=== PATIENT | male | born 1950 | race Caucasian/White ===

== ENCOUNTER 2017-04-22 02:48 | Emergency (ER) | payer OTHER ==
[~2017-04-22] VITALS: Ht 182.9 cm; Wt 61.3 kg
[~2017-04-22 02:48] MED LIST: FLUT0.0529 NAE; FLV1 JT; LOPELIQ6 JT; NUTRLIQ61 JT; [UNRECOGNIZED DRUG - CODE] JT
[2017-04-22 02:49] VITALS: TEMP 36.5; Ht 182.9 cm; Wt 61.3 kg
--- NOTE | 2017-04-22 03:14 | EMERGENCY ROOM VISIT NOTE ---
History Report prepared by Ella: Binh Gaona Under the Supervision of: Dr. Erica Armijo D.O. First contact with patient: 02:57 Chief Complaint: BACK PAIN Stated Complaint: SEVERE BACK PAIN History of Present Illness The patient is a 67 year old male who presents to the Emergency Room with complaints of severe lower back pain that the patient has been experiencing intermittently for the past couple of weeks. The patient states that his pain is across his entire lower back and radiates up into his rib cage. He rates this pain as a 10/10 in severity. The pain is worsened by deep inhalation, and he did feel short of breath. He notes that he did attempt to lift an air conditioner a couple of weeks ago and thought he might have hurt his back. The patient also has a history of kidney stones and notes that this pain does feel similar to what he has experienced in the past. He denies any nausea at this time. Source of History: patient Onset: a couple of weeks ago Symptom Intensity: 10/10 Timing: intermittent Modifying Factors (Worsening): other (Deep inhalation) Associated Symptoms: + SOB Note: Rib pain Review of Systems See HPI for pertinent positives & negatives. A total of 10 systems reviewed and were otherwise negative. Past Medical & Surgical Medical Problems: (1) Gall stones (2) Hiatal hernia repair (3) Jejunostomy tube present (4) Kidney stones (5) Low hemoglobin (6) Spit fistula in place Surgical Problems: (1) History of splenectomy Family History Cancer Gallbladder disease Lung cancer MOTHER ME (myocardial infarction) FATHER Social History Smoking Status: Never Smoker Alcohol Use: none Drug Use: none Marital Status: Housing Status: lives with family Occupation Status: disabled Current/Historical Medications Scheduled Enteral Nutrition Formula (Peptamen 1.5), 6 CAN JT UD Folic Acid (Folic Acid), 2 TABS JT BID Sodium Citrate & Citric Acid (Cytra-2), 30 ML JT QAM Scheduled PRN Fluticasone Propionate (Nasal) (Flonase), 1-2 SPRAYS JOSE L DAILY PRN for Nasal Congestion Loperamide Hcl (Imodium A-D), 20 ML JT DAILY PRN for PRN Oxycodone/Acetaminophen 5MG/325MG (Percocet 5MG/325MG), 1-2 TABLETS PO Q6 PRN for Pain Allergies Coded Allergies: Moxifloxacin (Verified Allergy, Unknown, Pt said he could barely walk, ) Simvastatin (Verified Allergy, Unknown, " my legs cramp up", 09/21/16) Sulfamethoxazole (Verified Allergy, Unknown, SEVERE DIARRHEA, 09/21/16) Physical Exam Vital Signs Date Time Temp Pulse Resp B/P (MAP) Pulse Ox O2 Delivery O2 Flow Rate FiO2 04/22/17 04:48 57 16 130/74 97 Room Air 04/22/17 03:27 56 04/22/17 02:49 36.5 67 18 125/79 96 Room Air Physical Exam HEENT: Head - normocephalic and atraumatic Pupils are equal, round, and reactive to light. Extraocular eye muscles are intact, and sclera are anicteric. Nose - moist nasal mucosa without discharge. Mouth - moist buccal mucosa. Oropharynx is nonerythematous and there is no tonsillar exudate or edema noted. Neck: Supple; no JVD, nuchal rigidity, cervical lymphadenopathy, or auscultated bruits. Heart: Regular rate and rhythm. There is a normal S1 and S2 with no murmurs, clicks, or gallops appreciated. Lungs: Clear to auscultation bilaterally with no wheezes, rales, or rhonchi. Abdomen: Soft, completely nontender, nondistended, with good bowel sounds. There are no palpable pulsatile masses or hepatosplenomegaly. There is no guarding, rigidity, or rebound noted. Back: There are no skin lesions noted. No reproducible pain over the midline or lumbar spine. There is no flank pain to palpation. Extremities: No evidence of cyanosis, clubbing, or edema. There are easily palpable peripheral pulses. Skin: warm and dry with good turgor and no rashes. Medical Decision & Procedures ER Provider Diagnostic Interpretation: Radiology results as stated below per my review: CHEST X-RAY: No pulmonary infiltrates, no pneumothorax. When compared to January 2015 no change. Laboratory Results 04/22/17 03:20 04/22/17 03:20 Test 04/22/17 03:20 04/22/17 04:20 Red Blood Count 3.16 M/uL (4.7-6.1) Mean Corpuscular Volume 98.7 fL (80-100) Mean Corpuscular Hemoglobin 32.3 pg (25-34) Mean Corpuscular Hemoglobin Concent 32.7 g/dl (32-36) RDW Standard Deviation 43.1 fL (36.4-46.3) RDW Coefficient of Variation 11.9 % (11.5-14.5) Mean Platelet Volume 9.8 fL (7.4-10.4) D-Dimer 310 ug/L FEU (0-500) Anion Gap 8.0 mmol/L (3-11) Est Creatinine Clear Calc Drug Dose 39.9 ml/min Estimated GFR () 51.6 Estimated GFR (Non- 44.5 BUN/Creatinine Ratio 51.3 (10-20) Calcium Level 9.0 mg/dl (8.5-10.1) Total Bilirubin 0.3 mg/dl (0.2-1) Direct Bilirubin < 0.1 mg/dl (0-0.2) Aspartate Amino Transf (AST/SGOT) 25 U/L (15-37) Alanine Aminotransferase (ALT/SGPT) 33 U/L (12-78) Alkaline Phosphatase 275 U/L (45-117) Troponin I < 0.015 ng/ml (0-0.045) Total Protein 7.2 gm/dl (6.4-8.2) Albumin 3.4 gm/dl (3.4-5.0) Lipase 159 U/L (73-393) Urine Color YELLOW Urine Appearance CLEAR (CLEAR) Urine pH 5.0 (4.5-7.5) Urine Specific [place] 1.019 (1.000-1.030) Urine Protein 3+ (NEG) Urine Glucose (UA) NEG (NEG) Urine Ketones NEG (NEG) Urine Occult Blood NEG (NEG) Urine Nitrite NEG (NEG) Urine Bilirubin NEG (NEG) Urine Urobilinogen NEG (NEG) Urine Leukocyte Esterase TRACE (NEG) Urine WBC (Auto) 1-5 /hpf (0-5) Urine RBC (Auto) 0-4 /hpf (0-4) Urine Hyaline Casts (Auto) 1-5 /lpf (0-5) Urine Epithelial Cells (Auto) 5-10 /lpf (0-5) Urine Bacteria (Auto) NEG (NEG) Laboratory results per my review. Medications Administered Medications (Trade) Dose Ordered Sig/Maame Route Start Time Stop Time Status Last Admin Dose Admin Hydromorphone HCl (Dilaudid Inj) 1 mg NOW STAT IV 04/22/17 03:21 04/22/17 03:22 DC 04/22/17 03:33 1 MG Ketorolac Tromethamine (Toradol Inj) 30 mg NOW STAT IV 04/22/17 03:21 04/22/17 03:22 DC 04/22/17 03:33 30 MG Procedure Medications Ordered: Toradol and Dilaudid ECG Indication: SOB/dyspnea Rate (beats per minute): 54 Rhythm: sinus bradycardia Findings: no acute ischemic change, no ectopy Comparison ECG Date: 08/02/16 Change: no significant change ED Course 0303: Past medical records reviewed. The patient was evaluated in room A2. A complete history and physical exam was performed. A twelve-lead EKG was obtained as described above. An IV lock was initiated and labs were drawn as above. 0321: Ordered Toradol 30 mg IV, Dilaudid 1 mg IV. A chest x-ray was obtained with no obvious pneumothorax. 0431: I checked on the patient at this time. He is much more comfortable after receiving pain medication. His vital signs remain stable. 0444: Upon reevaluation, the patient was feeling much improved. I discussed findings and results with him. He verbalized agreement of the treatment plan. The patient was discharged home. Medical Decision The patient is a 67 year old male who presents to the Emergency Department for lower back pain that radiates up through his lateral rib cage. The patient has increased pain with deep breathing. Differential Diagnosis incudes; Pneumonia, kidney stone, costochondritis, mid back pain, pulmonary embolism, cardiac ischemia. Laboratory Results were reviewed and show: no Leukocytes, he is anemic with a hemoglobin of 10.2 which is baseline for him, BUN of 82, Creatinine of 1.6, glucose of 112, LFT and lipase are normal, D-dimer is normal at 310. Urinalysis revealed trace leukocyte esterase, no blood. Blood Pressure Screening: Patient was found to have a slightly elevated blood pressure due to circumstances. I do not believe that the patient requires hypertension monitoring. I attest that I have personally reviewed the patient's current medication list. The patient's pain is diffuse. He describes similar pain when he had a kidney stone in the past. There is no blood noted in the patient's urine therefore I do not suspect a kidney stone. The patient's pain could not be reproduced on physical exam. He does describe the pain as radiating from his low back up through his rib cage bilaterally. There is no evidence of pneumothorax or PE. [place] Drug Monitoring Program Search Results: patient reviewed within database Drug Monitoring Findings: No patient data found. Impression Primary Impression: Radiating back pain Scribe Attestation The scribe's documentation has been prepared under my direction and personally reviewed by me in its entirety. I confirm that the note above accurately reflects all work, treatment, procedures, and medical decision making performed by me. Departure Information Dispostion Home / Self-Care Prescriptions Oxycodone/Acetaminophen 5MG/325MG (PERCOCET 5MG/325MG) Tab 1-2 TABLETS PO Q6 Y for Pain, #20 TAB Prov: Erica Armijo D.O. 04/22/17 Referrals Freddie Zuleta M.D. (PCP) Forms HOME CARE DOCUMENTATION FORM, IMPORTANT VISIT INFORMATION Patient Instructions My [facility] Additional Instructions Rest No heavy lifting Percocet - 1-2 tabs every 6 hours for pain Follow up with PCP if pain persists Return to the ER if symptoms worsen
[2017-04-22] MEDS ORDERED: HYDROmorphone INJ 1 MG/ML SYR IV STA (03:21)
[2017-04-22] MEDS ORDERED: KETOROLAC TROMETHAMINE 30 MG/ML VIAL IV STA (03:21)
[2017-04-22 03:36] LABS: HEMATOCRIT 31.2 % (42-52); MEAN CELL VOLUME 98.7 fL (80-100); MEAN CORPUSCULAR HEMOGLOBIN 32.3 pg (25-34); MEAN CORPUSCULAR HGB CONC 32.7 g/dl (32-36); MEAN PLATELET VOLUME 9.8 fL (7.4-10.4); PLATELET COUNT 410 K/uL (130-400); RED BLOOD COUNT 3.16 M/uL (4.7-6.1); WHITE BLOOD COUNT 9.18 K/uL (4.8-10.8)
[2017-04-22 03:55] LABS: ALT/SGPT 33 U/L (12-78); AST/SGOT 25 U/L (15-37); BLOOD UREA NITROGEN 82 mg/dl (7-18); BUN/CREATININE RATIO 51.3 (10-20); CARBON DIOXIDE 28 mmol/L (21-32); CHLORIDE 99 mmol/L (98-107); GLUCOSE 112 mg/dl (70-99); POTASSIUM 3.9 mmol/L (3.5-5.1); SODIUM 135 mmol/L (136-145)
[2017-04-22 04:00] LABS: ALKALINE PHOSPHATASE 275 U/L (45-117)
[2017-04-22 04:35] LABS: URINE APPEARANCE CLEAR (CLEAR); URINE BILIRUBIN NEG (NEG); URINE COLOR YELLOW; URINE NITRITE NEG (NEG); URINE SPECIFIC GRAVITY 1.019 (1.000-1.030); UROBILINOGEN NEG (NEG)
[2017-04-22 04:38] LABS: MANUAL MICROSCOPIC REQUIRED? NO; REVIEW REQ? NO
[2017-04-22 04:48] VITALS: BP 130/74; PULSE 57; O2SAT 97
[2017-04-22] MEDS ORDERED: OXYC-57 PO (04:52)
--- NOTE | 2017-04-22 06:57 | DIAGNOSTIC IMAGING REPORT ---
CHEST 2 VIEWS ROUTINE CLINICAL HISTORY: Bilateral rib cage pain. Shortness of breath. COMPARISON STUDY: Chest radiograph January 07, 2015. FINDINGS: There is no pneumothorax or pleural effusion. Mild left lower lung opacity suggest atelectasis. There is no evidence of pulmonary edema. There are median sternotomy wires and mediastinal surgical clips. There are abdominal clips and coils. There is a possible minimally displaced fracture of a left lateral rib, possibly the fifth rib. A small metallic density projects over the right lower chest. This is unchanged. IMPRESSION: 1. No pneumothorax. 2. Possible acute minimally displaced fracture of a left lateral rib, possibly the fifth rib. Electronically signed by: Cheng Sykes M.D. 04/22/2017 6:55 AM Dictated Date/Time: 04/22/2017 6:51 AM
[2017-07-24] MEDS ORDERED: CALC0.2510 PO (12:03)
[2017-07-24] MEDS ORDERED: VITAMIN B IM (12:03)
[2017-07-24] MEDS ORDERED: ONDA4TAB46 PO (12:03)
== END 2017-04-22 04:58 | disposition home or self-care (01) ==
LOC: C.EDB 02:49 → C.EDA 04:58
DX: M54.5 Low back pain (principal); Z87.442 Personal history of urinary calculi; Z90.81 Acquired absence of spleen; Z80.9 Family history of malignant neoplasm, unspecified; Z82.49 Family history of ischemic heart disease and other diseases of the circulatory system; Z80.1 Family history of malignant neoplasm of trachea, bronchus and lung; Z79.899 Other long term (current) drug therapy

== ENCOUNTER → 2017-04-24 | Outpatient (CLI) | payer OTHER ==
[~2017-04-24] MED LIST changes: +CALC0.2510 PO; +ONDA4TAB46 PO; +OXYC-57 PO; +VITAMIN B IM
== END | disposition home or self-care (01) ==
LOC: C.LABMFLN 15:06
PROVIDERS: ATTEND Family Medicine
DX: E55.9 Vitamin D deficiency, unspecified (principal)

== ENCOUNTER → 2017-05-15 | Outpatient (CLI) | payer OTHER ==
[2017-05-18 08:11] LABS: ALBUMIN % 67.47 %; ALPHA-2-GLOBULIN % 5.93 %; BETA GLOBULIN % 10.37 %; CREATININE UR 37 MG/DL (20-370); GAMMA GLOBULIN % 10.84 %
[2017-05-18 19:54] LABS: ALBUMIN 3.7 G/DL (3.8-4.8); GAMMA GLOBULIN 0.9 G/DL (0.8-1.7); TOTAL PROTEIN 6.8 G/DL (6.2-8.3)
== END | disposition home or self-care (01) ==
LOC: C.LABMFLN 11:33
PROVIDERS: ATTEND Family Medicine
DX: M81.0 Age-related osteoporosis without current pathological fracture (principal)

== ENCOUNTER → 2017-05-18 | Outpatient (CLI) | payer OTHER | END | disposition home or self-care (01) | LOC: C.LABMFLN 11:19 | PROVIDERS: ATTEND Family Medicine | DX: M81.0 Age-related osteoporosis without current pathological fracture (principal) ==

== ENCOUNTER 2017-10-16 20:07 | Inpatient (IN) | payer OTHER ==
[~2017-10-16] VITALS: Ht 182.9 cm; Wt 59.0 kg
[~2017-10-16 20:07] MED LIST changes: -OXYC-57 PO
[2017-10-16] MEDS ORDERED: SODIUM CHLORIDE 0.9% 1000ML 1,000 ML IV STA ×2 (20:25→20:37)
[2017-10-16] MEDS ORDERED: SODIUM CHLORIDE 0.9% 500ML 500 ML IV STA (20:37)
[2017-10-16] MEDS ORDERED: ONDANSETRON INJ 2 MG/ML 2 ML VIAL IV STA (20:37)
[2017-10-16 20:59] LABS: BASO % 0.1 %; BASO ABS # 0.01 K/uL (0-0.2); COMPLETE YES; EOS % 0.6 %; HEMATOCRIT 37.1 % (42-52); IG% 0.2 %; LYMPH ABS # 1.19 K/uL (1.2-3.4); MEAN CELL VOLUME 94.2 fL (80-100); MEAN CORPUSCULAR HEMOGLOBIN 33.8 pg (25-34); MEAN CORPUSCULAR HGB CONC 35.8 g/dl (32-36); MEAN PLATELET VOLUME 11.2 fL (7.4-10.4); MONO % 8.4 %; NEUT % 78.7 %; PLATELET COUNT 326 K/uL (130-400); RED BLOOD COUNT 3.94 M/uL (4.7-6.1); WHITE BLOOD COUNT 9.91 K/uL (4.8-10.8)
--- NOTE | 2017-10-16 21:09 | DIAGNOSTIC IMAGING REPORT ---
CHEST ONE VIEW PORTABLE CLINICAL HISTORY: 67 years-old Male presenting with wheezes, prior gastrectomy, fistula MARY chest.. TECHNIQUE: Portable upright AP view of the chest was obtained. COMPARISON: 04/22/2017. FINDINGS: Median sternotomy wires and mediastinal surgical clips unchanged. Atherosclerosis of aortic arch. Chronic silhouette top normal in size. Blunting of the left costophrenic angle with likely left pleural fluid increased from prior. Left basilar opacity. Right lung and pleural space clear. Osseous structures normal. Endovascular coils noted in the upper abdomen. IMPRESSION: 1. Blunting of the left hemidiaphragm could relate to left pleural effusion and basilar atelectasis, postsurgical change, or consolidation. No other focal infiltrate. Electronically signed by: Jah Wilde M.D. 10/16/2017 9:08 PM Dictated Date/Time: 10/16/2017 9:06 PM
[2017-10-16 21:19] LABS: MANUAL MICROSCOPIC REQUIRED? NO; REVIEW REQ? NO; URINE APPEARANCE CLEAR (CLEAR); URINE BILIRUBIN NEG (NEG); URINE COLOR YELLOW; URINE NITRITE NEG (NEG); URINE SPECIFIC GRAVITY 1.013 (1.000-1.030); UROBILINOGEN NEG (NEG); ZZUR CULT IF INDIC CLEAN CATCH NO
--- NOTE | 2017-10-16 21:30 | DIAGNOSTIC IMAGING REPORT ---
ABD/PELVIS NO IV OR ORAL CONT CLINICAL HISTORY: 67 years-old Male presenting with nausea, h/o of gastrectomy. TECHNIQUE: Multidetector CT of the abdomen and pelvis was performed without the use of intravenous contrast. IV contrast: None. A dose lowering technique was used consistent with the principles of ALARA (as low as reasonably achievable). COMPARISON: 09/24/15. CT DOSE (mGy.cm): The estimated cumulative dose is 277.50 mGy.cm. FINDINGS: Tool Trouble Shooter topogram: Pigtail drain projects over the left midabdomen. Endovascular coils noted in the abdomen. Lung bases: Minimal dependent bandlike opacities, reticulation and punctate calcification, possible scarring and/or chronic aspiration. Obstruction of several subsegmental airways of fluid with debris or mucus. Aortic valve calcification. Normal heart size. No pericardial or pleural effusion. Liver: Normal morphology. Normal density. Endovascular coils noted within the inferior right hepatic lobe indicating prior intervention. Biliary: Suggestion of mild diffuse intrahepatic biliary ductal dilatation. Gallbladder contains gallstones. Pancreas: Moderate parenchymal atrophy. Spleen: Surgically absent. Adrenal glands: Normal noncontrast appearance. Kidneys and ureters: Normal noncontrast appearance. No nephrolithiasis. No hydronephrosis. Normal ureters. Bladder: Mild diffuse circumferential bladder wall thickening. Pelvic organs: Prostate enlargement likely secondary to benign prostatic hyperplasia. Bowel: Diverticulosis of the sigmoid colon. The appendix is normal. No bowel obstruction. Postsurgical changes of gastrectomy. A jejunostomy tube is in place in the left abdomen. Additionally, there are 2 widely patent small bowel anastomosis in the left mid abdomen. Peritoneal cavity: No free fluid or intraperitoneal gas. Lymph nodes: Prominent aortocaval lymph node measures 7 mm in the short axis (series 3 image 135). No pathologically enlarged lymph nodes by CT size criteria. Vasculature: Atherosclerosis of the normal caliber abdominal aorta. Abdominal wall: Postsurgical changes of the midline ventral abdominal wall. Musculoskeletal: Evidence of age indeterminate fractures of several anterolateral right ribs. IMPRESSION: 1. Postsurgical changes of gastrectomy with two grossly patent small bowel anastomoses in the left midabdomen. Jejunostomy tube in place. No bowel obstruction or complication is evident allowing for noncontrast technique. 2. Findings suggest chronic bladder outlet obstruction secondary to prostatic megaly. Electronically signed by: Jah Wilde M.D. 10/16/2017 9:28 PM Dictated Date/Time: 10/16/2017 9:19 PM
[2017-10-16 21:41] LABS: ALKALINE PHOSPHATASE 356 U/L (45-117); ALT/SGPT 165 U/L (12-78); AST/SGOT 118 U/L (15-37); BLOOD UREA NITROGEN 124 mg/dl (7-18); BUN/CREATININE RATIO 48.4 (10-20); CALCIUM 8.2 mg/dl (8.5-10.1); CARBON DIOXIDE 40 mmol/L (21-32); CHLORIDE 68 mmol/L (98-107); CREATININE 2.57 mg/dl (0.60-1.40); GLUCOSE 133 mg/dl (70-99); POTASSIUM 2.8 mmol/L (3.5-5.1); SODIUM 118 mmol/L (136-145)
[2017-10-16] MEDS ORDERED: POTASSIUM CHLORIDE 10 MEQ / 100ML WTR IV STA (21:52)
[2017-10-16] MEDS ORDERED: FOLI1TAB8 PO (22:31)
[2017-10-16] MEDS ORDERED: LOPELIQ6 PO (22:31)
[2017-10-16] MEDS ORDERED: CYTRA 2 (22:31)
[2017-10-16] MEDS ORDERED: CALC1CAP36 PO (22:31)
[2017-10-16] MEDS ORDERED: [UNRECOGNIZED DRUG - CODE] JT (22:31)
[2017-10-16] MEDS ORDERED: NUTR-673 PO (22:31)
[2017-10-16] MEDS ORDERED: FLUT0.15 NAE (22:31)
[2017-10-16] MEDS ORDERED: ONDA4TAB10 SL (22:31)
[2017-10-16] MEDS ORDERED: CYNI1000 IM (22:31)
[2017-10-16] MEDS ORDERED: [UNRECOGNIZED DRUG - CODE] IV (22:31)
[2017-10-17] VITALS (8 sets, daily range): BP systolic 103–127; BP diastolic 68–77; PULSE 62–73; TEMP 36.5–37; O2SAT 95–98; Ht 182.9 cm; Wt 59.0 kg
[2017-10-17] MEDS ORDERED: MAGNESIUM HYDROXIDE SUSP 30 ML UDC PO PRN (00:15)
[2017-10-17] MEDS ORDERED: LOPERAMIDE LIQUID 1MG/7.5ML 120ML BTL PO PRN (00:15)
[2017-10-17] MEDS ORDERED: POLYETHYLENE (MIRALAX) 17 GM PACK PO PRN (00:15)
[2017-10-17] MEDS ORDERED: ALUMINUM/MAGNESIUM/SIMETH (MAALOX MAX) 30 ML UDC PO PRN (00:15)
[2017-10-17] MEDS ORDERED: ONDANSETRON INJ 2 MG/ML 2 ML VIAL IV PRN (00:15)
[2017-10-17] MEDS ORDERED: COPPER IV SCH (00:15)
[2017-10-17] MEDS ORDERED: ZINC IV SCH (00:15)
[2017-10-17] MEDS ORDERED: FLUTICASONE PROPIONATE NA SPR 16 GM BTL NAE PRN (00:15)
[2017-10-17] MEDS ORDERED: MANGANESE IV SCH (00:15)
[2017-10-17] MEDS ORDERED: [UNRECOGNIZED DRUG - OTHER] IV SCH (00:15)
[2017-10-17] MEDS ORDERED: SELENIUM IV SCH (00:15)
[2017-10-17] MEDS ORDERED: POTASSIUM CHLORIDE 20 MEQ TABCR PO STA (00:32)
[2017-10-17] MEDS ORDERED: SODIUM CHLORIDE 0.9% IRRIG 1,000 ML PLCT IR SCH (01:00)
--- NOTE | 2017-10-17 01:45 | EMERGENCY ROOM VISIT NOTE ---
History Report prepared by Ella: Aisha Yanez Under the Supervision of: Dr. Madi Servin M.D. First contact with patient: 20:18 Chief Complaint: ABDOMINAL PAIN Stated Complaint: WEAKNESS, NAUSEA History of Present Illness The patient is a 67 year old male who presents to the Emergency Room with complaints of worsening abdominal pain starting five days ago. He states that it became worse today. He states that the pain is a burning sensation. The patient reports that he feels fatigued. He states that he went to the bathroom and felt his strength leave him. He reports that he felt like he was going to pass out, but was too weak to even call for help from his . The patient currently rates his pain as a 5/10 in severity. The patient complains of drainage from near his tube, urinary frequency, wheezing, diarrhea, and nausea. He states that the drainage is not from the tube and is not normal, but has been present since the tube was replaced. He states that today was the first time that he defecated in four days and that the urinary frequency has been normal since his surgery mess up. The patient states that he had gone into [place] for a repair of a hiatal hernia that left him without his stomach and no one knows how or why. He reports that he spent 6 months in ICU and had to relearn to walk again. He reports that in the past when he was weak he was anemic and required blood transfusions. The patient states that he intakes nothing by mouth, but notes that he takes 300 ml of water every 3 hours through his tube. Pt denies LOC, headache, fevers, chills, diaphoresis, visual changes, neck pain , chest pain, breathing difficulties, vomiting, back pain, melena, hematochezia , numbness, lymphadenopathy, rash, or other complaints. Source of History: patient Onset: five days ago Position: abdomen Symptom Intensity: 5/10 Quality: burning Timing: worsening Associated Symptoms: + nausea, + diarrhea, + urinary symptoms Note: The patient complains of drainage near his tube and wheezing. Review of Systems See HPI for pertinent positives and negatives. A total of ten systems were reviewed and were otherwise negative. Past Medical & Surgical Medical Problems: (1) HAYLEY (acute kidney injury) (2) Gall stones (3) Hiatal hernia repair (4) Hyponatremia (5) Jejunostomy tube present (6) Kidney stones (7) Low hemoglobin (8) Spit fistula in place Surgical Problems: (1) History of splenectomy Family History Cancer Gallbladder disease Lung cancer MOTHER [place] (myocardial infarction) FATHER Social History Smoking Status: Never Smoker Alcohol Use: none Drug Use: none Marital Status: Housing Status: lives with family Occupation Status: disabled Current/Historical Medications Scheduled Calcitriol (Calcitriol), 0.25 MCG PO BID Cyanocobalamin (Cyanocobalamin), 1 DOSE IM MONTHLY Distilled Water (Distilled Water), 300 ML JT Q3HRS Enteral Nutrition Formula (Jevity 1.5 Bart), 1 CAN PO UD Folic Acid (Folvite), 1 MG PO AMPM Trace Minerals (Iv-Jv-Fc-Se-Zn (Multitrace-5 Concentrate), 1 UNIT IV 3XWK [Cytra 2 ], 15 ML QAM Scheduled PRN Fluticasone Propionate (Nasal) (Flonase Allergy Relief), 1-2 SPRAYS JOSE L DAILY PRN for ALLERGIES Loperamide Hcl (Imodium A-D), 20 ML PO Q6 PRN for Diarrhea Ondasetron Odt (Zofran Odt), 4 MG SL TID PRN for Nausea Allergies Coded Allergies: Moxifloxacin (Verified Allergy, Unknown, Pt said he could barely walk, ) Simvastatin (Verified Allergy, Unknown, " my legs cramp up", 10/16/17) Sulfamethoxazole (Verified Allergy, Unknown, SEVERE DIARRHEA, 10/16/17) Oxycodone (Verified Adverse Reaction, Unknown, NAUSEA, 10/16/17) Tramadol (Verified Adverse Reaction, Unknown, NAUSEA, 10/16/17) Physical Exam Vital Signs Date Time Temp Pulse Resp B/P (MAP) Pulse Ox O2 Delivery O2 Flow Rate FiO2 10/17/17 01:15 75 18 109/68 98 10/17/17 00:26 69 18 112/70 97 Room Air 10/17/17 00:11 87 10/16/17 22:31 85 18 126/75 98 Room Air 10/16/17 20:37 73 10/16/17 20:11 36.5 85 18 118/80 94 Room Air Physical Exam GENERAL: Awake, alert, frail-appearing, in no distress HENT: Normocephalic, atraumatic. Oropharynx unremarkable. EYES: Normal conjunctiva. Sclera non-icteric. NECK: Supple. No nuchal rigidity. FROM. No JVD. RESPIRATORY: Clear to auscultation. CARDIAC: Regular rate, normal rhythm. Extremities warm and well perfused. Pulses equal. ABDOMEN: Soft, non-distended. No tenderness to palpation. No rebound or guarding. No masses. J tube in LUQ. RECTAL: Deferred. MUSCULOSKELETAL: Chest examination reveals no tenderness. Fistula in left upper chest. The back is symmetrical on inspection without obvious abnormality. There is no CVA tenderness to palpation. No joint edema. LOWER EXTREMITIES: Calves are equal size bilaterally and non-tender. No edema. No discoloration. NEURO: Normal sensorium. No sensory or motor deficits noted. SKIN: No rash or jaundice noted. Medical Decision & Procedures ER Provider Diagnostic Interpretation: Radiology results as stated below per my review and radiologist interpretation: CHEST ONE VIEW PORTABLE CLINICAL HISTORY: 67 years-old Male presenting with wheezes, prior gastrectomy, fistula MARY chest.. TECHNIQUE: Portable upright AP view of the chest was obtained. COMPARISON: 04/22/2017. FINDINGS: Median sternotomy wires and mediastinal surgical clips unchanged. Atherosclerosis of aortic arch. Chronic silhouette top normal in size. Blunting of the left costophrenic angle with likely left pleural fluid increased from prior. Left basilar opacity. Right lung and pleural space clear. Osseous structures normal. Endovascular coils noted in the upper abdomen. IMPRESSION: 1. Blunting of the left hemidiaphragm could relate to left pleural effusion and basilar atelectasis, postsurgical change, or consolidation. No other focal infiltrate. Electronically signed by: Jah Wilde M.D. 10/16/2017 9:08 PM Dictated Date/Time: 10/16/2017 9:06 PM ABD/PELVIS NO IV OR ORAL CONT CLINICAL HISTORY: 67 years-old Male presenting with nausea, h/o of gastrectomy. TECHNIQUE: Multidetector CT of the abdomen and pelvis was performed without the use of intravenous contrast. IV contrast: None. A dose lowering technique was used consistent with the principles of ALARA (as low as reasonably achievable). COMPARISON: 09/24/15. CT DOSE (mGy.cm): The estimated cumulative dose is 277.50 mGy.cm. FINDINGS: Chief Business Development Officer topogram: Pigtail drain projects over the left midabdomen. Endovascular coils noted in the abdomen. Lung bases: Minimal dependent bandlike opacities, reticulation and punctate calcification, possible scarring and/or chronic aspiration. Obstruction of several subsegmental airways of fluid with debris or mucus. Aortic valve calcification. Normal heart size. No pericardial or pleural effusion. Liver: Normal morphology. Normal density. Endovascular coils noted within the inferior right hepatic lobe indicating prior intervention. Biliary: Suggestion of mild diffuse intrahepatic biliary ductal dilatation. Gallbladder contains gallstones. Pancreas: Moderate parenchymal atrophy. Spleen: Surgically absent. Adrenal glands: Normal noncontrast appearance. Kidneys and ureters: Normal noncontrast appearance. No nephrolithiasis. No hydronephrosis. Normal ureters. Bladder: Mild diffuse circumferential bladder wall thickening. Pelvic organs: Prostate enlargement likely secondary to benign prostatic hyperplasia. Bowel: Diverticulosis of the sigmoid colon. The appendix is normal. No bowel obstruction. Postsurgical changes of gastrectomy. A jejunostomy tube is in place in the left abdomen. Additionally, there are 2 widely patent small bowel anastomosis in the left mid abdomen. Peritoneal cavity: No free fluid or intraperitoneal gas. Lymph nodes: Prominent aortocaval lymph node measures 7 mm in the short axis (series 3 image 135). No pathologically enlarged lymph nodes by CT size criteria. Vasculature: Atherosclerosis of the normal caliber abdominal aorta. Abdominal wall: Postsurgical changes of the midline ventral abdominal wall. Musculoskeletal: Evidence of age indeterminate fractures of several anterolateral right ribs. IMPRESSION: 1. Postsurgical changes of gastrectomy with two grossly patent small bowel anastomoses in the left midabdomen. Jejunostomy tube in place. No bowel obstruction or complication is evident allowing for noncontrast technique. 2. Findings suggest chronic bladder outlet obstruction secondary to prostatic megaly. Electronically signed by: Jah Wilde M.D. 10/16/2017 9:28 PM Dictated Date/Time: 10/16/2017 9:19 PM Laboratory Results 10/16/17 20:47 Red Blood Count 3.94, Mean Corpuscular Volume 94.2, Mean Corpuscular Hemoglobin 33.8, Mean Corpuscular Hemoglobin Concent 35.8, Mean Platelet Volume 11.2, Neutrophils (%) (Auto) 78.7, Lymphocytes (%) (Auto) 12.0, Monocytes (%) (Auto) 8.4, Eosinophils (%) (Auto) 0.6, Basophils (%) (Auto) 0.1, Neutrophils # (Auto) 7.80, Lymphocytes # (Auto) 1.19, Monocytes # (Auto) 0.83, Eosinophils # (Auto) 0.06, Basophils # (Auto) 0.01 10/16/17 20:47 Test 10/16/17 20:47 10/16/17 21:04 White Blood Count 9.91 K/uL (4.8-10.8) Red Blood Count 3.94 M/uL (4.7-6.1) Hemoglobin 13.3 g/dL (14.0-18.0) Hematocrit 37.1 % (42-52) Mean Corpuscular Volume 94.2 fL (80-100) Mean Corpuscular Hemoglobin 33.8 pg (25-34) Mean Corpuscular Hemoglobin Concent 35.8 g/dl (32-36) Platelet Count 326 K/uL (130-400) Mean Platelet Volume 11.2 fL (7.4-10.4) Neutrophils (%) (Auto) 78.7 % Lymphocytes (%) (Auto) 12.0 % Monocytes (%) (Auto) 8.4 % Eosinophils (%) (Auto) 0.6 % Basophils (%) (Auto) 0.1 % Neutrophils # (Auto) 7.80 K/uL (1.4-6.5) Lymphocytes # (Auto) 1.19 K/uL (1.2-3.4) Monocytes # (Auto) 0.83 K/uL (0.11-0.59) Eosinophils # (Auto) 0.06 K/uL (0-0.5) Basophils # (Auto) 0.01 K/uL (0-0.2) RDW Standard Deviation 39.7 fL (36.4-46.3) RDW Coefficient of Variation 11.6 % (11.5-14.5) Immature Granulocyte % (Auto) 0.2 % Immature Granulocyte # (Auto) 0.02 K/uL (0.00-0.02) Anion Gap 10.0 mmol/L (3-11) Est Creatinine Clear Calc Drug Dose 19.9 ml/min Estimated GFR () 29.1 Estimated GFR (Non- 25.1 BUN/Creatinine Ratio 48.4 (10-20) Osmolality 298 mOsm/kg (280-300) Calcium Level 8.2 mg/dl (8.5-10.1) Total Bilirubin 0.5 mg/dl (0.2-1) Direct Bilirubin 0.2 mg/dl (0-0.2) Aspartate Amino Transf (AST/SGOT) 118 U/L (15-37) Alanine Aminotransferase (ALT/SGPT) 165 U/L (12-78) Alkaline Phosphatase 356 U/L (45-117) Troponin I < 0.015 ng/ml (0-0.045) Total Protein 8.4 gm/dl (6.4-8.2) Albumin 3.7 gm/dl (3.4-5.0) Lipase 327 U/L (73-393) Urine Color YELLOW Urine Appearance CLEAR (CLEAR) Urine pH 7.0 (4.5-7.5) Urine Specific [place] 1.013 (1.000-1.030) Urine Protein 3+ (NEG) Urine Glucose (UA) NEG (NEG) Urine Ketones NEG (NEG) Urine Occult Blood NEG (NEG) Urine Nitrite NEG (NEG) Urine Bilirubin NEG (NEG) Urine Urobilinogen NEG (NEG) Urine Leukocyte Esterase NEG (NEG) Urine WBC (Auto) 1-5 /hpf (0-5) Urine RBC (Auto) 0-4 /hpf (0-4) Urine Hyaline Casts (Auto) 0 /lpf (0-5) Urine Epithelial Cells (Auto) 5-10 /lpf (0-5) Urine Bacteria (Auto) NEG (NEG) Laboratory results reviewed by me Medications Administered Medications (Trade) Dose Ordered Sig/Maame Route Start Time Stop Time Status Last Admin Dose Admin Sodium Chloride 1,000 ml @ 125 mls/hr Q8H STAT IV 10/16/17 20:25 10/17/17 04:24 10/16/17 20:56 125 MLS/HR Ondansetron HCl (Zofran Inj) 4 mg NOW STAT IV 10/16/17 20:37 10/16/17 20:39 DC 10/16/17 20:51 4 MG Sodium Chloride 500 ml @ 999 mls/hr Q31M STAT IV 10/16/17 20:37 10/16/17 21:07 DC 10/16/17 20:53 999 MLS/HR Potassium Chloride (Kcl 10 Meq / Wtr) 10 meq NOW STAT IV 10/16/17 21:52 10/16/17 21:54 DC 10/16/17 22:31 10 MEQ ECG Indication: weakness Rate (beats per minute): 80 Rhythm: sinus rhythm Findings: PAC, no acute ischemic change, other (nonspecific IVCV delay) ED Course 2024: Ordered NSS 1000 ml @ 125 ml/hr IV. 2035: The patient was evaluated in room B5. A complete history and physical exam was performed. 2036: Ordered NSS 500 ml @ 999 mls/hr IV, Zofran Inj 4 mg IV. 2147: I reevaluated the patient and updated him on his test results. 2151: Ordered Potassium Chloride 10 meq IV. 2209: Discussed the patient's case with Dr. Dennis. The patient will be evaluated for further treatment and disposition. Medical Decision Prior records/ancillary studies reviewed and summarized above. Nursing notes reviewed and agree them. Additional history obtained from his . The patient's history was concerning for weakness. Differential diagnosis: Etiologies such as metabolic, infection, hypo/hyperglycemia, electrolyte abnormalities, cardiac sources, intracerebral event, toxicologic, neurologic, intra-abdominal sources, as well as others were entertained. Physical examination: As above. ER treatment provided: IV Lock IV NSS IV Zofran IV potassium On reassessment the patient felt better. Diagnostics interpretation by me: ECG: No acute ischemia. The labs revealed an unremarkable CBC. Chemistry panel revealed significant hyponatremia and hypokalemia. Patient had acute kidney injury as well. Imaging studies: CT scan and CXR as above. The patient has significant left alone abnormalities and will need to be admitted. Consultation: A consultation was placed with the hospitalist. The case was discussed and diagnostics were reviewed. The patient was evaluated in the ER for further treatment. Medication Reconcilliation Current Medication List: was personally reviewed by me Blood Pressure Screening Patient's blood pressure: Normal blood pressure Will be further monitored by hospitalist. Consults Time Called: 2204 Consulting Physician: Dr. Dennis- Hospitalist Returned Call: 2209 Discussed the patient's case with Dr. Dennis. The patient will be evaluated for further treatment and disposition. Impression Primary Impression: Hyponatremia Additional Impressions: Hypokalemia Acute kidney injury Elevated LFTs Scribe Attestation The scribe's documentation has been prepared under my direction and personally reviewed by me in its entirety. I confirm that the note above accurately reflects all work, treatment, procedures, and medical decision making performed by me. Departure Information Dispostion Being Evaluated By Hospitalist Referrals No Doctor, Assigned (PCP) Patient Instructions My [facility] Problem Qualifiers
[2017-10-17] MEDS ORDERED: SODIUM CHLORIDE 0.9% 1000ML 1,000 ML IV SCH (03:30)
[2017-10-17 04:24] LABS: BUN/CREATININE RATIO 43.5 (10-20); CALCIUM 8.1 mg/dl (8.5-10.1); CREATININE 2.52 mg/dl (0.60-1.40); POTASSIUM 2.4 mmol/L (3.5-5.1)
--- NOTE | 2017-10-17 04:26 | History and Physical ---
History & Physical Date & Time of Service: Oct 17, 2017 at 04:10 Chief Complaint: Hayley, Hyponatremia Primary Care Physician: Freddie Zuleta M.D. History of Present Illness Source: patient, hospital records This is a 67 y/o M who presents with diarrhea and weakness x 5 days. He reports having taken Azithromycin early last week. The diarrhea started a few days later. He does not report a foul odor and has about 5 episodes a day. Currently he feels extremely fatigued and almost felt like passing out. He also complains of some abdominal pain. Pain is currently 6/10. He also reports increased drainage near his J tube. He reportedly underwent a hiatal hernia repair a few years ago that was complicated and he ended up losing his stomach. He currently has a J tube and a spit fistula. He takes in 300 ml every 3 hours through the tube He also take Jevity 6.5 times a day. His is in the room and reports that he has not been confused or disoriented. Past Medical/Surgical History Medical Problems: (1) Gall stones Status: Chronic (2) Hiatal hernia repair Status: Resolved (3) Jejunostomy tube present Status: Chronic (4) Kidney stones Status: Chronic (5) Spit fistula in place Status: Chronic Surgical Problems: (1) History of splenectomy Status: Resolved Family History Cancer Gallbladder disease Lung cancer MOTHER [place] (myocardial infarction) FATHER Social History Smoking Status: Never Smoker Smokeless Tobacco Use: No Alcohol Use: none Drug Use: none Marital Status: Housing status: lives with family Occupational Status: disabled Immunizations History of Influenza Vaccine: Yes History of Tetanus Vaccine?: Yes History of Pneumococcal: Yes History of Hepatitis B Vaccine: No Multi-Drug Resistant Organisms History of MDRO: No Allergies Coded Allergies: Moxifloxacin (Verified Allergy, Unknown, Pt said he could barely walk, ) Simvastatin (Verified Allergy, Unknown, " my legs cramp up", 10/16/17) Sulfamethoxazole (Verified Allergy, Unknown, SEVERE DIARRHEA, 10/16/17) Oxycodone (Verified Adverse Reaction, Unknown, NAUSEA, 10/16/17) Tramadol (Verified Adverse Reaction, Unknown, NAUSEA, 10/16/17) Home Medications Scheduled Calcitriol (Calcitriol), 0.25 MCG PO BID Cyanocobalamin (Cyanocobalamin), 1 DOSE IM MONTHLY Distilled Water (Distilled Water), 300 ML JT Q3HRS Enteral Nutrition Formula (Jevity 1.5 Bart), 1 CAN PO UD Folic Acid (Folvite), 1 MG PO AMPM Trace Minerals (Fl-Mc-Jc-Se-Zn (Multitrace-5 Concentrate), 1 UNIT IV 3XWK [Cytra 2 ], 15 ML QAM Scheduled PRN Fluticasone Propionate (Nasal) (Flonase Allergy Relief), 1-2 SPRAYS JOSE L DAILY PRN for ALLERGIES Loperamide Hcl (Imodium A-D), 20 ML PO Q6 PRN for Diarrhea Ondasetron Odt (Zofran Odt), 4 MG SL TID PRN for Nausea Review of Systems Constitutional: No fever, No chills Eyes: No worsening of vision Respiratory: No cough, No sputum, No wheezing, No shortness of breath, No dyspnea on exertion, No dyspnea at rest Cardiovascular: No chest pain Abdomen: + pain, + nausea, + diarrhea Genitourinary - Male: No hematuria, No dysuria, No urinary frequency Physical Exam Vital Signs Date Time Temp Pulse Resp B/P (MAP) Pulse Ox O2 Delivery O2 Flow Rate FiO2 10/17/17 03:22 36.8 73 18 127/71 (89) 96 Room Air 10/17/17 02:50 36.5 18 109/68 97 Room Air 10/17/17 01:15 75 18 109/68 98 10/17/17 00:26 69 18 112/70 97 Room Air 10/17/17 00:11 87 10/16/17 22:31 85 18 126/75 98 Room Air 10/16/17 20:37 73 10/16/17 20:11 36.5 85 18 118/80 94 Room Air General Appearance: no apparent distress Eyes: PERRL, EOMI Neck: supple, thyroid normal, no JVD Respiratory/Chest: lungs clear, normal breath sounds, no respiratory distress, no accessory muscle use Cardiovascular: regular rate, rhythm, no edema, + pertinent finding (spit fistula left upper chest) Abdomen/GI: normal bowel sounds, non tender, soft, + pertinent finding (J tube in place, yellowish drainage noted around dressing) Extremities/Musculoskelatal: normal inspection, no pedal edema Neurologic/Psych: no motor/sensory deficits, alert, oriented x 3 Diagnostics Laboratory Results Results Past 24 Hours Test 10/16/17 20:47 10/16/17 21:04 10/17/17 02:53 10/17/17 03:51 Range/Units White Blood Count 9.91 4.8-10.8 K/uL Red Blood Count 3.94 4.7-6.1 M/uL Hemoglobin 13.3 14.0-18.0 g/dL Hematocrit 37.1 42-52 % Mean Corpuscular Volume 94.2 80-100 fL Mean Corpuscular Hemoglobin 33.8 25-34 pg Mean Corpuscular Hemoglobin Concent 35.8 32-36 g/dl Platelet Count 326 130-400 K/uL Mean Platelet Volume 11.2 7.4-10.4 fL Neutrophils (%) (Auto) 78.7 % Lymphocytes (%) (Auto) 12.0 % Monocytes (%) (Auto) 8.4 % Eosinophils (%) (Auto) 0.6 % Basophils (%) (Auto) 0.1 % Neutrophils # (Auto) 7.80 1.4-6.5 K/uL Lymphocytes # (Auto) 1.19 1.2-3.4 K/uL Monocytes # (Auto) 0.83 0.11-0.59 K/uL Eosinophils # (Auto) 0.06 0-0.5 K/uL Basophils # (Auto) 0.01 0-0.2 K/uL RDW Standard Deviation 39.7 36.4-46.3 fL RDW Coefficient of Variation 11.6 11.5-14.5 % Immature Granulocyte % (Auto) 0.2 % Immature Granulocyte # (Auto) 0.02 0.00-0.02 K/uL Sodium Level 118 136-145 mmol/L Potassium Level 2.8 3.5-5.1 mmol/L Chloride Level 68 98-107 mmol/L Carbon Dioxide Level 40 21-32 mmol/L Anion Gap 10.0 3-11 mmol/L Blood Urea Nitrogen 124 7-18 mg/dl Creatinine 2.57 0.60-1.40 mg/dl Est Creatinine Clear Calc Drug Dose 19.9 ml/min Estimated GFR () 29.1 Estimated GFR (Non- 25.1 BUN/Creatinine Ratio 48.4 10-20 Random Glucose 133 70-99 mg/dl Osmolality 298 280-300 mOsm/kg Calcium Level 8.2 8.5-10.1 mg/dl Total Bilirubin 0.5 0.2-1 mg/dl Direct Bilirubin 0.2 0-0.2 mg/dl Aspartate Amino Transf (AST/SGOT) 118 15-37 U/L Alanine Aminotransferase (ALT/SGPT) 165 12-78 U/L Alkaline Phosphatase 356 45-117 U/L Troponin I < 0.015 0-0.045 ng/ml Total Protein 8.4 6.4-8.2 gm/dl Albumin 3.7 3.4-5.0 gm/dl Lipase 327 73-393 U/L Urine Color YELLOW Urine Appearance CLEAR CLEAR Urine pH 7.0 4.5-7.5 Urine Specific [place] 1.013 1.000-1.030 Urine Protein 3+ NEG Urine Glucose (UA) NEG NEG Urine Ketones NEG NEG Urine Occult Blood NEG NEG Urine Nitrite NEG NEG Urine Bilirubin NEG NEG Urine Urobilinogen NEG NEG Urine Leukocyte Esterase NEG NEG Urine WBC (Auto) 1-5 0-5 /hpf Urine RBC (Auto) 0-4 0-4 /hpf Urine Hyaline Casts (Auto) 0 0-5 /lpf Urine Epithelial Cells (Auto) 5-10 0-5 /lpf Urine Bacteria (Auto) NEG NEG Bedside Glucose 114 70-99 mg/dl Impression Assessment and Plan This is a 67 y/o M who presents with Weakness, diarrhea x 1 week Hyponatremia Mild symptoms Likely 2/2 to water intake 300 ml every 3 hrs Check serum osm/urine osm NSS Trend BMP q4h Hypokalemia PO Potassium Limit IV K due to renal function HAYLEY on CKD IVFs Enteral nutrition Jevity Reduce water intake to 150 ml q 3 hr Attending addendum: I have physically seen this patient, have supervised the medical residents activities, and agree with the H&P unless as otherwise noted. Assessment and Plan: Hyponatremia/hypokalemia/HAYLEY on CKD-- Check serum osmolality and urine osmolality Place on normal saline IV fluids Oral potassium supplementation reduce his 300 ML to 150 ML's every 3 hours water flush through jejunostomy tube. BMP and magnesium levels at 4 intervals until stabilized Continue Jevity and usual supplements Diarrhea-- check stool for C. difficile Treat with vancomycin liquid if positive Level of Care Telemetry Advanced Directives Existing Advance Directive: No Existing Living Will: Yes Existing Power of Spin Table Operator: No VTE Prophylaxis VTE Risk Assessment Done? Y/N: Yes Risk Level: Moderate Given or contraindicated: SCD's Social Service Consult None Apply
[2017-10-17] MEDS: POTASSIUM CHLR 10 MEQ / WTR 10 MEQ in PREMIXED WATER 100 ML IV SCH ×2 (04:37→06:03)
[2017-10-17] MEDS ORDERED: POTASSIUM CHLORIDE 20 MEQ/15 ML UDC JT ONE (05:34)
[2017-10-17] MEDS: TUBE FEEDING WATER FLUSH JT SCH ×4 (06:03→17:00)
[2017-10-17 07:03] LABS: PROTHROMBIN TIME (PATIENT) 10.5 SECONDS (9.0-12.0)
[2017-10-17 07:25] LABS: CREATININE 2.47 mg/dl (0.60-1.40)
[2017-10-17 07:26] LABS: BUN/CREATININE RATIO 44.4 (10-20); POTASSIUM 3.4 mmol/L (3.5-5.1)
[2017-10-17] MEDS ORDERED: SODIUM CHLORIDE IV SCH (08:00)
[2017-10-17] MEDS ORDERED: TRACE ELEMENTS IV SCH (08:00)
[2017-10-17] MEDS: POTASSIUM CHLORIDE 20 MEQ/15 ML UDC JT SCH ×2 (08:37→13:13)
[2017-10-17] MEDS: CALCITRIOL 0.25 MCG CAP PO SCH ×2 (08:39→20:28)
[2017-10-17] MEDS: HEPARIN SOD 5000 UNIT/0.5 ML CARP SQ SCH ×2 (09:00→20:28)
[2017-10-17] MEDS ORDERED: ALBUT/IPRATROP 3MG/0.5MG NEB 3 ML VIAL INH PRN (10:30)
--- NOTE | 2017-10-17 10:39 | Progress Note ---
Progress Note Date of Service Oct 17, 2017. (Francisca Walker ., JAZZ) Progress Note Patient admitted after midnight. Seen and examined by me this morning. The patient reports feeling much better this morning compared to admission. His weakness and fatigue is much improved. He is no longer actively having diarrhea. He had nausea last but this has since resolved after receiving medication. He also states that he had some tingling in his finger tips last night but this is now resolved. He denies any abdominal pian but does note some "gas" discomfort. The patient denies fevers, chills, sweats, chest pain, palpitations, claudication, cough, wheezing, shortness of breath, nausea, vomiting, abdominal pain, dysuria, hematuria, urinary retention, paralysis, weakness, numbness and tingling. Physical exam pertinent for some mild wheezing in lower lung alfaro. Pt has J tube with spit fistula in left chest. Pt has been draining light yellow fluid from around J tube site. Unclear if tube feeds vs infectious. Physical exam otherwise unremarkable. A/P: Hyponatremia, weakness, fatigue--improving -Serum osm WNL, urine osm 297 -NSS at 100 cc/hr -Trend PRP q4h -Sodium improved to 123 from 118 on admission Hypokalemia--improving -Potassium improved to 3.4 from 2.8 -KCl 40 mEq JT QID -Check magnesium Acute renal failure on CKD stage III--stable -Baseline creatinine around 1.6 -Creatinine 2.47, down slightly from 2.57 on admission -Continue IVF as above Diarrhea--stable. Pt appears to have fully evacuated bowels prior to arrival and has not had much tube feeds, no BMs now -C. diff pending. Recently on azithromycin for sinusitis -Stool culture ordered S/p J tube and spit fistula -Tube feeds, nutrition consulted (Francisca Walker ., KELLYC) MINISTERIO Physician Supervision Note: I interviewed and examined the patient. Discussed with Francisca Walker PAC and agree with findings and plan as documented in the note. Any exceptions or clarifications are listed here: None This patient feels somewhat better after having his electrolytes repleted. He does suffer from having a gastrectomy, spit fistula, J-tube for feeding. He developed diarrhea after taking azithromycin he presented with hyponatremia hypokalemia. He's been treated for chronic low copper levels by Dr. Valdez His vital signs are stable he's having no continual diarrhea is tolerating his J -tube feedings as they were resumed today. His free water flushes are reduced due to his hyponatremia Physical exam shows abdomen with normal active bowel sounds soft minorly uncomfortable which she says is normal for him Hyponatremia hypokalemia after a diarrheal illness. We'll continue to replete fluid restrict signs of infectious diarrhea at this present time Documented By: Ulices Goldstein (Ulices Goldstein M.D.)
[2017-10-17 11:22] LABS: BUN/CREATININE RATIO 42.5 (10-20); CALCIUM 8.1 mg/dl (8.5-10.1); CREATININE 2.52 mg/dl (0.60-1.40); POTASSIUM 3.7 mmol/L (3.5-5.1)
[2017-10-17] MEDS ORDERED: FIBERSOURCE HN 1000ML BAG JT SCH ×2 (15:00)
[2017-10-17] MEDS: POTASSIUM CHLORIDE INJ 40 MEQ in SODIUM CHLORIDE 0.9% 1000ML 1,000 ML IV SCH (15:28)
[2017-10-17] MEDS ORDERED: NURSING VERBAL MED ORDER ONE (16:45)
[2017-10-17] MEDS: FIBERSOURCE HN 1000ML BAG JT SCH ×2 (16:46)
[2017-10-17 16:48] LABS: BUN/CREATININE RATIO 40.9 (10-20); CALCIUM 8.2 mg/dl (8.5-10.1); CREATININE 2.55 mg/dl (0.60-1.40)
[2017-10-18] MEDS: TUBE FEEDING WATER FLUSH JT SCH ×5 (01:40→23:44)
[2017-10-18] MEDS: POTASSIUM CHLORIDE INJ 40 MEQ in SODIUM CHLORIDE 0.9% 1000ML 1,000 ML IV SCH (02:01)
[2017-10-18 03:47] VITALS: BP 144/82; PULSE 61; TEMP 36.5; O2SAT 95
[2017-10-18 05:59] LABS: HEMATOCRIT 31.2 % (42-52); MEAN CELL VOLUME 97.2 fL (80-100); MEAN CORPUSCULAR HEMOGLOBIN 33.6 pg (25-34); MEAN CORPUSCULAR HGB CONC 34.6 g/dl (32-36); PLATELET COUNT 282 K/uL (130-400); RED BLOOD COUNT 3.21 M/uL (4.7-6.1); WHITE BLOOD COUNT 8.49 K/uL (4.8-10.8)
[2017-10-18] MEDS ORDERED: FIBERSOURCE~STOP ORDER ONE (06:00)
[2017-10-18 08:25] VITALS: BP 113/64; PULSE 72; TEMP 36.8; O2SAT 97
[2017-10-18] MEDS: CALCITRIOL 0.25 MCG CAP PO SCH ×2 (08:43→20:53)
[2017-10-18] MEDS: HEPARIN SOD 5000 UNIT/0.5 ML CARP SQ SCH ×2 (08:43→20:53)
--- NOTE | 2017-10-18 09:13 | NEPHROLOGY CONSULTATION ---
DATE OF CONSULTATION: 10/18/2017 ATTENDING OF RECORD: Dr. Goldstein. REASON FOR CONSULTATION: HAYLEY and hyponatremia. HISTORY OF PRESENT ILLNESS: This is a 67-year-old male who follows with my partner, Dr. Kaveh Estrada in [place], who has a history of esophageal hernia surgery with complications, developed an esophageal leak and had a prolonged ICU stay, developed acute kidney injury that requiring dialysis and needed dialysis from September of 2011 to March of 2012, eventually recovered enough to be taken off dialysis. In May when Dr. Estrada was evaluating him, he was suffering from chronic diarrhea and he was still taking it in a total of close to 4 liters in a day of free water and making about 2 liters of clear urine a day. He did require Procrit in the past; however, once his copper levels were repleted, no longer needed it. The patient's sodium levels in May of 2016 were 131 with a creatinine of 1.3. In 04/22/2017, creatinine 1.6. In 05/29/2017, creatinine 1.8. In July 19, creatinine 1.9 and now presents at 2.5 range. Sodium levels normally in the low 130s. He came in with a sodium level of 118 and it has improved to 125 yesterday afternoon. Abdominal pelvis CT was done. The kidneys and ureters showed no hydronephrosis, normal ureters, and normal noncontrast appearance. The patient presented with severe generalized weakness. He has some significant diarrhea and came in with renal failure with hyponatremia where the creatinine baseline appears to be 1.6-1.9 and worsened to 2.5. REVIEW OF SYSTEMS: No fevers or chills. No headaches. No nausea or vomiting. No more diarrhea, which has improved. No chest pain or shortness of breath. No itching. No dysuria or hematuria. All other review of systems otherwise negative. CURRENT MEDICATIONS: Tube feedings with sterile water q. 8 hours, normal saline with 40 of K at 100 mL an hour, heparin 5000 units subQ q. 12 hours, calcitriol 0.25 mcg p.o. b.i.d., and Fibersource 1000 mL through the J tube. PAST MEDICAL HISTORY/PAST SURGICAL HISTORY: Esophageal hernia repair with complications with a leak, requiring a J tube and an esophageal drain. He does have CKD, stage III/IV with a creatinine that has been trending up and is now up to 1.9 at baseline and presented with 2.5 on this admission. History of gallstones, splenectomy, dialysis catheter placement, And history of HAYLEY requiring dialysis in 2012 and eventual repair. FAMILY HISTORY: Significant for lung cancer and heart disease. SOCIAL HISTORY: No smoking, no alcohol, and no drugs. He is and lives with family. PHYSICAL EXAMINATION: VITAL SIGNS: Temperature 36.5, pulse 61, respiratory rate 18, blood pressure 144/82, and satting 95% on room air. GENERAL: Awake, alert, and oriented x3. EYES: No scleral icterus. ENT: Moist mucous membranes. NECK: Supple. PULMONARY: Clear to auscultation. CARDIAC: Regular rate and rhythm. ABDOMEN: Positive J tube. Positive esophageal drain. EXTREMITIES: No clubbing, cyanosis or edema. NEUROLOGICALLY: Nonfocal. DERMATOLOGIC: No rash or ulcers noted. IMPRESSION AND PLAN: 1. Hyponatremia. Sodium level was 118 on the at 08:00 p.m. On the at 04:00 p.m., improved to 125. Currently on IV fluids. Recheck the BMP this morning to see what the sodium level is. Tentatively, hold the IV fluids until we reassess the sodium levels. He appears to have hyponatremia from volume depletion in the setting of diarrhea and generalized weakness. Diarrhea has improved and weakness has also improved as well. The patient is overall feeling much better. 2. Acute kidney injury on chronic kidney disease stage III/IV. He did require dialysis in 2012, but eventually recovered. He has been followed closely by my partner Dr. Estrada. Creatinines were in the 1.3-1.5 range and appear to be slowly trending now up to the 1.9 range as an outpatient and he presents at 2.[address] scan that does not reveal any obstruction. He appears to have acute kidney injury on chronic kidney disease, stage III/IV. GFR is not a true GFR and kidney function is actually much worse given the decreased muscle mass and decreased weight in this patient. For now, I feel patient with an acute tubular necrosis. He was on IV fluids, but wants to try to avoid overcorrection and so, tentatively hold the IV fluids as we await this morning's labs. I feel hopefully creatinine will eventually improve, down to the 1.9 range. It may take several months to improve. I would recommend followup with my partner, Dr. Estrada in [place] as an outpatient. If sodium level correction is satisfactory, we will continue the IV fluids to try to help improve renal recovery. I would like to see a downward trend of his creatinine with the patient feeling much better before tentatively sending home. I appreciate the consultation. BIANKA
[2017-10-18 09:22] LABS: CALCIUM 8.2 mg/dl (8.5-10.1); CREATININE 2.36 mg/dl (0.60-1.40); URIC ACID 7.1 mg/dl (2.6-7.2)
--- NOTE | 2017-10-18 10:24 | Hospitalist Progress Note ---
Hospitalist Progress Note Date of Service Oct 18, 2017. (Francisca Walker ., KELLYC) Subjective Pt evaluation today including: conversation w/ patient, physical exam, chart review, lab review, review of inpatient medication list Pain: None PO Intake: Tolerating J tube feeds Voiding: no voiding problems Patient reports feeling well. He does feel some irritation around his J tube site but otherwise denies any complaints. His tube feeds were resumed yesterday , which he is tolerating well. He has not had a bowel movement since the when he had severe diarrhea. The patient denies fevers, chills, sweats, chest pain, palpitations, claudication, cough, wheezing, shortness of breath, nausea, vomiting, abdominal pain, dysuria, hematuria, urinary retention, paralysis, weakness, numbness and tingling. Additional Comments: See HPI for pertinent positives and negatives. All other systems reviewed and negative. (Francisca Walker ., PA-C) Objective Vital Signs Date Time Temp Pulse Resp B/P (MAP) Pulse Ox O2 Delivery O2 Flow Rate FiO2 10/18/17 08:25 36.8 72 18 113/64 (80) 97 10/18/17 04:00 Room Air 10/18/17 03:47 36.5 61 18 144/82 (102) 95 Room Air 10/18/17 00:00 Room Air 10/17/17 23:44 36.6 62 18 121/76 (91) 98 Room Air 10/17/17 20:35 36.7 63 19 122/76 (91) 95 Room Air 10/17/17 20:00 Room Air 10/17/17 16:33 36.5 63 18 122/76 (91) 96 Room Air 10/17/17 16:00 Room Air 10/17/17 12:09 36.6 65 18 103/77 (86) 96 10/17/17 12:00 Room Air (Francisca Walker ., MINISTERIO-C) Physical Exam Notes: General appearance: +Thin. Well-developed, well-nourished, no apparent distress Head: Normocephalic, atraumatic Eyes: Normal inspection, PERRL, EOMI ENT: Normal ENT inspection, hearing grossly normal, pharynx normal Neck: Supple, no JVD, trachea midline Respiratory/Chest: +Spit fistula left chest. Lungs clear to auscultation, normal breath sounds, no respiratory distress Cardiovascular: Regular rate & rhythm, no gallop, no murmur Abdomen/GI: +J tube LUQ with surrounding erythema and some yellow drainage. Pt states drainage has been ongoing for a while. Normal bowel sounds, non- tender, soft Extremities/Musculoskeletal: Normal inspection, no calf tenderness, no pedal edema Neurological/Psych: Alert, normal mood/affect, oriented x 3 Skin: Normal color, warm/dry, no rash (Francisca Walker ., JAZZ) Assessment and Plan 67 y/o male with a history of anemia secondary to copper deficiency, asthma, BPH , CKD stage III, and gastrectomy s/p J tube and spit fistula who presents with diarrhea, generalized weakness, and fatigue. Hyponatremia, weakness, fatigue--improving -Admit to telemetry. No acute events overnight. Pt in sinus bradycardia/sinus rhythm with HR in 50s-60s -Serum osm WNL, urine osm 297 -IVF on hold per nephro recs -Urine random sodium pending -Sodium improved to 130 on 10/18 Hypokalemia--resolved -Potassium improved to 4.0 on 10/18 -Magnesium 3.0 Acute renal failure on CKD stage III--improving -Baseline creatinine around 1.6 -Creatinine 2.36 on 10/18 -Nephrology consulted due to ARF and hyponatremia, appreciate recs: Hold IVF for now pending morning labs. Acute renal failure like secondary to ATN and will slowly improve. Would like to see downward trend prior to discharge. Diarrhea--resolved, none since 10/15 -C. diff pending. Recently on azithromycin for sinusitis -Stool culture pending Anemia secondary to copper deficiency--stable -Pt follows with Dr. Valdez -Hgb stable at 10.8 on 10/18 Gastrectomy s/p J tube and spit fistula, underweight -Tube feeds, nutrition consulted -Free water flushes decreased DVT prophylaxis -Heparin 5000 units SC q12h Code Status -Level I, FULL RESUSCITATION STATUS (Francisca Walker ., KELLYC) MINISTERIO Physician Supervision Note: I interviewed and examined the patient. Discussed with Francisca Walker PAC and agree with findings and plan as documented in the note. Any exceptions or clarifications are listed here: None This patient continues to feel improved. He does suffer from having a gastrectomy, spit fistula, J-tube for feeding. some j tube site irritation. He' s been treated for chronic low copper levels by Dr. Valdez His vital signs are stable he's had no recurrent diarrhea is tolerating his J- tube feedings His free water flushes are reduced due to his hyponatremia and nephrology agrees Physical exam shows abdomen with normal active bowel sounds soft, j tube site is reddened Hyponatremia hypokalemia after a diarrheal illness, continue to replete fluid/ restrict free water. Documented By: Ulices Goldstein (Ulices Goldstein M.D.)
[2017-10-18 12:26] VITALS: BP 131/71; PULSE 56; TEMP 36.8; O2SAT 96
--- NOTE | 2017-10-18 12:44 | Clinical Documentation Query ---
CLINICAL DOCUMENTATION QUERY Ms. NAYLOR, In your clinical opinion is this patient being managed for: ( x ) Underweight ( ) Not Agree ( ) Other explanation of clinical findings (Please Explain) ( ) Unable to determine (Please Define) ( ) Need to Discuss The medical record reflects the following clinical findings, treatment, and risk factors. Clinical Indicators: Pt is described as thin Treatment: J tube with tube feedings, nutrition consult Risk Factors: gastrectomy Please clarify and document your clinical opinion in the progress notes and discharge summary. Terms such as "probable", "suspected", "likely", "questionable", "possible", or "still to be ruled out" are acceptable. IF IN AGREEMENT, YOU MUST DOCUMENT ABOVE DIAGNOSTIC STATEMENT IN DAILY PROGRESS NOTES AND DISCHARGE SUMMARY. This document is not part of the patient's record. Thank You, Jennifer Torres RN [phone]
[2017-10-18 15:14] VITALS: BP 122/72; PULSE 72; TEMP 36.4; O2SAT 94
[2017-10-18] MEDS ORDERED: NURSING VERBAL MED ORDER ONE (16:00)
[2017-10-18 19:36] VITALS: BP 132/80; PULSE 57; TEMP 36.7; O2SAT 97
[2017-10-18] MEDS: FIBERSOURCE HN 1000ML BAG JT SCH ×2 (21:18)
[2017-10-19 00:12] VITALS: BP 100/48; PULSE 62; TEMP 37.1; O2SAT 99
[2017-10-19] MEDS: TUBE FEEDING WATER FLUSH JT SCH ×4 (01:13→09:37)
[2017-10-19 04:34] VITALS: BP 116/72; PULSE 63; TEMP 36.5; O2SAT 97
[2017-10-19 05:51] LABS: MEAN CELL VOLUME 97.5 fL (80-100); MEAN CORPUSCULAR HEMOGLOBIN 33.3 pg (25-34); MEAN CORPUSCULAR HGB CONC 34.2 g/dl (32-36); MEAN PLATELET VOLUME 11.3 fL (7.4-10.4); PLATELET COUNT 272 K/uL (130-400); RED BLOOD COUNT 3.18 M/uL (4.7-6.1); WHITE BLOOD COUNT 8.22 K/uL (4.8-10.8)
[2017-10-19 06:21] LABS: BUN/CREATININE RATIO 39.6 (10-20); CALCIUM 8.3 mg/dl (8.5-10.1); CREATININE 2.33 mg/dl (0.60-1.40); POTASSIUM 3.7 mmol/L (3.5-5.1)
[2017-10-19] MEDS ORDERED: SODIUM CHLORIDE 0.9% 1000ML 1,000 ML IV SCH (06:30)
--- NOTE | 2017-10-19 06:35 | Nephrology Progress Note ---
Nephrology Progress Note Date of Service: Oct 19, 2017. Subjective 67 yo male with hyponatremia and hypokalemia from diarrhea and volume depletion with underlying deneen with volume depletion significant enough to cause atn. pt clinically much improved. creatinine trending down. sodium levels have normalized. Objective Date Time Temp Pulse Resp B/P (MAP) Pulse Ox O2 Delivery O2 Flow Rate FiO2 10/19/17 04:34 36.5 63 19 116/72 (87) 97 Room Air 10/19/17 03:45 Room Air 10/19/17 00:12 37.1 62 19 100/48 (65) 99 Room Air 10/19/17 00:00 Room Air 10/18/17 20:50 Room Air 10/18/17 19:36 36.7 57 16 132/80 (97) 97 Room Air 10/18/17 16:00 Room Air 10/18/17 15:14 36.4 72 16 122/72 (89) 94 Room Air 10/18/17 12:26 36.8 56 18 131/71 (91) 96 10/18/17 12:00 Room Air 10/18/17 08:25 36.8 72 18 113/64 (80) 97 10/18/17 08:00 Room Air Physical Exam: General-aaox3 Eyes-no scleral icterus ENT-mmm Neck-supple Lungs-cta Heart-rrr Abdomen-+j tube, +esophageal drain bag Extremities-no c/c/e Neuro-nonfocal Current Inpatient Medications Medications (Trade) Dose Ordered Sig/Maame Route Start Time Stop Time Status Last Admin Dose Admin Heparin Sodium (Porcine) (Heparin Sq 5000 Unit/0.5ml) 5,000 unit Q12 SQ 10/17/17 09:00 11/16/17 08:59 Al Hydrox/Mg Hydrox/Simethicone (Maalox Max Susp) 15 ml Q4H PRN PO 10/17/17 00:15 11/16/17 00:14 Magnesium Hydroxide (Milk Of Magnesia Susp) 30 ml Q12H PRN PO 10/17/17 00:15 11/16/17 00:14 Ondansetron HCl (Zofran Inj) 4 mg Q6H PRN IV 10/17/17 00:15 11/16/17 00:14 Polyethylene (Miralax Powder Packet) 17 gm DAILY PRN PO 10/17/17 00:15 11/16/17 00:14 Calcitriol (Rocaltrol Cap) 0.25 mcg BID PO 10/17/17 09:00 11/16/17 08:59 10/18/17 20:53 0.25 MCG Fluticasone Propionate (Flonase Nasal Moran) 1 sprays DAILY PRN JOSE L 10/17/17 00:15 11/16/17 00:14 Loperamide HCl (Imodium A-D Liquid) 2 mg Q6 PRN PO 10/17/17 00:15 11/16/17 00:14 Miscellaneous Information (Order Awaiting Action) 1 ea QS N/A 10/17/17 08:00 11/16/17 07:59 10/17/17 23:45 1 EA Potassium Chloride (Betty Ciel Elix) 40 meq QID JT 10/17/17 09:00 11/16/17 08:59 Future Hold 10/17/17 13:13 40 MEQ Albuterol/ Ipratropium (Duoneb) 3 ml QIDR PRN INH 10/17/17 10:30 11/16/17 10:29 Enteral Nutritional Formula (Fibersource Hn) 1,000 ml UD JT 10/17/17 13:15 11/16/17 13:14 10/18/17 21:18 1,000 ML Sterile Water (Tube Feeding Water Flush) 1 ea Q3H JT 10/18/17 16:00 11/17/17 15:59 10/19/17 04:18 1 EA Last 24 Hours Test 10/18/17 08:32 10/18/17 09:40 10/19/17 05:07 Sodium Level 130 mmol/L 134 mmol/L Potassium Level 4.0 mmol/L 3.7 mmol/L Chloride Level 94 mmol/L 94 mmol/L Carbon Dioxide Level 29 mmol/L 32 mmol/L Anion Gap 8.0 mmol/L 7.0 mmol/L Blood Urea Nitrogen 95 mg/dl 92 mg/dl Creatinine 2.36 mg/dl 2.33 mg/dl Est Creatinine Clear Calc Drug Dose 25.6 ml/min 26.4 ml/min Estimated GFR () 32.3 32.8 Estimated GFR (Non- 27.8 28.3 BUN/Creatinine Ratio 40.0 39.6 Random Glucose 100 mg/dl 103 mg/dl Uric Acid 7.1 mg/dl Calcium Level 8.2 mg/dl 8.3 mg/dl Urine Random Sodium 55 mEq/L White Blood Count 8.22 K/uL Red Blood Count 3.18 M/uL Hemoglobin 10.6 g/dL Hematocrit 31.0 % Mean Corpuscular Volume 97.5 fL Mean Corpuscular Hemoglobin 33.3 pg Mean Corpuscular Hemoglobin Concent 34.2 g/dl RDW Standard Deviation 42.6 fL RDW Coefficient of Variation 12.0 % Platelet Count 272 K/uL Mean Platelet Volume 11.3 fL Assessment & Plan ige-zki-vpjhysll-volume depletion signficant enough to cause atn, creatinine slowly improving. to restart normal saline. was trying to prevent overcorrection of the hyponatremia so fluids were on hold yesterday. ok to go back to previous free water flushes since sodium levels have normalized. was initially reduced with the hyponatremia. hyponatremia-corrected appropriately over past 48 hours. ok to restart normal free water flushes and restarting normal saline to aid in renal recovery. since eating and drinking well-ok from renal perspective to go home today. recheck bmp again on monday.
[2017-10-19 07:28] VITALS: BP 105/65; PULSE 57; TEMP 36.4; O2SAT 96
--- NOTE | 2017-10-19 07:42 | Discharge Instructions ---
Discharge Instructions Date of Service Oct 19, 2017. Admission Reason for Admission: Mike, Hyponatremia Discharge Discharge Diagnosis / Problem: hypokalemia, hyponatremia, diarrhea Discharge Goals Goal(s): Therapeutic intervention Activity Recommendations Activity Limitations: as noted below Lifting Limitations: gradually increase as tolerated . Current Hospital Diet Patient's current hospital diet: Discharge Diet Recommended Diet: N/A (continue your tube feeding and flushes) Pending Studies Studies pending at discharge: no Medical Emergencies . Who to Call and When: Medical Emergencies: If at any time you feel your situation is an emergency, please call 911 immediately. . Non-Emergent Contact Non-Emergency issues call your: Primary Care Provider Call Non-Emergent contact if: temperature is above 101, your pain is unusual for you . . "Provider Documentation" section prepared by Ulices Goldstein. . VTE Core Measure Inpt VTE Proph given/why not?: SCD's
[2017-10-19] MEDS: HEPARIN SOD 5000 UNIT/0.5 ML CARP SQ SCH (09:00)
[2017-10-19] MEDS: CALCITRIOL 0.25 MCG CAP PO SCH (09:36)
[2017-10-19 10:57] VITALS: BP 105/65; PULSE 57; TEMP 36.4; O2SAT 96
--- NOTE | 2017-10-19 17:31 | Discharge Summary ---
Discharge Summary Date of Service Oct 19, 2017. Discharge Summary Admission Date: Oct 17, 2017 at 00:29 Discharge Date: Oct 19, 2017 Discharge Disposition: Home Principal Diagnosis: hyponatremia, hypokalemia, diarrhea, dependent on tube feeds Immunizations: Have You Had Influenza Vaccine: Yes History of Tetanus Vaccine?: Yes History of Pneumococcal: Yes History of Hepatitis B Vaccine: No Medication Reconciliation Continued Medications: Calcitriol (Calcitriol) 0.25 Mcg Cap 0.25 MCG PO BID Cyanocobalamin (Cyanocobalamin) 1,000 Mcg/Ml Inj 1 DOSE IM MONTHLY Distilled Water (Distilled Water) 1 Liq Liq 300 ML JT Q3HRS ADD 1 TBSP REAL LEMON TO WATER Enteral Nutrition Formula (Jevity 1.5 Bart) 1 Can Liqd 1 CAN PO UD 6 1/2 - 237 ML CARTONS @ 100 ML FOR 15 HOURS Fluticasone Propionate (Nasal) (Flonase Allergy Relief) 50 Mcg/Act Spr 1-2 SPRAYS JOSE L DAILY PRN for ALLERGIES Folic Acid (Folvite) 1 Mg Tab 1 MG PO AMPM, TAB Loperamide Hcl (Imodium A-D) 1 Mg/7.5 Ml Liq 20 ML PO Q6 PRN for Diarrhea Ondasetron Odt (Zofran Odt) 4 Mg Tab 4 MG SL TID PRN for Nausea, #6 TAB [Cytra 2 ] () 15 ML QAM CYTRA-2 ORAL SOLUTION (CLEAR LIQUID) 15 ML DILUTED WITH WATER, IN THE AM. Discontinued Medications: Trace Minerals (Tx-Rb-Lc-Se-Zn (Multitrace-5 Concentrate) 1 Inj Inj 1 UNIT IV [id number] Discharge Exam Review of Systems: Constitutional: No fever, No chills Respiratory: No cough, No sputum, No wheezing Integumentary: + problem reported (some j tube site irritation) Physical Exam: General Appearance: no apparent distress, + thin Respiratory/Chest: chest non-tender, lungs clear, normal breath sounds Cardiovascular: regular rate, rhythm, no murmur Abdomen / GI: non tender, soft Hospital Course 67 y/o male with a history of anemia secondary to copper deficiency, asthma, BPH , CKD stage III, and gastrectomy s/p J tube and spit fistula who presents with diarrhea, generalized weakness, and fatigue found to be profoundly hypokalemic and hyponatremic. Hyponatremia, weakness, fatigue-resolved Hypokalemia--resolved -Magnesium 3.0 Acute renal failure on CKD stage III--improving, Dr Coello feels safe to return to home on typical fluid flushes Dr Coello feels Acute renal failure like secondary to ATN and will slowly improve. Diarrhea--resolved, none since 10/15 Anemia secondary to copper deficiency--stable -Pt follows with Dr. Valdez will have follow up early in October Gastrectomy s/p J tube and spit fistula, underweight -Tube feeds, -Free water flushes will continue as at home Code Status -Level I, FULL RESUSCITATION STATUS Total Time Spent: Greater than 30 minutes This includes examination of the patient, discharge planning, medication reconciliation, and communication with other providers. Discharge Instructions Please refer to the electronic Patient Visit Report (Discharge Instructions) for additional information. Additional Copies To Toma Coello I., DO
== END 2017-10-19 11:47 | disposition home or self-care (01) | DRG 683 ==
LOC: C.EDB 20:08 → C.2E 10-17 00:29 → EDBEDREQ 10-17 00:34 → ENRESERV 10-17 00:46
PROVIDERS: ADMIT Hospitalist; ATTEND Internal Medicine
DX: N17.0 Acute kidney failure with tubular necrosis (principal); E87.1 Hypo-osmolality and hyponatremia; Z68.1 Body mass index [BMI] 19.9 or less, adult; E87.6 Hypokalemia; R19.7 Diarrhea, unspecified; Z93.1 Gastrostomy status; Z90.81 Acquired absence of spleen; Z82.49 Family history of ischemic heart disease and other diseases of the circulatory system; Z80.1 Family history of malignant neoplasm of trachea, bronchus and lung

== ENCOUNTER 2017-11-03 12:06 | Inpatient (IN) | payer OTHER ==
[~2017-11-03] VITALS: Ht 182.9 cm; Wt 59.2 kg
[~2017-11-03 12:06] MED LIST changes: -CALC0.2510 PO; +CALC1CAP36 JT; +CYNI1000 IM; +CYTRA 2; -FLUT0.0529 NAE; +FLUT0.15 NAE; -FLV1 JT; +FOLI1TAB8 JT; +NUTR-673 PO; -NUTRLIQ61 JT; +ONDA4TAB10 SL; -ONDA4TAB46 PO; -VITAMIN B IM; +[UNRECOGNIZED DRUG - CODE] JT; -[UNRECOGNIZED DRUG - CODE] JT
[2017-11-03] MEDS ORDERED: SODIUM CHLORIDE 0.9% 1000ML 1,000 ML IV STA (12:25)
[2017-11-03] MEDS ORDERED: ONDANSETRON INJ 2 MG/ML 2 ML VIAL IV STA (12:25)
--- NOTE | 2017-11-03 12:39 | EMERGENCY ROOM VISIT NOTE ---
History Report prepared by Ella: Fely Rooney Under the Supervision of: Dr. Devon Chaudhary D.O. First contact with patient: 12:21 Chief Complaint: ABNORMAL LABS Stated Complaint: KIDNEYS WORSE, LIVER FUNCTION OUT OF WHACK History of Present Illness The patient is a 67 year old male who presents to the Emergency Room with complaints of resolved abnormal lab test results today. The patient states that he had labs performed yesterday, that showed kidney and liver malfunction. He notes his PCP suggested he come to the Emergency Department for further evaluation. The patient states he has a J tube in place. He notes he has been nauseous, but is unable to vomit due to the lack on stomach. The patient denies any trouble breathing, swelling of the legs, taking new medications, or alcohol/ tobacco use. Source of History: patient Onset: today Position: other (global) Timing: resolved Associated Symptoms: + nausea Review of Systems See HPI for pertinent positives & negatives. A total of 10 systems reviewed and were otherwise negative. Past Medical & Surgical Medical Problems: (1) Acute renal failure (2) HAYLEY (acute kidney injury) (3) Gall stones (4) Hiatal hernia repair (5) Hyponatremia (6) Jejunostomy tube present (7) Kidney stones (8) Low hemoglobin (9) Spit fistula in place Surgical Problems: (1) History of splenectomy Family History Cancer Gallbladder disease Lung cancer MOTHER [place] (myocardial infarction) FATHER Social History Smoking Status: Never Smoker Alcohol Use: none Drug Use: none Marital Status: Housing Status: lives with family Occupation Status: disabled Current/Historical Medications Scheduled Calcitriol (Calcitriol), 0.25 MCG JT BID Cyanocobalamin (Cyanocobalamin), 1 DOSE IM MONTHLY Distilled Water (Distilled Water), 300 ML JT Q3HRS Folic Acid (Folvite), 1 MG JT AMPM Nutritional Supplements (Twocal Hn 2.0), 6 CAN JT DAILY Trace Elements (Multitrace-5 Concent... [phone] Mcg/ml), 1 ML IV Q3MO [Cytra 2 ], 15 ML QAM Scheduled PRN Fluticasone Propionate (Nasal) (Flonase Allergy Relief), 1-2 SPRAYS JOSE L DAILY PRN for ALLERGIES Loperamide Hcl (Imodium A-D), 20 ML JT Q6 PRN for Diarrhea Ondasetron Odt (Zofran Odt), 4 MG SL TID PRN for Nausea Allergies Coded Allergies: Moxifloxacin (Verified Allergy, Unknown, Pt said he could barely walk, 10/09) Simvastatin (Verified Allergy, Unknown, " my legs cramp up", 11/03/17) Sulfamethoxazole (Verified Allergy, Unknown, SEVERE DIARRHEA, 11/03/17) Oxycodone (Verified Adverse Reaction, Unknown, NAUSEA, 11/03/17) Tramadol (Verified Adverse Reaction, Unknown, NAUSEA, 11/03/17) Physical Exam Vital Signs Date Time Temp Pulse Resp B/P (MAP) Pulse Ox O2 Delivery O2 Flow Rate FiO2 11/03/17 14:17 68 15 124/80 98 Room Air 11/03/17 13:00 69 11/03/17 12:19 36.7 88 20 122/80 95 Room Air Physical Exam GENERAL: Patient is awake, alert, somewhat frail appearing, but appears comfortable. Patient is resting comfortably and showing no signs of anxiety EYES: The conjunctivae are clear. The pupils are round and reactive. EARS, NOSE, MOUTH AND THROAT: The nose is without any evidence of any deformity. Mucous membranes are moist tongue is midline NECK: The neck is nontender and supple. RESPIRATORY: Normal respiratory effort is noted there is no evidence of wheezing rhonchi or rales CARDIOVASCULAR: Regular rate and rhythm noted there no murmurs rubs or gallops normal S1 normal S2 GASTROINTESTINAL: The abdomen is soft. Bowel sounds are present in all quadrants. Abdomen is nontender MUSCULOSKELETAL/EXTREMITIES: There is no evidence of gross deformity full range of motion is noted in the hips and shoulders SKIN: There is no obvious evidence of any rash. There are no petechiae, pallor or cyanosis noted. NEUROLOGIC: Patient is awake alert and oriented x3 strength is symmetric patellar reflexes are 2+ bilaterally Medical Decision & Procedures ER Provider Diagnostic Interpretation: Radiology results as stated below per my review and radiologist interpretation: SINGLE VIEW CHEST CLINICAL HISTORY: Generalized abdominal pain. FINDINGS: An AP, portable, upright chest radiograph is compared to study dated 10/16/2017 and correlated with chest CT dated 12/29/2013. The examination is degraded by portable technique and patient rotation. The patient is status post midline sternotomy. The heart is normal in size and there is atherosclerotic calcification of the thoracic aorta. Chronic interstitial thickening is similar to previous. Blunting of the left posterior sulcus is unchanged from prior studies and likely represent pleural thickening. No airspace consolidation or large pleural effusion is identified. No pneumothorax is seen. The skeletal structures are osteopenic. The bony thorax is grossly intact. Coils project over the right upper quadrant. IMPRESSION: No acute cardiopulmonary abnormality. Electronically signed by: Ronak Chilel M.D. 11/03/2017 12:58 PM Dictated Date/Time: 11/03/2017 12:56 PM Laboratory Results Test 11/03/17 12:40 11/03/17 14:20 Immature Granulocyte % (Auto) 0.2 % White Blood Count 12.25 K/uL (4.8-10.8) Red Blood Count 3.47 M/uL (4.7-6.1) Hemoglobin 11.9 g/dL (14.0-18.0) Hematocrit 33.6 % (42-52) Mean Corpuscular Volume 96.8 fL (80-100) Mean Corpuscular Hemoglobin 34.3 pg (25-34) Mean Corpuscular Hemoglobin Concent 35.4 g/dl (32-36) Platelet Count 313 K/uL (130-400) Mean Platelet Volume 11.5 fL (7.4-10.4) Neutrophils (%) (Auto) 89.5 % Lymphocytes (%) (Auto) 4.2 % Monocytes (%) (Auto) 4.4 % Eosinophils (%) (Auto) 1.5 % Basophils (%) (Auto) 0.2 % Neutrophils # (Auto) 10.97 K/uL (1.4-6.5) Lymphocytes # (Auto) 0.52 K/uL (1.2-3.4) Monocytes # (Auto) 0.54 K/uL (0.11-0.59) Eosinophils # (Auto) 0.18 K/uL (0-0.5) Basophils # (Auto) 0.02 K/uL (0-0.2) Immature Granulocyte # (Auto) 0.02 K/uL (0.00-0.02) Nucleated RBC Absolute Count (auto) 0.02 K/uL (0-0) Nucleated Red Blood Cells % 0.1 % Prothrombin Time 9.6 SECONDS (9.0-12.0) Prothromb Time International Ratio 0.9 (0.9-1.1) Activated Partial Thromboplast Time 26.5 SECONDS (21.0-31.0) Partial Thromboplastin Ratio 1.0 Osmolality 300 mOsm/kg (280-300) Phosphorus Level 3.5 mg/dl (2.5-4.9) Total Bilirubin 0.5 mg/dl (0.2-1) Direct Bilirubin 0.2 mg/dl (0-0.2) Aspartate Amino Transf (AST/SGOT) 78 U/L (15-37) Alanine Aminotransferase (ALT/SGPT) 105 U/L (12-78) Alkaline Phosphatase 434 U/L (45-117) Troponin I < 0.015 ng/ml (0-0.045) Total Protein 8.1 gm/dl (6.4-8.2) Albumin 3.6 gm/dl (3.4-5.0) Lipase 305 U/L (73-393) Urine Color YELLOW Urine Appearance CLEAR (CLEAR) Urine pH 8.0 (4.5-7.5) Urine Specific [place] 1.011 (1.000-1.030) Urine Protein 1+ (NEG) Urine Glucose (UA) NEG (NEG) Urine Ketones NEG (NEG) Urine Occult Blood NEG (NEG) Urine Nitrite NEG (NEG) Urine Bilirubin NEG (NEG) Urine Urobilinogen NEG (NEG) Urine Leukocyte Esterase NEG (NEG) Urine WBC (Auto) 1-5 /hpf (0-5) Urine RBC (Auto) 0-4 /hpf (0-4) Urine Hyaline Casts (Auto) 0 /lpf (0-5) Urine Epithelial Cells (Auto) 0-5 /lpf (0-5) Urine Bacteria (Auto) NEG (NEG) Urine Osmolality 305 mOms/kg (500-800) Urine Random Sodium 47 mEq/L Laboratory results per my review. Medications Administered Medications (Trade) Dose Ordered Sig/Maame Route Start Time Stop Time Status Last Admin Dose Admin Sodium Chloride 1,000 ml @ 999 mls/hr Q1H1M STAT IV 11/03/17 12:25 11/03/17 13:25 DC 11/03/17 12:51 999 MLS/HR Ondansetron HCl (Zofran Inj) 4 mg NOW STAT IV 11/03/17 12:25 11/03/17 12:27 DC 11/03/17 12:51 4 MG Potassium Chloride 10 meq/ Prmx 100 ml @ 100 mls/hr 1337 IV 11/03/17 13:37 11/03/17 14:36 DC 11/03/17 14:17 100 MLS/HR ECG Indication: other (abormal lab results) Rate (beats per minute): 70 Rhythm: normal sinus Findings: no ectopy Change: no significant change (10/17/17) ED Course 1222: The patient was evaluated in room B5. A complete history and physical examination were performed. 1225: Ordered Zofran Inj 4mh and Sodium Chloride 1000mls @ 999 mls/hr IV. 1310: I spoke with Dr. Voss, who informed me the patient was dizzy and lightheaded prior to arrival. 1337: Ordered Potassium Chloride 10 meq IV. 1402: I discussed the patient's case with Francisca Walker PA-C. The patient will be evaluated for further management. Medical Decision Prior records/ancillary studies reviewed and summarized above. Nursing notes reviewed. The patient's history was concerning for generalized weakness. Differential diagnosis: Etiologies such as metabolic, infection, hypo/hyperglycemia, electrolyte abnormalities, cardiac sources, intracerebral event, toxicologic, neurologic, as well as others were entertained. The patient is a 67-year-old male who was sent to the emergency Department due to abnormal labs. The patient was treated with IV fluids. I discussed his case with his primary drugless doctor as well as the on-call [facility] hospitalist group. The patient was reevaluated multiple times. Medication Reconcilliation Current Medication List: was personally reviewed by me Consults Time Called: 1401 Consulting Physician: Francisca Walker PA-C Returned Call: 1401 I discussed the patient's case with Francisca Walker PA-C. The patient will be evaluated for further management. Additional Consults: Time Called: 1310 Consulted Physician: Dr. Voss Returned Call: 1310 Additional Comments: I spoke with Dr. Voss, who informed me the patient was dizzy and lightheaded prior to arrival. Impression Primary Impression: Hyponatremia Additional Impressions: Hypokalemia HAYLEY (acute kidney injury) Scribe Attestation The scribe's documentation has been prepared under my direction and personally reviewed by me in its entirety. I confirm that the note above accurately reflects all work, treatment, procedures, and medical decision making performed by me. Departure Information Dispostion Being Evaluated By Hospitalist Referrals Freddie Zuleta M.D. (PCP) Forms HOME CARE DOCUMENTATION FORM, IMPORTANT VISIT INFORMATION, WORK / SCHOOL INSTRUCTIONS Patient Instructions My [facility] Health Problem Qualifiers
[2017-11-03] MEDS ORDERED: [UNRECOGNIZED DRUG - CODE] IV ×2 (12:56)
[2017-11-03] MEDS ORDERED: [UNRECOGNIZED DRUG - CODE] JT ×2 (12:59)
--- NOTE | 2017-11-03 13:00 | DIAGNOSTIC IMAGING REPORT ---
SINGLE VIEW CHEST CLINICAL HISTORY: Generalized abdominal pain. FINDINGS: An AP, portable, upright chest radiograph is compared to study dated 10/16/2017 and correlated with chest CT dated 12/29/2013. The examination is degraded by portable technique and patient rotation. The patient is status post midline sternotomy. The heart is normal in size and there is atherosclerotic calcification of the thoracic aorta. Chronic interstitial thickening is similar to previous. Blunting of the left posterior sulcus is unchanged from prior studies and likely represent pleural thickening. No airspace consolidation or large pleural effusion is identified. No pneumothorax is seen. The skeletal structures are osteopenic. The bony thorax is grossly intact. Coils project over the right upper quadrant. IMPRESSION: No acute cardiopulmonary abnormality. Electronically signed by: Ronak Chilel M.D. 11/03/2017 12:58 PM Dictated Date/Time: 11/03/2017 12:56 PM
[2017-11-03 13:03] LABS: BASO % 0.2 %; BASO ABS # 0.02 K/uL (0-0.2); EOS % 1.5 %; EOS ABS # 0.18 K/uL (0-0.5); HEMATOCRIT 33.6 % (42-52); HEMOGLOBIN 11.9 g/dL (14.0-18.0); IG# 0.02 K/uL (0.00-0.02); LYMPH % 4.2 %; LYMPH ABS # 0.52 K/uL (1.2-3.4); MEAN CELL VOLUME 96.8 fL (80-100); MEAN CORPUSCULAR HEMOGLOBIN 34.3 pg (25-34); MEAN CORPUSCULAR HGB CONC 35.4 g/dl (32-36); MEAN PLATELET VOLUME 11.5 fL (7.4-10.4); MONO % 4.4 %; MONO ABS # 0.54 K/uL (0.11-0.59); NEUT % 89.5 %; NEUT ABS # 10.97 K/uL (1.4-6.5); NUCLEATED RED BLOOD CELL ABS 0.02 K/uL (0-0); PLATELET COUNT 313 K/uL (130-400); RED CELL DISTRIBUTION WIDTH CV 12.4 % (11.5-14.5); RED CELL DISTRIBUTION WIDTH SD 43.8 fL (36.4-46.3); WHITE BLOOD COUNT 12.25 K/uL (4.8-10.8)
[2017-11-03 13:11] LABS: INR 0.9 (0.9-1.1); PTT PATIENT 26.5 SECONDS (21.0-31.0)
[2017-11-03 13:23] LABS: ALBUMIN 3.6 gm/dl (3.4-5.0); ALT/SGPT 105 U/L (12-78); AST/SGOT 78 U/L (15-37); BLOOD UREA NITROGEN 109 mg/dl (7-18); CALCIUM 8.7 mg/dl (8.5-10.1); CARBON DIOXIDE 39 mmol/L (21-32); GLUCOSE 119 mg/dl (70-99); LIPASE 305 U/L (73-393); POTASSIUM 2.9 mmol/L (3.5-5.1); SODIUM 122 mmol/L (136-145)
[2017-11-03 13:26] LABS: ALKALINE PHOSPHATASE 434 U/L (45-117); PHOSPHORUS 3.5 mg/dl (2.5-4.9); TOTAL PROTEIN 8.1 gm/dl (6.4-8.2)
[2017-11-03] MEDS ORDERED: POTASSIUM CHLORIDE 10 MEQ / 100ML WTR IV STA (13:37)
[2017-11-03] MEDS ORDERED: POTASSIUM CHLR 10MEQ / WTR IV SCH (13:37)
[2017-11-03] MEDS ORDERED: FLUTICASONE PROPIONATE NA SPR 16 GM BTL NAE PRN (15:00)
--- NOTE | 2017-11-03 15:04 | History and Physical ---
History & Physical Date & Time of Service: Nov 03, 2017 at 14:42 Chief Complaint: Kidneys Worse, Liver Function Out Of Whack Primary Care Physician: Freddie Zuleta M.D. 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 The patient had recently been discharged from [facility] 2 weeks ago after being treated for hyponatremia, hypokalemia, acute renal failure, and weakness. Today he presents with the same. He states that following discharge, he was feeling well for about one week. Last week, the patient began to feel generally weak and fatigued again. His outpatient labs showed worsening renal function and electrolyte abnormalities, so he was sent to the ED. The patient states he feels similar to when he came in last time. He does note some intermittent nausea, particularly at night after dinner. He is not able to vomit. He notes that his tube feeds were just changed yesterday, and that today he had some diarrhea, which he was told was to be expected. The patient also complains of a cough that is sometimes productive and is resolving as he recently had a URI. The patient denies fevers, chills, sweats, chest pain, palpitations, claudication, wheezing, shortness of breath, vomiting, abdominal pain, dysuria, hematuria, urinary retention, paralysis, focal motor weakness, numbness and tingling. Past Medical/Surgical History Medical Problems: (1) Gall stones Status: Chronic (2) Hiatal hernia repair Status: Resolved (3) Jejunostomy tube present Status: Chronic (4) Kidney stones Status: Chronic (5) Spit fistula in place Status: Chronic Anemia secondary to copper deficiency Asthma BPH CKD stage III Surgical Problems: (1) History of splenectomy Status: Resolved Family History Cancer (lung) Gallbladder disease Lung cancer MOTHER [place] (myocardial infarction) FATHER Stroke Social History Smoking Status: Never Smoker Smokeless Tobacco Use: No Alcohol Use: none Drug Use: none Marital Status: Housing status: lives with significant other Occupational Status: retired Immunizations History of Influenza Vaccine: Yes History of Tetanus Vaccine?: Yes History of Pneumococcal: Yes History of Hepatitis B Vaccine: No Multi-Drug Resistant Organisms History of MDRO: No Allergies Coded Allergies: Moxifloxacin (Verified Allergy, Unknown, Pt said he could barely walk, 10/09) Simvastatin (Verified Allergy, Unknown, " my legs cramp up", 11/03/17) Sulfamethoxazole (Verified Allergy, Unknown, SEVERE DIARRHEA, 11/03/17) Oxycodone (Verified Adverse Reaction, Unknown, NAUSEA, 11/03/17) Tramadol (Verified Adverse Reaction, Unknown, NAUSEA, 11/03/17) Home Medications Scheduled Calcitriol (Calcitriol), 0.25 MCG JT BID Cyanocobalamin (Cyanocobalamin), 1 DOSE IM MONTHLY Distilled Water (Distilled Water), 300 ML JT Q3HRS Folic Acid (Folvite), 1 MG JT AMPM Nutritional Supplements (Twocal Hn 2.0), 6 CAN JT DAILY Trace Elements (Multitrace-5 Concent... [phone] Mcg/ml), 1 ML IV Q3MO [Cytra 2 ], 15 ML QAM Scheduled PRN Fluticasone Propionate (Nasal) (Flonase Allergy Relief), 1-2 SPRAYS JOSE L DAILY PRN for ALLERGIES Loperamide Hcl (Imodium A-D), 20 ML JT Q6 PRN for Diarrhea Ondasetron Odt (Zofran Odt), 4 MG SL TID PRN for Nausea Review of Systems Constitutional: +Generalized weakness, fatigue. No fever, No chills, No sweats Eyes: No worsening of vision, No eye pain, No diplopia ENT: No hearing loss, No nasal symptoms, No trouble swallowing Respiratory: +Cough, resolving. No wheezing, No shortness of breath Cardiovascular: No chest pain, No claudication, No palpitations Abdomen: +Intermittent nausea. No pain, No vomiting Musculoskeletal: No joint pain, No muscle pain, No swelling Genitourinary - Male: No dysuria, No urinary retention, No hematuria Neurologic: No paralysis, No weakness, No numbness/tingling Integumentary: No rash, No itch, No color change Physical Exam Vital Signs Date Time Temp Pulse Resp B/P (MAP) Pulse Ox O2 Delivery O2 Flow Rate FiO2 11/03/17 14:17 68 15 124/80 98 Room Air 11/03/17 13:00 69 11/03/17 12:19 36.7 88 20 122/80 95 Room Air General appearance: +Thin. Well-developed, no apparent distress Head: Normocephalic, atraumatic Eyes: Normal inspection, PERRL, EOMI ENT: Normal ENT inspection, hearing grossly normal, pharynx normal Neck: Supple, no JVD, trachea midline Respiratory/Chest: +Spit fistula left chest. Lungs clear to auscultation, normal breath sounds, no respiratory distress Cardiovascular: Regular rate & rhythm, no gallop, no murmur Abdomen/GI: +J tube LUQ w/surrounding erythema (ongoing per pt). Normal bowel sounds, non-tender, soft Extremities/Musculoskeletal: Normal inspection, no calf tenderness, no pedal edema Neurological/Psych: Alert, normal mood/affect, oriented x 3 Skin: Normal color, warm/dry, no rash Diagnostics Laboratory Results Results Past 24 Hours Test 11/03/17 12:40 11/03/17 14:20 Range/Units White Blood Count 12.25 4.8-10.8 K/uL Red Blood Count 3.47 4.7-6.1 M/uL Hemoglobin 11.9 14.0-18.0 g/dL Hematocrit 33.6 42-52 % Mean Corpuscular Volume 96.8 80-100 fL Mean Corpuscular Hemoglobin 34.3 25-34 pg Mean Corpuscular Hemoglobin Concent 35.4 32-36 g/dl Platelet Count 313 130-400 K/uL Mean Platelet Volume 11.5 7.4-10.4 fL Neutrophils (%) (Auto) 89.5 % Lymphocytes (%) (Auto) 4.2 % Monocytes (%) (Auto) 4.4 % Eosinophils (%) (Auto) 1.5 % Basophils (%) (Auto) 0.2 % Neutrophils # (Auto) 10.97 1.4-6.5 K/uL Lymphocytes # (Auto) 0.52 1.2-3.4 K/uL Monocytes # (Auto) 0.54 0.11-0.59 K/uL Eosinophils # (Auto) 0.18 0-0.5 K/uL Basophils # (Auto) 0.02 0-0.2 K/uL RDW Standard Deviation 43.8 36.4-46.3 fL RDW Coefficient of Variation 12.4 11.5-14.5 % Immature Granulocyte % (Auto) 0.2 % Immature Granulocyte # (Auto) 0.02 0.00-0.02 K/uL Nucleated RBC Absolute Count (auto) 0.02 0-0 K/uL Nucleated Red Blood Cells % 0.1 % Prothrombin Time 9.6 9.0-12.0 SECONDS Prothromb Time International Ratio 0.9 0.9-1.1 Activated Partial Thromboplast Time 26.5 21.0-31.0 SECONDS Partial Thromboplastin Ratio 1.0 Sodium Level 122 136-145 mmol/L Potassium Level 2.9 3.5-5.1 mmol/L Chloride Level 77 98-107 mmol/L Carbon Dioxide Level 39 21-32 mmol/L Anion Gap 6.0 3-11 mmol/L Blood Urea Nitrogen 109 7-18 mg/dl Creatinine 2.70 0.60-1.40 mg/dl Est Creatinine Clear Calc Drug Dose 22.8 ml/min Estimated GFR () 27.4 Estimated GFR (Non- 23.7 BUN/Creatinine Ratio 40.4 10-20 Random Glucose 119 70-99 mg/dl Calcium Level 8.7 8.5-10.1 mg/dl Phosphorus Level 3.5 2.5-4.9 mg/dl Magnesium Level 3.3 1.8-2.4 mg/dl Total Bilirubin 0.5 0.2-1 mg/dl Direct Bilirubin 0.2 0-0.2 mg/dl Aspartate Amino Transf (AST/SGOT) 78 15-37 U/L Alanine Aminotransferase (ALT/SGPT) 105 12-78 U/L Alkaline Phosphatase 434 45-117 U/L Troponin I < 0.015 0-0.045 ng/ml Total Protein 8.1 6.4-8.2 gm/dl Albumin 3.6 3.4-5.0 gm/dl Lipase 305 73-393 U/L Diagnostic Radiology Reviewed the following studies and agree with interpretation as follows: SINGLE VIEW CHEST CLINICAL HISTORY: Generalized abdominal pain. FINDINGS: An AP, portable, upright chest radiograph is compared to study dated 10/16/2017 and correlated with chest CT dated 12/29/2013. The examination is degraded by portable technique and patient rotation. The patient is status post midline sternotomy. The heart is normal in size and there is atherosclerotic calcification of the thoracic aorta. Chronic interstitial thickening is similar to previous. Blunting of the left posterior sulcus is unchanged from prior studies and likely represent pleural thickening. No airspace consolidation or large pleural effusion is identified. No pneumothorax is seen. The skeletal structures are osteopenic. The bony thorax is grossly intact. Coils project over the right upper quadrant. IMPRESSION: No acute cardiopulmonary abnormality. 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 Pt arrived afebrile, VSS. CXR no acute disease. EKG no ischemic changes. WBC 12.25. Hgb stable. Sodium 122, potassium 2.9. Creatinine 2.70, further elevated than last recent admission. Troponin negative. Hyponatremia, weakness, fatigue--presented with similar sx and lyte abnormalities 2 weeks ago -Admit to telemetry -Check serum and urine osmolality, urine random sodium -Received 1L NSS bolus in ED -NSS + 40 KCl at 100 cc/hr for now, avoid correcting too fast -Recheck PRP at 1900 Hypokalemia -Magnesium 3.3 -Received KCl 10 mEq IV in ED -IVF as above w/K+ -KCl 10 mEq IV q1h x 4 doses -Recheck at 1900 Acute renal failure on CKD stage III--pt had originally presented with ARF in early September, diagnosed with ATN and was improving on discharge 2 weeks ago. Now with creatinine even worse than previous admission -Baseline creatinine around 1.6-1.9 -Creatinine 2.70 on admission -IVF as above -Consult nephrology, appreciate recs. Dr. Mode hernandez, recommends hydration Anemia secondary to copper deficiency--stable -Pt follows with Dr. Valdez, receives IV copper infusions -Hgb stable at 11.9 on admission H/o asthma, allergies -Flonase prn Gastrectomy s/p J tube and spit fistula, underweight, severe protein calorie malnutrition -Tube feeds, nutrition consulted -Pt's tube feeds just changed from Jevity 1.5 to TwoCal (6 cans over 16 hours at night) as the pt had been losing weight and new formula is calorie and protein dense -Pt flushes tube w/300 cc water q3h DVT prophylaxis -Heparin 5000 units SC q12h -Tyrone treviño and SCDs Code Status -Level I, FULL RESUSCITATION STATUS Level of Care Telemetry Resuscitation Status FULL RESUSCITATION VTE Prophylaxis VTE Risk Assessment Done? Y/N: Yes Risk Level: Moderate Given or contraindicated: Unfractionated heparin SQ, T.E.D. Stockings, SCD's Reviewed: Pt Seen/Exam by Me History Pt states he feels "wiped out" and has been having diarrhea since the change in his TF. No other sx. His TF formula was changed on Monday and he was advised that he might have diarrhea with this. No SOB or chest pain. Tolerating the TF otherwise. Agree with HPI/ROS as noted by PA. General Appearance: no apparent distress, thin Eye Exam: bilateral eye normal inspection, bilateral eye EOMI Respiratory: normal breath sounds, no respiratory distress Cardiovascular: normal peripheral pulses, regular rate, rhythm Gastrointestinal: non tender, soft Extremities: non-tender, no pedal edema Neurologic/Psychiatric: alert, normal mood/affect, oriented x 3 Skin Characteristics: normal color, warm/dry Assessment/Plan Agree with plan as outlined above Pt with hypoNa, hypoK, diarrhea Recent d/c for same Discussed with nutrition and it is felt that TF may have been advanced too quickly, will make formal recs HAYLEY in the setting of dehydration, IVF ED spoke with renal who feels IVF will be appropriate
[2017-11-03 17:13] VITALS: BP 138/81; PULSE 64; TEMP 36.9; O2SAT 98
[2017-11-03 17:21] VITALS: BMI 17.6
[2017-11-03] MEDS: POTASSIUM CHLR 10 MEQ / WTR 10 MEQ in PREMIXED WATER 100 ML IV SCH ×3 (18:19→22:28)
[2017-11-03] MEDS: POTASSIUM CHLORIDE INJ 40 MEQ in SODIUM CHLORIDE 0.9% 1000ML 1,000 ML IV SCH (18:19)
[2017-11-03 19:34] VITALS: BP 138/81; PULSE 64; TEMP 36.9; O2SAT 93; Ht 182.9 cm; Wt 59.2 kg
[2017-11-03 19:44] VITALS: BP 139/88; PULSE 76; TEMP 36.8; O2SAT 93
[2017-11-03 20:00] VITALS: O2SAT 93
[2017-11-03] MEDS ORDERED: FIBERSOURCE HN 1000ML BAG JT PRN (20:00)
[2017-11-03 20:29] LABS: CALCIUM 8.6 mg/dl (8.5-10.1); CREATININE 2.49 mg/dl (0.60-1.40)
[2017-11-03] MEDS: HEPARIN SOD 5000 UNIT/0.5 ML CARP SQ SCH ×2 (21:00→21:44)
[2017-11-03] MEDS: CALCITRIOL 0.25 MCG CAP JT SCH (21:38)
[2017-11-04] VITALS (7 sets, daily range): BP systolic 106–143; BP diastolic 66–86; PULSE 59–76; TEMP 36.5–36.8; O2SAT 94–99
[2017-11-04] MEDS: POTASSIUM CHLR 10 MEQ / WTR 10 MEQ in PREMIXED WATER 100 ML IV SCH (00:13)
[2017-11-04] MEDS ORDERED: COUGH DROP (SUGAR FREE) LOZ 24 LOZ/1 BOX ONE (03:28)
[2017-11-04] MEDS: POTASSIUM CHLORIDE INJ 40 MEQ in SODIUM CHLORIDE 0.9% 1000ML 1,000 ML IV SCH ×3 (04:53→23:39)
[2017-11-04] MEDS: HEPARIN SOD 5000 UNIT/0.5 ML CARP SQ SCH ×2 (08:41→21:32)
[2017-11-04] MEDS: CALCITRIOL 0.25 MCG CAP JT SCH ×2 (08:42→21:33)
[2017-11-04 09:16] LABS: HEMATOCRIT 32.4 % (42-52); HEMOGLOBIN 10.9 g/dL (14.0-18.0); MEAN CELL VOLUME 98.2 fL (80-100); MEAN CORPUSCULAR HGB CONC 33.6 g/dl (32-36); MEAN PLATELET VOLUME 11.2 fL (7.4-10.4); PLATELET COUNT 315 K/uL (130-400); RED CELL DISTRIBUTION WIDTH CV 12.6 % (11.5-14.5); RED CELL DISTRIBUTION WIDTH SD 45.2 fL (36.4-46.3); WHITE BLOOD COUNT 9.89 K/uL (4.8-10.8)
[2017-11-04 09:49] LABS: CALCIUM 8.7 mg/dl (8.5-10.1); CREATININE 2.53 mg/dl (0.60-1.40); POTASSIUM 3.8 mmol/L (3.5-5.1)
--- NOTE | 2017-11-04 10:06 | NEPHROLOGY CONSULTATION ---
DATE OF CONSULTATION: 11/04/2017 ATTENDING OF RECORD: Victor Hugo Ibarra DO REASON FOR CONSULTATION: HAYLEY. HISTORY OF PRESENT ILLNESS: This is a 67-year-old male who was recently in the hospital from 10/17/2017 to 10/19/2017 with HAYLEY and hyponatremia. The patient follows with my partner Dr. Kaveh Estrada in [place], has a history of esophageal hernia surgery with complications, developed an esophageal leak and had a prolonged ICU stay. Developed HAYLEY that required dialysis and need of dialysis from September 2011 to March of 2012 and eventually recovered. The patient suffers from chronic diarrhea. The patient also had anemia of renal failure; however, was attributed to low copper levels and once copper levels were repleted, hemoglobin levels did improve. The patient during last admission had hyponatremia with sodium level of 118 as well as HAYLEY on CKD stage IV. Creatinine in the past was in the 1.3-1.5 range and then trended up to 1.9 range and then presented during last admission at 2.5, which was likely having a much worse GFR since patient has low muscle mass. His creatinine went from 2.57 down to 2.33 on October 19. The patient presents again with a creatinine now of 2.7 up from 2.33 and now has improved to 2.49. The patient was having symptoms from uremia/volume depletion and developed again a hyponatremia with a sodium level down to 122 and potassium level of 2.9 with IV fluids last night has gone up to 127 with potassium level of 3 and creatinine improving to 2.49 symptomatically starting to improve. This morning labs are still pending. Currently on normal saline with 40 of potassium at 100 mL an hour and continue on tube feeds and holding free water boluses. REVIEW OF SYSTEMS: No fevers or chills. No blurry vision. No dysphagia. No headaches. No chest pain or shortness of breath. Positive fatigue with generalized weakness. Positive diarrhea. 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 FAMILY HISTORY: Lung cancer. SOCIAL HISTORY: No smoking, no alcohol, no drugs. CURRENT MEDICATIONS: Heparin 5,000 units subQ q. 12, calcitriol 0.5 mcg b.i.d., folic acid 1 mg b.i.d., normal saline with 40 of K at 100 mL an hour, Flonase. PHYSICAL EXAMINATION: VITAL SIGNS: Temperature 36.5, pulse 64, respiratory rate 18, blood pressure 112/70, satting 97% on room air. GENERAL: Awake, alert, oriented x3. EYES: No scleral icterus. HEENT: Mucous membranes are dry. NECK: Supple. PULMONARY: Clear to auscultation. CARDIAC: Regular rate and rhythm. ABDOMEN: Positive J tube with an esophageal drain in place. EXTREMITIES: No clubbing, cyanosis or edema. NEUROLOGICALLY: Nonfocal. DERMATOLOGIC: No rash or ulcers noted. LABORATORY DATA: Pending for this morning with a white count 9, H&H 10.9 and 32.4, platelet count 315. INR is 0.9. ASSESSMENT AND PLAN: Hyponatremia in the setting of volume depletion and improving nicely with IV fluids, would continue aggressive fluid resuscitation. I agree with continuing to hold the free water boluses for now. Sodium levels should continue to improve with the iv fluids. HAYLEY-The patient overall feels better with more volume on, would like to continue to aggressively hydrate during this admission with hopes that the creatinine eventually improves back down to 1.9 range to give him more of a cushion when he goes home. Patient with acute kidney injury with unclear baseline, it appears creatinine has been progressively worsening over the past year and hopefully creatinine eventually improves back down to 1.9, but has been persistently in the mid 2s for the past month. May be at new baseline. Appreciate consultation. BIANKA
--- NOTE | 2017-11-04 17:25 | Progress Note ---
Subjective Date of Service: Nov 04, 2017. Subjective Pt evaluation today including: conversation w/ patient, physical exam, chart review, lab review, conversation w/ agricultural consultant, review of inpatient medication list feeling better now but worried about what might happen as he was getting dehydrated quickly at home - notes that actually he'd been doing well for about 5yrs on peptamen 1.5 - had been put on that at [facility] - notes it was arrived at during a very prolonged hospital stay when they tried numbers of differrent formulas before finally arriving at that. notes that he did have trouble with other issues during that time and was in and out of the hospital mostly with anemia type issues and finally was found to be copper deficient ci replacing made a signifiacnt improvement. however he does not recall having these kinds of episodes until recently. was hospitalized for similar in late september - thinks antibiotic threw off intestines and that led to a diarrhea / dehdyration admission. now notes that he's been working with medical nutrition - and tube feeds beign changed - goal to build him up more. notes that on old regimen he never lost weight but also never gained weight. was initially put on a formula with fiber to slow GI throughput and hopefully absorb more - but that this didn' t work as the fiber created severe constipation. later changed to a different formula and ntoes that he thinks that's been part of why he has diarrhea high throughput now. unclear if that change was to the formula he's currently rx'd ( 2cal) or if there was something else and the 2cal was just started. also notes he's leaking tube feeds around his ostomy. would like to follow up with [facility] about this Problem List Medical Problems: (1) Acute kidney injury Status: Acute (2) Elevated LFTs Status: Acute (3) Hypokalemia Status: Acute (4) Hyponatremia Status: Acute (5) Leukopenia Status: Acute (6) Radiating back pain Status: Acute (7) Symptomatic anemia Status: Acute (8) Weakness Status: Acute Review of Systems all other ROS otherwise negative except for as above Objective Vital Signs Date Time Temp Pulse Resp B/P (MAP) Pulse Ox O2 Delivery O2 Flow Rate FiO2 11/04/17 16:00 Room Air 11/04/17 15:14 36.5 76 20 122/74 (90) 99 Room Air 11/04/17 12:00 Room Air 11/04/17 11:32 36.7 75 18 143/86 (105) 94 Room Air 11/04/17 08:00 Room Air 11/04/17 07:51 36.5 64 18 112/70 (84) 97 Room Air 11/04/17 05:41 36.6 66 16 106/66 (79) 94 11/04/17 00:37 36.7 61 20 122/73 (89) 95 Room Air 11/03/17 20:00 93 Room Air 11/03/17 19:44 36.8 76 20 139/88 (105) 93 Room Air 11/03/17 19:34 36.9 64 18 138/81 93 Room Air Physical Exam General Appearance: no apparent distress, + thin Eyes: EOMI ENT: hearing grossly normal Neck: trachea midline Respiratory/Chest: no respiratory distress, no accessory muscle use Extremities: normal range of motion Neurologic/Psychiatric: acting manager II-XII nml as tested, alert, normal mood/affect Skin: normal color, warm/dry Laboratory Results Last 24 Hours Test 11/03/17 19:28 11/04/17 08:56 Sodium Level 127 mmol/L 132 mmol/L Potassium Level 3.0 mmol/L 3.8 mmol/L Chloride Level 83 mmol/L 92 mmol/L Carbon Dioxide Level 36 mmol/L 32 mmol/L Anion Gap 8.0 mmol/L 8.0 mmol/L Blood Urea Nitrogen 103 mg/dl 100 mg/dl Creatinine 2.49 mg/dl 2.53 mg/dl Est Creatinine Clear Calc Drug Dose 24.7 ml/min 23.8 ml/min Estimated GFR () 30.2 29.7 Estimated GFR (Non- 26.1 25.6 BUN/Creatinine Ratio 41.4 39.5 Random Glucose 84 mg/dl 98 mg/dl Calcium Level 8.6 mg/dl 8.7 mg/dl White Blood Count 9.89 K/uL Red Blood Count 3.30 M/uL Hemoglobin 10.9 g/dL Hematocrit 32.4 % Mean Corpuscular Volume 98.2 fL Mean Corpuscular Hemoglobin 33.0 pg Mean Corpuscular Hemoglobin Concent 33.6 g/dl RDW Standard Deviation 45.2 fL RDW Coefficient of Variation 12.6 % Platelet Count 315 K/uL Mean Platelet Volume 11.2 fL Magnesium Level 3.0 mg/dl Assessment and Plan Hyponatremia, weakness, fatigue--presented with similar sx and lyte abnormalities 2 weeks ago -appearing to be due to GI losses - both from faster throughput and malabsorption -malabsorption appearing to be chronic likely related to post op intestinal anatomy, acute high throughput recently on abx (add probiotic, consider adding a bifidobacteria probiotic as outpt) but also possibly due to changes in tube feed formulas. certainly the changes logically make a lot of sense but he's wondering if that might be part of why he's been running into more problems recently - which given that he apparently at least held stability for years on the peptamin makes sense. for now change back to peptamin, would consider then adding additional nutrition as supplements "on top of the base" of the peptamin -continue IVF, continue to follow, does appear improving Hypokalemia -due to GI losses -replete and follow - improved Acute renal failure on CKD stage III--pt had originally presented with ARF in early September, diagnosed with ATN and was improving on discharge 2 weeks ago. Now with creatinine even worse than previous admission -Baseline creatinine around 1.6-1.9 -agree w Dr Coello - ongoing IVF and hopefully improvement in creatinine back to baseline range Anemia secondary to copper deficiency--stable -Pt follows with Dr. Valdez, receives IV copper infusions -Hgb stable at 11.9 on admission H/o asthma, allergies -Flonase prn Gastrectomy s/p J tube and spit fistula, underweight, severe protein calorie malnutrition -Tube feeds changed as above, nutrition consulted -Pt flushes tube w/300 cc water q3h which - especially with fast throughput and GI losses - is probably a contributor to his hyponatremia - as a different variant on a polydipsia type of problem. may need to teach him to flush at times with a pedialyte type of solution if he habitually continues to flush wiht such large volumes over 24hrs -osteoporosis risk - check vitamin D, likely needs additional D. does not appear to have immune compromise from malnutrition at this point DVT prophylaxis -Heparin 5000 units SC q12h -Tyrone Klein Code Status -Level I, FULL RESUSCITATION STATUS stable for med surg
[2017-11-04] MEDS: PEPTAMEN 1.5 CAL 1000ML BAG PO PRN (18:14)
[2017-11-05 06:57] VITALS: BP 112/65; PULSE 62; TEMP 36.4; O2SAT 97
[2017-11-05] MEDS: HEPARIN SOD 5000 UNIT/0.5 ML CARP SQ SCH ×2 (08:02→19:33)
[2017-11-05] MEDS: LACTOBACILLUS ACIDOPHILUS (FLORANEX) TAB PEG SCH ×3 (08:03→15:29)
[2017-11-05] MEDS: CALCITRIOL 0.25 MCG CAP JT SCH ×2 (08:03→19:32)
[2017-11-05 08:50] LABS: HEMATOCRIT 35.7 % (42-52); HEMOGLOBIN 11.9 g/dL (14.0-18.0); MEAN CELL VOLUME 100.3 fL (80-100); MEAN CORPUSCULAR HEMOGLOBIN 33.4 pg (25-34); MEAN CORPUSCULAR HGB CONC 33.3 g/dl (32-36); MEAN PLATELET VOLUME 11.3 fL (7.4-10.4); PLATELET COUNT 338 K/uL (130-400); RED CELL DISTRIBUTION WIDTH CV 12.7 % (11.5-14.5); RED CELL DISTRIBUTION WIDTH SD 46.2 fL (36.4-46.3); WHITE BLOOD COUNT 7.62 K/uL (4.8-10.8)
[2017-11-05 09:35] LABS: CALCIUM 8.8 mg/dl (8.5-10.1); CREATININE 2.32 mg/dl (0.60-1.40); POTASSIUM 4.4 mmol/L (3.5-5.1)
[2017-11-05] MEDS: POTASSIUM CHLORIDE INJ 40 MEQ in SODIUM CHLORIDE 0.9% 1000ML 1,000 ML IV SCH ×2 (10:26→20:58)
[2017-11-05 14:49] VITALS: BP 119/72; PULSE 62; TEMP 36.5; O2SAT 99
[2017-11-05] MEDS ORDERED: PEPTAMEN 1.5 CAL 1000ML BAG JT SCH (15:30)
[2017-11-05] MEDS: PEPTAMEN 1.5 CAL 1000ML BAG PO PRN (15:41)
[2017-11-05] MEDS ORDERED: ERGOCALCIFEROL 50,000 INTER.UNIT CAP PO SCH (18:00)
--- NOTE | 2017-11-05 18:44 | Progress Note ---
Subjective Date of Service: Nov 05, 2017. Subjective Pt evaluation today including: conversation w/ patient, physical exam, chart review, lab review generally feeling better -- on prior tube feeds now, nearly to goal, tolerating well no diarrhea, actually feeling a little bit constipated. does endorse plan of sticking with the tube feeds that he had for years without trouble, except also notes he paid $900 for his formula he has at home and obviously would like to be able to not waste it. discussed that he can certainly try it again once home, but if troubles then terminal press operator plan w peptamen makes sense no other new complaints Problem List Medical Problems: (1) Acute kidney injury Status: Acute (2) Elevated LFTs Status: Acute (3) Hypokalemia Status: Acute (4) Hyponatremia Status: Acute (5) Leukopenia Status: Acute (6) Radiating back pain Status: Acute (7) Symptomatic anemia Status: Acute (8) Weakness Status: Acute Review of Systems all other ROS otherwise negative except for as above Objective Vital Signs Date Time Temp Pulse Resp B/P (MAP) Pulse Ox O2 Delivery O2 Flow Rate FiO2 11/05/17 16:00 Room Air 11/05/17 14:49 36.5 62 18 119/72 (88) 99 Room Air 11/05/17 08:00 Room Air 11/05/17 06:57 36.4 62 18 112/65 (81) 97 Room Air 11/05/17 00:00 Room Air 11/04/17 23:36 36.6 59 18 130/79 (96) 96 Room Air 11/04/17 21:42 36.8 75 131/79 (96) 98 Room Air 11/04/17 20:00 Room Air Physical Exam General Appearance: no apparent distress, + thin Eyes: EOMI ENT: hearing grossly normal Neck: trachea midline Respiratory/Chest: no respiratory distress, no accessory muscle use Abdomen: non tender (no guarding / rebound/rigidity), soft Extremities: normal range of motion Neurologic/Psychiatric: concrete rubber II-XII nml as tested, alert, normal mood/affect Laboratory Results Last 24 Hours Test 11/05/17 08:39 White Blood Count 7.62 K/uL Red Blood Count 3.56 M/uL Hemoglobin 11.9 g/dL Hematocrit 35.7 % Mean Corpuscular Volume 100.3 fL Mean Corpuscular Hemoglobin 33.4 pg Mean Corpuscular Hemoglobin Concent 33.3 g/dl RDW Standard Deviation 46.2 fL RDW Coefficient of Variation 12.7 % Platelet Count 338 K/uL Mean Platelet Volume 11.3 fL Sodium Level 138 mmol/L Potassium Level 4.4 mmol/L Chloride Level 103 mmol/L Carbon Dioxide Level 29 mmol/L Anion Gap 6.0 mmol/L Blood Urea Nitrogen 86 mg/dl Creatinine 2.32 mg/dl Est Creatinine Clear Calc Drug Dose 25.9 ml/min Estimated GFR () 32.9 Estimated GFR (Non- 28.4 BUN/Creatinine Ratio 37.2 Random Glucose 138 mg/dl Calcium Level 8.8 mg/dl Magnesium Level 3.1 mg/dl 25-Hydroxy Vitamin D Total 8.7 ng/ml Assessment and Plan Hyponatremia, weakness, fatigue--presented with similar sx and lyte abnormalities 2 weeks ago -appearing to be due to GI losses - both from faster throughput and malabsorption -malabsorption appearing to be chronic likely related to post op intestinal anatomy, acute high throughput recently on abx (add probiotic, consider adding a bifidobacteria probiotic as outpt) but also possibly due to changes in tube feed formulas. certainly the changes logically make a lot of sense but he's wondering if that might be part of why he's been running into more problems recently - which given that he apparently at least held stability for years on the peptamin makes sense. for now have changed back to peptamin, and titrating to a goal of 75/hr for 18hrs a day, would consider then adding additional nutrition as supplements "on top of the base" of the peptamin -complicating factor is, of course, his desire to not waste the feeds he has at home - would anticipate correcting current situation, then having him have close f/u both by clinical and lab after discharge to try to catch deterioration faster should it start to occur -continue IVF, continue to follow, does appear improving Hypokalemia -due to GI losses, ?dilution effect from fairly large volume water flushes -replete and follow - improved Acute renal failure on CKD stage III--pt had originally presented with ARF in early September, diagnosed with ATN and was improving on discharge 2 weeks ago. Now with creatinine even worse than previous admission -Baseline creatinine around 1.6-1.9 -agree w Dr Oncu - ongoing IVF and hopefully improvement in creatinine back to baseline range - showing day to day improvement Anemia secondary to copper deficiency--stable -Pt follows with Dr. Valdez, receives IV copper infusions -Hgb stable at 11.9 on admission, continue to follow periodically vitamin D deficiency -continue calcitriol, but add drisdol and D3 to replace more aggressively H/o asthma, allergies -Flonase prn, no current sx Gastrectomy s/p J tube and spit fistula, underweight, severe protein calorie malnutrition -Tube feeds changed as above, nutrition consulted -Pt flushes tube w/300 cc water q3h which - especially with fast throughput and GI losses - is probably a contributor to his hyponatremia - as a different variant on a polydipsia type of problem. may need to teach him to flush at times with a pedialyte type of solution if he habitually continues to flush wiht such large volumes over 24hrs -osteoporosis risk - replace D more aggressively, follow up 3 months. does not appear to have immune compromise from malnutrition at this point DVT prophylaxis -Heparin 5000 units SC q12h -Tyrone treviño and Bridgette Code Status -Level I, FULL RESUSCITATION STATUS stable on med surg
[2017-11-05 23:45] VITALS: BP 144/73; PULSE 75; TEMP 36.6; O2SAT 100
[2017-11-06 05:19] LABS: HEMATOCRIT 31.7 % (42-52); HEMOGLOBIN 10.5 g/dL (14.0-18.0); MEAN CELL VOLUME 101.9 fL (80-100); MEAN CORPUSCULAR HEMOGLOBIN 33.8 pg (25-34); MEAN CORPUSCULAR HGB CONC 33.1 g/dl (32-36); MEAN PLATELET VOLUME 11.2 fL (7.4-10.4); PLATELET COUNT 309 K/uL (130-400); RED CELL DISTRIBUTION WIDTH CV 13.3 % (11.5-14.5); RED CELL DISTRIBUTION WIDTH SD 49.3 fL (36.4-46.3); WHITE BLOOD COUNT 9.86 K/uL (4.8-10.8)
[2017-11-06 05:57] LABS: CALCIUM 8.6 mg/dl (8.5-10.1); CREATININE 2.2 mg/dl (0.60-1.40); POTASSIUM 5.1 mmol/L (3.5-5.1)
[2017-11-06] MEDS: POTASSIUM CHLORIDE INJ 40 MEQ in SODIUM CHLORIDE 0.9% 1000ML 1,000 ML IV SCH (06:06)
[2017-11-06 07:28] VITALS: BP 132/74; PULSE 64; TEMP 36.4; O2SAT 97
--- NOTE | 2017-11-06 07:29 | Nephrology Progress Note ---
Nephrology Progress Note Date of Service: Nov 06, 2017. Subjective 67 yo male seen for follow up of hyponatremia and deneen on ckd. pt doing well. did develop wheezing this morning, pt attributes it to his hx of asthma Objective Date Time Temp Pulse Resp B/P (MAP) Pulse Ox O2 Delivery O2 Flow Rate FiO2 11/05/17 23:45 36.6 75 18 144/73 (96) 100 Room Air 11/05/17 23:45 100 Room Air 11/05/17 16:00 Room Air 11/05/17 14:49 36.5 62 18 119/72 (88) 99 Room Air 11/05/17 08:00 Room Air Physical Exam: General-aaox3 Eyes-no scleral icterus ENT-mmm Neck-supple Lungs-+wheezing right side Heart-rrr Abdomen-+j tube, esophageal drain Extremities-no c/c/e Neuro-nonfocal Current Inpatient Medications Medications (Trade) Dose Ordered Sig/Maame Route Start Time Stop Time Status Last Admin Dose Admin Heparin Sodium (Porcine) (Heparin Sq 5000 Unit/0.5ml) 5,000 unit Q12 SQ 11/03/17 21:00 12/03/17 20:59 Potassium Chloride 40 meq/ Sodium Chloride 1,020 ml @ 100 mls/hr [id number] IV 11/03/17 17:30 12/03/17 17:29 11/06/17 06:06 100 MLS/HR Calcitriol (Rocaltrol Cap) 0.25 mcg BID JT 11/03/17 21:00 12/03/17 20:59 11/05/17 19:32 0.25 MCG Fluticasone Propionate (Flonase Nasal [place]) 1 sprays DAILY PRN JOSE L 11/03/17 15:00 12/03/17 14:59 Folic Acid (Folvite Tab) 1 mg BID PEG 11/03/17 21:00 12/03/17 20:59 11/05/17 19:31 1 MG Lactobacillus Acidophilus (Floranex Tab) 4 tab TIDM PEG 11/05/17 08:00 12/05/17 07:59 11/05/17 15:29 4 TAB Enteral Nutritional Formula (Peptamen 1.5) 1,000 ml UD JT 11/05/17 15:30 12/05/17 15:29 11/06/17 05:26 1,000 ML Ergocalciferol (Vitamin D Cap) 50,000 interunit Thomas PO 11/05/17 18:00 12/05/17 17:59 11/05/17 19:31 50,000 INTERUNIT Cholecalciferol (Vitamin D Tab) 2,000 inter.unit QAM PEG 11/06/17 08:00 12/06/17 07:59 Last 24 Hours Test 11/05/17 08:39 11/06/17 05:03 White Blood Count 7.62 K/uL 9.86 K/uL Red Blood Count 3.56 M/uL 3.11 M/uL Hemoglobin 11.9 g/dL 10.5 g/dL Hematocrit 35.7 % 31.7 % Mean Corpuscular Volume 100.3 fL 101.9 fL Mean Corpuscular Hemoglobin 33.4 pg 33.8 pg Mean Corpuscular Hemoglobin Concent 33.3 g/dl 33.1 g/dl RDW Standard Deviation 46.2 fL 49.3 fL RDW Coefficient of Variation 12.7 % 13.3 % Platelet Count 338 K/uL 309 K/uL Mean Platelet Volume 11.3 fL 11.2 fL Sodium Level 138 mmol/L 144 mmol/L Potassium Level 4.4 mmol/L 5.1 mmol/L Chloride Level 103 mmol/L 112 mmol/L Carbon Dioxide Level 29 mmol/L 28 mmol/L Anion Gap 6.0 mmol/L 4.0 mmol/L Blood Urea Nitrogen 86 mg/dl 76 mg/dl Creatinine 2.32 mg/dl 2.20 mg/dl Est Creatinine Clear Calc Drug Dose 25.9 ml/min 27.3 ml/min Estimated GFR () 32.9 35.1 Estimated GFR (Non- 28.4 30.3 BUN/Creatinine Ratio 37.2 34.4 Random Glucose 138 mg/dl 120 mg/dl Calcium Level 8.8 mg/dl 8.6 mg/dl Magnesium Level 3.1 mg/dl 2.8 mg/dl 25-Hydroxy Vitamin D Total 8.7 ng/ml C-Reactive Protein 1.83 mg/dl Prealbumin 27.4 mg/dl Assessment & Plan deneen on ckd-creatinine slowly improved from 2.7 to 2.2 and bun from 109 to 76. tolerating fluid well although now with wheezing. concern for volume overload but oxygenating well and no edema. to check chest xray and give nebs. consider stopping fluids if signs of overload. hyperkalemia-potassium in the fluids. to switch to normal saline and remove the potassium from the fluids. hyponatremia-sodium levels have improved nicely on the normal saline. pt feels good otherwise and has a furnace barbara coming to his house tomorrow. inquiring politely if he could go home today if medically good. ok from renal perspective to go home today. recommend rechecking bmp in a week.
[2017-11-06] MEDS ORDERED: ALBUTEROL 0.5% NEB SOLN 2.5 MG/0.5 ML VIAL INH ONE (07:30)
[2017-11-06] MEDS ORDERED: SODIUM CHLORIDE 0.9% 1000ML 1,000 ML IV SCH (07:30)
[2017-11-06] MEDS ORDERED: IPRATROPIUM BROMIDE NEB SOLN 0.02% 2.5 ML VIAL INH ONE (07:30)
[2017-11-06] MEDS ORDERED: CHOLECALCIFEROL 1000 INTER.UNIT TAB PEG SCH (08:00)
[2017-11-06] MEDS: CALCITRIOL 0.25 MCG CAP JT SCH (08:01)
[2017-11-06] MEDS: LACTOBACILLUS ACIDOPHILUS (FLORANEX) TAB PEG SCH ×2 (08:01→12:19)
[2017-11-06] MEDS: HEPARIN SOD 5000 UNIT/0.5 ML CARP SQ SCH (08:03)
--- NOTE | 2017-11-06 08:17 | DIAGNOSTIC IMAGING REPORT ---
CHEST ONE VIEW PORTABLE HISTORY: 67 years-old Male wheezing acute wheezing COMPARISON: Chest radiograph 11/03/2017 TECHNIQUE: Portable AP view of the chest FINDINGS: Cardiomediastinal and hilar silhouettes are within normal limits. Prior median sternotomy. Surgical clips project over the left mediastinum. No pneumothorax. There is chronic interstitial coarsening redemonstrated suggesting areas of scarring. Blunting of the left costophrenic angle is also unchanged suggesting area of scarring/atelectasis. Bones of the chest appear grossly intact. IMPRESSION: No acute process. The above report was generated using voice recognition software. It may contain grammatical, syntax or spelling errors. Electronically signed by: Bo Thornton M.D. 11/06/2017 8:15 AM Dictated Date/Time: 11/06/2017 8:13 AM
[2017-11-06 08:30] VITALS: O2SAT 100
[2017-11-06 11:27] VITALS: PULSE 64; O2SAT 97
[2017-11-06] MEDS ORDERED: ERGO500011 PO (12:13)
[2017-11-06] MEDS ORDERED: NUTR-1305 JT (12:13)
[2017-11-06] MEDS ORDERED: [UNRECOGNIZED DRUG - CODE] JT ×3 (12:13→12:49)
[2017-11-06] MEDS ORDERED: VTMD1000 PEG ×2 (12:13)
[2017-11-06] MEDS ORDERED: VNTHFA/IN INH ×2 (12:13)
[2017-11-06] MEDS ORDERED: LCTX PEG ×2 (12:13)
[2017-11-06] MEDS ORDERED: ERGO500011 PEG ×2 (12:15)
--- NOTE | 2017-11-06 12:27 | Discharge Instructions ---
Discharge Instructions Date of Service Nov 06, 2017. Admission Reason for Admission: Acute Renal Failure, Hyponatremia Discharge Discharge Diagnosis / Problem: Acute Renal Failure, Hyponatremia Discharge Goals Goal(s): Improve disease control Activity Recommendations Activity Limitations: resume your previous activity . Instructions / Follow-Up Instructions / Follow-Up I have reduced your free water flushes from 300 ml/ 3 hours to 200 ml/3 hours. If you feel you need more flushes or fluids, you may want to try Pedialyte or some low sugar fluids with electrolytes. It's possible that your free water flushes were contributing to the low sodium You have a new prescription for an albuterol inhaler which you can use as needed every four hours for your cough/wheezing Please have your blood work drawn in the next day or two, the results will go to your primary and nephrology providers. Please touch base with Dr. Medina's office to discuss how to optimally use up your two kinds of feeds at home. Current Hospital Diet Patient's current hospital diet: Discharge Diet Recommended Diet: N/A Pending Studies Studies pending at discharge: no Medical Emergencies . Who to Call and When: Medical Emergencies: If at any time you feel your situation is an emergency, please call 911 immediately. . Non-Emergent Contact Non-Emergency issues call your: Primary Care Provider Call Non-Emergent contact if: you have any medication questions . . "Provider Documentation" section prepared by Nati Diaz. . VTE Core Measure Inpt VTE Proph given/why not?: Unfractionated heparin EVI, T.EFlorencio Cedeno, SCD 's
[2017-11-06 13:10] VITALS: BP 132/74; PULSE 64; TEMP 36.4; O2SAT 97
--- NOTE | 2017-11-06 17:24 | Discharge Summary ---
Discharge Summary Date of Service Nov 06, 2017. 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 Prior median sternotomy. Surgical clips project over the left mediastinum. No pneumothorax. There is chronic interstitial coarsening redemonstrated suggesting areas of scarring. Blunting of the left costophrenic angle is also unchanged suggesting area of scarring/atelectasis. Bones of the chest appear grossly intact. IMPRESSION: No acute process. SINGLE VIEW CHEST CLINICAL HISTORY: Generalized abdominal pain. FINDINGS: An AP, portable, upright chest radiograph is compared to study dated 10/16/2017 and correlated with chest CT dated 12/29/2013. The examination is degraded by portable technique and patient rotation. The patient is status post midline sternotomy. The heart is normal in size and there is atherosclerotic calcification of the thoracic aorta. Chronic interstitial thickening is similar to previous. Blunting of the left posterior sulcus is unchanged from prior studies and likely represent pleural thickening. No airspace consolidation or large pleural effusion is identified. No pneumothorax is seen. The skeletal structures are osteopenic. The bony thorax is grossly intact. Coils project over the right upper quadrant. IMPRESSION: No acute cardiopulmonary abnormality. Consultations: Dr. Coello from nephrology Medication Reconciliation New Medications: Albuterol Hfa (Ventolin Hfa) 200 Puffs/84827 Mcg Aers 2 PUFFS INH Q4H for 30 Days, #1 INHALER Cholecalciferol (Vitamin D3) 1,000 Inter.unit Tab 2000 INTER.UNIT PEG QAM for 30 Days, #30 TAB Ergocalciferol (Vitamin D 95284 Unit) 50,000 Unit Cap 84839 INTERUNIT PEG Thomas for 30 Days, #4 CAP Lactobacillus Acidophilus (Floranex) 1 Tab Tab 4 TAB PEG TIDM for 30 Days, #30 TAB Changed Medications: Distilled Water (Distilled Water) 1 Liq Liq 200 ML JT Q3HRS for 30 Days, #30 DOSE (Changed from: 150 ML) ADD 1 TBSP REAL LEMON TO WATER Continued Medications: Calcitriol (Calcitriol) 0.25 Mcg Cap 0.25 MCG JT BID Cyanocobalamin (Cyanocobalamin) 1,000 Mcg/Ml Inj 1 DOSE IM MONTHLY Fluticasone Propionate (Nasal) (Flonase Allergy Relief) 50 Mcg/Act Spr 1-2 SPRAYS JOSE L DAILY PRN for ALLERGIES Folic Acid (Folvite) 1 Mg Tab 1 MG JT AMPM, TAB Loperamide Hcl (Imodium A-D) 1 Mg/7.5 Ml Liq 20 ML JT Q6 PRN for Diarrhea Nutritional Supplements (Twocal Hn 2.0) 1 Liq Liq 6 CAN JT DAILY Ondasetron Odt (Zofran Odt) 4 Mg Tab 4 MG SL TID PRN for Nausea, #6 TAB Trace Elements (Multitrace-5 Concent... [id number] Mcg/ml) 10 Ml Inj 1 ML IV Q3MO [Cytra 2 ] () 15 ML QAM CYTRA-2 ORAL SOLUTION (CLEAR LIQUID) 15 ML DILUTED WITH WATER, IN THE AM. Discharge Exam ROS Constitutional: no chills, aches, sweats or fever Respiratory: no sob,cough, sputum, or wheezing Cardiac: no chest pain, palpitations, edema, orthopnea or lightheadedness GI: no abdominal pain, nausea, vomiting, diarrhea or constipation : no dysuria or hesitancy Extremities: no joint pain or weakness Skin: no rash All other systems reviewed and negative General: no distress Eyes: normal inspection, PERLL Respiratory: chest non tender, clear to auscultation, normal breath sounds, no respiratory distress, no accessory muscle use Cardiac: regular rate and rhythm, no rub or gallop, no murmur, no edema, no jvd GI/: active bowel sounds, no abd pain or tenderness, soft, non distended Extremities: normal range of motion, normal strength, non tender Neuro/Psych: alert and oriented x 3, normal mood and affect Skin: normal color, dry Hospital Course This is a 67 y/o male with a history of anemia secondary to copper deficiency, asthma, BPH, CKD stage III, and gastrectomy s/p J tube and spit fistula who presented to the ED on 11/03 with generalized weakness, fatigue, and abnormal labs. The patient had recently been discharged from [facility] 2 weeks ago after being treated for hyponatremia, hypokalemia, acute renal failure, and weakness. He presented with the same for this admission. He was experiencing weakness and fatigue and his outpatient labs showed worsening renal function and electrolyte abnormalities, so he was sent to the ED. He noted that his tube feeds were just changed the day before admission. Hyponatremia, weakness, fatigue--presented with similar sx and lyte abnormalities 2 weeks ago -appearing to be due to GI losses - both from faster throughput and malabsorption -malabsorption appearing to be chronic likely related to post op intestinal anatomy, acute high throughput recently on abx (add probiotic, consider adding a bifidobacteria probiotic as outpt) but also possibly due to changes in tube feed formulas, however he had only been on these feeds for a day before presenting to ED. He is concerned about changing from this new formula for outpatient feeds as they cost him $900 and would like to go every other day rotating between the old and new feeds. Discussed that this was reasonable but he should call Dr. Medina who prescribed the feeds to get her recommendations. - received IVF which appeared to help correct his hyponatremia/dehydration Hypokalemia -due to GI losses, ?dilution effect from fairly large volume water flushes -repleted and resolved - K 5.1 on discharge however patient had been receiving K in fluids so discharged without potassium supplement, anticipate that the K level will come back down - repeat prp tomorrow or Monday outpatient Acute renal failure on CKD stage III--pt had originally presented with ARF in early September, diagnosed with ATN and was improving on discharge 2 weeks ago. 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 Valdez, receives IV copper infusions -Hgb stable at 11.9 on admission, continue to follow periodically vitamin D deficiency -continue calcitriol, but add ergocalciferol and cholecalciferol for more aggressive replacement H/o asthma, allergies -Flonase prn, no current sx Gastrectomy s/p J tube and spit fistula, underweight, severe protein calorie malnutrition -Tube feeds peptamen while inpatient but changed as above -Pt flushes tube w/300 cc water q3h which - especially with fast throughput and GI losses - is probably a contributor to his hyponatremia - as a different variant on a polydipsia type of problem. Reduced flushes to 200 ml q3h and suggested pedialyte if he requires increased flushes -osteoporosis risk - replace D more aggressively, follow up 3 months. does not appear to have immune compromise from malnutrition at this point Total Time Spent: Greater than 30 minutes This includes examination of the patient, discharge planning, medication reconciliation, and communication with other providers. Discharge Instructions Please refer to the electronic Patient Visit Report (Discharge Instructions) for additional information. Follow-Up Dr. Freddie Zuleta on Monday, November 08, 2017 at 8:[address]am. Dr. Estrada's office will contact him with a follow up appointment. PRP tomorrow or Monday with results to Dr. Zuleta and nephrology Additional Copies To Kaveh Estrada M.D.; Freddie Zuleta M.D.; Essence Medina M.D.
== END 2017-11-06 14:15 | disposition home or self-care (01) | DRG 640 ==
LOC: C.EDB 14:25 → C.MED 14:41 → ENRESERV 15:48 → C.4E 11-05 09:17
PROVIDERS: ADMIT Family Medicine; ATTEND Hospitalist
DX: E87.1 Hypo-osmolality and hyponatremia (principal); N17.0 Acute kidney failure with tubular necrosis; E43 Unspecified severe protein-calorie malnutrition; Z68.1 Body mass index [BMI] 19.9 or less, adult; E87.6 Hypokalemia; E86.0 Dehydration; R19.7 Diarrhea, unspecified; R11.0 Nausea; R53.1 Weakness; R53.83 Other fatigue; N18.3 Chronic kidney disease, stage 3 (moderate); E55.9 Vitamin D deficiency, unspecified; D53.8 Other specified nutritional anemias; J45.909 Unspecified asthma, uncomplicated; N40.0 Benign prostatic hyperplasia without lower urinary tract symptoms; Z93.4 Other artificial openings of gastrointestinal tract status; Z90.81 Acquired absence of spleen; Z79.899 Other long term (current) drug therapy

== ENCOUNTER → 2017-11-08 | Outpatient (CLI) | payer OTHER ==
[~2017-11-08] MED LIST changes: +ERGO500011 PEG; +ERGO500011 PO; +LCTX PEG; +NUTR-1305 JT; +VNTHFA/IN INH; +VTMD1000 PEG; +[UNRECOGNIZED DRUG - CODE] IV; +[UNRECOGNIZED DRUG - CODE] JT
[2017-11-08 13:08] LABS: ALBUMIN 3.6 gm/dl (3.4-5.0); ALKALINE PHOSPHATASE 432 U/L (45-117); ALT/SGPT 73 U/L (12-78); AST/SGOT 57 U/L (15-37); BLOOD UREA NITROGEN 82 mg/dl (7-18); CALCIUM 8.8 mg/dl (8.5-10.1); CARBON DIOXIDE 27 mmol/L (21-32); CREATININE 2.52 mg/dl (0.60-1.40); GLUCOSE 103 mg/dl (70-99); POTASSIUM 4.9 mmol/L (3.5-5.1); SODIUM 136 mmol/L (136-145); TOTAL PROTEIN 8.2 gm/dl (6.4-8.2)
== END | disposition home or self-care (01) ==
LOC: C.LABMFLN 08:59
PROVIDERS: ATTEND Internal Medicine Rheumatology
DX: N18.3 Chronic kidney disease, stage 3 (moderate) (principal)

== ENCOUNTER → 2017-11-22 | Outpatient (CLI) | payer OTHER ==
[~2017-11-22] MED LIST changes: -ERGO500011 PO; -NUTR-1305 JT; -NUTR-673 PO
[2017-11-22 13:31] LABS: ALBUMIN 3.5 gm/dl (3.4-5.0); ALT/SGPT 82 U/L (12-78); AST/SGOT 71 U/L (15-37); BLOOD UREA NITROGEN 105 mg/dl (7-18); CALCIUM 8.4 mg/dl (8.5-10.1); CARBON DIOXIDE 30 mmol/L (21-32); CREATININE 2.52 mg/dl (0.60-1.40); GLUCOSE 107 mg/dl (70-99); POTASSIUM 3.5 mmol/L (3.5-5.1); SODIUM 131 mmol/L (136-145)
[2017-11-22 13:33] LABS: ALKALINE PHOSPHATASE 369 U/L (45-117); TOTAL PROTEIN 7.8 gm/dl (6.4-8.2)
== END | disposition home or self-care (01) ==
LOC: C.LABMFLN 10:41
PROVIDERS: ATTEND Family Medicine
DX: N18.3 Chronic kidney disease, stage 3 (moderate) (principal)

== ENCOUNTER 2017-12-18 09:14 | Inpatient (IN) | payer OTHER ==
[~2017-12-18] VITALS: Ht 182.9 cm; Wt 59.0 kg
[~2017-12-18 09:14] MED LIST changes: -VNTHFA/IN INH
[2017-12-18] MEDS ORDERED: ALBUT/IPRATROP 3MG/0.5MG NEB 3 ML VIAL INH STA (09:37)
[2017-12-18] MEDS ORDERED: SODIUM CHLORIDE 0.9% 1000ML 1,000 ML IV STA (09:37)
[2017-12-18] MEDS ORDERED: ONDANSETRON INJ 2 MG/ML 2 ML VIAL IV STA (09:37)
[2017-12-18 09:59] LABS: BASO % 0.1 %; BASO ABS # 0.02 K/uL (0-0.2); EOS % 1.6 %; EOS ABS # 0.21 K/uL (0-0.5); HEMATOCRIT 31.4 % (42-52); HEMOGLOBIN 11.8 g/dL (14.0-18.0); IG# 0.03 K/uL (0.00-0.02); LYMPH ABS # 1.47 K/uL (1.2-3.4); MEAN CELL VOLUME 92.9 fL (80-100); MEAN CORPUSCULAR HEMOGLOBIN 34.9 pg (25-34); MEAN CORPUSCULAR HGB CONC 37.6 g/dl (32-36); MEAN PLATELET VOLUME 11.2 fL (7.4-10.4); MONO % 6.1 %; MONO ABS # 0.82 K/uL (0.11-0.59); NEUT ABS # 10.83 K/uL (1.4-6.5); PLATELET COUNT 323 K/uL (130-400); RED CELL DISTRIBUTION WIDTH CV 12.8 % (11.5-14.5); RED CELL DISTRIBUTION WIDTH SD 43.6 fL (36.4-46.3); WHITE BLOOD COUNT 13.38 K/uL (4.8-10.8)
[2017-12-18 10:21] LABS: ALT/SGPT 71 U/L (12-78); BLOOD UREA NITROGEN 134 mg/dl (7-18); CALCIUM 7.7 mg/dl (8.5-10.1); CARBON DIOXIDE 27 mmol/L (21-32); CREATININE 2.69 mg/dl (0.60-1.40); GLUCOSE 116 mg/dl (70-99); POTASSIUM 2.5 mmol/L (3.5-5.1); SODIUM 120 mmol/L (136-145)
[2017-12-18] MEDS ORDERED: POTASSIUM CHLORIDE 10 MEQ / 100ML WTR IV STA ×2 (10:21→12:00)
--- NOTE | 2017-12-18 10:24 | DIAGNOSTIC IMAGING REPORT ---
CHEST ONE VIEW PORTABLE CLINICAL HISTORY: Weakness. Altered mental status. COMPARISON STUDY: Chest radiograph November 06, 2017. FINDINGS: Blunting of the left costophrenic angle is chronic. There is no evidence for pulmonary edema. No consolidation to suggest pneumonia. A small metallic density projecting over the right lower lobe is unchanged. There are median sternotomy wires. There are mediastinal surgical clips. IMPRESSION: No acute cardiopulmonary findings. No change in appearance of the chest. Electronically signed by: Cheng Sykes M.D. 12/18/2017 10:23 AM Dictated Date/Time: 12/18/2017 10:21 AM
[2017-12-18 10:27] LABS: ALKALINE PHOSPHATASE 396 U/L (45-117); AST/SGOT 57 U/L (15-37); TOTAL PROTEIN 8.5 gm/dl (6.4-8.2)
[2017-12-18] MEDS ORDERED: VNTHFA/IN INH ×2 (10:34)
[2017-12-18] MEDS ORDERED: TRMCR130WC TOP ×2 (10:34)
[2017-12-18] MEDS ORDERED: NUTR-1276 PO ×2 (10:34)
[2017-12-18] MEDS ORDERED: COPP1TAB JT ×2 (10:34)
[2017-12-18] MEDS ORDERED: FLUTICASONE PROPIONATE NA SPR 16 GM BTL NAE PRN (12:15)
[2017-12-18] MEDS ORDERED: [UNRECOGNIZED DRUG - OTHER] JT SCH (12:15)
[2017-12-18] MEDS ORDERED: ACETAMINOPHEN 325 MG TAB PO PRN (12:15)
[2017-12-18] MEDS ORDERED: ONDANSETRON 4MG OD TAB SL PRN (12:15)
[2017-12-18] MEDS ORDERED: ONDANSETRON INJ 2 MG/ML 2 ML VIAL IV PRN (12:15)
[2017-12-18] MEDS ORDERED: ALUMINUM/MAGNESIUM/SIMETH (MAALOX MAX) 30 ML UDC PO PRN (12:15)
[2017-12-18] MEDS ORDERED: ZOLPIDEM TARTRATE 5 MG TAB PO PRN ×2 (12:15)
[2017-12-18] MEDS ORDERED: MAGNESIUM HYDROXIDE SUSP 30 ML UDC PO PRN (12:15)
--- NOTE | 2017-12-18 12:45 | History and Physical ---
History & Physical Date & Time of Service: Dec 18, 2017 at 12:30 Chief Complaint: Nausea,Dehydration,Rash Primary Care Physician: Freddie Zuleta M.D. History of Present Illness Source: patient, family 67 years old white man with past medical history of hypertension and borderline diabetes that resolved after his gastrectomy. Patient had massive hernia operation about 5-6 years ago resulted in removal of his stomach. Since then he has been on tube feed. Previous multiple admissions for hyponatremia. Patient reported intermittent nausea started about 4 weeks ago meanwhile multiple attempts were done to switch his tube feed. He also admits to some mild diarrhea with partially formed stool that is attributed to his tube feed. Patient presented today with progressive worsening of his nausea associated with generalized weakness and fatigue. He reported mild cough and congestion but denies any abdominal pain. Since patient does not have stomach, he has no vomiting. His tube feed is connected to his small intestine. He does have a saliva collection ostomy in his chest wall to drain his saliva. Other significant past medical history is splenectomy Family History Cancer (lung) Gallbladder disease Lung cancer MOTHER [place] (myocardial infarction) FATHER Stroke Social History Smoking Status: Never Smoker Drug Use: none Marital Status: Housing status: lives with significant other Occupational Status: retired Immunizations History of Influenza Vaccine: Yes History of Tetanus Vaccine?: Yes History of Pneumococcal: Yes History of Hepatitis B Vaccine: No Multi-Drug Resistant Organisms History of MDRO: No Allergies Coded Allergies: Moxifloxacin (Verified Allergy, Unknown, Pt said he could barely walk, ) Simvastatin (Verified Allergy, Unknown, " my legs cramp up", 12/18/17) Sulfamethoxazole (Verified Allergy, Unknown, SEVERE DIARRHEA, 12/18/17) Oxycodone (Verified Adverse Reaction, Unknown, NAUSEA, 12/18/17) Tramadol (Verified Adverse Reaction, Unknown, NAUSEA, 12/18/17) Home Medications Scheduled Albuterol Hfa (Ventolin Hfa), 2 PUFFS INH QID Calcitriol (Calcitriol), 0.25 MCG JT BID Copper Gluconate (Copper), 2 MG PO DAILY Cyanocobalamin (Cyanocobalamin), 1 DOSE IM MONTHLY Distilled Water (Distilled Water), 200 ML JT Q3HRS Folic Acid (Folvite), 1 MG JT AMPM Nutritional Supplements (Novasource Renal), 5 CAN PO Q12 Triamcinolone Acet (Aristocort 0.1%), 1 APPLN TOP BID Scheduled PRN Fluticasone Propionate (Nasal) (Flonase Allergy Relief), 1-2 SPRAYS JOSE L DAILY PRN for ALLERGIES Loperamide Hcl (Imodium A-D), 20 ML JT Q6 PRN for Diarrhea Ondasetron Odt (Zofran Odt), 4 MG SL TID PRN for Nausea Review of Systems Review of system Constitutional: No fever / no chills /has significant generalized weakness and fatigue Eyes: no blurring of vision / no eye pain / no discharge / no redness ENT: no hearing loss / no epistaxis /no swallowing problems Respiratory: Mild cough cough / no wheezing / no SOB / no hemoptysis Cardiovascular: no Chest pain / no lower extremity edema / no palpitation Abdomen: no pain / no nausea / no vomiting / no constipation, skin irritation around his feeding tube Musculoskeletal: no joint pain / no muscle pain / no joint swelling Genitourinary: no dysuria / no incontinence / no urinary retention Neurologic: no focal weakness / no numbness/tingling / no ataxia Psychiatric: no depression symptoms / no anxiety / no insomnia Endocrine: no excessive thirst / no excessive urination Hematologic: no abnormal bleeding / no bruising / no LN swelling Skin: Mild rash / no pallor Physical Exam Vital Signs Date Time Temp Pulse Resp B/P (MAP) Pulse Ox O2 Delivery O2 Flow Rate FiO2 12/18/17 12:00 64 24 124/84 95 Room Air 12/18/17 11:00 90 16 117/73 96 Room Air 12/18/17 09:58 59 12/18/17 09:55 57 13 115/73 94 Room Air 12/18/17 09:16 36.4 87 20 104/66 93 Room Air Physical examination General patient appears to be weak in mild distress HEENT: Atraumatic , normocephalic /no jaundice /no pallor /anicteric /no dry mucous membrane /normal external ear inspection Neck: Supple /no swelling /central trach Heart: S1/S2 normal/regular rate and rhythm/no gallop /no rub /no murmur Lungs: Clear to auscultation bilaterally/normal chest with expansion/no rhonchi/ no rales/no wheezing/no use of accessory muscles of respiration Abdomen: Soft/nontender/no guarding/no rebound/no organomegaly/no pulsatile mass , has significant skin irritation and erythema around his feeding tube Musculoskeletal: No swelling/no edema/no tenderness/normal range of motion Neuro exam: Awake alert oriented 3/cranial nerves II through XII appear to be intact/sensation intact/moves all extremities/no abnormal movements Psychiatric evaluation: No depressed mood/normal affect Skin: No rash on exposed skin area/no erythema Extremity: Normal pulse/no pitting edema/no clubbing or cyanosis Endocrine/lymphatic: No obvious lymphadenopathy /no lymphedema Diagnostics Laboratory Results Results Past 24 Hours Test 12/18/17 09:50 12/18/17 11:25 12/18/17 12:23 Range/Units White Blood Count 13.38 4.8-10.8 K/uL Red Blood Count 3.38 4.7-6.1 M/uL Hemoglobin 11.8 14.0-18.0 g/dL Hematocrit 31.4 42-52 % Mean Corpuscular Volume 92.9 80-100 fL Mean Corpuscular Hemoglobin 34.9 25-34 pg Mean Corpuscular Hemoglobin Concent 37.6 32-36 g/dl Platelet Count 323 130-400 K/uL Mean Platelet Volume 11.2 7.4-10.4 fL Neutrophils (%) (Auto) 81.0 % Lymphocytes (%) (Auto) 11.0 % Monocytes (%) (Auto) 6.1 % Eosinophils (%) (Auto) 1.6 % Basophils (%) (Auto) 0.1 % Neutrophils # (Auto) 10.83 1.4-6.5 K/uL Lymphocytes # (Auto) 1.47 1.2-3.4 K/uL Monocytes # (Auto) 0.82 0.11-0.59 K/uL Eosinophils # (Auto) 0.21 0-0.5 K/uL Basophils # (Auto) 0.02 0-0.2 K/uL RDW Standard Deviation 43.6 36.4-46.3 fL RDW Coefficient of Variation 12.8 11.5-14.5 % Immature Granulocyte % (Auto) 0.2 % Immature Granulocyte # (Auto) 0.03 0.00-0.02 K/uL Sodium Level 120 136-145 mmol/L Potassium Level 2.5 3.5-5.1 mmol/L Chloride Level 80 98-107 mmol/L Carbon Dioxide Level 27 21-32 mmol/L Anion Gap 13.0 3-11 mmol/L Blood Urea Nitrogen 134 7-18 mg/dl Creatinine 2.69 0.60-1.40 mg/dl Est Creatinine Clear Calc Drug Dose 22.7 ml/min Estimated GFR () 27.6 Estimated GFR (Non- 23.8 BUN/Creatinine Ratio 49.9 10-20 Random Glucose 116 70-99 mg/dl Calcium Level 7.7 8.5-10.1 mg/dl Magnesium Level 3.0 1.8-2.4 mg/dl Total Bilirubin 0.4 0.2-1 mg/dl Aspartate Amino Transf (AST/SGOT) 57 15-37 U/L Alanine Aminotransferase (ALT/SGPT) 71 12-78 U/L Alkaline Phosphatase 396 45-117 U/L Troponin I < 0.015 0-0.045 ng/ml Total Protein 8.5 6.4-8.2 gm/dl Albumin 4.0 3.4-5.0 gm/dl Globulin 4.4 2.5-4.0 gm/dl Albumin/Globulin Ratio 0.9 0.9-2 Thyroid Stimulating Hormone (TSH) 2.660 0.300-4.500 uIu/ml Urine Color YELLOW Urine Appearance CLEAR CLEAR Urine pH 5.0 4.5-7.5 Urine Specific [place] 1.011 1.000-1.030 Urine Protein 3+ NEG Urine Glucose (UA) NEG NEG Urine Ketones NEG NEG Urine Occult Blood TRACE NEG Urine Nitrite NEG NEG Urine Bilirubin NEG NEG Urine Urobilinogen NEG NEG Urine Leukocyte Esterase TRACE NEG Urine WBC (Auto) 1-5 0-5 /hpf Urine RBC (Auto) 0-4 0-4 /hpf Urine Hyaline Casts (Auto) 0 0-5 /lpf Urine Epithelial Cells (Auto) 5-10 0-5 /lpf Urine Bacteria (Auto) NEG NEG Impression Assessment and Plan 67 years old white man with past medical history of splenectomy, hypertension and borderline diabetes that resolved after his gastrectomy. Patient had massive hernia operation about 5-6 years ago resulted in removal of his stomach. 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 Had previous multiple admissions for hyponatremia. Presented today with severe nausea and electrolyte imbalance Assessment Hypochloremic hypokalemia, likely multifactorial from upper intestinal loss due to gastrectomy plus lower intestinal loss due to diarrhea, also could be hyperaldosteronism state Hyponatremia, could be multifactorial, increased free water flushes, urinary loss or hypovolemic hyponatremia Acute kidney injury/chronic kidney disease secondary to possible decrease intake Chronic kidney disease stage III-IV Ostomy irritation of feeding tube Plan Potassium replacement, received 10 mEq 2 in ER IV We will add 40 mEq via PEG tube Frequent rechecking of potassium Hyponatremia/failure to thrive/generalized fatigue, multifactorial, anorexia, decreased solute intake, Decrease free water flushes from 300 cc to 200 cc every 3 hours 1 L NSS IV fluid over 20 hours check serum and urine osmolality , [R/O hyponatremia with low osmolality] check TSH and cortisol level order urine sodium and potassium consider sodium tablets if sodium level do not improve Nephrology consult , who knows the patient from before as the patient is being followed by his partner if sodium level fail to rise Consider starting Tolvaptan while inpatient, to monitor closely sodium level but will leave this decision up to electronics technology department chair as he should be consulted prior to starting tolvaptan. Monitor sodium level closely/every 8 hours, avoid correcting sodium with a rate faster than 6 mmol per day Check orthostatic vitals daily Avoid a rate of correction > 1 mmol/4 hours Consult dietitian regarding tube feed formula adjustment Zofran for nausea Heparin for DVT prophylaxis Instructed the patient to have blood drawn every 2 weeks at home until sodium and potassium levels stabilizes VTE Prophylaxis VTE Risk Assessment Done? Y/N: Yes Risk Level: Moderate Given or contraindicated: Unfractionated heparin SQ
[2017-12-18 12:55] VITALS: O2SAT 97; BMI 17.5
[2017-12-18 14:21] LABS: POTASSIUM RANDOM URINE 8.5 mEq/L
[2017-12-18] MEDS ORDERED: POTASSIUM CHLORIDE PWD 20 MEQ PACK GT STA (14:30)
[2017-12-18 14:45] VITALS: BP 132/72; PULSE 55; TEMP 36.3; O2SAT 98
[2017-12-18] MEDS ORDERED: LOPERAMIDE LIQUID 1MG/7.5ML 120ML BTL JT PRN (14:45)
[2017-12-18] MEDS: SODIUM CHLORIDE 0.9% 1000ML 1,000 ML IV SCH (14:58)
--- NOTE | 2017-12-18 15:13 | EMERGENCY ROOM VISIT NOTE ---
History Report prepared by Elal: Christina Boyce Under the Supervision of: Dr. Ronak Lopez M.D. First contact with patient: 09:30 Chief Complaint: ILLNESS Stated Complaint: NAUSEA,DEHYDRATION,RASH History of Present Illness The patient is a 67 year old male who presents to the Emergency Room with complaints of intermittent nausea for four days. He states that he normally feels fine throughout the day, though by about 1600 he becomes nauseous. He is not sure why. He has a history of gastrectomy and has a feeding tube in place. He also has a spit pouch in his chest wall. He states that his tongue feels thick. He notes there is discharge from his feeding tube and there is an occasional burning sensation, though he reports this is normal. He denies any fevers or abdominal pain. He reports cough and congestion for about four days. He reports feeling more weak than normal. He was seen a month ago for an abnormally low sodium and he reports feeling similar symptoms of weakness today. He reports a rash to his arms and back. He has been applying lotion and Triamcinolone. He reports inhaler use for wheezing. Source of History: patient Onset: four days ago Position: other (global) Quality: other (nausea) Timing: intermittent Associated Symptoms: + cough, + weakness, + rash, No fevers, No abdominal pain Note: He reports congestion. Review of Systems See HPI for pertinent positives & negatives. A total of 10 systems reviewed and were otherwise negative. Past Medical & Surgical Medical Problems: (1) Abdominal pain (2) Acute renal failure (3) HAYLEY (acute kidney injury) (4) Dehydration (5) Dehydration (6) Diarrhea (7) Gall stones (8) Gastroenteritis (9) Hiatal hernia repair (10) History of gastrectomy (11) Hypokalemia (12) Hyponatremia (13) Intractable pain (14) Intractable pain (15) Jejunostomy tube present (16) Kidney stone (17) Kidney stones (18) Kidney stones (19) Leukocytosis (20) Low hemoglobin (21) Low vitamin D level (22) Nausea (23) Obstructive uropathy (24) Reactive airway disease (25) Renal colic (26) Sepsis (27) Spit fistula in place (28) spit pouch Surgical Problems: (1) History of splenectomy Family History Cancer (lung) Gallbladder disease Lung cancer MOTHER MT (myocardial infarction) FATHER Stroke Social History Smoking Status: Never Smoker Smokeless Tobacco Use: No Alcohol Use: none Drug Use: none Marital Status: Housing Status: lives with family Occupation Status: retired Current/Historical Medications Scheduled Albuterol Hfa (Ventolin Hfa), 2 PUFFS INH QID Calcitriol (Calcitriol), 0.25 MCG JT BID Copper Gluconate (Copper), 2 MG JT DAILY Cyanocobalamin (Cyanocobalamin), 1 DOSE IM MONTHLY Distilled Water (Distilled Water), 200 ML JT Q3HRS Folic Acid (Folvite), 1 MG JT AMPM Nutritional Supplements (Novasource Renal), 5 CAN PO Q12 Triamcinolone Acet (Aristocort 0.1%), 1 APPLN TOP BID Scheduled PRN Fluticasone Propionate (Nasal) (Flonase Allergy Relief), 1-2 SPRAYS JOSE L DAILY PRN for ALLERGIES Loperamide Hcl (Imodium A-D), 20 ML JT Q6 PRN for Diarrhea Ondasetron Odt (Zofran Odt), 4 MG SL TID PRN for Nausea Allergies Coded Allergies: Moxifloxacin (Verified Allergy, Unknown, Pt said he could barely walk, ) Simvastatin (Verified Allergy, Unknown, " my legs cramp up", 12/18/17) Sulfamethoxazole (Verified Allergy, Unknown, SEVERE DIARRHEA, 12/18/17) Oxycodone (Verified Adverse Reaction, Unknown, NAUSEA, 12/18/17) Tramadol (Verified Adverse Reaction, Unknown, NAUSEA, 12/18/17) Physical Exam Vital Signs Date Time Temp Pulse Resp B/P (MAP) Pulse Ox O2 Delivery O2 Flow Rate FiO2 12/18/17 12:00 64 24 124/84 95 Room Air 12/18/17 11:00 90 16 117/73 96 Room Air 12/18/17 09:58 59 12/18/17 09:55 57 13 115/73 94 Room Air 12/18/17 09:16 36.4 87 20 104/66 93 Room Air Physical Exam GENERAL: Patient is in no acute distress. HEENT: No acute trauma, normocephalic atraumatic, mucous membranes dry, no nasal congestion, no scleral icterus. NECK: No stridor, no adenopathy, no meningismus, trachea is midline. CHEST: Fistula with bag noted to anterior chest wall. LUNGS: Scattered wheezing, breath sounds equal, no crackles or respiratory distress HEART: Without murmurs gallops or rubs, regular rate and rhythm. ABDOMEN: Soft, nontender, bowel sounds positive, no hernias, no peritonitis. Feeding tube noted to LUQ EXTREMITIES: No cyanosis or edema, full range of motion of all the joints without pain or difficulty, no signs for acute trauma. NEUROLOGIC: Oriented x 3, no acute motor or sensory deficits, no focal weakness. SKIN: No rash, no jaundice, no diaphoresis. Medical Decision & Procedures ER Provider Diagnostic Interpretation: Radiology results as stated below per my review and radiologist interpretation: CHEST ONE VIEW PORTABLE CLINICAL HISTORY: Weakness. Altered mental status. COMPARISON STUDY: Chest radiograph November 06, 2017. FINDINGS: Blunting of the left costophrenic angle is chronic. There is no evidence for pulmonary edema. No consolidation to suggest pneumonia. A small metallic density projecting over the right lower lobe is unchanged. There are median sternotomy wires. There are mediastinal surgical clips. IMPRESSION: No acute cardiopulmonary findings. No change in appearance of the chest. Electronically signed by: Cheng Sykes M.D. 12/18/2017 10:23 AM Dictated Date/Time: 12/18/2017 10:21 AM Laboratory Results 12/18/17 09:50 Red Blood Count 3.38, Mean Corpuscular Volume 92.9, Mean Corpuscular Hemoglobin 34.9, Mean Corpuscular Hemoglobin Concent 37.6, Mean Platelet Volume 11.2, Neutrophils (%) (Auto) 81.0, Lymphocytes (%) (Auto) 11.0, Monocytes (%) (Auto) 6.1, Eosinophils (%) (Auto) 1.6, Basophils (%) (Auto) 0.1, Neutrophils # (Auto) 10.83, Lymphocytes # (Auto) 1.47, Monocytes # (Auto) 0.82, Eosinophils # (Auto) 0.21, Basophils # (Auto) 0.02 Test 12/18/17 09:00 12/18/17 09:50 12/18/17 11:25 Osmolality 302 mOsm/kg (280-300) White Blood Count 13.38 K/uL (4.8-10.8) Red Blood Count 3.38 M/uL (4.7-6.1) Hemoglobin 11.8 g/dL (14.0-18.0) Hematocrit 31.4 % (42-52) Mean Corpuscular Volume 92.9 fL (80-100) Mean Corpuscular Hemoglobin 34.9 pg (25-34) Mean Corpuscular Hemoglobin Concent 37.6 g/dl (32-36) Platelet Count 323 K/uL (130-400) Mean Platelet Volume 11.2 fL (7.4-10.4) Neutrophils (%) (Auto) 81.0 % Lymphocytes (%) (Auto) 11.0 % Monocytes (%) (Auto) 6.1 % Eosinophils (%) (Auto) 1.6 % Basophils (%) (Auto) 0.1 % Neutrophils # (Auto) 10.83 K/uL (1.4-6.5) Lymphocytes # (Auto) 1.47 K/uL (1.2-3.4) Monocytes # (Auto) 0.82 K/uL (0.11-0.59) Eosinophils # (Auto) 0.21 K/uL (0-0.5) Basophils # (Auto) 0.02 K/uL (0-0.2) RDW Standard Deviation 43.6 fL (36.4-46.3) RDW Coefficient of Variation 12.8 % (11.5-14.5) Immature Granulocyte % (Auto) 0.2 % Immature Granulocyte # (Auto) 0.03 K/uL (0.00-0.02) Magnesium Level 3.0 mg/dl (1.8-2.4) Total Bilirubin 0.4 mg/dl (0.2-1) Aspartate Amino Transf (AST/SGOT) 57 U/L (15-37) Alanine Aminotransferase (ALT/SGPT) 71 U/L (12-78) Alkaline Phosphatase 396 U/L (45-117) Troponin I < 0.015 ng/ml (0-0.045) Total Protein 8.5 gm/dl (6.4-8.2) Albumin 4.0 gm/dl (3.4-5.0) Globulin 4.4 gm/dl (2.5-4.0) Albumin/Globulin Ratio 0.9 (0.9-2) Thyroid Stimulating Hormone (TSH) 2.660 uIu/ml (0.300-4.500) Urine Color YELLOW Urine Appearance CLEAR (CLEAR) Urine pH 5.0 (4.5-7.5) Urine Specific [place] 1.011 (1.000-1.030) Urine Protein 3+ (NEG) Urine Glucose (UA) NEG (NEG) Urine Ketones NEG (NEG) Urine Occult Blood TRACE (NEG) Urine Nitrite NEG (NEG) Urine Bilirubin NEG (NEG) Urine Urobilinogen NEG (NEG) Urine Leukocyte Esterase TRACE (NEG) Urine WBC (Auto) 1-5 /hpf (0-5) Urine RBC (Auto) 0-4 /hpf (0-4) Urine Hyaline Casts (Auto) 0 /lpf (0-5) Urine Epithelial Cells (Auto) 5-10 /lpf (0-5) Urine Bacteria (Auto) NEG (NEG) Urine Osmolality 274 mOms/kg (500-800) Urine Random Sodium 38 mEq/L Urine Random Potassium 8.5 mEq/L Urine Random Phosphorus 21.8 mg/dl Laboratory results reviewed by me. Medications Administered Medications (Trade) Dose Ordered Sig/Maame Route Start Time Stop Time Status Last Admin Dose Admin Ondansetron HCl (Zofran Inj) 4 mg NOW STAT IV 12/18/17 09:37 12/18/17 09:41 DC 12/18/17 09:57 4 MG Sodium Chloride 1,000 ml @ 999 mls/hr Q1H1M STAT IV 12/18/17 09:37 12/18/17 10:37 DC 12/18/17 09:57 999 MLS/HR Albuterol/ Ipratropium (Duoneb) 3 ml NOW STAT INH 12/18/17 09:37 12/18/17 09:41 DC 12/18/17 09:57 3 ML Potassium Chloride (Kcl 10 Meq / Wtr) 10 meq NOW STAT IV 12/18/17 10:21 12/18/17 10:22 DC 12/18/17 10:38 10 MEQ Potassium Chloride (Kcl 10 Meq / Wtr) 10 meq NOW STAT IV 12/18/17 12:00 12/18/17 12:01 DC 12/18/17 12:15 10 MEQ Sodium Chloride 1,000 ml @ 50 mls/hr Q20H IV 12/18/17 12:14 01/17/18 12:13 12/18/17 14:58 50 MLS/HR ECG Per My Interpretation Indication: nausea Rate (beats per minute): 53 Rhythm: sinus bradycardia Findings: 1st degree AV block, no ectopy (No PVCs), other (No ST elevation) Change: Patient's electrocardiogram interpreted by me. ED Course 0933: The patient was evaluated in room B2. A complete history and physical exam was performed. 0937: Ordered DuoNeb 3 ml INH, Sodium Chloride 1,000 ml @ 999 mls/hr IV, and Zofran 4 mg IV 1021: Ordered Potassium Chloride 10 meq IV 1030: I reassessed the patient at this time. He is feeling better and resting comfortably. 1122: I spoke with GITA Pinon hospitalist. We discussed the patient's case. The patient will be evaluated by the [facility] for further management. Medical Decision The patient is a 67 year old male who presents to the ED with complaints of nausea. Differential diagnoses considered include dehydration, hyponatremia, anemia, electrolyte imbalance, PNA, bronchitis, and UTI. There is a mild leukocytosis, this could be consistent with infection. No worrisome anemia. Renal panel testing shows evidence for renal insufficiency which seems about baseline. Sodium and potassium were both low, calcium was somewhat low. There were a few subtle liver enzyme elevations. No evidence for thyroid dysfunction. Chest x-ray shows some chronic findings, no pneumonia or CHF. EKG shows a sinus bradycardia, no acute ischemia. Cardiac enzyme testing 1 is not consistent with acute cardiac injury. Urinalysis does not show infection. The patient received IV potassium, 2 different IV doses were given. He was given IV saline and IV Zofran. Because of his wheezing, he received a DuoNeb. The patient presents with weakness, fatigue and nausea. He has some electrolyte abnormalities that will require IV correction. He has had similar issues in the past. I spoke with the patient and case management. The on-call hospitalist was consulted. Medication Reconcilliation Current Medication List: was personally reviewed by me Blood Pressure Screening Patient's blood pressure: Normal blood pressure Consults Time Called: 1121 Consulting Physician: GITA Pinon hospitalist I spoke with GITA Pinon hospitalhasmukh. We discussed the patient's case. The patient will be evaluated by the [facility] for further management. Impression Primary Impression: Hyponatremia Additional Impressions: Hypokalemia Weakness Scribe Attestation The scribe's documentation has been prepared under my direction and personally reviewed by me in its entirety. I confirm that the note above accurately reflects all work, treatment, procedures, and medical decision making performed by me. Departure Information Dispostion Being Evaluated By Hospitalist Referrals Freddie Zuleta M.D. (PCP) Patient Instructions My [facility] Problem Qualifiers
[2017-12-18 15:42] LABS: CALCIUM 7.3 mg/dl (8.5-10.1); CREATININE 2.69 mg/dl (0.60-1.40)
[2017-12-18 15:43] LABS: POTASSIUM 2.5 mmol/L (3.5-5.1)
[2017-12-18] MEDS ORDERED: NURSING VERBAL MED ORDER ONE (16:15)
[2017-12-18 16:55] VITALS: O2SAT 98
[2017-12-18] MEDS: ALBUTEROL HFA 8 GM INHALER INH SCH ×2 (17:00→20:23)
[2017-12-18] MEDS: POTASSIUM CHLR 10MEQ / WTR IV SCH ×2 (17:15→19:10)
[2017-12-18] MEDS: PEPTAMEN 1.5 CAL 1000ML BAG JT SCH (19:37)
[2017-12-18] MEDS: HEPARIN SOD 5000 UNIT/0.5 ML CARP SQ SCH (20:24)
[2017-12-18] MEDS: TRIAMCINOLONE ACET 0.1% CR 15 GM TUBE EXT SCH (20:25)
[2017-12-18] MEDS: CALCITRIOL 0.25 MCG CAP JT SCH (20:25)
[2017-12-18 23:37] VITALS: BP 107/67; PULSE 56; TEMP 36.3; O2SAT 95
[2017-12-19] VITALS (8 sets, daily range): BP systolic 106–146; BP diastolic 52–79; PULSE 56–72; TEMP 36.4–36.6; O2SAT 93–96; Ht 182.9 cm; Wt 59.0 kg
[2017-12-19 00:32] LABS: CALCIUM 7.5 mg/dl (8.5-10.1); CREATININE 2.72 mg/dl (0.60-1.40); POTASSIUM 3.2 mmol/L (3.5-5.1)
[2017-12-19] MEDS ORDERED: POTASSIUM CHLORIDE 20 MEQ TABCR PO STA (00:44)
[2017-12-19] MEDS: POTASSIUM CHLR 10 MEQ / WTR 10 MEQ in PREMIXED WATER 100 ML IV SCH ×5 (01:32→20:30)
[2017-12-19] MEDS: SODIUM CHLORIDE 0.9% 1000ML 1,000 ML IV SCH ×2 (06:23→23:30)
[2017-12-19] MEDS: TRIAMCINOLONE ACET 0.1% CR 15 GM TUBE EXT SCH ×2 (08:25→21:00)
[2017-12-19] MEDS: ALBUTEROL HFA 8 GM INHALER INH SCH ×4 (08:25→21:00)
[2017-12-19] MEDS: HEPARIN SOD 5000 UNIT/0.5 ML CARP SQ SCH ×2 (08:25→21:00)
[2017-12-19 09:08] LABS: HEMATOCRIT 31.6 % (42-52); HEMOGLOBIN 11.4 g/dL (14.0-18.0); MEAN CELL VOLUME 96.3 fL (80-100); MEAN CORPUSCULAR HEMOGLOBIN 34.8 pg (25-34); MEAN CORPUSCULAR HGB CONC 36.1 g/dl (32-36); MEAN PLATELET VOLUME 12.2 fL (7.4-10.4); PLATELET COUNT 295 K/uL (130-400); RED CELL DISTRIBUTION WIDTH SD 45.5 fL (36.4-46.3); WHITE BLOOD COUNT 11.77 K/uL (4.8-10.8)
[2017-12-19 09:10] LABS: ALBUMIN 3.3 gm/dl (3.4-5.0); CALCIUM 7.8 mg/dl (8.5-10.1); CREATININE 2.61 mg/dl (0.60-1.40); POTASSIUM 3.1 mmol/L (3.5-5.1)
--- NOTE | 2017-12-19 09:10 | NEPHROLOGY CONSULTATION ---
DATE OF CONSULTATION: 12/19/2017 ATTENDING OF RECORD: Fabiola Lainez MD. REASON FOR CONSULTATION: Hyponatremia, hypokalemia and hypophosphatemia. HISTORY OF PRESENT ILLNESS: This is a 67-year-old male who has had multiple hospitalizations for HAYLEY and hyponatremia who follows with my partner, Dr. Kaveh Estrada in [place] who had an esophageal hernia surgery with complications and developed an esophageal leak and a prolonged ICU stay. He actually needed dialysis from September of 2011 to March of 2012 and eventually recovered. The patient does have chronic diarrhea from tube feeds, has a J-tube in. The patient also had significant anemia from renal failure and discovered to have a low copper levels and once copper levels were repleted, hemoglobin levels did improve. The patient was recently discharged about a month ago and felt great after discharge; however, he slowly started to get weak again and then had no energy and comes back in with significant electrolyte abnormalities. REVIEW OF SYSTEMS: No fevers or chills. No blurry vision, no dysphagia, no headaches. No chest pain or shortness of breath. Positive fatigue. Positive chronic loose stools. All other review of systems otherwise negative. PAST MEDICAL HISTORY AND SURGICAL HISTORY: CKD stage IV, baseline creatinine in the low 2s, a J-tube, anemia secondary to copper deficiency, esophageal hernia surgery/gastrectomy, splenectomy, BPH. FAMILY HISTORY: Significant for lung cancer. SOCIAL HISTORY: No smoking, alcohol or drugs. CURRENT MEDICATIONS: Folic acid 1 mg daily, calcitriol 0.25 mcg b.i.d., heparin 5000 units subQ q 12, tube feeds, albuterol inhaler 4 times a day, normal saline at 50 mL an hour. PHYSICAL EXAMINATION: VITAL SIGNS: Temperature 36.6, pulse 65, respiratory rate 16, blood pressure 106/52. Satting 94% on room air. GENERAL: Awake, alert, oriented x3. EYES: No scleral icterus. ENT: Mucous membranes are dry. NECK: Supple. PULMONARY: Clear to auscultation. CARDIAC: Regular rate and rhythm. ABDOMEN: Bowel sounds positive, soft, nontender, positive J-tube, positive esophageal drain bag. EXTREMITIES: No clubbing, cyanosis, edema. NEUROLOGICALLY: Nonfocal. DERMATOLOGIC: No rash or ulcers noted. LABORATORIES: Pending for this morning, white count on admission 13, H&H 11 and 31, platelet count 323. Urine osmolality 274. UA with pH of 5, specific gravity 1.011, 3+ protein, trace blood, trace leukocyte esterase, 5-10 RBCs. Urine random sodium of 38. INR is 1. Sodium level last night 128, potassium 3.2, up from 2.5. Chloride is 90, bicarbonate is 25, BUN is 127, creatinine is 2.72, glucose 110. Serum osmolality 302 with a serum sodium of 120 and a BUN of 134. Magnesium level was high at 2.9, calcium 7.5. Albumin is 4. TSH 2.66. Chest x-ray, no acute cardiopulmonary findings. ASSESSMENT AND PLAN: 1. Acute kidney injury with a baseline creatinine in the low 2s and comes in with a BUN of 134 and creatinine of 2.69. Likely secondary to volume depletion and hopefully should start to improve with IV fluid resuscitation. 2. Hyponatremia. Sodium levels of 120 and improved to 128 last night. Labs are pending for this morning. Currently on low rate of 50 mL an hour. Serum osmolality despite the fact that the sodium was 120 was actually normal at 302 with a normal thyroid and normal albumin level. For now cortisol levels are pending. In the past, electrolyte abnormalities were secondary to volume deficiencies and electrolyte losses through gastrointestinal losses. The patient symptomatically is starting to improve. Continue to correct appropriately with a low rate of normal saline and potassium supplementation. Magnesium levels are elevated and currently not on any magnesium. Hopefully, magnesium levels trend down as kidney function starts to improve. I appreciate the consultation.
[2017-12-19 09:13] LABS: TOTAL PROTEIN 7.5 gm/dl (6.4-8.2)
--- NOTE | 2017-12-19 09:24 | Clinical Documentation Query ---
CLINICAL DOCUMENTATION QUERY 67 years old white man with past medical history of splenectomy, hypertension and borderline diabetes that resolved after his gastrectomy. Patient had massive hernia operation about 5-6 years ago resulted in removal of his stomach. 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 In your clinical opinion is this patient being managed for: ( ) Severe protein-calorie malnutrition and cachexia ( ) Not Agree ( ) Other explanation of clinical findings (Please Explain) ( ) Unable to determine (Please Define) ( ) Need to Discuss The medical record reflects the following clinical findings, treatment, and risk factors. Clinical Indicators: BMI 17.5, dehydration, nausea Treatment: Dietary consult, electrolyte replacement Risk Factors: Gastrectomy, tube feeding, electrolyte imbalance Please clarify and document your clinical opinion in the progress notes and discharge summary. Terms such as "probable", "suspected", "likely", "questionable", "possible", or "still to be ruled out" are acceptable. IF IN AGREEMENT, YOU MUST DOCUMENT ABOVE DIAGNOSTIC STATEMENT IN DAILY PROGRESS NOTES AND DISCHARGE SUMMARY. This document is not part of the patient's record. Thank You, Trista Womack RN [phone]
[2017-12-19 09:38] LABS: BASO % 0.3 %; BASO ABS # 0.03 K/uL (0-0.2); EOS % 2.4 %; EOS ABS # 0.28 K/uL (0-0.5); IG# 0.02 K/uL (0.00-0.02); LYMPH % 14.5 %; LYMPH ABS # 1.71 K/uL (1.2-3.4); MONO % 5.1 %; NEUT % 77.5 %; NEUT ABS # 9.13 K/uL (1.4-6.5)
[2017-12-19] MEDS: CALCITRIOL 0.25 MCG CAP JT SCH ×2 (10:21→21:00)
[2017-12-19 16:41] LABS: CALCIUM 8.1 mg/dl (8.5-10.1); CREATININE 2.68 mg/dl (0.60-1.40); POTASSIUM 3.1 mmol/L (3.5-5.1)
[2017-12-19] MEDS: PEPTAMEN 1.5 CAL 1000ML BAG JT SCH (19:04)
--- NOTE | 2017-12-19 22:36 | Progress Note ---
Subjective Date of Service: Dec 19, 2017. Subjective Pt evaluation today including: conversation w/ patient, physical exam Patient reports feeling well. He reports having improved strength. Patient feels more hydrated as well. Patient denies any fever, chill, nausea, vomiting, diarrhea. Problem List Medical Problems: (1) Acute kidney injury Status: Acute (2) Elevated LFTs Status: Acute (3) Hyponatremia Status: Acute (4) Leukopenia Status: Acute (5) Radiating back pain Status: Acute (6) Symptomatic anemia Status: Acute (7) Weakness Status: Acute (8) Weakness Status: Acute Review of Systems Constitutional: No fever, No chills Eyes: No worsening of vision ENT: No hearing loss Respiratory: No cough, No sputum Abdomen: No pain Neurologic: No memory loss Heme: No abnormal bleeding/bruising Endo: No fatigue Skin: No rash, No itch All Other Systems: Reviewed and Negative Medications Current Inpatient Medications Medications (Trade) Dose Ordered Sig/Maame Route Start Time Stop Time Status Last Admin Dose Admin Albuterol (Ventolin Hfa Inhaler) 2 puffs QID INH 12/18/17 17:00 01/17/18 16:59 12/19/17 08:09 2 PUFFS Calcitriol (Rocaltrol Cap) 0.25 mcg BID JT 12/18/17 21:00 01/17/18 20:59 12/19/17 21:10 0.25 MCG Fluticasone Propionate (Flonase Nasal [place]) 1 sprays DAILY PRN JOSE L 12/18/17 12:15 01/17/18 12:14 Folic Acid (Folvite Tab) 1 mg DAILY PEG 12/19/17 09:00 01/18/18 08:59 12/19/17 09:10 1 MG Ondansetron HCl (Zofran Odt) 4 mg TID PRN SL 12/18/17 12:15 01/17/18 12:14 Triamcinolone Acetonide (Kenalog 0.1% Cream) 1 appln BID EXT 12/18/17 21:00 01/17/18 20:59 12/19/17 21:37 1 APPLN Loperamide HCl (Imodium A-D Liquid) 2.62962 mg Q6 PRN JT 12/18/17 14:45 01/17/18 14:44 Heparin Sodium (Porcine) (Heparin Sq 5000 Unit/0.5ml) 5,000 unit Q12 SQ 12/18/17 21:00 01/17/18 20:59 Sodium Chloride 1,000 ml @ 50 mls/hr Q8H IV 12/18/17 12:14 01/17/18 12:13 12/19/17 07:05 50 MLS/HR Acetaminophen (Tylenol Tab) 650 mg Q4H PRN PO 12/18/17 12:15 01/17/18 12:14 Al Hydrox/Mg Hydrox/Simethicone (Maalox Max Susp) 15 ml Q4H PRN PO 12/18/17 12:15 01/17/18 12:14 Magnesium Hydroxide (Milk Of Magnesia Susp) 30 ml Q12H PRN PO 12/18/17 12:15 01/17/18 12:14 Zolpidem Tartrate (Ambien Tab) 5 mg HSZ PRN PO 12/18/17 12:15 01/17/18 12:14 Ondansetron HCl (Zofran Inj) 4 mg Q6H PRN IV 12/18/17 12:15 01/17/18 12:14 Enteral Nutritional Formula (Peptamen 1.5) 1,000 ml UD JT 12/18/17 19:00 01/17/18 18:59 12/19/17 19:43 1,000 ML Objective Vital Signs Date Time Temp Pulse Resp B/P (MAP) Pulse Ox O2 Delivery O2 Flow Rate FiO2 12/19/17 20:00 94 Room Air 12/19/17 19:41 36.4 57 16 146/79 (101) 96 Room Air 12/19/17 16:01 36.4 61 18 117/68 (84) 95 Room Air 12/19/17 16:00 94 Room Air 12/19/17 12:00 Room Air 12/19/17 11:56 36.6 64 16 125/65 (85) 94 Room Air 12/19/17 08:30 Room Air 12/19/17 07:26 36.6 65 16 106/52 (70) 94 Room Air 12/19/17 05:01 36.5 56 18 114/65 (81) 93 Room Air 12/19/17 04:00 Room Air 12/19/17 00:00 Room Air 12/18/17 23:37 36.3 56 18 107/67 (80) 95 Room Air Physical Exam Comments: General: Patient is no longer in acute distress. HEENT: Atraumatic , normocephalic /no jaundice /no pallor /anicteric /no dry mucous membrane /normal external ear inspection Neck: Supple /no swelling /central trach Heart: S1/S2 normal/regular rate and rhythm/no gallop /no rub /no murmur Lungs: Clear to auscultation bilaterally/normal chest with expansion/no rhonchi/ no rales/no wheezing/no use of accessory muscles of respiration Abdomen: Soft/nontender/no guarding/no rebound/no organomegaly/no pulsatile mass , has significant skin irritation and erythema around his feeding tube Musculoskeletal: No swelling/no edema/no tenderness/normal range of motion Neuro exam: Awake alert oriented 3/cranial nerves II through XII appear to be intact/sensation intact/moves all extremities/no abnormal movements Psychiatric evaluation: No depressed mood/normal affect Skin: No rash on exposed skin area/no erythema Extremity: Normal pulse/no pitting edema/no clubbing or cyanosis Endocrine/lymphatic: No obvious lymphadenopathy /no lymphedema Laboratory Results Last 24 Hours Test 12/18/17 23:39 12/19/17 04:41 12/19/17 08:24 12/19/17 16:02 Sodium Level 128 mmol/L 130 mmol/L 131 mmol/L Potassium Level 3.2 mmol/L 3.1 mmol/L 3.1 mmol/L Chloride Level 90 mmol/L 96 mmol/L 96 mmol/L Carbon Dioxide Level 25 mmol/L 22 mmol/L 24 mmol/L Anion Gap 13.0 mmol/L 12.0 mmol/L 11.0 mmol/L Blood Urea Nitrogen 127 mg/dl 122 mg/dl 120 mg/dl Creatinine 2.72 mg/dl 2.61 mg/dl 2.68 mg/dl Est Creatinine Clear Calc Drug Dose 22.4 ml/min 23.0 ml/min 22.4 ml/min Estimated GFR () 27.2 28.6 27.7 Estimated GFR (Non- 23.5 24.7 23.9 BUN/Creatinine Ratio 46.9 46.6 44.7 Random Glucose 110 mg/dl 133 mg/dl 93 mg/dl Calcium Level 7.5 mg/dl 7.8 mg/dl 8.1 mg/dl Magnesium Level 2.9 mg/dl 2.8 mg/dl Bedside Glucose 154 mg/dl White Blood Count 11.77 K/uL Red Blood Count 3.28 M/uL Hemoglobin 11.4 g/dL Hematocrit 31.6 % Mean Corpuscular Volume 96.3 fL Mean Corpuscular Hemoglobin 34.8 pg Mean Corpuscular Hemoglobin Concent 36.1 g/dl Platelet Count 295 K/uL Mean Platelet Volume 12.2 fL Neutrophils (%) (Auto) 77.5 % Lymphocytes (%) (Auto) 14.5 % Monocytes (%) (Auto) 5.1 % Eosinophils (%) (Auto) 2.4 % Basophils (%) (Auto) 0.3 % Neutrophils # (Auto) 9.13 K/uL Lymphocytes # (Auto) 1.71 K/uL Monocytes # (Auto) 0.60 K/uL Eosinophils # (Auto) 0.28 K/uL Basophils # (Auto) 0.03 K/uL RDW Standard Deviation 45.5 fL RDW Coefficient of Variation 13.0 % Immature Granulocyte % (Auto) 0.2 % Immature Granulocyte # (Auto) 0.02 K/uL Echinocytes 1+ Prothrombin Time 10.1 SECONDS Prothromb Time International Ratio 1.0 Total Bilirubin 0.4 mg/dl Aspartate Amino Transf (AST/SGOT) 45 U/L Alanine Aminotransferase (ALT/SGPT) 59 U/L Alkaline Phosphatase 351 U/L Total Protein 7.5 gm/dl Albumin 3.3 gm/dl Globulin 4.2 gm/dl Albumin/Globulin Ratio 0.8 Cortisol AM Sample 19.25 mcg/dl Assessment and Plan 67 year old white male with significant past medical history of splenectomy, hypertension, and borderline diabetes that resolved after his gstrectomy. Patient had massive hernia operation about 5-6 years ago resulted in removal of his stomach. 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 Hypochloremic, hypokalemia with hyponatremia Likely multifactorial from upper intestinal loss, diarrhea, and large amounts of free water in Jtube. Patient has had multiple admissions for his hyponatremia. Was initially feeling very weak and had severe nausea, and electrolyte imbalances. Patient however has improved with fluid resuscitation, his electrolytes are also improving. Nephrology is on board and recommends continuing current rate of fluid. will likely increase fluids tomorrow. Monitor sodium level closely/every 8 hours, avoid correcting sodium with a rate faster than 6 mmol per day Check orthostatic vitals daily Avoid a rate of correction > 1 mmol/4 hours Consult dietitian regarding tube feed formula adjustment Zofran for nausea Continue to replace potassium Acute kidney injury/chronic kidney disease secondary to possible decrease intake Patient has very elevated BUN. Patient has had BUN in the range of 80s in past. Perhaps with fluid resuscitation we may improve it even past this. Currently it is above 100. Chronic kidney disease stage III-IV as stated above. Ostomy irritation of feeding tube will monitor. wound care on board. Heparin for DVT prophylaxis Instructed the patient to have blood drawn every 2 weeks at home until sodium and potassium levels stabilizes Continued [facility] stay due to: multiple IV medications needed Discharge planning: uncertain
[2017-12-20] VITALS: O2SAT 94
[2017-12-20 00:44] LABS: CALCIUM 7.8 mg/dl (8.5-10.1); CREATININE 2.66 mg/dl (0.60-1.40); POTASSIUM 3.5 mmol/L (3.5-5.1)
[2017-12-20 04:00] VITALS: BP 118/64; PULSE 65; TEMP 36.9; O2SAT 94
[2017-12-20 07:07] VITALS: BP 120/71; PULSE 73; TEMP 36.8; O2SAT 93
[2017-12-20] MEDS: CALCITRIOL 0.25 MCG CAP JT SCH ×2 (07:33→21:38)
[2017-12-20] MEDS: ALBUTEROL HFA 8 GM INHALER INH SCH ×4 (07:33→21:37)
[2017-12-20] MEDS: HEPARIN SOD 5000 UNIT/0.5 ML CARP SQ SCH ×2 (07:34→21:00)
[2017-12-20] MEDS: TRIAMCINOLONE ACET 0.1% CR 15 GM TUBE EXT SCH ×2 (07:34→21:37)
[2017-12-20 08:53] LABS: CALCIUM 8.3 mg/dl (8.5-10.1); CREATININE 2.61 mg/dl (0.60-1.40); POTASSIUM 3.8 mmol/L (3.5-5.1)
--- NOTE | 2017-12-20 09:51 | Nephrology Progress Note ---
Nephrology Progress Note Date of Service: Dec 20, 2017. Subjective 67 yo male with multiple electrolyte abnormalities and tolerating the fluids well. pt feels much better. Objective Date Time Temp Pulse Resp B/P (MAP) Pulse Ox O2 Delivery O2 Flow Rate FiO2 12/20/17 08:00 Room Air 12/20/17 07:07 36.8 73 16 120/71 (87) 93 Room Air 12/20/17 04:00 36.9 65 18 118/64 (82) 94 Room Air 12/20/17 04:00 94 Room Air 12/20/17 00:00 94 Room Air 12/19/17 23:51 36.6 72 18 131/68 (89) 93 Room Air 12/19/17 20:00 94 Room Air 12/19/17 19:41 36.4 57 16 146/79 (101) 96 Room Air 12/19/17 16:01 36.4 61 18 117/68 (84) 95 Room Air 12/19/17 16:00 94 Room Air 12/19/17 12:00 Room Air 12/19/17 11:56 36.6 64 16 125/65 (85) 94 Room Air Physical Exam: General-aaox3 Eyes-no scleral icterus ENT-mmm Neck-supple Lungs-cta Heart-rrr Abdomen-+j tube, +esophageal drain bag Extremities-no c/c/e Neuro-nonfocal Current Inpatient Medications Medications (Trade) Dose Ordered Sig/Maame Route Start Time Stop Time Status Last Admin Dose Admin Albuterol (Ventolin Hfa Inhaler) 2 puffs QID INH 12/18/17 17:00 01/17/18 16:59 12/20/17 07:33 2 PUFFS Calcitriol (Rocaltrol Cap) 0.25 mcg BID JT 12/18/17 21:00 01/17/18 20:59 12/20/17 07:33 0.25 MCG Fluticasone Propionate (Flonase Nasal [place]) 1 sprays DAILY PRN JOSE L 12/18/17 12:15 01/17/18 12:14 Folic Acid (Folvite Tab) 1 mg DAILY PEG 12/19/17 09:00 01/18/18 08:59 12/20/17 07:33 1 MG Ondansetron HCl (Zofran Odt) 4 mg TID PRN SL 12/18/17 12:15 01/17/18 12:14 Triamcinolone Acetonide (Kenalog 0.1% Cream) 1 appln BID EXT 12/18/17 21:00 01/17/18 20:59 12/19/17 08:25 1 APPLN Loperamide HCl (Imodium A-D Liquid) 2.23290 mg Q6 PRN JT 12/18/17 14:45 01/17/18 14:44 Heparin Sodium (Porcine) (Heparin Sq 5000 Unit/0.5ml) 5,000 unit Q12 SQ 12/18/17 21:00 01/17/18 20:59 Sodium Chloride 1,000 ml @ 50 mls/hr Q20H IV 12/18/17 12:14 01/17/18 12:13 12/19/17 23:30 50 MLS/HR Acetaminophen (Tylenol Tab) 650 mg Q4H PRN PO 12/18/17 12:15 01/17/18 12:14 Al Hydrox/Mg Hydrox/Simethicone (Maalox Max Susp) 15 ml Q4H PRN PO 12/18/17 12:15 01/17/18 12:14 Magnesium Hydroxide (Milk Of Magnesia Susp) 30 ml Q12H PRN PO 12/18/17 12:15 01/17/18 12:14 Zolpidem Tartrate (Ambien Tab) 5 mg HSZ PRN PO 12/18/17 12:15 01/17/18 12:14 Ondansetron HCl (Zofran Inj) 4 mg Q6H PRN IV 12/18/17 12:15 01/17/18 12:14 Enteral Nutritional Formula (Peptamen 1.5) 1,000 ml UD JT 12/18/17 19:00 01/17/18 18:59 12/19/17 19:04 1,000 ML Last 24 Hours Test 12/19/17 16:02 12/20/17 00:15 12/20/17 08:08 Sodium Level 131 mmol/L 135 mmol/L 136 mmol/L Potassium Level 3.1 mmol/L 3.5 mmol/L 3.8 mmol/L Chloride Level 96 mmol/L 102 mmol/L 103 mmol/L Carbon Dioxide Level 24 mmol/L 23 mmol/L 25 mmol/L Anion Gap 11.0 mmol/L 10.0 mmol/L 8.0 mmol/L Blood Urea Nitrogen 120 mg/dl 119 mg/dl 112 mg/dl Creatinine 2.68 mg/dl 2.66 mg/dl 2.61 mg/dl Est Creatinine Clear Calc Drug Dose 22.4 ml/min 22.6 ml/min 22.9 ml/min Estimated GFR () 27.7 27.9 28.6 Estimated GFR (Non- 23.9 24.1 24.7 BUN/Creatinine Ratio 44.7 44.8 43.0 Random Glucose 93 mg/dl 110 mg/dl 120 mg/dl Calcium Level 8.1 mg/dl 7.8 mg/dl 8.3 mg/dl Assessment & Plan hyponatremia-corrected and likely had hyponatremia from volume depletion. hypokalemia-corrected and k levels are much better. Elevated Bun-I would increase the normal saline and have a goal of bun in the 80s. will increase the fluids to 100cc/hr.
[2017-12-20 11:28] VITALS: BP 136/82; PULSE 102; TEMP 36.4; O2SAT 97
[2017-12-20 15:18] VITALS: BP 132/77; PULSE 62; TEMP 36.6; O2SAT 93
[2017-12-20 16:34] LABS: CALCIUM 8.4 mg/dl (8.5-10.1); CREATININE 2.65 mg/dl (0.60-1.40); POTASSIUM 3.9 mmol/L (3.5-5.1)
[2017-12-20] MEDS: SODIUM CHLORIDE 0.9% 1000ML 1,000 ML IV SCH ×2 (16:49→23:06)
[2017-12-20] MEDS ORDERED: CYANOCOBALAMIN 1000 MCG/ML VIAL IM STA (18:18)
[2017-12-20 19:14] VITALS: BP 132/81; PULSE 55; TEMP 36.6; O2SAT 94
[2017-12-20] MEDS: PEPTAMEN 1.5 CAL 1000ML BAG JT SCH (19:43)
--- NOTE | 2017-12-20 22:31 | Progress Note ---
Subjective Date of Service: Dec 20, 2017. Subjective Pt evaluation today including: conversation w/ patient Patient continues to have improvement. He states he has more energy today as well. Patient denies any nausea, vomiting, diarrhea. Problem List Medical Problems: (1) Acute kidney injury Status: Acute (2) Elevated LFTs Status: Acute (3) Hyponatremia Status: Acute (4) Leukopenia Status: Acute (5) Radiating back pain Status: Acute (6) Symptomatic anemia Status: Acute (7) Weakness Status: Acute (8) Weakness Status: Acute Review of Systems Constitutional: No fever, No chills Respiratory: No cough, No sputum Cardiac: No chest pain Abdomen: No pain Neurologic: No memory loss Psychiatric: No depression symptoms Heme: No abnormal bleeding/bruising Endo: No fatigue All Other Systems: Reviewed and Negative Medications Current Inpatient Medications Medications (Trade) Dose Ordered Sig/Maame Route Start Time Stop Time Status Last Admin Dose Admin Albuterol (Ventolin Hfa Inhaler) 2 puffs QID INH 12/18/17 17:00 01/17/18 16:59 12/21/17 08:09 2 PUFFS Calcitriol (Rocaltrol Cap) 0.25 mcg BID JT 12/18/17 21:00 01/17/18 20:59 12/21/17 08:10 0.25 MCG Fluticasone Propionate (Flonase Nasal [place]) 1 sprays DAILY PRN JOSE L 12/18/17 12:15 01/17/18 12:14 Folic Acid (Folvite Tab) 1 mg DAILY PEG 12/19/17 09:00 01/18/18 08:59 12/21/17 08:10 1 MG Ondansetron HCl (Zofran Odt) 4 mg TID PRN SL 12/18/17 12:15 01/17/18 12:14 Triamcinolone Acetonide (Kenalog 0.1% Cream) 1 appln BID EXT 12/18/17 21:00 01/17/18 20:59 12/20/17 21:37 1 APPLN Loperamide HCl (Imodium A-D Liquid) 2.18284 mg Q6 PRN JT 12/18/17 14:45 01/17/18 14:44 Heparin Sodium (Porcine) (Heparin Sq 5000 Unit/0.5ml) 5,000 unit Q12 SQ 12/18/17 21:00 01/17/18 20:59 Sodium Chloride 1,000 ml @ 125 mls/hr Q8H IV 12/18/17 12:14 01/17/18 12:13 12/21/17 07:05 125 MLS/HR Acetaminophen (Tylenol Tab) 650 mg Q4H PRN PO 12/18/17 12:15 01/17/18 12:14 Al Hydrox/Mg Hydrox/Simethicone (Maalox Max Susp) 15 ml Q4H PRN PO 12/18/17 12:15 01/17/18 12:14 Magnesium Hydroxide (Milk Of Magnesia Susp) 30 ml Q12H PRN PO 12/18/17 12:15 01/17/18 12:14 Zolpidem Tartrate (Ambien Tab) 5 mg HSZ PRN PO 12/18/17 12:15 01/17/18 12:14 Ondansetron HCl (Zofran Inj) 4 mg Q6H PRN IV 12/18/17 12:15 01/17/18 12:14 Enteral Nutritional Formula (Peptamen 1.5) 1,000 ml UD JT 12/18/17 19:00 01/17/18 18:59 12/20/17 19:43 1,000 ML Objective Vital Signs Date Time Temp Pulse Resp B/P (MAP) Pulse Ox O2 Delivery O2 Flow Rate FiO2 12/20/17 20:00 Room Air 12/20/17 19:14 36.6 55 16 132/81 (98) 94 Room Air 12/20/17 16:00 Room Air 12/20/17 15:18 36.6 62 132/77 (95) 93 Room Air 12/20/17 12:00 Room Air 12/20/17 11:28 36.4 102 16 136/82 (100) 97 Room Air 12/20/17 08:00 Room Air 12/20/17 07:07 36.8 73 16 120/71 (87) 93 Room Air 12/20/17 04:00 36.9 65 18 118/64 (82) 94 Room Air 12/20/17 04:00 94 Room Air 12/20/17 00:00 94 Room Air 12/19/17 23:51 36.6 72 18 131/68 (89) 93 Room Air Physical Exam Comments: General: Patient is no longer in acute distress. HEENT: Atraumatic , normocephalic /no jaundice /no pallor /anicteric /no dry mucous membrane /normal external ear inspection Neck: Supple /no swelling /central trach Heart: S1/S2 normal/regular rate and rhythm/no gallop /no rub /no murmur Lungs: Clear to auscultation bilaterally/normal chest with expansion/no rhonchi/ no rales/no wheezing/no use of accessory muscles of respiration Abdomen: Soft/nontender/no guarding/no rebound/no organomegaly/no pulsatile mass , has significant skin irritation and erythema around his feeding tube Musculoskeletal: No swelling/no edema/no tenderness/normal range of motion Neuro exam: Awake alert oriented 3/cranial nerves II through XII appear to be intact/sensation intact/moves all extremities/no abnormal movements Psychiatric evaluation: No depressed mood/normal affect Skin: No rash on exposed skin area/no erythema Extremity: Normal pulse/no pitting edema/no clubbing or cyanosis Endocrine/lymphatic: No obvious lymphadenopathy /no lymphedema Laboratory Results Last 24 Hours Test 12/20/17 00:15 12/20/17 08:08 12/20/17 15:48 Sodium Level 135 mmol/L 136 mmol/L 137 mmol/L Potassium Level 3.5 mmol/L 3.8 mmol/L 3.9 mmol/L Chloride Level 102 mmol/L 103 mmol/L 104 mmol/L Carbon Dioxide Level 23 mmol/L 25 mmol/L 27 mmol/L Anion Gap 10.0 mmol/L 8.0 mmol/L 6.0 mmol/L Blood Urea Nitrogen 119 mg/dl 112 mg/dl 117 mg/dl Creatinine 2.66 mg/dl 2.61 mg/dl 2.65 mg/dl Est Creatinine Clear Calc Drug Dose 22.6 ml/min 22.9 ml/min 22.6 ml/min Estimated GFR () 27.9 28.6 28.1 Estimated GFR (Non- 24.1 24.7 24.2 BUN/Creatinine Ratio 44.8 43.0 44.3 Random Glucose 110 mg/dl 120 mg/dl 115 mg/dl Calcium Level 7.8 mg/dl 8.3 mg/dl 8.4 mg/dl Assessment and Plan 67 year old white male with significant past medical history of splenectomy, hypertension, and borderline diabetes that resolved after his gstrectomy. Patient had massive hernia operation about 5-6 years ago resulted in removal of his stomach. 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 Hypochloremic, hypokalemia with hyponatremia Likely multifactorial from upper intestinal loss, diarrhea, and large amounts of free water in Jtube. Patient has had multiple admissions for his hyponatremia. Patient continues to feel improvement. Nephrology is on board and recommends continuing current rate of fluid. will increase fluids to 125 mls/hr Monitor sodium level closely/every 8 hours, avoid correcting sodium with a rate faster than 6 mmol per day Check orthostatic vitals daily Consulted dietitian regarding tube feed formula adjustment Zofran for nausea Acute kidney injury/chronic kidney disease secondary to possible decrease intake Patient has very elevated BUN. Patient has had BUN in the range of 80s in past. Perhaps with fluid resuscitation we may improve it even past this. Currently it is above 100. It mildly improved which is why will increase fluids. Patient may require intermittent scheduled IV fluid resuscitation as outpatient of normal saline or perhaps saline flushes through J tube/ will d/w nephro and nutrition. Chronic kidney disease stage III-IV as stated above. Hypokalemia resolved. will continue to monitor. Ostomy irritation of feeding tube will monitor. wound care on board. Heparin for DVT prophylaxis Instructed the patient to have blood drawn every 2 weeks at home until sodium and potassium levels stabilizes Continued [facility] stay due to: multiple IV medications needed Discharge planning: uncertain
[2017-12-21 00:19] VITALS: BP 130/73; PULSE 53; TEMP 36.7; O2SAT 90
[2017-12-21 04:00] VITALS: BP 131/73; PULSE 59; TEMP 36.7; O2SAT 94
[2017-12-21 05:57] LABS: HEMATOCRIT 32.5 % (42-52); HEMOGLOBIN 11.4 g/dL (14.0-18.0); MEAN CELL VOLUME 100.3 fL (80-100); MEAN CORPUSCULAR HEMOGLOBIN 35.2 pg (25-34); MEAN CORPUSCULAR HGB CONC 35.1 g/dl (32-36); PLATELET COUNT 303 K/uL (130-400); RED CELL DISTRIBUTION WIDTH CV 13.7 % (11.5-14.5); RED CELL DISTRIBUTION WIDTH SD 49.5 fL (36.4-46.3); WHITE BLOOD COUNT 13.85 K/uL (4.8-10.8)
[2017-12-21 06:31] LABS: CALCIUM 8.1 mg/dl (8.5-10.1); CREATININE 2.57 mg/dl (0.60-1.40); POTASSIUM 3.8 mmol/L (3.5-5.1)
[2017-12-21] MEDS: SODIUM CHLORIDE 0.9% 1000ML 1,000 ML IV SCH ×2 (07:05→17:33)
[2017-12-21 07:43] VITALS: BP 129/79; PULSE 93; TEMP 36.7; O2SAT 90
[2017-12-21] MEDS: ALBUTEROL HFA 8 GM INHALER INH SCH ×4 (08:09→21:00)
[2017-12-21] MEDS: TRIAMCINOLONE ACET 0.1% CR 15 GM TUBE EXT SCH ×2 (08:10→21:00)
[2017-12-21] MEDS: CALCITRIOL 0.25 MCG CAP JT SCH ×2 (08:10→19:45)
[2017-12-21] MEDS: HEPARIN SOD 5000 UNIT/0.5 ML CARP SQ SCH ×2 (08:10→21:00)
--- NOTE | 2017-12-21 14:14 | Nephrology Progress Note ---
Nephrology Progress Note Date of Service: Dec 21, 2017. Subjective 67 yo male with multiple electrolyte abnormalities and tolerating the fluids well. pt does have difficult iv access and is becoming anxious to go home. pt walking around hallways and feels good. Objective Date Time Temp Pulse Resp B/P (MAP) Pulse Ox O2 Delivery O2 Flow Rate FiO2 12/21/17 12:00 Room Air 12/21/17 08:00 Room Air 12/21/17 07:43 36.7 93 16 129/79 (96) 90 Room Air 12/21/17 04:00 36.7 59 16 131/73 (92) 94 Room Air 12/21/17 04:00 Room Air 12/21/17 00:19 36.7 53 16 130/73 (92) 90 Room Air 12/21/17 00:00 Room Air 12/20/17 20:00 Room Air 12/20/17 19:14 36.6 55 16 132/81 (98) 94 Room Air 12/20/17 16:00 Room Air 12/20/17 15:18 36.6 62 132/77 (95) 93 Room Air Physical Exam: General-aaox3 Eyes-no scleral icterus ENT-mmm Neck-supple Lungs-clear Heart-regular Abdomen-+j tube, +esophageal drain bag Extremities-no c/c/e Neuro-nonfocal Current Inpatient Medications Medications (Trade) Dose Ordered Sig/Maame Route Start Time Stop Time Status Last Admin Dose Admin Albuterol (Ventolin Hfa Inhaler) 2 puffs QID INH 12/18/17 17:00 01/17/18 16:59 12/21/17 13:26 2 PUFFS Calcitriol (Rocaltrol Cap) 0.25 mcg BID JT 12/18/17 21:00 01/17/18 20:59 12/21/17 08:10 0.25 MCG Fluticasone Propionate (Flonase Nasal [place]) 1 sprays DAILY PRN JOSE L 12/18/17 12:15 01/17/18 12:14 Folic Acid (Folvite Tab) 1 mg DAILY PEG 12/19/17 09:00 01/18/18 08:59 12/21/17 08:10 1 MG Ondansetron HCl (Zofran Odt) 4 mg TID PRN SL 12/18/17 12:15 01/17/18 12:14 Triamcinolone Acetonide (Kenalog 0.1% Cream) 1 appln BID EXT 12/18/17 21:00 01/17/18 20:59 12/20/17 21:37 1 APPLN Loperamide HCl (Imodium A-D Liquid) 2.84605 mg Q6 PRN JT 12/18/17 14:45 01/17/18 14:44 Heparin Sodium (Porcine) (Heparin Sq 5000 Unit/0.5ml) 5,000 unit Q12 SQ 12/18/17 21:00 01/17/18 20:59 Sodium Chloride 1,000 ml @ 125 mls/hr Q8H IV 12/18/17 12:14 01/17/18 12:13 12/21/17 07:05 125 MLS/HR Acetaminophen (Tylenol Tab) 650 mg Q4H PRN PO 12/18/17 12:15 01/17/18 12:14 Al Hydrox/Mg Hydrox/Simethicone (Maalox Max Susp) 15 ml Q4H PRN PO 12/18/17 12:15 01/17/18 12:14 Magnesium Hydroxide (Milk Of Magnesia Susp) 30 ml Q12H PRN PO 12/18/17 12:15 01/17/18 12:14 Zolpidem Tartrate (Ambien Tab) 5 mg HSZ PRN PO 12/18/17 12:15 01/17/18 12:14 Ondansetron HCl (Zofran Inj) 4 mg Q6H PRN IV 12/18/17 12:15 01/17/18 12:14 Enteral Nutritional Formula (Peptamen 1.5) 1,000 ml UD JT 12/18/17 19:00 01/17/18 18:59 12/20/17 19:43 1,000 ML Last 24 Hours Test 12/20/17 15:48 12/21/17 05:29 Sodium Level 137 mmol/L 141 mmol/L Potassium Level 3.9 mmol/L 3.8 mmol/L Chloride Level 104 mmol/L 110 mmol/L Carbon Dioxide Level 27 mmol/L 22 mmol/L Anion Gap 6.0 mmol/L 9.0 mmol/L Blood Urea Nitrogen 117 mg/dl 105 mg/dl Creatinine 2.65 mg/dl 2.57 mg/dl Est Creatinine Clear Calc Drug Dose 22.6 ml/min 23.3 ml/min Estimated GFR () 28.1 29.1 Estimated GFR (Non- 24.2 25.1 BUN/Creatinine Ratio 44.3 41.0 Random Glucose 115 mg/dl 130 mg/dl Calcium Level 8.4 mg/dl 8.1 mg/dl White Blood Count 13.85 K/uL Red Blood Count 3.24 M/uL Hemoglobin 11.4 g/dL Hematocrit 32.5 % Mean Corpuscular Volume 100.3 fL Mean Corpuscular Hemoglobin 35.2 pg Mean Corpuscular Hemoglobin Concent 35.1 g/dl RDW Standard Deviation 49.5 fL RDW Coefficient of Variation 13.7 % Platelet Count 303 K/uL Mean Platelet Volume 12.0 fL Magnesium Level 2.9 mg/dl Assessment & Plan [place] with elevated bun-personally feel pt develops a slow osmotic diuresis which eventually causes hypokalemia and then hyponatremia. perhaps getting too much protein through the tube feeds. appears to respond well to the iv fluids with a goal of bun in the 80s prior to discharge. would recommend weekly bmps. did discuss with Dr. Estrada his outpt shot blaster the possibility of intermittent normal saline to help control the bun under 100. pt appears to feel better when bun under a 100.
[2017-12-21 16:00] VITALS: BP 140/80; PULSE 63; TEMP 36.7; O2SAT 94
[2017-12-21] MEDS: PEPTAMEN 1.5 CAL 1000ML BAG JT SCH (19:39)
[2017-12-21 20:00] VITALS: O2SAT 95
[2017-12-21 20:02] VITALS: BP 156/78; PULSE 65; TEMP 36.6; O2SAT 95
--- NOTE | 2017-12-21 23:37 | Progress Note ---
Subjective Date of Service: Dec 21, 2017. Subjective Pt evaluation today including: conversation w/ patient Patient reports feeling better today. Patient states that he would like to go home Problem List Medical Problems: (1) Acute kidney injury Status: Acute (2) Elevated LFTs Status: Acute (3) Hyponatremia Status: Acute (4) Leukopenia Status: Acute (5) Radiating back pain Status: Acute (6) Symptomatic anemia Status: Acute (7) Weakness Status: Acute (8) Weakness Status: Acute Review of Systems Constitutional: No fever, No chills Eyes: No worsening of vision Respiratory: No cough Cardiac: No chest pain Abdomen: No pain Musculoskeletal: No joint pain Neurologic: No memory loss Psychiatric: No depression symptoms Heme: No abnormal bleeding/bruising Endo: No fatigue Skin: No rash All Other Systems: Reviewed and Negative Medications Current Inpatient Medications Medications (Trade) Dose Ordered Sig/Maame Route Start Time Stop Time Status Last Admin Dose Admin Albuterol (Ventolin Hfa Inhaler) 2 puffs QID INH 12/18/17 17:00 01/17/18 16:59 12/23/17 09:04 2 PUFFS Calcitriol (Rocaltrol Cap) 0.25 mcg BID JT 12/18/17 21:00 01/17/18 20:59 12/23/17 09:38 0.25 MCG Fluticasone Propionate (Flonase Nasal [place]) 1 sprays DAILY PRN JOSE L 12/18/17 12:15 01/17/18 12:14 Folic Acid (Folvite Tab) 1 mg DAILY PEG 12/19/17 09:00 01/18/18 08:59 12/23/17 09:38 1 MG Ondansetron HCl (Zofran Odt) 4 mg TID PRN SL 12/18/17 12:15 01/17/18 12:14 Triamcinolone Acetonide (Kenalog 0.1% Cream) 1 appln BID EXT 12/18/17 21:00 01/17/18 20:59 12/23/17 09:04 1 APPLN Loperamide HCl (Imodium A-D Liquid) 2.34134 mg Q6 PRN JT 12/18/17 14:45 01/17/18 14:44 Heparin Sodium (Porcine) (Heparin Sq 5000 Unit/0.5ml) 5,000 unit Q12 SQ 12/18/17 21:00 01/17/18 20:59 Acetaminophen (Tylenol Tab) 650 mg Q4H PRN PO 12/18/17 12:15 01/17/18 12:14 Al Hydrox/Mg Hydrox/Simethicone (Maalox Max Susp) 15 ml Q4H PRN PO 12/18/17 12:15 01/17/18 12:14 Magnesium Hydroxide (Milk Of Magnesia Susp) 30 ml Q12H PRN PO 12/18/17 12:15 01/17/18 12:14 Zolpidem Tartrate (Ambien Tab) 5 mg HSZ PRN PO 12/18/17 12:15 01/17/18 12:14 Ondansetron HCl (Zofran Inj) 4 mg Q6H PRN IV 12/18/17 12:15 01/17/18 12:14 Enteral Nutritional Formula (Peptamen 1.5) 1,000 ml UD JT 12/18/17 19:00 01/17/18 18:59 12/22/17 19:42 1,000 ML Lactated Ringer's 1,000 ml @ 125 mls/hr Q8H IV 12/22/17 18:30 01/21/18 18:29 12/23/17 09:42 125 MLS/HR Objective Vital Signs Date Time Temp Pulse Resp B/P (MAP) Pulse Ox O2 Delivery O2 Flow Rate FiO2 12/21/17 20:02 36.6 65 16 156/78 (104) 95 Room Air 12/21/17 20:00 95 Room Air 12/21/17 16:00 36.7 63 18 140/80 (100) 94 Room Air 12/21/17 16:00 94 Room Air 12/21/17 12:00 Room Air 12/21/17 08:00 Room Air 12/21/17 07:43 36.7 93 16 129/79 (96) 90 Room Air 12/21/17 04:00 36.7 59 16 131/73 (92) 94 Room Air 12/21/17 04:00 Room Air 12/21/17 00:19 36.7 53 16 130/73 (92) 90 Room Air 12/21/17 00:00 Room Air Physical Exam Comments: General: Patient is no longer in acute distress. HEENT: Atraumatic , normocephalic /no jaundice /no pallor /anicteric /no dry mucous membrane /normal external ear inspection Neck: Supple /no swelling /central trach Heart: S1/S2 normal/regular rate and rhythm/no gallop /no rub /no murmur Lungs: Clear to auscultation bilaterally/normal chest with expansion/no rhonchi/ no rales/no wheezing/no use of accessory muscles of respiration Abdomen: Soft/nontender/no guarding/no rebound/no organomegaly/no pulsatile mass , has significant skin irritation and erythema around his feeding tube Musculoskeletal: No swelling/no edema/no tenderness/normal range of motion Neuro exam: Awake alert oriented 3/cranial nerves II through XII appear to be intact/sensation intact/moves all extremities/no abnormal movements Psychiatric evaluation: No depressed mood/normal affect Skin: No rash on exposed skin area/no erythema Extremity: Normal pulse/no pitting edema/no clubbing or cyanosis Endocrine/lymphatic: No obvious lymphadenopathy /no lymphedema Laboratory Results Last 24 Hours Test 12/21/17 05:29 White Blood Count 13.85 K/uL Red Blood Count 3.24 M/uL Hemoglobin 11.4 g/dL Hematocrit 32.5 % Mean Corpuscular Volume 100.3 fL Mean Corpuscular Hemoglobin 35.2 pg Mean Corpuscular Hemoglobin Concent 35.1 g/dl RDW Standard Deviation 49.5 fL RDW Coefficient of Variation 13.7 % Platelet Count 303 K/uL Mean Platelet Volume 12.0 fL Sodium Level 141 mmol/L Potassium Level 3.8 mmol/L Chloride Level 110 mmol/L Carbon Dioxide Level 22 mmol/L Anion Gap 9.0 mmol/L Blood Urea Nitrogen 105 mg/dl Creatinine 2.57 mg/dl Est Creatinine Clear Calc Drug Dose 23.3 ml/min Estimated GFR () 29.1 Estimated GFR (Non- 25.1 BUN/Creatinine Ratio 41.0 Random Glucose 130 mg/dl Calcium Level 8.1 mg/dl Magnesium Level 2.9 mg/dl Assessment and Plan 67 year old white male with significant past medical history of splenectomy, hypertension, and borderline diabetes that resolved after his gstrectomy. Patient had massive hernia operation about 5-6 years ago resulted in removal of his stomach. 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 Hypochloremic, hypokalemia with hyponatremia Likely multifactorial from upper intestinal loss, diarrhea, and large amounts of free water in Jtube. Patient has had multiple admissions for his hyponatremia. Patient continues to feel improvement. Nephrology is on board and recommends continuing current rate of fluid. will continue fluids 125 mls/hr Monitor sodium level closely/every 8 hours, avoid correcting sodium with a rate faster than 6 mmol per day Goal is to maintain BUN below 100 with goal of 80s as this is his baseline May do intermittent IV fluid as outpatient to try to spread out his re-admission Check orthostatic vitals daily Consulted dietitian regarding tube feed formula adjustment Zofran for nausea Acute kidney injury/chronic kidney disease secondary to possible decrease intake Patient has very elevated BUN. Patient has had BUN in the range of 80s in past. Perhaps with fluid resuscitation we may improve it even past this. Currently it is 105, and improvement from 115 It mildly improved which is why will continue fluids Patient may require intermittent scheduled IV fluid resuscitation as outpatient of normal saline or perhaps saline flushes through J tube/ will d/w nephro and nutrition. Chronic kidney disease stage III-IV as stated above. Hypokalemia resolved. will continue to monitor. Ostomy irritation of feeding tube will monitor. wound care on board. Heparin for DVT prophylaxis Instructed the patient to have blood drawn every 2 weeks at home until sodium and potassium levels stabilizes Continued [facility] stay due to: multiple IV medications needed Discharge planning: uncertain
[2017-12-22] VITALS (7 sets, daily range): BP systolic 136–158; BP diastolic 63–88; PULSE 61–94; TEMP 36.3–37.7; O2SAT 90–98
[2017-12-22] MEDS: SODIUM CHLORIDE 0.9% 1000ML 1,000 ML IV SCH ×2 (02:05→10:20)
[2017-12-22 07:23] LABS: HEMATOCRIT 29.3 % (42-52); HEMOGLOBIN 10.2 g/dL (14.0-18.0); MEAN CELL VOLUME 100.3 fL (80-100); MEAN CORPUSCULAR HEMOGLOBIN 34.9 pg (25-34); MEAN CORPUSCULAR HGB CONC 34.8 g/dl (32-36); MEAN PLATELET VOLUME 11.4 fL (7.4-10.4); PLATELET COUNT 294 K/uL (130-400); RED CELL DISTRIBUTION WIDTH CV 14.2 % (11.5-14.5); RED CELL DISTRIBUTION WIDTH SD 52.4 fL (36.4-46.3); WHITE BLOOD COUNT 14.31 K/uL (4.8-10.8)
[2017-12-22 07:59] LABS: CALCIUM 8.2 mg/dl (8.5-10.1); CREATININE 2.5 mg/dl (0.60-1.40); PHOSPHORUS 2.5 mg/dl (2.5-4.9); POTASSIUM 4.1 mmol/L (3.5-5.1)
[2017-12-22] MEDS: HEPARIN SOD 5000 UNIT/0.5 ML CARP SQ SCH ×2 (09:50→20:50)
[2017-12-22] MEDS: ALBUTEROL HFA 8 GM INHALER INH SCH ×4 (09:51→20:49)
[2017-12-22] MEDS: TRIAMCINOLONE ACET 0.1% CR 15 GM TUBE EXT SCH ×2 (09:51→20:49)
[2017-12-22] MEDS: CALCITRIOL 0.25 MCG CAP JT SCH ×2 (13:03→20:49)
[2017-12-22] MEDS: LACTATED RINGER'S 1000ML 1,000 ML IV SCH (18:57)
[2017-12-22] MEDS: PEPTAMEN 1.5 CAL 1000ML BAG JT SCH (19:42)
[2017-12-23] MEDS: LACTATED RINGER'S 1000ML 1,000 ML IV SCH ×2 (02:20→09:42)
[2017-12-23 05:00] VITALS: BP 151/75; PULSE 72; TEMP 36.7; O2SAT 96
[2017-12-23 07:55] VITALS: BP 145/81; PULSE 67; TEMP 36.7; O2SAT 92
[2017-12-23] MEDS: HEPARIN SOD 5000 UNIT/0.5 ML CARP SQ SCH (09:00)
[2017-12-23] MEDS: ALBUTEROL HFA 8 GM INHALER INH SCH ×2 (09:04→12:46)
[2017-12-23] MEDS: TRIAMCINOLONE ACET 0.1% CR 15 GM TUBE EXT SCH (09:04)
--- NOTE | 2017-12-23 09:10 | Progress Note ---
Subjective Date of Service: Dec 22, 2017. Subjective Pt evaluation today including: conversation w/ patient Patient seen on December 22, 2017 67 yo male has no complaints today. Asks if he can go home. He continues to report improved strength today. Problem List Medical Problems: (1) Acute kidney injury Status: Acute (2) Elevated LFTs Status: Acute (3) Hyponatremia Status: Acute (4) Leukopenia Status: Acute (5) Radiating back pain Status: Acute (6) Symptomatic anemia Status: Acute (7) Weakness Status: Acute (8) Weakness Status: Acute Review of Systems Constitutional: No fever, No chills Eyes: No worsening of vision ENT: No hearing loss Respiratory: No cough Cardiac: No chest pain Abdomen: No pain Musculoskeletal: No joint pain Neurologic: No memory loss Psychiatric: No anhedonism Endo: + fatigue Skin: No rash All Other Systems: Reviewed and Negative Medications Current Inpatient Medications Medications (Trade) Dose Ordered Sig/Maame Route Start Time Stop Time Status Last Admin Dose Admin Albuterol (Ventolin Hfa Inhaler) 2 puffs QID INH 12/18/17 17:00 01/17/18 16:59 12/23/17 09:04 2 PUFFS Calcitriol (Rocaltrol Cap) 0.25 mcg BID JT 12/18/17 21:00 01/17/18 20:59 12/23/17 09:38 0.25 MCG Fluticasone Propionate (Flonase Nasal [place]) 1 sprays DAILY PRN JOSE L 12/18/17 12:15 01/17/18 12:14 Folic Acid (Folvite Tab) 1 mg DAILY PEG 12/19/17 09:00 01/18/18 08:59 12/23/17 09:38 1 MG Ondansetron HCl (Zofran Odt) 4 mg TID PRN SL 12/18/17 12:15 01/17/18 12:14 Triamcinolone Acetonide (Kenalog 0.1% Cream) 1 appln BID EXT 12/18/17 21:00 01/17/18 20:59 12/23/17 09:04 1 APPLN Loperamide HCl (Imodium A-D Liquid) 2.79418 mg Q6 PRN JT 12/18/17 14:45 01/17/18 14:44 Heparin Sodium (Porcine) (Heparin Sq 5000 Unit/0.5ml) 5,000 unit Q12 SQ 12/18/17 21:00 01/17/18 20:59 Acetaminophen (Tylenol Tab) 650 mg Q4H PRN PO 12/18/17 12:15 01/17/18 12:14 Al Hydrox/Mg Hydrox/Simethicone (Maalox Max Susp) 15 ml Q4H PRN PO 12/18/17 12:15 01/17/18 12:14 Magnesium Hydroxide (Milk Of Magnesia Susp) 30 ml Q12H PRN PO 12/18/17 12:15 01/17/18 12:14 Zolpidem Tartrate (Ambien Tab) 5 mg HSZ PRN PO 12/18/17 12:15 01/17/18 12:14 Ondansetron HCl (Zofran Inj) 4 mg Q6H PRN IV 12/18/17 12:15 01/17/18 12:14 Enteral Nutritional Formula (Peptamen 1.5) 1,000 ml UD JT 12/18/17 19:00 01/17/18 18:59 12/22/17 19:42 1,000 ML Lactated Ringer's 1,000 ml @ 125 mls/hr Q8H IV 12/22/17 18:30 01/21/18 18:29 12/23/17 09:42 125 MLS/HR Objective Vital Signs Date Time Temp Pulse Resp B/P (MAP) Pulse Ox O2 Delivery O2 Flow Rate FiO2 12/23/17 08:00 Room Air 12/23/17 07:55 36.7 67 18 145/81 (102) 92 Room Air 12/23/17 05:00 36.7 72 20 151/75 (100) 96 Room Air 12/23/17 04:00 Room Air 12/23/17 00:00 Room Air 12/22/17 23:34 36.6 68 18 155/82 (106) 98 Room Air 12/22/17 20:00 Room Air 12/22/17 19:40 36.3 65 17 158/88 (111) 98 Room Air 12/22/17 16:00 Room Air 12/22/17 14:59 36.5 62 16 156/78 (104) 96 Room Air 12/22/17 12:02 Room Air 12/22/17 11:33 36.5 63 17 150/79 (296) 13 Physical Exam Comments: General: Patient is no longer in acute distress. HEENT: Atraumatic , normocephalic /no jaundice /no pallor /anicteric /no dry mucous membrane /normal external ear inspection Neck: Supple /no swelling /central trach Heart: S1/S2 normal/regular rate and rhythm/no gallop /no rub /no murmur Lungs: Clear to auscultation bilaterally/normal chest with expansion/no rhonchi/ no rales/no wheezing/no use of accessory muscles of respiration Abdomen: Soft/nontender/no guarding/no rebound/no organomegaly/no pulsatile mass , has significant skin irritation and erythema around his feeding tube Musculoskeletal: No swelling/no edema/no tenderness/normal range of motion Neuro exam: Awake alert oriented 3/cranial nerves II through XII appear to be intact/sensation intact/moves all extremities/no abnormal movements Psychiatric evaluation: No depressed mood/normal affect Skin: No rash on exposed skin area/no erythema Extremity: Normal pulse/no pitting edema/no clubbing or cyanosis Endocrine/lymphatic: No obvious lymphadenopathy /no lymphedema Assessment and Plan 67 year old white male with significant past medical history of splenectomy, hypertension, and borderline diabetes that resolved after his gstrectomy. Patient had massive hernia operation about 5-6 years ago resulted in removal of his stomach. 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 Hypochloremic, hypokalemia with hyponatremia Likely multifactorial from upper intestinal loss, diarrhea, and large amounts of free water in Jtube. Patient has had multiple admissions for his hyponatremia. Patient continues to feel improvement. Nephrology is on board and recommends continuing current rate of fluid. will switch to RL and continue 125 ml/hr as patient is becoming more hypernatremic, likely due to the NS Check orthostatic vitals daily Consulted dietitian regarding tube feed formula adjustment Zofran for nausea Acute kidney injury/chronic kidney disease secondary to possible decrease intake Patient has very elevated BUN. Patient has had BUN in the range of 80s in past. Perhaps with fluid resuscitation we may improve it even past this. Currently it is below 100, in the 90s It mildly improved which is why will continue fluids. Patient may require intermittent scheduled IV fluid resuscitation as outpatient of normal saline or perhaps saline flushes through J tube/ will d/w nephro and nutrition. Chronic kidney disease stage III-IV as stated above. Hypokalemia resolved. will continue to monitor. Ostomy irritation of feeding tube will monitor. wound care on board. Heparin for DVT prophylaxis Instructed the patient to have blood drawn every 2 weeks at home until sodium and potassium levels stabilizes Continued [facility] stay due to: multiple IV medications needed Discharge planning: uncertain
[2017-12-23] MEDS: CALCITRIOL 0.25 MCG CAP JT SCH (09:38)
[2017-12-23 09:47] LABS: HEMATOCRIT 27.9 % (42-52); HEMOGLOBIN 9.5 g/dL (14.0-18.0); MEAN CELL VOLUME 101.8 fL (80-100); MEAN CORPUSCULAR HEMOGLOBIN 34.7 pg (25-34); MEAN CORPUSCULAR HGB CONC 34.1 g/dl (32-36); MEAN PLATELET VOLUME 11.2 fL (7.4-10.4); PLATELET COUNT 271 K/uL (130-400); RED CELL DISTRIBUTION WIDTH CV 14.8 % (11.5-14.5); RED CELL DISTRIBUTION WIDTH SD 54.7 fL (36.4-46.3); WHITE BLOOD COUNT 12.19 K/uL (4.8-10.8)
[2017-12-23 10:21] LABS: CALCIUM 8.1 mg/dl (8.5-10.1); CREATININE 2.52 mg/dl (0.60-1.40); POTASSIUM 4.1 mmol/L (3.5-5.1)
--- NOTE | 2017-12-23 11:24 | Discharge Instructions ---
Discharge Instructions Date of Service Dec 23, 2017. Admission Reason for Admission: Hypokalemia, Nausea Discharge Discharge Diagnosis / Problem: Hypokalemia, dehydration Discharge Goals Goal(s): Decrease discomfort, Improve function Activity Recommendations Activity Limitations: as noted below Lifting Limitations: gradually increase as tolerated . Instructions / Follow-Up Instructions / Follow-Up Follow up with PCP and nephrology Patient improved when given about 125ml of NS per hour over the course of hospital stay. Goal as an outpatient is to maintain BUN below 100, hopefully in the 80s to low 90s. Will recommend weekly BMP either by Nephro or Primary care provider. If labs become abnormal, patient may require outpatient bimonthly or weekly IV fluids. Current Hospital Diet Patient's current hospital diet: N/A Discharge Diet Recommended Diet: N/A Pending Studies Studies pending at discharge: no Medical Emergencies . Who to Call and When: Medical Emergencies: If at any time you feel your situation is an emergency, please call 911 immediately. . Non-Emergent Contact Non-Emergency issues call your: Primary Care Provider Call Non-Emergent contact if: you have any medication questions . . "Provider Documentation" section prepared by Neeraj Morgan. .
[2017-12-23 11:55] VITALS: BP 145/89; PULSE 112; TEMP 36.5; O2SAT 94
[2017-12-23 12:00] VITALS: O2SAT 94
[2017-12-23 14:33] VITALS: BP 145/89; PULSE 112; TEMP 36.5; O2SAT 94
--- NOTE | 2017-12-26 07:11 | EDITING REQUIRED CODING QUERY ---
MALNUTRITION To promote full compliance with coding requirements relating to patient care, physician participation is requested in all cases of station attendant uncertainty. Please assist us with the question(s) below: Please place an X within the parenthesis (x). If other, please document: "Malnutrition" is documented in this record. If possible, please check the box that provides a more specific diagnosis: ( xx ) Mild malnutrition ( ) Moderate malnutrition ( ) Severe malnutrition ( ) Protein malnutrition (kwashiorkor) ( ) Severe protein calorie malnutrition ( ) Protein calorie malnutrition, unspecified ( ) Other (please specify): Was this diagnosis present on admission? Please place an X within the parenthesis (x). ( x ) Present on admission ( ) Not present on admission ( ) Unable to be clinically determined Thank you Francisca Alexander
--- NOTE | 2017-12-29 11:04 | Discharge Summary ---
Discharge Summary Date of Service Dec 23, 2017. Discharge Summary Admission Date: Dec 18, 2017 at 12:23 Discharge Date: Dec 23, 2017 Discharge Disposition: Home with services Principal Diagnosis: hyponatremia Problems/Secondary Diagnoses: As stated by Hospital course Immunizations: Have You Had Influenza Vaccine: Yes History of Tetanus Vaccine?: Yes History of Pneumococcal: Yes History of Hepatitis B Vaccine: No Consultations: Nephrology Medication Reconciliation Continued Medications: Albuterol Hfa (Ventolin Hfa) 200 Puffs/13652 Mcg Aers 2 PUFFS INH QID Calcitriol (Calcitriol) 0.25 Mcg Cap 0.25 MCG JT BID Copper Gluconate (Copper) 2 Mg Tab 2 MG JT DAILY Cyanocobalamin (Cyanocobalamin) 1,000 Mcg/Ml Inj 1 DOSE IM MONTHLY Distilled Water (Distilled Water) 1 Liq Liq 200 ML JT Q3HRS for 30 Days, #30 DOSE ADD 1 TBSP REAL [place] TO WATER Fluticasone Propionate (Nasal) (Flonase Allergy Relief) 50 Mcg/Act Spr 1-2 SPRAYS JOSE L DAILY PRN for ALLERGIES Folic Acid (Folvite) 1 Mg Tab 1 MG JT AMPM, TAB Loperamide Hcl (Imodium A-D) 1 Mg/7.5 Ml Liq 20 ML JT Q6 PRN for Diarrhea Nutritional Supplements (Novasource Renal) 1 Liq Liq 5 CAN PO Q12 Ondasetron Odt (Zofran Odt) 4 Mg Tab 4 MG SL TID PRN for Nausea, #6 TAB Triamcinolone Acet (Aristocort 0.1%) 90 Appln/30 Gm Cr 1 APPLN TOP BID for . Discharge Exam Physical Exam General: Patient is no longer in acute distress. HEENT: Atraumatic , normocephalic /no jaundice /no pallor /anicteric /no dry mucous membrane /normal external ear inspection Neck: Supple /no swelling /central trach Heart: S1/S2 normal/regular rate and rhythm/no gallop /no rub /no murmur Lungs: Clear to auscultation bilaterally/normal chest with expansion/no rhonchi/ no rales/no wheezing/no use of accessory muscles of respiration Abdomen: Soft/nontender/no guarding/no rebound/no organomegaly/no pulsatile mass , has significant skin irritation and erythema around his feeding tube Musculoskeletal: No swelling/no edema/no tenderness/normal range of motion Neuro exam: Awake alert oriented 3/cranial nerves II through XII appear to be intact/sensation intact/moves all extremities/no abnormal movements Psychiatric evaluation: No depressed mood/normal affect Skin: No rash on exposed skin area/no erythema Extremity: Normal pulse/no pitting edema/no clubbing or cyanosis Endocrine/lymphatic: No obvious lymphadenopathy /no lymphedema Review of Systems: Constitutional: No fever, No chills Eyes: No worsening of vision ENT: No hearing loss Respiratory: No cough Cardiovascular: No chest pain Abdomen: No pain Neurologic: No memory loss Psychiatric: No depression symptoms Endocrine: No fatigue Integumentary: No rash Hospital Course 67 year old white male with significant past medical history of splenectomy, hypertension, and borderline diabetes that resolved after his gstrectomy. Patient had massive hernia operation about 5-6 years ago resulted in removal of his stomach. 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 Hypochloremic, hypokalemia with hyponatremia Likely multifactorial from upper intestinal loss, diarrhea, and large amounts of free water in Jtube. Patient has had multiple admissions for his hyponatremia. Patient likely may have had some malnutrition from his diarrhea and upper intestinal loss. This has improved thoughout his hospital stay Patient continues to feel improvement with about 125 of IVF. Nephrology is on board and recommends continuing current rate of fluid. Check orthostatic vitals daily Consulted dietitian regarding tube feed formula adjustment Zofran for nausea Acute kidney injury/chronic kidney disease secondary to possible decrease intake Patient has very elevated BUN. Patient has had BUN in the range of 80s in past. Perhaps with fluid resuscitation we may improve it even past this. Currently it is at goal. It mildly improved which is why will continue fluids. Patient may require intermittent scheduled IV fluid resuscitation as outpatient of normal saline or perhaps saline flushes through J tube/ will d/w nephro and nutrition. Chronic kidney disease stage III-IV as stated above. Hypokalemia resolved. will continue to monitor. Ostomy irritation of feeding tube will monitor. wound care on board. Heparin for DVT prophylaxis Instructed the patient to have blood drawn every 2 weeks at home until sodium and potassium levels stabilizes Total Time Spent: Greater than 30 minutes This includes examination of the patient, discharge planning, medication reconciliation, and communication with other providers. Discharge Instructions Please refer to the electronic Patient Visit Report (Discharge Instructions) for additional information. Follow-Up As per discharge summary Additional Copies To Freddie Zuleta M.D.
== END 2017-12-23 15:00 | disposition home or self-care (01) | DRG 641 ==
LOC: C.EDB 09:17 → C.MED 12:23 → ENRESERV 12:56
PROVIDERS: ADMIT Internal Medicine; ATTEND Internal Medicine Sports Medicine
DX: E87.1 Hypo-osmolality and hyponatremia (principal); N17.9 Acute kidney failure, unspecified; N18.4 Chronic kidney disease, stage 4 (severe); E44.1 Mild protein-calorie malnutrition; E87.6 Hypokalemia; I12.9 Hypertensive chronic kidney disease with stage 1 through stage 4 chronic kidney disease, or unspecified chronic kidney disease; E83.39 Other disorders of phosphorus metabolism; Z87.442 Personal history of urinary calculi; Z93.1 Gastrostomy status; Z90.81 Acquired absence of spleen; Z82.49 Family history of ischemic heart disease and other diseases of the circulatory system; Z80.1 Family history of malignant neoplasm of trachea, bronchus and lung; Z88.2 Allergy status to sulfonamides; Z88.5 Allergy status to narcotic agent

== ENCOUNTER → 2017-12-27 | Outpatient (CLI) | payer OTHER ==
[~2017-12-27] MED LIST changes: +COPP1TAB JT; +NUTR-1276 PO; +TRMCR130WC TOP; +VNTHFA/IN INH
[2017-12-27 17:59] LABS: BLOOD UREA NITROGEN 97 mg/dl (7-18); CALCIUM 7.9 mg/dl (8.5-10.1); CARBON DIOXIDE 25 mmol/L (21-32); GLUCOSE 78 mg/dl (70-99); SODIUM 131 mmol/L (136-145)
[2017-12-27 18:09] LABS: PHOSPHORUS 4.1 mg/dl (2.5-4.9)
== END | disposition home or self-care (01) ==
LOC: C.LABMFLN 14:50
PROVIDERS: ATTEND Family Medicine
DX: E87.1 Hypo-osmolality and hyponatremia (principal); E61.0 Copper deficiency; N19 Unspecified kidney failure; R68.89 Other general symptoms and signs; N18.3 Chronic kidney disease, stage 3 (moderate)

== ENCOUNTER → 2017-12-28 | Outpatient (CLI) | payer OTHER | END | disposition home or self-care (01) | LOC: C.LABMFLN 10:19 | PROVIDERS: ATTEND Family Medicine | DX: J20.9 Acute bronchitis, unspecified (principal); R68.89 Other general symptoms and signs ==

== ENCOUNTER → 2018-01-03 | Outpatient (CLI) | payer OTHER ==
[~2018-01-03] MED LIST changes: -CYTRA 2; -ERGO500011 PEG; -LCTX PEG; -VTMD1000 PEG; -[UNRECOGNIZED DRUG - CODE] IV; -[UNRECOGNIZED DRUG - CODE] JT
[2018-01-03 18:25] LABS: BLOOD UREA NITROGEN 103 mg/dl (7-18); CALCIUM 7.8 mg/dl (8.5-10.1); CARBON DIOXIDE 24 mmol/L (21-32); CREATININE 2.73 mg/dl (0.60-1.40); GLUCOSE 97 mg/dl (70-99); POTASSIUM 3.5 mmol/L (3.5-5.1); SODIUM 133 mmol/L (136-145)
== END | disposition home or self-care (01) ==
LOC: C.LABMFLN 11:24
PROVIDERS: ATTEND Family Medicine
DX: E87.1 Hypo-osmolality and hyponatremia (principal); N19 Unspecified kidney failure

== ENCOUNTER → 2018-01-08 | Outpatient (CLI) | payer OTHER ==
[2018-01-08 13:01] LABS: BASO % 0.3 %; BASO ABS # 0.03 K/uL (0-0.2); EOS % 4.7 %; EOS ABS # 0.49 K/uL (0-0.5); HEMATOCRIT 31.5 % (42-52); HEMOGLOBIN 10.9 g/dL (14.0-18.0); IG# 0.02 K/uL (0.00-0.02); LYMPH ABS # 1.05 K/uL (1.2-3.4); MEAN CORPUSCULAR HEMOGLOBIN 34.9 pg (25-34); MEAN CORPUSCULAR HGB CONC 34.6 g/dl (32-36); MEAN PLATELET VOLUME 12.5 fL (7.4-10.4); MONO % 12.1 %; MONO ABS # 1.27 K/uL (0.11-0.59); NEUT % 72.7 %; NEUT ABS # 7.63 K/uL (1.4-6.5); PLATELET COUNT 353 K/uL (130-400); RED CELL DISTRIBUTION WIDTH CV 13.6 % (11.5-14.5); RED CELL DISTRIBUTION WIDTH SD 49.6 fL (36.4-46.3); WHITE BLOOD COUNT 10.49 K/uL (4.8-10.8)
[2018-01-08 14:28] LABS: ALBUMIN 3.5 gm/dl (3.4-5.0); ALT/SGPT 57 U/L (12-78); AST/SGOT 44 U/L (15-37); BLOOD UREA NITROGEN 105 mg/dl (7-18); CARBON DIOXIDE 22 mmol/L (21-32); CREATININE 2.79 mg/dl (0.60-1.40); GLUCOSE 93 mg/dl (70-99); POTASSIUM 3.4 mmol/L (3.5-5.1); SODIUM 134 mmol/L (136-145)
[2018-01-08 14:31] LABS: ALKALINE PHOSPHATASE 417 U/L (45-117); TOTAL PROTEIN 7.9 gm/dl (6.4-8.2)
== END | disposition home or self-care (01) ==
LOC: C.LABMFLN 11:00
PROVIDERS: ATTEND Family Medicine
DX: N18.3 Chronic kidney disease, stage 3 (moderate) (principal); E87.1 Hypo-osmolality and hyponatremia; E87.6 Hypokalemia; E83.41 Hypermagnesemia

== ENCOUNTER → 2018-01-15 | Outpatient (CLI) | payer OTHER ==
[2018-01-15 18:15] LABS: BLOOD UREA NITROGEN 99 mg/dl (7-18); CALCIUM 7.8 mg/dl (8.5-10.1); CARBON DIOXIDE 23 mmol/L (21-32); CREATININE 2.77 mg/dl (0.60-1.40); GLUCOSE 97 mg/dl (70-99); POTASSIUM 3.5 mmol/L (3.5-5.1); SODIUM 136 mmol/L (136-145)
== END | disposition home or self-care (01) ==
LOC: C.LABMFLN 11:01
PROVIDERS: ATTEND Family Medicine
DX: N18.3 Chronic kidney disease, stage 3 (moderate) (principal); E87.1 Hypo-osmolality and hyponatremia; E87.6 Hypokalemia

== ENCOUNTER → 2018-01-22 | Outpatient (CLI) | payer OTHER ==
[2018-01-22 15:05] LABS: ALBUMIN 3.3 gm/dl (3.4-5.0); ALT/SGPT 63 U/L (12-78); AST/SGOT 38 U/L (15-37); BLOOD UREA NITROGEN 96 mg/dl (7-18); CALCIUM 8.1 mg/dl (8.5-10.1); CARBON DIOXIDE 22 mmol/L (21-32); CREATININE 2.85 mg/dl (0.60-1.40); GLUCOSE 105 mg/dl (70-99); POTASSIUM 3.5 mmol/L (3.5-5.1); SODIUM 135 mmol/L (136-145)
[2018-01-22 15:07] LABS: ALKALINE PHOSPHATASE 390 U/L (45-117); TOTAL PROTEIN 7.9 gm/dl (6.4-8.2)
== END | disposition home or self-care (01) ==
LOC: C.LABMFLN 10:34
PROVIDERS: ATTEND Family Medicine
DX: N18.3 Chronic kidney disease, stage 3 (moderate) (principal); E61.0 Copper deficiency; E83.41 Hypermagnesemia

== ENCOUNTER → 2018-01-29 | Outpatient (CLI) | payer OTHER ==
[2018-01-29 13:21] LABS: BLOOD UREA NITROGEN 103 mg/dl (7-18); CALCIUM 8.2 mg/dl (8.5-10.1); CARBON DIOXIDE 21 mmol/L (21-32); CREATININE 2.73 mg/dl (0.60-1.40); GLUCOSE 93 mg/dl (70-99); POTASSIUM 2.8 mmol/L (3.5-5.1); SODIUM 133 mmol/L (136-145)
[2018-01-29 13:28] LABS: ALBUMIN 3.4 gm/dl (3.4-5.0); TOTAL PROTEIN 7.7 gm/dl (6.4-8.2)
== END | disposition home or self-care (01) ==
LOC: C.LABMFLN 10:56
PROVIDERS: ATTEND Family Medicine
DX: E21.3 Hyperparathyroidism, unspecified (principal); N18.3 Chronic kidney disease, stage 3 (moderate); E55.9 Vitamin D deficiency, unspecified

== ENCOUNTER → 2018-02-05 | Outpatient (CLI) | payer OTHER ==
[2018-02-05 13:22] LABS: BLOOD UREA NITROGEN 104 mg/dl (7-18); CREATININE 2.92 mg/dl (0.60-1.40); GLUCOSE 94 mg/dl (70-99)
[2018-02-05 13:23] LABS: CALCIUM 8.6 mg/dl (8.5-10.1); CARBON DIOXIDE 23 mmol/L (21-32); POTASSIUM 4.5 mmol/L (3.5-5.1); SODIUM 132 mmol/L (136-145)
== END | disposition home or self-care (01) ==
LOC: C.LABMFLN 10:53
PROVIDERS: ATTEND Family Medicine
DX: R63.4 Abnormal weight loss (principal); R63.3 Feeding difficulties; K90.9 Intestinal malabsorption, unspecified; Z90.3 Acquired absence of stomach [part of]; E87.1 Hypo-osmolality and hyponatremia; E61.0 Copper deficiency; E83.41 Hypermagnesemia; E87.6 Hypokalemia

== ENCOUNTER → 2018-02-26 | Outpatient (CLI) | payer OTHER ==
[2018-02-26 13:14] LABS: CALCIUM 7.9 mg/dl (8.5-10.1)
[2018-02-26 13:15] LABS: ALBUMIN 3.4 gm/dl (3.4-5.0)
== END | disposition home or self-care (01) ==
LOC: C.LABMFLN 10:19
PROVIDERS: ATTEND Internal Medicine Endocrinology, Diabetes & Metabolism
DX: N18.3 Chronic kidney disease, stage 3 (moderate) (principal)

== ENCOUNTER → 2018-03-12 | Outpatient (CLI) | payer OTHER ==
[2018-03-12 13:19] LABS: BASO % 0.2 %; BASO ABS # 0.02 K/uL (0-0.2); EOS ABS # 0.34 K/uL (0-0.5); HEMOGLOBIN 9.4 g/dL (14.0-18.0); IG# 0.01 K/uL (0.00-0.02); LYMPH % 8.5 %; LYMPH ABS # 0.72 K/uL (1.2-3.4); MEAN CELL VOLUME 103.7 fL (80-100); MEAN CORPUSCULAR HEMOGLOBIN 34.8 pg (25-34); MEAN CORPUSCULAR HGB CONC 33.6 g/dl (32-36); MEAN PLATELET VOLUME 13.2 fL (7.4-10.4); MONO % 19.6 %; MONO ABS # 1.67 K/uL (0.11-0.59); NEUT % 67.6 %; NEUT ABS # 5.74 K/uL (1.4-6.5); PLATELET COUNT 226 K/uL (130-400); RED CELL DISTRIBUTION WIDTH CV 13.1 % (11.5-14.5); RED CELL DISTRIBUTION WIDTH SD 50.1 fL (36.4-46.3)
[2018-03-12 13:23] LABS: ALBUMIN 3.3 gm/dl (3.4-5.0); ALKALINE PHOSPHATASE 383 U/L (45-117); ALT/SGPT 46 U/L (12-78); AST/SGOT 41 U/L (15-37); BLOOD UREA NITROGEN 101 mg/dl (7-18); CALCIUM 8.1 mg/dl (8.5-10.1); CARBON DIOXIDE 22 mmol/L (21-32); CREATININE 2.85 mg/dl (0.60-1.40); GLUCOSE 82 mg/dl (70-99); POTASSIUM 3.8 mmol/L (3.5-5.1); SODIUM 135 mmol/L (136-145); TOTAL PROTEIN 7.6 gm/dl (6.4-8.2)
== END | disposition home or self-care (01) ==
LOC: C.LABMFLN 08:51
PROVIDERS: ATTEND Family Medicine
DX: N18.3 Chronic kidney disease, stage 3 (moderate) (principal); E61.0 Copper deficiency

== ENCOUNTER → 2018-03-13 | Outpatient (CLI) | payer OTHER | END | disposition home or self-care (01) | LOC: C.LABMFLN 13:35 | PROVIDERS: ATTEND Internal Medicine Hematology & Oncology | DX: E61.0 Copper deficiency (principal) ==

== ENCOUNTER → 2018-05-21 | Outpatient (CLI) | payer OTHER ==
[~2018-05-21] MED LIST changes: -[UNRECOGNIZED DRUG - CODE] JT; +[UNRECOGNIZED DRUG - OTHER] GJT
[2018-05-21 12:50] LABS: BASO % 0.2 %; BASO ABS # 0.02 K/uL (0-0.2); EOS % 5.4 %; EOS ABS # 0.65 K/uL (0-0.5); HEMATOCRIT 30.3 % (42-52); HEMOGLOBIN 9.9 g/dL (14.0-18.0); IG# 0.02 K/uL (0.00-0.02); LYMPH % 8.5 %; LYMPH ABS # 1.02 K/uL (1.2-3.4); MEAN CELL VOLUME 104.8 fL (80-100); MEAN CORPUSCULAR HEMOGLOBIN 34.3 pg (25-34); MEAN CORPUSCULAR HGB CONC 32.7 g/dl (32-36); MEAN PLATELET VOLUME 14.4 fL (7.4-10.4); MONO ABS # 1.91 K/uL (0.11-0.59); NEUT % 69.7 %; NEUT ABS # 8.35 K/uL (1.4-6.5); PLATELET COUNT 172 K/uL (130-400); RED CELL DISTRIBUTION WIDTH SD 49.5 fL (36.4-46.3); WHITE BLOOD COUNT 11.97 K/uL (4.8-10.8)
[2018-05-21 13:30] LABS: ALBUMIN 3.4 gm/dl (3.4-5.0); ALKALINE PHOSPHATASE 327 U/L (45-117); ALT/SGPT 54 U/L (12-78); AST/SGOT 42 U/L (15-37); BLOOD UREA NITROGEN 113 mg/dl (7-18); CALCIUM 8.3 mg/dl (8.5-10.1); CARBON DIOXIDE 17 mmol/L (21-32); CREATININE 3.02 mg/dl (0.60-1.40); GLUCOSE 99 mg/dl (70-99); POTASSIUM 4.2 mmol/L (3.5-5.1); SODIUM 134 mmol/L (136-145); TOTAL PROTEIN 7.5 gm/dl (6.4-8.2)
== END | disposition home or self-care (01) ==
LOC: C.LABMFLN 09:57
PROVIDERS: ATTEND Family Medicine
DX: G95.9 Disease of spinal cord, unspecified (principal); D50.9 Iron deficiency anemia, unspecified; E60 Dietary zinc deficiency; N18.3 Chronic kidney disease, stage 3 (moderate); E43 Unspecified severe protein-calorie malnutrition; K90.9 Intestinal malabsorption, unspecified; E55.9 Vitamin D deficiency, unspecified

== ENCOUNTER 2018-06-14 13:45 | Observation (INO) | payer OTHER ==
[~2018-06-14] VITALS: Ht 182.9 cm; Wt 56.8 kg
[2018-06-14] MEDS ORDERED: SODIUM CHLORIDE 0.9% 1000ML 1,000 ML IV STA ×2 (14:50)
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
[2018-06-14 16:01] LABS: HEMATOCRIT 31.4 % (42-52); HEMOGLOBIN 11.2 g/dL (14.0-18.0); MEAN CELL VOLUME 100.3 fL (80-100); MEAN CORPUSCULAR HEMOGLOBIN 35.8 pg (25-34); MEAN CORPUSCULAR HGB CONC 35.7 g/dl (32-36); MEAN PLATELET VOLUME 13.7 fL (7.4-10.4); PLATELET COUNT 212 K/uL (130-400); RED CELL DISTRIBUTION WIDTH CV 13.8 % (11.5-14.5); RED CELL DISTRIBUTION WIDTH SD 50.3 fL (36.4-46.3); WHITE BLOOD COUNT 12.79 K/uL (4.8-10.8)
[2018-06-14 16:20] LABS: ALKALINE PHOSPHATASE 282 U/L (45-117); ALT/SGPT 51 U/L (12-78); AST/SGOT 28 U/L (15-37); BLOOD UREA NITROGEN 148 mg/dl (7-18); CALCIUM 8.5 mg/dl (8.5-10.1); CARBON DIOXIDE 14 mmol/L (21-32); CREATININE 3.56 mg/dl (0.60-1.40); GLUCOSE 94 mg/dl (70-99); POTASSIUM 3.2 mmol/L (3.5-5.1); SODIUM 135 mmol/L (136-145); TOTAL PROTEIN 8.4 gm/dl (6.4-8.2)
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
[2018-06-14] MEDS ORDERED: CEFTRIAXONE SOD INJ 1 GM in DEXTROSE 5% ADD-VANTAGE 50ML 50 ML IV STA (16:52)
[2018-06-14] MEDS ORDERED: POTASSIUM CHLR 10 MEQ / WTR 100 ML IV STA (16:52)
[2018-06-14] MEDS ORDERED: CEFTRIAXONE SOD INJ 1 GM ADDVIAL IV STA (16:52)
--- NOTE | 2018-06-14 18:18 | EMERGENCY ROOM VISIT NOTE ---
ED Visit Note First contact with patient: 14:32 The patient was seen by our third year resident. I did see the patient with the resident. Please see the resident's note. I did examine the patient and have reviewed the patient's record. I was involved during the patient's care during his ER stay. The patient presents with concerns for dehydration. He has a history of the same. He has a lot of chronic medical issues including a history of asplenia. The patient has a white count elevation. He appears to have a potential cellulitis at the J-tube insertion site. He has blasts on his CBC differential. He appears acutely dehydrated on renal panel testing. The patient was given IV fluids, he received IV antibiotics. I do think a hospital stay is warranted given all his findings and issues. It is concerning that he may have a cellulitis with a history of asplenia. The white count elevation and blast finding is also somewhat concerning. Right now, the patient is resting comfortably. He is receiving IV fluids. The on-call hospitalist has been consulted.
[2018-06-14] MEDS ORDERED: SODIUM CHLORIDE 0.9% 500ML 500 ML IV ONE (19:00)
[2018-06-14] MEDS ORDERED: ZOLPIDEM TARTRATE 5 MG TAB PO PRN (19:45)
[2018-06-14] MEDS ORDERED: MAGNESIUM HYDROXIDE SUSP 30 ML UDC PO PRN (19:45)
[2018-06-14] MEDS ORDERED: LOPERAMIDE LIQUID 1MG/7.5ML 120ML BTL JT PRN (19:45)
[2018-06-14] MEDS ORDERED: ALUMINUM/MAGNESIUM/SIMETH (MAALOX MAX) 30 ML UDC PO PRN (19:45)
[2018-06-14] MEDS ORDERED: ONDANSETRON INJ 2 MG/ML 2 ML VIAL IV PRN (19:45)
[2018-06-14] MEDS ORDERED: POLYETHYLENE (MIRALAX) 17 GM PACK PO PRN (19:45)
[2018-06-14] MEDS ORDERED: ACETAMINOPHEN 325 MG TAB PO PRN (19:45)
--- NOTE | 2018-06-14 20:28 | History and Physical ---
History & Physical Date & Time of Service: Jun 14, 2018 at 19:54 Chief Complaint: Dehydrated, J-Tube Clogged Primary Care Physician: Freddie Zuleta M.D. History of Present Illness 68 y/o M splenectomy, anemia, CKD III, gastrectomy following hernia repair complication 7 years ago - J tube for nutrition - has an esophageal conduit for pleasure feeding. The pt presents with weakness and dehydration. He is able to discern when he is dehydrated as he requires IVF frequently. He has also had an erythematous area surrounding his J tube for nearly 2 months. He has not responded to topical or oral antibiotics and has not responded to topical antifungals. Initial labs in the ER are notable for an astronomical BUN, worsening renal function, mild leukocytosis with a small percentage of blast cells in the differential. Past Medical/Surgical History 1) Hernia surgery complication - the pt has had a J tube for over 7 years. He has an esophageal conduit to allow pleasure feeding. 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 Smoking Status: Never Smoker Drug Use: none Marital Status: Housing status: lives with significant other Occupational Status: retired Immunizations History of Influenza Vaccine: Yes History of Tetanus Vaccine?: Yes History of Pneumococcal: Yes History of Hepatitis B Vaccine: No Allergies Coded Allergies: Moxifloxacin (Verified Adverse Reaction, Unknown, Pt said he could barely walk, 06/14/18) Oxycodone (Verified Adverse Reaction, Unknown, NAUSEA, 06/14/18) Simvastatin (Verified Adverse Reaction, Unknown, " my legs cramp up", 06/14) Sulfamethoxazole (Verified Adverse Reaction, Unknown, SEVERE DIARRHEA, ) Tramadol (Verified Adverse Reaction, Unknown, NAUSEA, 06/14/18) Home Medications Scheduled Albuterol Hfa (Ventolin Hfa), 2 PUFFS INH QID Calcitriol (Calcitriol), 0.25 MCG JT BID Copper Gluconate (Copper), 2 MG JT DAILY Cyanocobalamin (Cyanocobalamin), 1 DOSE IM MONTHLY Folic Acid (Folvite), 1 MG JT AMPM Nutritional Supplements (Novasource Renal), 5 CAN PO DAILY@1500 Triamcinolone Acet (Aristocort 0.1%), 1 APPLN TOP BID Water For Irrigation, Sterile (Sterile Water Irrigation), 300 ML GJT Q3H Scheduled PRN Fluticasone Propionate (Nasal) (Flonase Allergy Relief), 1-2 SPRAYS JOSE L DAILY PRN for ALLERGIES Loperamide Hcl (Imodium A-D), 20 ML JT Q6 PRN for Diarrhea Ondasetron Odt (Zofran Odt), 4 MG SL TID PRN for Nausea Review of Systems Constitutional: + weakness, + fatigue, No fever, No chills, No sweats Eyes: No worsening of vision ENT: No hearing loss, No unusual epistaxis, No nasal symptoms Respiratory: No cough Cardiovascular: No chest pain, No orthopnea, No PND Abdomen: + pain (superficial ), No nausea, No vomiting Musculoskeletal: No joint pain Genitourinary - Male: No hematuria Neurologic: No memory loss, No paralysis, No weakness Psychiatric: No depression symptoms Endocrine: No fatigue Hematologic / Lymphatic: No abnormal bleeding/bruising Integumentary: + rash Allergic / Immunologic: No environmental allergies Physical Exam Vital Signs Date Time Temp Pulse Resp B/P (MAP) Pulse Ox O2 Delivery O2 Flow Rate FiO2 06/14/18 17:44 69 18 135/85 99 Room Air 06/14/18 16:37 73 18 139/83 99 Room Air 06/14/18 16:10 59 18 139/83 100 Room Air 06/14/18 13:50 36.3 72 20 143/85 100 Room Air General Appearance: WD/WN, no apparent distress Head: normocephalic Eyes: normal inspection ENT: pharynx normal Neck: supple, no JVD Respiratory/Chest: chest non-tender, lungs clear, normal breath sounds Cardiovascular: regular rate, rhythm, no edema Abdomen/GI: normal bowel sounds, non tender, + pertinent finding (J-tube present ) Back: normal inspection, no CVA tenderness Extremities/Musculoskelatal: normal inspection, no calf tenderness, normal capillary refill Neurologic/Psych: 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 II-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 nml as tested, no motor/sensory deficits, alert Skin: normal color, warm/dry Diagnostics Laboratory Results Results Past 24 Hours Test 06/14/18 15:30 06/14/18 15:50 Range/Units White Blood Count 12.79 4.8-10.8 K/uL Red Blood Count 3.13 4.7-6.1 M/uL Hemoglobin 11.2 14.0-18.0 g/dL Hematocrit 31.4 42-52 % Mean Corpuscular Volume 100.3 80-100 fL Mean Corpuscular Hemoglobin 35.8 25-34 pg Mean Corpuscular Hemoglobin Concent 35.7 32-36 g/dl Platelet Count 212 130-400 K/uL Mean Platelet Volume 13.7 7.4-10.4 fL RDW Standard Deviation 50.3 36.4-46.3 fL RDW Coefficient of Variation 13.8 11.5-14.5 % Neutrophils % (Manual) 84.1 % Lymphocytes % (Manual) 3.5 % Monocytes % (Manual) 8.8 % Eosinophils % (Manual) 2.7 % Blast Cells % 0.9 % Neutrophils # (Manual) 10.76 1.4-6.5 K/uL Total Absolute Neutrophils 10.76 1.4-6.5 K/uL Lymphocytes # (Manual) 0.45 1.2-3.4 K/uL Total Absolute Lymphocytes 0.45 1.2-3.4 K/uL Monocytes # (Manual) 1.13 0.11-0.59 K/uL Eosinophils # (Manual) 0.35 0-0.5 K/uL Blast Cells # 0.12 0-0 K/uL Blood Smear Review Pappenheimer Bodies 3+ Echinocytes 2+ Sodium Level 135 136-145 mmol/L Potassium Level 3.2 3.5-5.1 mmol/L Chloride Level 107 98-107 mmol/L Carbon Dioxide Level 14 21-32 mmol/L Anion Gap 14.0 3-11 mmol/L Blood Urea Nitrogen 148 7-18 mg/dl Creatinine 3.56 0.60-1.40 mg/dl Estimated GFR () 19.5 Estimated GFR (Non- 16.8 BUN/Creatinine Ratio 41.5 10-20 Random Glucose 94 70-99 mg/dl Calcium Level 8.5 8.5-10.1 mg/dl Magnesium Level 2.2 1.8-2.4 mg/dl Total Bilirubin 0.3 0.2-1 mg/dl Aspartate Amino Transf (AST/SGOT) 28 15-37 U/L Alanine Aminotransferase (ALT/SGPT) 51 12-78 U/L Alkaline Phosphatase 282 45-117 U/L Total Protein 8.4 6.4-8.2 gm/dl Albumin 4.0 3.4-5.0 gm/dl Globulin 4.4 2.5-4.0 gm/dl Albumin/Globulin Ratio 0.9 0.9-2 Bedside Troponin I < 0.030 0-0.045 ng/ml Diagnostic Radiology 1. Chronic changes at the lung bases. Interval increase in subpleural nodular consolidation in the right lower lobe. Attention on follow-up. Findings could suggest extensive scarring in the setting of chronic aspiration. 2. Post surgical changes of gastrectomy possible esophagectomy. The reported esophageal pouch may have been previously called an enteroenteric anastomosis. This may contain fecaliths or other inspissated material. This does not appear obstructed. 3. Jejunostomy tube remains in place. No bowel obstruction. 4. Diverticulosis. No evidence of diverticulitis allowing for noncontrast technique. 5. Cholelithiasis likely with physiologic distention of the gallbladder. 6. Chronic bladder outlet obstruction in error to prostatomegaly. 7. Osteopenia. Impression Assessment and Plan 68 y/o M splenectomy, CKD III, anemia, gastrectomy following hernia repair complication 7 years ago - J tube for nutrition - has an esophageal conduit for pleasure feeding. The pt presents with weakness and dehydration. He is able to discern when he is dehydrated as he requires IVF frequently. He has also had an erythematous area surrounding his J tube for nearly 2 months. He has not responded to topical or oral antibiotics and has not responded to topical antifungals. Initial labs in the ER are notable for an astronomical BUN, worsening renal function, mild leukocytosis with a small percentage of blast cells in the differential. 1) Dehydration - severe - placed on IVF overnight - BMP will be trended. It appears he would benefit from scheduled hydration which we should consider arranging through his PCP prior to DC. This may require a port however as his access is exceedingly poor. 2) CKD III - acute on chronic RF due to dehydration - IVF provided as above - repeat BMP pending. 3) Possible cellulitis surrounding J tube site - has not responded to treatment - I have discussed a punch biopsy with the resident service. We would consider a derm or ID consult otherwise - I did not appreciate any material escaping around the tube that might cause a dermatitis, although this too would be a possibility. 4) There are a small percentage of blast cells on the WBC diff. This could be related to recent infection. I could not find literature to support blast cell occurrence in a splenectomy pt so that this should be mentioned to his primary MD on DC. 5) RLL consolidation - despite his J tube, there may be a degree of chronic aspiration. This issue should likely be referred to his lapper. He may need to sit up longer after completing feeds or change his schedule - there is no current evidence of acute pneumonia. Full code - Heparin prophylaxis Total time for this admit including review of labs, meds, imaging, records - discussion with pt and ER attending - 38 min Resuscitation Status VTE Prophylaxis Will order VTE Prophylaxis: Yes
[2018-06-14] MEDS ORDERED: IV FLUIDS COMPLETED PRN (20:45)
[2018-06-14] MEDS: D5W AND NSS 1,000 ML IV SCH (21:13)
[2018-06-14] MEDS: POTASSIUM CHLR 10 MEQ / WTR 100 ML IV SCH ×3 (21:14→23:09)
[2018-06-14] MEDS: ALBUTEROL HFA 8 GM INHALER INH SCH (21:20)
[2018-06-14] MEDS: MUPIROCIN 2% OINT 22 GM TUBE EXT SCH (21:21)
[2018-06-14] MEDS: CALCITRIOL 0.25 MCG CAP JT SCH (21:27)
[2018-06-14] MEDS: [UNRECOGNIZED DRUG - OTHER] GT SCH ×2 (21:45→22:45)
[2018-06-14 22:29] VITALS: BP 163/59; TEMP 36.3; O2SAT 99; BMI 17.0
[2018-06-14] MEDS: HEPARIN SOD 5000 UNIT/0.5 ML CARP SQ SCH (23:00)
[2018-06-14 23:07] VITALS: BP 158/62; PULSE 55; O2SAT 96
[2018-06-14 23:32] VITALS: BP 133/75; PULSE 58; TEMP 36.7; O2SAT 100
[2018-06-14 23:54] LABS: CALCIUM 7.7 mg/dl (8.5-10.1); CREATININE 3.37 mg/dl (0.60-1.40); POTASSIUM 3.1 mmol/L (3.5-5.1)
[2018-06-15] MEDS: D5W AND NSS 1,000 ML IV SCH (01:12)
[2018-06-15] MEDS: [UNRECOGNIZED DRUG - OTHER] GT SCH ×8 (01:12→22:52)
[2018-06-15 06:02] LABS: HEMOGLOBIN 8.3 g/dL (14.0-18.0); MEAN CORPUSCULAR HEMOGLOBIN 34.6 pg (25-34); MEAN CORPUSCULAR HGB CONC 34.6 g/dl (32-36); MEAN PLATELET VOLUME 13.3 fL (7.4-10.4); PLATELET COUNT 174 K/uL (130-400); RED CELL DISTRIBUTION WIDTH CV 13.8 % (11.5-14.5); RED CELL DISTRIBUTION WIDTH SD 50.1 fL (36.4-46.3); WHITE BLOOD COUNT 6.82 K/uL (4.8-10.8)
[2018-06-15 06:25] LABS: CALCIUM 7.4 mg/dl (8.5-10.1); CREATININE 3.23 mg/dl (0.60-1.40); POTASSIUM 3.1 mmol/L (3.5-5.1)
[2018-06-15 06:48] LABS: BASO % 0.3 %; BASO ABS # 0.02 K/uL (0-0.2); EOS % 5.7 %; EOS ABS # 0.39 K/uL (0-0.5); IG# 0.01 K/uL (0.00-0.02); LYMPH % 21.3 %; LYMPH ABS # 1.45 K/uL (1.2-3.4); MONO % 7.9 %; MONO ABS # 0.54 K/uL (0.11-0.59); NEUT % 64.7 %; NEUT ABS # 4.41 K/uL (1.4-6.5)
[2018-06-15 07:04] VITALS: BP 121/73; PULSE 56; TEMP 36.5; O2SAT 97
[2018-06-15] MEDS: ALBUTEROL HFA 8 GM INHALER INH SCH ×4 (08:35→20:57)
[2018-06-15] MEDS: CALCITRIOL 0.25 MCG CAP JT SCH ×2 (08:35→20:58)
[2018-06-15] MEDS: MUPIROCIN 2% OINT 22 GM TUBE EXT SCH ×2 (08:36→20:56)
[2018-06-15] MEDS: HEPARIN SOD 5000 UNIT/0.5 ML CARP SQ SCH ×2 (08:44→20:59)
[2018-06-15] MEDS ORDERED: D5NSS + 20MEQ KCL 1,000 ML IV SCH (10:00)
[2018-06-15] MEDS ORDERED: NURSING DECISION MEDICATION ORDER SCH (12:45)
--- NOTE | 2018-06-15 14:14 | Family Medicine Progress Note ---
Progress Note Date of Service Jun 15, 2018. Subjective Pt evaluation today including: conversation w/ patient, physical exam, chart review, lab review, review of studies Pain: None at rest, tenderness at J tube side to palp PO Intake: None. J-tube feeds. Voiding: no voiding problems Mr. Shelton reports he feels much better today, atlhough he thinks he may still be a little dry. He knows when he is getting dehydrated and has IVF ~4x/yr as outpatient. He gets all his nutrition through his J tube. He is not short of breath, lightheaded, or dizzy at time of visit. He notes he has painful irritation around his J-tube for several months which has not responded to topical creams, antifungals, and antibiotics. He notes his J tube also leaks after feeds in that area. He is peeing well, although has had some constipation. Otherwise no questions. Constitutional: No fever, No chills, No sweats, No fatigue Respiratory: No shortness of breath, No dyspnea on exertion, No dyspnea at rest Cardiovascular: No chest pain, No edema, No palpitations Abdomen: + pain (Pain at his J-tube site), + constipation, No nausea, No diarrhea Male : No dysuria, No urinary frequency, No incontinence, No nocturia more than once/night Endo: No fatigue, No excessive thirst, No excessive urination Skin: + rash Medications Current Inpatient Medications Medications (Trade) Dose Ordered Sig/Maame Route Start Time Stop Time Status Last Admin Dose Admin Albuterol (Ventolin Hfa Inhaler) 2 puffs QID INH 06/14/18 21:00 07/14/18 20:59 06/15/18 18:01 2 PUFFS Calcitriol (Rocaltrol Cap) 0.25 mcg BID JT 06/14/18 21:00 07/14/18 20:59 06/15/18 08:35 0.25 MCG Folic Acid (Folvite Tab) 1 mg DAILY PEG 06/15/18 09:00 07/15/18 08:59 06/15/18 08:35 1 MG Miscellaneous Information (Order Awaiting Action) 1 ea QS N/A 06/15/18 00:00 07/15/18 00:00 Loperamide HCl (Imodium A-D Liquid) 20 mg Q6 PRN JT 06/14/18 19:45 07/14/18 19:44 Sterile Water (Sterile Water Irrigation Bottle) 300 ml Q3H GT 06/14/18 19:45 07/14/18 19:44 06/15/18 18:01 300 ML Mupirocin (Bactroban 2% Oint) 1 appln BID EXT 06/14/18 21:00 07/14/18 20:59 06/15/18 08:36 1 APPLN Acetaminophen (Tylenol Tab) 650 mg Q4H PRN PO 06/14/18 19:45 07/14/18 19:44 Al Hydrox/Mg Hydrox/Simethicone (Maalox Max Susp) 15 ml Q4H PRN PO 06/14/18 19:45 07/14/18 19:44 Magnesium Hydroxide (Milk Of Magnesia Susp) 30 ml Q6H PRN PO 06/14/18 19:45 07/14/18 19:44 Polyethylene (Miralax Powder Packet) 17 gm DAILY PRN PO 06/14/18 19:45 07/14/18 19:44 Zolpidem Tartrate (Ambien Tab) 5 mg HSZ PRN PO 06/14/18 19:45 07/14/18 19:44 Ondansetron HCl (Zofran Inj) 4 mg Q6H PRN IV 06/14/18 19:45 07/14/18 19:44 Heparin Sodium (Porcine) (Heparin Sq 5000 Unit/0.5ml) 5,000 unit Q12 SQ 06/14/18 23:00 07/14/18 22:59 Miscellaneous (Iv Fluids Completed) 1 ea PRN PRN N/A 06/14/18 20:45 06/14/19 20:44 Miconazole Nitrate (Desenex Powder) 1 appln BID EXT 06/15/18 21:00 07/15/18 20:59 Potassium Chloride/Sodium Chloride 1,000 ml @ 200 mls/hr Q5H IV 06/15/18 14:30 06/17/18 14:29 06/15/18 15:28 200 MLS/HR Enteral Nutritional Formula (Novasource Renal) 1,000 ml UD JT 06/15/18 17:30 07/15/18 17:29 Objective Vital Signs Date Time Temp Pulse Resp B/P (MAP) Pulse Ox O2 Delivery O2 Flow Rate FiO2 06/15/18 16:00 Room Air 06/15/18 14:33 36.7 57 18 118/55 (76) 99 06/15/18 08:30 Room Air 06/15/18 07:04 36.5 56 16 121/73 (89) 97 Room Air 06/15/18 00:00 Room Air 06/14/18 23:32 36.7 58 16 133/75 (94) 100 Room Air 06/14/18 23:07 55 18 158/62 (94) 96 Room Air 06/14/18 22:29 36.3 18 163/59 99 Room Air 06/14/18 19:53 65 18 163/59 99 Room Air Physical Exam General Appearance: + cachetic, + thin, + pertinent finding (No acute distress. ) Eyes: normal inspection, PERRL, EOMI, sclerae normal ENT: normal ENT inspection Neck: supple, trachea midline Respiratory/Chest: chest non-tender, lungs clear, normal breath sounds, no respiratory distress, no accessory muscle use Cardiovascular: regular rate, rhythm, no murmur Abdomen: normal bowel sounds, + pertinent finding (J tube present. Red irritation in the skin fold with satellite regions at J tube site. Painful to palpation at J tube site.) Extremities: non-tender, + pertinent finding (Cap refill 2-3 seconds) Neurologic/Psychiatric: alert, normal mood/affect, oriented x 3 Skin: normal color, warm/dry, + rash (See J-tube description in abdomen) Laboratory Results 06/15/18 05:18 Red Blood Count 2.40, Mean Corpuscular Volume 100.0, Mean Corpuscular Hemoglobin 34.6, Mean Corpuscular Hemoglobin Concent 34.6, Mean Platelet Volume 13.3, Neutrophils (%) (Auto) 64.7, Lymphocytes (%) (Auto) 21.3, Monocytes (%) ( Auto) 7.9, Eosinophils (%) (Auto) 5.7, Basophils (%) (Auto) 0.3, Neutrophils # ( Auto) 4.41, Lymphocytes # (Auto) 1.45, Monocytes # (Auto) 0.54, Eosinophils # ( Auto) 0.39, Basophils # (Auto) 0.02 06/15/18 05:18 Test 8/24/18 05:18 06/15/18 05:44 White Blood Count 6.82 K/uL (4.8-10.8) Red Blood Count 2.40 M/uL (4.7-6.1) Hemoglobin 8.3 g/dL (14.0-18.0) Hematocrit 24.0 % (42-52) Mean Corpuscular Volume 100.0 fL (80-100) Mean Corpuscular Hemoglobin 34.6 pg (25-34) Mean Corpuscular Hemoglobin Concent 34.6 g/dl (32-36) Platelet Count 174 K/uL (130-400) Mean Platelet Volume 13.3 fL (7.4-10.4) Neutrophils (%) (Auto) 64.7 % Lymphocytes (%) (Auto) 21.3 % Monocytes (%) (Auto) 7.9 % Eosinophils (%) (Auto) 5.7 % Basophils (%) (Auto) 0.3 % Neutrophils # (Auto) 4.41 K/uL (1.4-6.5) Lymphocytes # (Auto) 1.45 K/uL (1.2-3.4) Monocytes # (Auto) 0.54 K/uL (0.11-0.59) Eosinophils # (Auto) 0.39 K/uL (0-0.5) Basophils # (Auto) 0.02 K/uL (0-0.2) RDW Standard Deviation 50.1 fL (36.4-46.3) RDW Coefficient of Variation 13.8 % (11.5-14.5) Immature Granulocyte % (Auto) 0.1 % Immature Granulocyte # (Auto) 0.01 K/uL (0.00-0.02) Pappenheimer Bodies 1+ Echinocytes 1+ Anion Gap 14.0 mmol/L (3-11) Est Creatinine Clear Calc Drug Dose 8.5 ml/min Estimated GFR () 21.9 Estimated GFR (Non- 18.9 BUN/Creatinine Ratio 40.6 (10-20) Calcium Level 7.4 mg/dl (8.5-10.1) Magnesium Level 1.9 mg/dl (1.8-2.4) Date/Time Source Procedure Growth Status 06/15/18 01:30 Nasal MRSA DNA Surveillance Screen - Final Specimen Negative for MRSA by DNA Probe Complete Assessment and Plan Mr. Shelton is a 68 y/o M with a PMHx of splenectomy, CKD III, anemia, gastrectomy following hernia repair complication 7 years ago with J tube for nutrition and esophageal conduit for pleasure feeding. He presented with weakness and dehydration and had an elevated BUN and Cr on admit and received IVF boluses and aggressive rehydration. He also reports his J-tube leaks with feeds and has pain, burning, and rash around the tube site for several weeks. Severe Dehydration - Received 2.5L bolus NS in the ED and 2.5L more liters overnight after admit - Cr still elevated - Switched to HNS + 20mEq KCl 200cc/hr and will titrate based on Cr and urine output - J-tube feeds adjusted by nutrition. Appreciate recs. - He is chronically dehydrated and will likely need scheduled IVF hydration which would require a port to be placed. J-Tube Site Leak - KUB study with contrast ordered - GI consulted for AM CKD III- AoC RF 2/2 dehydration - trend Cr. Decrased from 3.56 to 3.2 with IVF - BMP daily - IVFM as above Suspect Fungal Infection at J-tube site - Likely fungal, is present in folds with satellite lesions - Likely to persist as long as J-tube continues leaking. Fix leak and treat with topical powder - Would not biopsy at this time WBC Blasts on Diff - Pt has been worked up in the past and is followed as outpt - Should be mentioned in d/c summary as a followup issue for his PCP RLL Consolidation on CT - LIkely chronic nodular changed possibly 2/2 to chronic aspiration. - He may need to sit up longer after completing feeds or change his schedule - there is no current evidence of acute pneumonia. Would appreciate GI recs. DVT: Heparin Code Status: Full Resident Physician Supervision Note: I interviewed and examined the patient. Discussed with Dr. Moscoso and agree with findings and plan as documented in the note. Any exceptions or clarifications are listed here: None Documented By: Victor Hugo Ibarra feeling somewhat better very concerned about leaking from tube - and then this causes stomach pain because of skin irritation constipated had tube placed at [facility] but doesn't really actively follow with anyone that he knows of vitals noted nad breathing unlabored. skin around tube tracking laterally in skin fold c/w intertrigo dehydration/HAYLEY on CKD ~stage3 - IVF intertrigo/skin irritation - nystatin powder. tube study doesn't show leak but pt clearly discusses leaking of tube feeds at times, causing skin problems. consult GI for assistance constipation otherwise as above Resident Tracking Resident Involvement: Resident Care Provided Care Provided: Adult [facility] Medicine
[2018-06-15 14:33] VITALS: BP 118/55; PULSE 57; TEMP 36.7; O2SAT 99
[2018-06-15] MEDS ORDERED: IMPACT LIQ 1000 ML BAG PO SCH (15:00)
--- NOTE | 2018-06-15 15:01 | DIAGNOSTIC IMAGING REPORT ---
ADDENDUM Subsequently, 30 mL of water soluble oral contrast was injected via the jejunostomy tube. This opacifies the jejunum, which is normal appearing. No evidence of peritoneal leakage. No gross obstruction. Electronically signed by: Jah Wilde M.D. 06/15/2018 3:04 PM Dictated Date/Time: 06/15/2018 3:03 PM ORIGINAL REPORT KUB CLINICAL HISTORY: 68 years-old Male presenting with Verify J-Tube placement. Reports of leaking with tube feeds . TECHNIQUE: Single supine view of the abdomen was obtained. COMPARISON: CT from 06/14/2018 and plain radiograph from 02/01/2016. FINDINGS: A jejunostomy tube projects over the left mid abdomen. Multiple suture lines are evident in the left mid abdomen and left upper quadrant. A surgical clip projects over the epigastrium. Endovascular coils project over the right upper quadrant. Additional metallic foreign body projects over the right pelvis. Nonobstructive bowel gas pattern. No gross pneumoperitoneum. Allowing for bowel gas and stool, no calcifications to suggest nephrolithiasis. Osseous structures normal. IMPRESSION: 1. Unchanged position of the left midabdomen jejunostomy tube. No gross free air. Electronically signed by: Jah Wilde M.D. 06/15/2018 3:00 PM Dictated Date/Time: 06/15/2018 2:57 PM
[2018-06-15] MEDS: SODIUM CHLOR 0.45% + 20MEQ KCL 1,000 ML IV SCH ×2 (15:28→20:31)
[2018-06-15 16:11] VITALS: Ht 182.9 cm; Wt 56.8 kg
[2018-06-15] MEDS ORDERED: NOVASOURCE RENAL 1000ML BAG JT SCH (17:30)
[2018-06-15] MEDS: MICONAZOLE NITRATE POWDER 43 GM EXT SCH (20:56)
--- NOTE | 2018-06-15 20:58 | GASTROINTESTINAL CONSULTATION ---
DATE OF CONSULTATION: 06/15/2018 INDICATION: Leaking J-tube. HISTORY OF PRESENT ILLNESS: Mr. Shelton is a 68-year-old white male with a complicated gastrointestinal history. 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 The patient is currently fed through his J-tube, which is annually replaced at [facility]. This was just replaced in 03/2018 with a 16-Swedish Skater jejunostomy tube with fluoroscopic guidance with wire exchange with the prior tube. The patient reports that over the last year or so, he has experienced these episodes of intermittent obstruction to flushing and flow through the tube that will generally resolve after some time. Generally, he is able to tolerate 100 mL an hour of feedings from 3:00 p.m. to 6:00 a.m. and uses the tube for medications as well. However, he found that the tube was becoming more unreliable and on presentation today was found to have renal insufficiency and evidence of dehydration. PAST MEDICAL HISTORY: The patient had a recurrent episode of dehydration, copper deficiency anemia, splenectomy, B12 deficiency, chronic kidney disease. FAMILY HISTORY: Significant for lung cancer, gallbladder disease, myocardial infarction, and stroke in the father. The mother has history of RI. SOCIAL HISTORY: The patient does not smoke or use alcoholic beverages. He lives with his significant other, is retired. ALLERGIES: HE HAS ALLERGIES TO MOXIFLOXACIN, OXYCODONE, SIMVASTATIN, SULFAMETHOXAZOLE, AND TRAMADOL. HOME MEDICATIONS: Include albuterol, calcitriol, copper gluconate, cyanocobalamin, folic acid, triamcinolone ointment, nutritional supplements, water for irrigation, and the feeding solutions. REVIEW OF SYSTEMS: Otherwise noncontributory based on 13-point exam except for mentioned above. There is a level of increased fatigue and weakness. VITAL SIGNS: On admission, afebrile 36.3, heart rate 72, respirations 20, blood pressure 143/85, 100% on room air. LABORATORY STUDIES: On admission, white count 12.7, hemoglobin 11.2, MCV 100.3, platelets 212,000. The patient is hypokalemic at 3.2. Sodium 135, bicarbonate is low at 14. BUN and creatinine are markedly elevated at 148 and 3.56 respectively. His LFTs show normal transaminases of AST 28, ALT 51, total bilirubin 0.3, although his alkaline phosphatase is elevated at 282. Albumin is 4.0, total protein 8.4 and bedside troponin is less than 0.030. 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 There may be material in this esophagocutaneous fistula. There is evidence of cholelithiasis with diverticulosis in the colon without diverticulitis, has osteopenia and the jejunostomy tube was interrogated by a retrograde contrast study, which the patient describes had offered some resistance during the test to instillation. However, there is contrast eventually showing in the study. There may be a mild cellulitis around the PEG tube site. PHYSICAL EXAMINATION: GENERAL: The patient is awake, alert, and oriented x3. HEENT: Sclerae are anicteric, conjunctivae moist. Oral mucosa moist. HEART: Normal S1, S2. NECK: Normal range of motion. LUNGS: Clear to auscultation, although diminished breath sounds are noted at the bases. ABDOMEN: Soft, flat, nontender, nondistended with positive bowel sounds. There is erythema near the jejunostomy tube insertion site, but no significant purulence is noted. There are positive bowel sounds. EXTREMITIES: Without clubbing, cyanosis, or edema. RECTAL: Deferred. The patient also complains of chronic constipation. Based on the initial study, there was no evidence of a change in left mid abdomen position of the jejunostomy tube without free air. There is a nonobstructive gas bowel pattern with stool. The 30 mL of water soluble contrast was injected via the jejunostomy tube and this opacifies the jejunum, which appears normal mucosally. No evidence of leak or gross obstruction. The appearance of the tube appears to have a pigtail with a narrowing at the distal end of the tip by design. IMPRESSION AND PLAN: The patient with evidence of dehydration, marked renal insufficiency, mild leukocytosis. There is mild acidosis noted. I made the following recommendations: Initially, I would maintain and correct any hydration status and electrolyte imbalances as possible. Regarding the tube, unfortunately the tube availability here may be limited and ultimately this may require a replacement upon transfer as an inpatient [facility]. It may be that if this tube has been a new style for him over the last 2 exchanges, when he has experienced some of these intermittent obstructions, and had not identified this problem in the past, then perhaps a different type of tube that maintains its patency through to the tip may be an alternative. In addition, the pigtail may potentially be a culprit in feeding through this, particularly if a high volume or positioning allows it to create an intermittent obstruction. Regarding his constipation, it may be reasonable to consider enemas to see if that can promote a bowel movement. At the present time, I would avoid using anything through the tube initially for stool, but ultimately if able to use consistently, administration of MiraLax on a daily basis may be worthwhile. All questions answered for the patient. I discussed the case with Dr. Hahn who will be covering this weekend. All questions answered for the patient. BIANKA
[2018-06-15 22:24] VITALS: BP 142/67; PULSE 56; TEMP 36.4; O2SAT 99
[2018-06-16] MEDS: [UNRECOGNIZED DRUG - OTHER] GT SCH ×8 (01:00→21:30)
[2018-06-16] MEDS: SODIUM CHLOR 0.45% + 20MEQ KCL 1,000 ML IV SCH ×5 (01:08→21:17)
[2018-06-16 07:13] VITALS: BP 126/79; PULSE 65; TEMP 36.4; O2SAT 97
[2018-06-16 07:47] LABS: CALCIUM 7.2 mg/dl (8.5-10.1); CREATININE 3.17 mg/dl (0.60-1.40); POTASSIUM 3.7 mmol/L (3.5-5.1)
[2018-06-16] MEDS: MUPIROCIN 2% OINT 22 GM TUBE EXT SCH ×2 (07:52→21:00)
[2018-06-16] MEDS: CALCITRIOL 0.25 MCG CAP JT SCH ×2 (07:52→20:56)
[2018-06-16] MEDS: ALBUTEROL HFA 8 GM INHALER INH SCH ×4 (07:52→20:56)
[2018-06-16] MEDS: MICONAZOLE NITRATE POWDER 43 GM EXT SCH ×2 (07:52→21:01)
[2018-06-16] MEDS: HEPARIN SOD 5000 UNIT/0.5 ML CARP SQ SCH ×2 (07:53→21:00)
--- NOTE | 2018-06-16 14:05 | Gastroenterology Progress Note ---
Progress Note Date of Service: Jun 16, 2018 Subjective Pt evaluation today including: conversation w/ patient, conversation w/ family (), physical exam, chart review, lab review, review of studies, review of inpatient medication list cc f/u malfunctioning J tube HPI J tube intermittently obstructs then is perfectly fine. Today the J tube if working fine per patient and he flushed it in front of me. No abd pain. States he moved his bowels yesterday. Medications Current Inpatient Medications Medications (Trade) Dose Ordered Sig/Maame Route Start Time Stop Time Status Last Admin Dose Admin Albuterol (Ventolin Hfa Inhaler) 2 puffs QID INH 06/14/18 21:00 07/14/18 20:59 06/16/18 07:52 2 PUFFS Calcitriol (Rocaltrol Cap) 0.25 mcg BID JT 06/14/18 21:00 07/14/18 20:59 06/16/18 07:52 0.25 MCG Folic Acid (Folvite Tab) 1 mg DAILY PEG 06/15/18 09:00 07/15/18 08:59 06/16/18 07:52 1 MG Miscellaneous Information (Order Awaiting Action) 1 ea QS N/A 06/15/18 00:00 07/15/18 00:00 Loperamide HCl (Imodium A-D Liquid) 20 mg Q6 PRN JT 06/14/18 19:45 07/14/18 19:44 Sterile Water (Sterile Water Irrigation Bottle) 300 ml Q3H GT 06/14/18 19:45 07/14/18 19:44 06/16/18 10:53 300 ML Mupirocin (Bactroban 2% Oint) 1 appln BID EXT 06/14/18 21:00 07/14/18 20:59 06/15/18 08:36 1 APPLN Acetaminophen (Tylenol Tab) 650 mg Q4H PRN PO 06/14/18 19:45 07/14/18 19:44 Al Hydrox/Mg Hydrox/Simethicone (Maalox Max Susp) 15 ml Q4H PRN PO 06/14/18 19:45 07/14/18 19:44 Magnesium Hydroxide (Milk Of Magnesia Susp) 30 ml Q6H PRN PO 06/14/18 19:45 07/14/18 19:44 Polyethylene (Miralax Powder Packet) 17 gm DAILY PRN PO 06/14/18 19:45 07/14/18 19:44 Zolpidem Tartrate (Ambien Tab) 5 mg HSZ PRN PO 06/14/18 19:45 07/14/18 19:44 Ondansetron HCl (Zofran Inj) 4 mg Q6H PRN IV 06/14/18 19:45 07/14/18 19:44 Heparin Sodium (Porcine) (Heparin Sq 5000 Unit/0.5ml) 5,000 unit Q12 SQ 06/14/18 23:00 07/14/18 22:59 Miscellaneous (Iv Fluids Completed) 1 ea PRN PRN N/A 06/14/18 20:45 06/14/19 20:44 Miconazole Nitrate (Desenex Powder) 1 appln BID EXT 06/15/18 21:00 07/15/18 20:59 06/16/18 07:52 1 APPLN Potassium Chloride/Sodium Chloride 1,000 ml @ 200 mls/hr Q5H IV 06/15/18 14:30 06/17/18 14:29 06/16/18 10:53 200 MLS/HR Enteral Nutritional Formula (Novasource Renal) 1,000 ml UD JT 06/15/18 17:30 07/15/18 17:29 Objective Vital Signs Date Time Temp Pulse Resp B/P (MAP) Pulse Ox O2 Delivery O2 Flow Rate FiO2 06/16/18 08:00 Room Air 06/16/18 07:13 36.4 65 16 126/79 (95) 97 06/15/18 22:24 36.4 56 14 142/67 (92) 99 Room Air 06/15/18 19:30 Room Air 06/15/18 16:00 Room Air 06/15/18 14:33 36.7 57 18 118/55 (76) 99 Physical Exam General Appearance: WD/WN, no apparent distress Respiratory/Chest: lungs clear, no respiratory distress Abdomen: normal bowel sounds, non tender, soft, no organomegaly, + pertinent finding (J tube in place, erythema of skin around it) Laboratory Results Last 24 Hours Test 06/16/18 06:43 Sodium Level 137 mmol/L Potassium Level 3.7 mmol/L Chloride Level 115 mmol/L Carbon Dioxide Level 12 mmol/L Anion Gap 10.0 mmol/L Blood Urea Nitrogen 117 mg/dl Creatinine 3.17 mg/dl Est Creatinine Clear Calc Drug Dose 18.4 ml/min Estimated GFR () 22.4 Estimated GFR (Non- 19.4 BUN/Creatinine Ratio 37.0 Random Glucose 106 mg/dl Calcium Level 7.2 mg/dl Assessment and Plan J tube malfunction--it seems to me the tube is intermittently folding and obstructing rather then clogged tube. A clogged tube would expect to be slow flowing all the time. Suggested to patient and that he see the providers in [place] that manage the tube regarding having it replaced perhaps with different length or different type of tube erythema of skin around site--local care being provided at present. other problems per primary team.
[2018-06-16 15:14] VITALS: BP 153/79; PULSE 54; TEMP 36.3; O2SAT 99
--- NOTE | 2018-06-16 16:54 | Family Medicine Progress Note ---
Progress Note Date of Service Jun 16, 2018. Subjective Pt evaluation today including: conversation w/ patient, conversation w/ family , physical exam, chart review, lab review, review of studies, review of inpatient medication list Voiding: no voiding problems Mr. Burciaga states that he is improving with treatment here. Gualberto still complains of soreness around feeding tube site. He denies any chest pain, shortness of breath, fever, chills, nausea. He is still concerned about etiology of why tube regurgitates feedings. No acute events overnight. Constitutional: No fever, No chills Respiratory: No cough, No shortness of breath Cardiovascular: No chest pain Abdomen: No nausea Male : No dysuria, No urinary frequency All Other Systems: Reviewed and Negative Medications Current Inpatient Medications Medications (Trade) Dose Ordered Sig/Maame Route Start Time Stop Time Status Last Admin Dose Admin Albuterol (Ventolin Hfa Inhaler) 2 puffs QID INH 06/14/18 21:00 07/14/18 20:59 06/16/18 13:54 2 PUFFS Calcitriol (Rocaltrol Cap) 0.25 mcg BID JT 06/14/18 21:00 07/14/18 20:59 06/16/18 07:52 0.25 MCG Folic Acid (Folvite Tab) 1 mg DAILY PEG 06/15/18 09:00 07/15/18 08:59 06/16/18 07:52 1 MG Miscellaneous Information (Order Awaiting Action) 1 ea QS N/A 06/15/18 00:00 07/15/18 00:00 Loperamide HCl (Imodium A-D Liquid) 20 mg Q6 PRN JT 06/14/18 19:45 07/14/18 19:44 Sterile Water (Sterile Water Irrigation Bottle) 300 ml Q3H GT 06/14/18 19:45 07/14/18 19:44 06/16/18 13:54 300 ML Mupirocin (Bactroban 2% Oint) 1 appln BID EXT 06/14/18 21:00 07/14/18 20:59 06/15/18 08:36 1 APPLN Acetaminophen (Tylenol Tab) 650 mg Q4H PRN PO 06/14/18 19:45 07/14/18 19:44 Al Hydrox/Mg Hydrox/Simethicone (Maalox Max Susp) 15 ml Q4H PRN PO 06/14/18 19:45 07/14/18 19:44 Magnesium Hydroxide (Milk Of Magnesia Susp) 30 ml Q6H PRN PO 06/14/18 19:45 07/14/18 19:44 Polyethylene (Miralax Powder Packet) 17 gm DAILY PRN PO 06/14/18 19:45 07/14/18 19:44 Zolpidem Tartrate (Ambien Tab) 5 mg HSZ PRN PO 06/14/18 19:45 07/14/18 19:44 Ondansetron HCl (Zofran Inj) 4 mg Q6H PRN IV 06/14/18 19:45 07/14/18 19:44 Heparin Sodium (Porcine) (Heparin Sq 5000 Unit/0.5ml) 5,000 unit Q12 SQ 06/14/18 23:00 07/14/18 22:59 Miscellaneous (Iv Fluids Completed) 1 ea PRN PRN N/A 06/14/18 20:45 06/14/19 20:44 Miconazole Nitrate (Desenex Powder) 1 appln BID EXT 06/15/18 21:00 07/15/18 20:59 06/16/18 07:52 1 APPLN Potassium Chloride/Sodium Chloride 1,000 ml @ 200 mls/hr Q5H IV 06/15/18 14:30 06/17/18 14:29 06/16/18 16:15 200 MLS/HR Enteral Nutritional Formula (Novasource Renal) 1,000 ml UD JT 06/15/18 17:30 07/15/18 17:29 06/16/18 16:15 1,000 ML Objective Vital Signs Date Time Temp Pulse Resp B/P (MAP) Pulse Ox O2 Delivery O2 Flow Rate FiO2 06/16/18 16:00 Room Air 06/16/18 15:14 36.3 54 18 153/79 (103) 99 Room Air 06/16/18 08:00 Room Air 06/16/18 07:13 36.4 65 16 126/79 (95) 97 06/15/18 22:24 36.4 56 14 142/67 (92) 99 Room Air 06/15/18 19:30 Room Air Physical Exam General Appearance: no apparent distress, + thin Eyes: EOMI ENT: hearing grossly normal Neck: supple, trachea midline Respiratory/Chest: lungs clear, normal breath sounds, no respiratory distress Cardiovascular: regular rate, rhythm, no edema, no gallop, no murmur Abdomen: normal bowel sounds, + pertinent finding (feeding tube inplace with medication treatment surrounding ) Extremities: normal range of motion, non-tender, no pedal edema, no calf tenderness Neurologic/Psychiatric: alert, normal mood/affect, oriented x 3 Skin: warm/dry, no rash Laboratory Results 06/16/18 06:43 Test 06/16/18 06:43 Anion Gap 10.0 mmol/L (3-11) Est Creatinine Clear Calc Drug Dose 18.4 ml/min Estimated GFR () 22.4 Estimated GFR (Non- 19.4 BUN/Creatinine Ratio 37.0 (10-20) Calcium Level 7.2 mg/dl (8.5-10.1) Assessment and Plan Severe Dehydration - Improved with IV fluids. Still will need another 1-2 days of IV fluids. Patient still appears clinically dehydrated but improving subjectively. - Cr still elevated from baseline but improved from yesterday - J-tube feeds by nutrition. Appreciate recs. J-Tube Feed Problem - KUB study with contrast obtained which did not show any anatomical problems. - GI consult obtained. Patient will need feeding tube replaced. Tube is not available here and will need follow up on discharge to [facility] for appropriate tube. CKD III- acute on chronic renal failure secondary to dehydration - trend Cr. Decrased from 3.23 to 3.17 with IVF - BMP daily - IVFM as above Suspect Fungal Infection at J-tube site - Treating with topical anti-fungal medication WBC Blasts on Diff - Pt has been worked up in the past and is followed as outpatient - Should be mentioned in d/c summary as a followup issue for his PCP RLL Consolidation on CT - Likely chronic nodular changed possibly to chronic aspiration. - He may need to sit up longer after completing feeds or change his schedule - there is no current evidence of acute pneumonia. Would appreciate GI recs. DVT: Heparin Code Status: Full Resident Physician Supervision Note: I interviewed and examined the patient. Discussed with Dr. Hale and agree with findings and plan as documented in the note. Any exceptions or clarifications are listed here: None Documented By: Victor Hugo sunues to slowly feel better pt and understand and appreciate game plan vitals noted nad breathing unlabored. skin around tube tracking laterally in skin fold c/w intertrigo dehydration/HAYLEY on CKD ~stage3 - IVF - improving intertrigo/skin irritation - nystatin powder. tube study doesn't show leak but pt clearly discusses leaking of tube feeds at times, causing skin problems. [facility] to try to trade tube constipation otherwise as above
[2018-06-16 22:21] VITALS: BP 136/78; PULSE 59; TEMP 36.4; O2SAT 98
[2018-06-17] MEDS: [UNRECOGNIZED DRUG - OTHER] GT SCH ×6 (00:39→13:45)
[2018-06-17] MEDS: SODIUM CHLOR 0.45% + 20MEQ KCL 1,000 ML IV SCH ×3 (02:22→12:49)
[2018-06-17 06:19] LABS: HEMATOCRIT 23.5 % (42-52); HEMOGLOBIN 8.3 g/dL (14.0-18.0); MEAN CELL VOLUME 100.9 fL (80-100); MEAN CORPUSCULAR HEMOGLOBIN 35.6 pg (25-34); MEAN CORPUSCULAR HGB CONC 35.3 g/dl (32-36); MEAN PLATELET VOLUME 13.1 fL (7.4-10.4); PLATELET COUNT 165 K/uL (130-400); RED CELL DISTRIBUTION WIDTH CV 13.9 % (11.5-14.5); RED CELL DISTRIBUTION WIDTH SD 50.7 fL (36.4-46.3); WHITE BLOOD COUNT 6.35 K/uL (4.8-10.8)
[2018-06-17 06:48] LABS: CREATININE 2.87 mg/dl (0.60-1.40); POTASSIUM 4.1 mmol/L (3.5-5.1)
[2018-06-17 07:23] VITALS: BP 135/73; PULSE 65; TEMP 36.5; O2SAT 98
[2018-06-17] MEDS: MICONAZOLE NITRATE POWDER 43 GM EXT SCH (08:52)
[2018-06-17] MEDS: MUPIROCIN 2% OINT 22 GM TUBE EXT SCH (08:52)
[2018-06-17] MEDS: CALCITRIOL 0.25 MCG CAP JT SCH (08:52)
[2018-06-17] MEDS: ALBUTEROL HFA 8 GM INHALER INH SCH ×2 (08:52→13:32)
[2018-06-17] MEDS: HEPARIN SOD 5000 UNIT/0.5 ML CARP SQ SCH (08:53)
[2018-06-17] MEDS ORDERED: NYST100033 EXT (14:17)
--- NOTE | 2018-06-17 14:21 | Discharge Instructions ---
Discharge Instructions Date of Service Jun 17, 2018. Admission Reason for Admission: Dehydration Discharge Discharge Diagnosis / Problem: Dehydration Discharge Goals Goal(s): Improve disease control Activity Recommendations Activity Limitations: resume your previous activity . Instructions / Follow-Up Instructions / Follow-Up Please get BMP weekly to monitor hydration status. Paper script is given for this order. We will call [facility] to get an appointment for you. Please follow up with them for treatment of feeding tube. Current Hospital Diet Patient's current hospital diet: Discharge Diet Recommended Diet: Regular Diet Pending Studies Studies pending at discharge: no Laboratory Results 06/17/18 06:04 06/17/18 06:04 Test 06/17/18 06:04 Red Blood Count 2.33 M/uL (4.7-6.1) Mean Corpuscular Volume 100.9 fL (80-100) Mean Corpuscular Hemoglobin 35.6 pg (25-34) Mean Corpuscular Hemoglobin Concent 35.3 g/dl (32-36) RDW Standard Deviation 50.7 fL (36.4-46.3) RDW Coefficient of Variation 13.9 % (11.5-14.5) Mean Platelet Volume 13.1 fL (7.4-10.4) Anion Gap 13.0 mmol/L (3-11) Est Creatinine Clear Calc Drug Dose 20.3 ml/min Estimated GFR () 25.3 Estimated GFR (Non- 21.8 BUN/Creatinine Ratio 36.4 (10-20) Calcium Level 7.0 mg/dl (8.5-10.1) Medical Emergencies . Who to Call and When: Medical Emergencies: If at any time you feel your situation is an emergency, please call 911 immediately. . Non-Emergent Contact Non-Emergency issues call your: Primary Care Provider . . "Provider Documentation" section prepared by Gregg Hale. .
[2018-06-17 14:23] VITALS: BP 135/73; PULSE 65; TEMP 36.5; O2SAT 98
--- NOTE | 2018-06-17 15:23 | Discharge Summary ---
Discharge Summary Date of Service Jun 17, 2018. Discharge Summary Admission Date: Jun 14, 2018 at 19:44 Discharge Date: Jun 17, 2018 Discharge Disposition: Home Principal Diagnosis: Dehydration Problems/Secondary Diagnoses: Peg tube malfunction Immunizations: Have You Had Influenza Vaccine: Yes History of Tetanus Vaccine?: Yes History of Pneumococcal: Yes History of Hepatitis B Vaccine: No Medication Reconciliation New Medications: Nystatin (Topical) (Nystatin) 100,000 Unit/Gm Pow 1 GM EXT BID for 30 Days, #60 GM 0 Refills Continued Medications: Albuterol Hfa (Ventolin Hfa) 200 Puffs/88799 Mcg Aers 2 PUFFS INH QID Calcitriol (Calcitriol) 0.25 Mcg Cap 0.25 MCG JT BID Copper Gluconate (Copper) 2 Mg Tab 2 MG JT DAILY Cyanocobalamin (Cyanocobalamin) 1,000 Mcg/Ml Inj 1 DOSE IM MONTHLY Fluticasone Propionate (Nasal) (Flonase Allergy Relief) 50 Mcg/Act Spr 1-2 SPRAYS JOSE L DAILY PRN for ALLERGIES Folic Acid (Folvite) 1 Mg Tab 1 MG JT AMPM, TAB Loperamide Hcl (Imodium A-D) 1 Mg/7.5 Ml Liq 20 ML JT Q6 PRN for Diarrhea Nutritional Supplements (Novasource Renal) 1 Liq Liq 5 CAN PO DAILY@1500 MIXED WITH 2 CANS OF JEVITY; RUNS FROM 6319-0907 DAILY STARTS AT 50ML/HR; INCREASES UP TO 100ML/HR TOLERATED; LAST HOUR RUNS AT 50ML/HR Ondasetron Odt (Zofran Odt) 4 Mg Tab 4 MG SL TID PRN for Nausea, #6 TAB Triamcinolone Acet (Aristocort 0.1%) 90 Appln/30 Gm Cr 1 APPLN TOP BID for . Water For Irrigation, Sterile (Sterile Water Irrigation) 1 Bronwyn Bronwyn 300 ML GJT Q3H Discharge Exam Review of Systems: Constitutional: No fever, No chills ENT: No unusual epistaxis Respiratory: No cough, No shortness of breath Cardiovascular: No chest pain, No edema Abdomen: No nausea Physical Exam: General Appearance: no apparent distress, + thin Eyes: normal inspection, sclerae normal ENT: hearing grossly normal Neck: trachea midline Respiratory/Chest: lungs clear, normal breath sounds, no respiratory distress, no accessory muscle use Cardiovascular: regular rate, rhythm, no edema, no gallop, no murmur Abdomen / GI: normal bowel sounds Extremities: normal inspection, no calf tenderness Neurologic/Psychiatric: alert, normal mood/affect, oriented x 3 Hospital Course Mr. Shelton is a 68 y/o M with a PMHx of splenectomy, CKD III, anemia, gastrectomy following hernia repair complication 7 years ago with J tube for nutrition and esophageal conduit for pleasure feeding. He presented with weakness and dehydration and had an elevated BUN and Cr on admit and received IVF boluses and aggressive rehydration. He also reported his J-tube leaks with feeds and had pain, burning, and rash around the tube site for several weeks. He states that he has tried to be seen by [facility] to have tube replaced/ issue resolved but was unable to get an appointment to be seen after calling office. GI consult here during admission showed that J-tube would need to be replaced but we did not carry type of J-tube here at hospital. Patient would need to be seen by [facility] for replacement with appriopriate J-tube. We have case management working Monday (06/18/18) to resolve appointment issue by contacting [facility] to make appointment for patient. Severe Dehydration - Improved with numerous bags of IV fluids. - Cr still elevated from baseline but improved from yesterday - Patient provided with order for weekly BMP x3 weeks to follow creatinine and hydration status with results to be sent to PCP. J-Tube Feed Problem - KUB study with contrast obtained which did not show any anatomical problems. - GI consult obtained. Patient will need feeding tube replaced. Tube is not available here and will need follow up on discharge to [facility] for appropriate tube. Case management at [facility] is contacting [facility] for appointment. CKD III- acute on chronic renal failure secondary to dehydration - trended Cr. Decreased from 3.37 on admit to 2.87 on discharge with IVF Suspect Fungal Infection at J-tube site - Treating with topical anti-fungal medication. Patient provided with script for Nystatin powder BID. Suspect feeding tube leaking is provided growth medium for fungus. Goal that fixing J-tube leaking and then topical anti- fungal treatment will resolve problem. WBC Blasts on Diff - Pt has been worked up in the past and is followed as outpatient RLL Consolidation on CT - Likely chronic nodular changed possibly to chronic aspiration. - He may need to sit up longer after completing feeds or change his schedule - there was no evidence of acute pneumonia. For DVT prophylaxis patient received Heparin while in hospital. Resident Physician Supervision Note: I interviewed and examined the patient. Discussed with Dr. Hale and agree with findings and plan as documented in the note. Any exceptions or clarifications are listed here: None Documented By: Victor Hugo Ibarra feeling up to going home pt and understand and appreciate game plan vitals noted nad breathing unlabored. looks better hydrated dehydration/HAYLEY on CKD ~stage3 - IVF - improving - back to baseline range of kidney function. weekly BMP again until feeding tube situation stabilized intertrigo/skin irritation - nystatin powder. tube study doesn't show leak but pt clearly discusses leaking of tube feeds at times, causing skin problems. [facility] [place] to try to trade tube constipation otherwise as above Total Time Spent: Greater than 30 minutes This includes examination of the patient, discharge planning, medication reconciliation, and communication with other providers. Discharge Instructions Please refer to the electronic Patient Visit Report (Discharge Instructions) for additional information. Follow-Up We are contacting [facility] to make appointment for patient with goal to get patient seen within one week of discharge pending availability. Patient will also follow up with PCP in office for routine hospital discharge follow-up. Additional Copies To Freddie Zuleta M.D.
== END 2018-06-17 14:44 | disposition home or self-care (01) ==
LOC: C.EDB 13:47 → C.MS2W 19:44 → ENRESERV 20:01
PROVIDERS: ADMIT Internal Medicine; ATTEND Family Medicine
DX: E86.0 Dehydration (principal); K94.23 Gastrostomy malfunction; L30.4 Erythema intertrigo; K59.00 Constipation, unspecified; N17.9 Acute kidney failure, unspecified; N18.3 Chronic kidney disease, stage 3 (moderate); Z90.81 Acquired absence of spleen; Z90.3 Acquired absence of stomach [part of]; Z88.1 Allergy status to other antibiotic agents; Z88.5 Allergy status to narcotic agent; Z88.8 Allergy status to other drugs, medicaments and biological substances

== ENCOUNTER 2019-01-10 18:43 | Inpatient (IN) ==
[2019-01-10] MEDS ORDERED: PIPERACILL/TAZOBAC CONSULT ACTIVE PRN (20:38)
[2019-01-10] MEDS ORDERED: PIPERACILLIN/TAZOBACTAM 4.5 GM/120 ML BAG IV ONE (20:38)
[2019-01-10] MEDS ORDERED: MoRPHine SULFATE 4 MG/ML 1 ML CARP\\VIAL IV STA (20:38)
[2019-01-10 20:51] LABS: Basophils # (auto) 0.01 K/uL (0-0.2); Basophils % (auto) 0.1 %; Eosinophils # (auto) 0.01 K/uL (0-0.5); Eosinophils % (auto) 0.1 %; Hematocrit (blood only) 28.5 % (42-52); Hemoglobin 9.5 g/dL (14.0-18.0); Immature Granulocytes # (auto) 0.06 K/uL (0.00-0.02); Immature Granulocytes % (auto) 0.4 %; Lymphocytes # (auto) 1.09 K/uL (1.2-3.4); Lymphocytes % (auto) 7.5 %; Mean Corpuscular Hgb Conc 33.3 g/dL (32-36); Mean Corpuscular Volume 95.6 fL (80-100); Mean Platelet Volume 13.6 fL (7.4-10.4); Monocytes % (auto) 6.2 %; Neutrophils # (auto) 12.48 K/uL (1.4-6.5); Neutrophils % (auto) 85.7 %; Platelet Count 194 K/uL (130-400); RDW Coefficient of Variation 19.3 % (11.5-14.5); Red Blood Count 2.98 M/uL (4.7-6.1); White Blood Count 14.55 K/uL (4.8-10.8)
[2019-01-10 20:59] LABS: Albumin Level 2.6 gm/dl (3.4-5.0); Calcium 8.8 mg/dl (8.5-10.1); Creatinine Clr Calc Pharmacy 19.8 ml/min; Est GFR (African American) 18.7; Est GFR (Non-African American) 16.2; Potassium 4.3 mmol/L (3.5-5.1)
[2019-01-10 21:04] LABS: Albumin Globulin Ratio 0.6 (0.9-2); Bilirubin,Total 0.7 mg/dl (0.2-1); Globulin 4.3 gm/dl (2.5-4.0); Total Protein 6.9 gm/dl (6.4-8.2); Troponin I 0.024 ng/ml (0-0.045)
[2019-01-10 21:12] LABS: HCO3 ABG 29 mmol/L (19-24); Oxygen Saturation ABG 97.1 % (90-95); PCO2 ABG 40 mmHg (35-46); PO2 ABG 95 mm/Hg (80-95); pH ABG 7.48 (7.35-7.45)
[2019-01-10 21:13] LABS: Allen Test POS (Pos)
[2019-01-10 21:23] LABS: Appearance Urine Clear (Clear); Bacteria Urine Automated Negative (Negative); Bilirubin Urine Negative (Negative); Blood Urine Trace (Negative); Color Urine Yellow; Epithelial Cell Urine Auto 0-5 /lpf (0-5); Glucose Urine UA Negative (Negative); Ketones Urine Negative (Negative); Leukocyte Esterase Urine Negative (Negative); Nitrite Urine Negative (Negative); RBC Urine Automated 0-4 /hpf (0-4); Specific Gravity Urine 1.011 (1.000-1.030); Urobilinogen Urine Negative (Negative); pH Urine 7.5 (4.5-7.5)
[2019-01-10 21:24] LABS: Protein Urine 2+ (Negative)
--- NOTE | 2019-01-10 22:16 | CT Scan Report ---
CT OF THE ABDOMEN AND PELVIS WITHOUT CONTRAST CLINICAL HISTORY: CKD, G tube, upper ab pain COMPARISON STUDY: CT of the abdomen and pelvis July 17, 2018. TECHNIQUE: Axial images of the abdomen and pelvis were obtained without IV contrast. Images were revi ewed in the axial, sagittal, and coronal planes. Automated exposure control was utilized for the rodney dy. A dose lowering technique was utilized adhering to the principles of ALARA. FINDINGS: Small bilateral pleural effusions are partially imaged on this exam. The right pleural effu sherif may be partially loculated. Associated airspace opacities favor atelectasis. Hyperdensities with in the lung parenchyma are shown on prior exam. The heart is mildly enlarged. Evaluation of the abdom en and pelvis is suboptimal on this unenhanced examination. A metallic density within the inferior ri ght hepatic lobe is unchanged. No pneumatosis, free air or portal venous gas is present. Abnormal fabiola er morphology is unchanged. Moderate gallbladder distention is similar to prior exam. There is a gall stone within the gallbladder. The spleen is not visualized. The adrenal glands are unremarkable. Ther e is mild/moderate to marked bilateral renal atrophy. A probable cyst within the midpole of the right kidney is suboptimally assessed on this unenhanced exam. A left-sided jejunostomy tube is noted. The re is extensive mesenteric infiltration, a nonspecific finding. Pancreatic glandular atrophy appears increased since CT of July 17, 2018. There is peripancreatic infiltration. There is diffuse infi ltration of the soft tissues. There is no evidence for a bowel obstruction. A bowel anastomosis is no deirdre. Right colon wall thickening is noted. This is probably due to underdistention. There is colonic diverticulosis without evidence for acute diverticulitis. The stomach is not visualized. Distal esoph nydia is not visualized. Mild T11 compression deformity is unchanged. There is a possible sacral decub itus ulcer. IMPRESSION: 1. Exam compromised given the lack of IV contrast. Extensive mesenteric infiltration. This is nonspec ific although may be related to volume overload. However, infectious and inflammatory etiologies are within the differential. Acute pancreatitis is considered unlikely however could be correlated with l ipase levels. 2. No bowel obstruction. Right colon wall thickening which is likely due to underdistention although a nonspecific colitis could appear similar. 3. Cholelithiasis with moderate gallbladder distention. Moderate gallbladder distention. Acute cholec ystitis cannot be excluded but this finding has been shown on several previous exams. 4. Small bilateral pleural effusions. Right pleural effusion may be partially loculated. Evidence for mild pulmonary edema. Electronically signed by: Cheng Sykes M.D. 01/10/2019 10:13 PM
--- NOTE | 2019-01-10 23:10 | XRay Report ---
XR chest 1V portable CLINICAL HISTORY: sob, hypoxia COMPARISON STUDY: Chest radiograph July 10, 2018. FINDINGS: A metallic density projects over the right hilum. This is unchanged. A right PICC is in gypsy ce. Small left and [id number] right pleural effusions are noted. Right pleural effusion may be loculated. There is been interval development of interstitial thickening and left perihilar opacity. There is no pneumothorax. Median sternotomy wires are noted. IMPRESSION: 1. Interval development of small to moderate right and small left pleural fusions. The right pleural effusion may be partially loculated. 2. Interstitial thickening suggestive of pulmonary edema. 2. Interval development of left perihilar opacity which may reflect asymmetric alveolar edema or pneu monia. Electronically signed by: Cheng Sykes M.D. 01/10/2019 11:08 PM
[2019-01-10] MEDS ORDERED: VANCOMYCIN HCL 1,000 MG/270 ML BAG IV STA (23:36)
[2019-01-10] MEDS ORDERED: VANCOMYCIN CONSULT ACTIVE PRN (23:36)
[2019-01-10] MEDS ORDERED: VANCOMYCIN HCL 1,500 MG in SODIUM CHLORIDE 0.9% 500 ML IV STA (23:43)
[2019-01-10] MEDS ORDERED: LINEZOLID 600 MG/300 ML BAG IV STA (23:54)
--- NOTE | 2019-01-11 01:32 | History & Physical Report ---
Date of Service January 11, 2019 Assessment & Plan (1) Aspiration pneumonia: Mr. Shelton is a 68-year-old male here for hypoxia and abdominal pain, found to have multifocal loculated pneumonia and fluid overload. 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 Neuro - [facility]: NEGATIVE -Alert and oriented, no history of memory loss or dementia. Mentation is at baseline. -Given acute hypoxia and pneumonia and effusion, recommend judicious use of opioid medication with risk of further respiratory depression. -Recommend fentanyl 25 mcg every 3 hours as needed for pain. Cardiac - #Congestive heart failure -He has had several pound weight gain over the last few weeks despite being started on a diuretic at least a week ago. -patient has no known cardiac history. Patient is clearly in congestive heart failure. -Started on torsemide 20 mg 3 times daily with increase in lower extremity and upper extremity edema. -BNP on initial labs notable for<2000. Trop detectable, but not abnormal. -no recent echo on file -TTE in a.m. -serial troponins x 3 -monitor on telemetry -Hold p.o. torsemide while n.p.o. -IV diuresis: Albumin with Lasix x1 now, Lasix 40 mg daily x1 for AM. Strict I/Os, walters placed. #Hypertensive urgency -Continue home amlodipine 5 mg daily -Add hydralazine 10 mg every 4 hours for systolic blood pressure over 170 or diastolic over 100. Respiratory - #Acute hypoxic respiratory failure in the setting of CHF, multifocal pneumonia, loculations, parapneumonic effusions -Hypoxic on arrival, oxygenating well with 4 L nasal cannula -ABG does not show acidosis or hypercapnia. Mentation at baseline. 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 He has chronic health issues related to nutritional needs. -Had a 16 [place] jejunostomy tube that was in place, complicated by leaking, had that replaced. -Most recently, he was seen on 01/08/2019 at [facility] for reevaluation of his J-tube. At that time, it was replaced with a gastrostomy tube. He was to continue hydration with this new tube. Instructions included to start using the tube and to start to try to put some tube feeds through the tube for the next several days to make sure it is working normally. He was to call the weld engineer and talent management manager to restart tube feeds. He has not yet started tube feeds. Plan was to continue to use this tube until it needs to be changed in 1 year. But if for some reason it needs to be changed sooner, that this would likely need to be done under sedation. #Acute abdominal pain, elevated lipase -recent G tube placed as above -CT abdomen pelvis done in the ED, without contrast. Shows possible acute pancreatitis, stable gallbladder distention similar to prior exam. Gallstone in the gallbladder. Nonspecific extensive mesenteric infiltration. Peripancreatic infiltration. No bowel obstruction. Diverticulosis. -consult [facility] gastroenterology -pain mgmt with Fentanyl as above. On Zosyn. -serial lipase #History of GI bleed, "dark stools", history of pancolitis -recently seen in [facility] for a GI bleed. Was on protonix gtt. He had a colonoscopy and they were unable to identify the source of his bleeding, which has since resolved. -Protonix BID -Anemia stable (see heme below) #Diet - followed by Dr. Sue with [facility]. She manages his tube feeds, which to my knowledge have not yet been restarted since recent G tube placed 01/08/19. RENAL/LYTES - #CKD stage 5, HAYLEY -followed by Dr. Estrada, has AV fistula but is not currently on dialysis. -renally dose all meds -consult Nephrology, Dr. Edward -diuresis as above -No significant electrolyte derangement. -Replace lytes as needed. - #2+ Proteinuria, trace hematuria -asymptomatic -in setting of uremia, poor nutrition -Walters placed due to acute pain, need for agressive diuresis and strict I/O monitoring. ENDO - No known diabetes or thyroid disease. HEME - #Normocytic anemia, history of copper and zinc deficiency -Followed by Dr. Valdez with transfusions -continue copper supplementation -Stable H&H. Follow CBC. ID - #HCAP, aspiration pneumonia, loculations -started on Zyvox (instead of Vanc given poor kidney function) and Zosyn -Consider thoracentesis, bronchoscopy -Monitor fever curve. Tylenol PRN fever. INTEGUMENTARY - -Possible sacral decubitus ulcer noted on abdomen pelvis CT -Patient is ambulatory at baseline. Can consider wound consult. LINES/IV ACCESS - -PIVs intact. -G tube -PICC line in RT arm -spit fistula -No fluids running at this time in light of fluid overload as above. Echo pending. DVT PROPHYLAXIS - SCDs in setting of recent GI bleed. CODE: Full code, temporary intubation if meaningful recovery were apparent. is POA. Please refer to Dr. Aguillon's documentation for any further recommendations. (2) CKD (chronic kidney disease) stage 5, GFR less than 15 ml/min: (3) Respiratory failure with hypoxia: (4) Volume overload: (5) History of esophagectomy: (6) Copper deficiency: (7) Anemia: (8) History of splenectomy: (9) History of gastrectomy: History of Present Illness Chief Complaint: Intractable abdominal pain, dyspnea on exertion Primary Care Provider: Freddie Zuleta MD Mr. Shelton is a 68-year-old male with complicated past medical history as below, who presents with intractable abdominal pain that started earlier today, located in the middle of his abdomen. Denies change in bowel habits. Was recently seen in [facility] for Jtube replaced with Gtube. Has been flushing the tube some, but to my knowledge has not yet begun full feeds. Has PICC in place for this. Also c/o increased dyspnea on exertion, increasing weight, and increased lower and upper extremity edema for several weeks. Was started on torsemide after a recent stay in [facility] for dark stools. Colonoscopy eval did not reveal source of bleeding. EGD not performed due to anatomy (esophagectomy as below). Patient states that there was an Echo done "recently" within [facility] which showed no abnormalities. Denies chest pain. Endorses cough. - PMH 1. Anemia 2. Asthma 3. CKD stage V, was on hemodialysis. Has AV fistula. 4. Copper deficiency, B12 deficiency, vitamin D deficiency, zinc deficiency 5. Acquired esophageal pouch 6. History of gastrectomy 7. Hypertension 8. Gastrostomy tube present 9. On total parenteral nutrition PSH 1. 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 History of gastrectomy 3. Acquired esophageal pouch. Social history: Lives with . Has home nursing once a week qMonday. Denies T / E / D . ED course: Review of vitals shows hypertensive, hypoxic. Review of labs shows leukocytosis, normocytic anemia, HAYLEY, elev BNP, elev lipase 1973. Review of imaging shows -CT abdomen pelvis done in the ED, without contrast. Shows possible acute pancreatitis, stable gallbladder distention similar to prior exam. Gallstone in the gallbladder. Nonspecific extensive mesenteric infiltration. Peripancreatic infiltration. No bowel obstruction. Diverticulosis. -CT chest multifocal pneumonia, loculations, parapneumonic effusions Review of management shows patient was given morphine. Hospitalist service consulted for further evaluation and management. Allergies Allergy/AdvReac Type Severity Reaction Status Date / Time sulfamethoxazole AdvReac Intermediate SEVERE Verified 01/11/19 06:42 DIARRHEA oxycodone AdvReac Mild NAUSEA Verified 01/11/19 06:42 simvastatin AdvReac Mild " my legs Verified 01/11/19 06:42 cramp up" tramadol AdvReac Mild NAUSEA Verified 01/11/19 06:42 moxifloxacin AdvReac Unknown Pt said he Verified 01/10/19 22:57 could barely walk Home Medications Home Medications Medication Instructions Recorded Confirmed Type albuterol sulfate [Ventolin HFA] 2 puff INHALATION Q4H PRN 01/10/19 01/10/19 History amlodipine 5 mg PO DAILY 01/10/19 01/10/19 History copper gluconate 2 mg PO DAILY 01/10/19 01/10/19 History cyanocobalamin (vitamin B-12) mcg PO MONTHLY 01/10/19 History [Vitamin B-12] epoetin andi [Procrit] unit SUBCUT DIRECTED 01/10/19 History fluticasone propion-salmeterol 1 puff INHALATION BID 01/10/19 01/10/19 History [Advair Diskus] fluticasone propionate 1 - 2 spray INTRANASAL DAILY 01/10/19 01/10/19 History loperamide [Imodium A-D] 20 ml PO Q6H PRN 01/10/19 01/10/19 History nystatin 1 applic TOPICAL DIRECTED 01/10/19 01/10/19 History ondansetron HCl [Zofran] 4 mg PO TID PRN 01/10/19 01/10/19 History torsemide 20 mg PO TID 01/10/19 01/10/19 History triamcinolone acetonide 1 applic TOPICAL BID PRN 01/10/19 01/10/19 History Past Med/Surg History Medical History Normocytic anemia (Chronic) Dehydration (Acute 12/29/13) Jejunostomy tube present (Chronic) Hyponatremia (Resolved) Jejunostomy tube leak (Resolved) Hyponatremia (Acute) Leukocytosis (Resolved) HAYLEY (acute kidney injury) Hypokalemia Jejunostomy tube leak Jejunostomy tube present Kidney stones Low serum copper for age Surgical History S/P gastrectomy S/P splenectomy Family History Other Hypertension Social History Communication Ability: Effective Beliefs That Will Affect Care: None Current Living Situation: Spouse Other Information That Helps Us Care for You: No Feels Safe at Home: Yes Safety Concerns: Feels Safe At This Time Smoking Status: Never smoker Hx Alcohol Use: No Hx Substance Use: No Review of Systems All systems reviewed & are unremarkable except as noted in HPI & below Physical Exam Vital Signs (Past 24 Hours): Last Vital Signs Temp 36.8 C 01/10/19 19:23 Pulse 62 01/11/19 01:19 Resp 18 01/11/19 01:19 BP 195/92 H 01/11/19 01:19 Pulse Ox 98 01/11/19 01:19 Physical Exam: Patient seen and examined at the bedside, at bedside. Vitals noted as above and within normal limits with the exception of hypertension. GENERAL: Awake, somnolent but arousable, alert to person, place, and time, nontoxic-appearing, in no distress HENT: Normocephalic, atraumatic. Nasal cannula in place. Mucus membranes appear dry. EYES: Normal conjunctiva. Sclera non-icteric. EOMI. NECK: Supple. Full range of motion. No JVD RESPIRATORY: Distant breath sounds. Normal work of breathing. CARDIAC: Regular rate, normal rhythm. Extremities warm and well perfused, 2+ radial pulses bilaterally; 2+ posterior tibialis pulses bilaterally. ABDOMEN: Soft, non-distended. Moderate tenderness to palpation in epigastrium. No rebound or guarding. No masses. Bowel sounds are normal. G-tube in place. Spit fistula bag in place upper left chest. LOWER EXTREMITIES: Inspection of calves reveal equal size bilaterally. They are non-tender. 3+ edema. No discoloration. NEURO: No focal gross focal motor deficits noted. Sensation in tact. CN II-XII grossly in tact. SKIN: Rash not present. No jaundice noted. Significant lesions not present. Some erythema noted around G-tube. PSYCH: Appropriate mood and affect. Cooperative. Exam as done by Ingris Wang MD, Chief Payroll Clerk. Code Status & VTE Plan Code Status Full code, temporary intubation if meaningful recovery were apparent. is POA. Supervising Physician Co-Signing Physician Notes Attending addendum: I have physically seen this patient, have supervised the medical residents activities, and agree with the H&P unless as otherwise noted. Assessment and Plan: Acute respiratory failure with hypoxia/aspiration pneumonia/congestive heart failure/sepsis-- Admission to intensive care unit. Bilateral pneumonia/bilateral pleural effusions, right is partially loculated and significantly greater than left-- Placed on Zyvox 600 mg IV every 12 hours and Zosyn 4.5 g IV every 8 hours. Avoiding vancomycin due to concerns regarding worsening chronic kidney disease. Duonebs every 4 hours while awake and every 2 hours when necessary. Sputum Gram stain and culture. Consult cardiac cath lab radiology technologist/thoracic surgery for possible thoracentesis. Congestive heart failure/hypoalbuminemia-- Recent titration of torsemide 20 mg to 60 mg without significant improvement. Placed on albumin 25 g IV with Lasix 40 mg IV follow response and adjust as needed. Remainder of orders and notations as noted. Resident Activity Tracking Resident Involvement: Resident Care Provided Care Provided: Adult Hospital Medicine (1) Respiratory failure with hypoxia Chronicity: acute Qualified Code(s): J96.01 - Acute respiratory failure with hypoxia (2) Anemia Anemia type: other cause (3) Aspiration pneumonia Aspiration pneumonia type: unspecified Laterality: left Lung location: lower lobe of lung Qualified Code(s): J69.0 - Pneumonitis due to inhalation of food and vomit (4) Volume overload Hypervolemia type: unspecified Qualified Code(s): E87.70 - Fluid overload, unspecified
--- NOTE | 2019-01-11 01:55 | Emergency Department Note ---
Entered by Louis Ignacio acting as a scribe for Darian Aldridge MD History of Present Illness General Chief complaint: Abdominal Pain Stated complaint: WEAKNESS, CHILLS, ABDOMINAL PAIN Time Seen by Provider: 01/10/19 20:10 Source: patient History of Present Illness Provider complaint: Abdominal pain Onset (ago): day(s) (Last couple days) Location: abdomen Radiation: non-radiation Pain Consistency: + intermittent Maximum Pain Intensity: 10 Relieved By: + none Associated symptoms: + fever/chills (No fever), + nausea/vomiting (No vomiting) and + other (Leg swelling) The patient is a 68 year old male w/ PMHx anemia, DVT, pancolitis, esophagectomy, CKD stage 5, J tube, G tube, splenectomy, and gastrectomy who presents to the ED w/ CC of intermittent abdominal pain around the area of his G tube beginning this morning. The patient also has some nausea but cannot vomit because his esophagus does not connect to his stomach. His notes he got his J tube changed to a G tube 2 days ago in [place] and the patient believes he might have squeezed too much food into it. He denies any recent trauma. He did take one Tylenol this morning but his symptoms persist. His legs have also been more swollen than usual so his dosage of his water pill was increased. The patient also has a port because he is pre-dialysis and a PICC line for his TPN. Home Medications Home Medications Medication Instructions Recorded Confirmed Type albuterol sulfate [Ventolin HFA] 2 puff INHALATION Q4H PRN 01/10/19 01/10/19 History amlodipine 5 mg PO DAILY 01/10/19 01/10/19 History copper gluconate 2 mg PO DAILY 01/10/19 01/10/19 History cyanocobalamin (vitamin B-12) mcg PO MONTHLY 01/10/19 History [Vitamin B-12] epoetin andi [Procrit] unit SUBCUT DIRECTED 01/10/19 History fluticasone propion-salmeterol 1 puff INHALATION BID 01/10/19 01/10/19 History [Advair Diskus] fluticasone propionate 1 - 2 spray INTRANASAL DAILY 01/10/19 01/10/19 History loperamide [Imodium A-D] 20 ml PO Q6H PRN 01/10/19 01/10/19 History nystatin 1 applic TOPICAL DIRECTED 01/10/19 01/10/19 History ondansetron HCl [Zofran] 4 mg PO TID PRN 01/10/19 01/10/19 History torsemide 20 mg PO TID 01/10/19 01/10/19 History triamcinolone acetonide 1 applic TOPICAL BID PRN 01/10/19 01/10/19 History Allergies Allergy/AdvReac Type Severity Reaction Status Date / Time moxifloxacin AdvReac Unknown Pt said he Verified 01/10/19 22:57 could barely walk oxycodone AdvReac Unknown NAUSEA Verified 01/10/19 22:57 simvastatin AdvReac Unknown " my legs Verified 01/10/19 22:57 cramp up" sulfamethoxazole AdvReac Unknown SEVERE Verified 01/10/19 22:57 DIARRHEA tramadol AdvReac Unknown NAUSEA Verified 01/10/19 22:57 Past Med/Surg History Medical History Normocytic anemia (Chronic) Dehydration (Acute 12/29/13) Jejunostomy tube present (Chronic) Hyponatremia (Resolved) Jejunostomy tube leak (Resolved) Hyponatremia (Acute) Leukocytosis (Resolved) HAYLEY (acute kidney injury) Hypokalemia Jejunostomy tube leak Jejunostomy tube present Kidney stones Low serum copper for age Surgical History S/P gastrectomy S/P splenectomy Family History Other Hypertension Social History Preferred Language: Kinyarwanda Beliefs That Will Affect Care: None Current Living Situation: Spouse Feels Safe at Home: Yes Smoking Status: Never smoker Hx Alcohol Use: No Hx Substance Use: No Review of Systems See HPI for pertinent positives & negatives. and A total of 10 systems reviewed and were otherwise negative Physical Exam Vital Signs Vital Signs - 24 hr 01/10/19 19:23 01/10/19 20:30 01/10/19 20:31 Temperature 36.8 C Temperature Source Oral Sepsis Recent Fever Within 48 Hours No Sepsis New/Unexplained Change in Mental Status No Sepsis Action Taken by Nursing No Action Required Pulse Rate 93 H 83 Pulse Rate [Left Finger] 95 H Pulse Rate from SpO2 Sensor 81 Pulse Rhythm Regular Pulse Rhythm [Left Finger] Regular Pulse Strength Normal Pulse Strength [Left Finger] Normal Respiratory Rate 18 20 15 Respiratory Effort / Characteristics Non-Labored Spontaneous Non-Labored Spontaneous Respiratory Depth Normal Normal Respiratory Pattern Regular Regular Blood Pressure 223/124 H 248/114 H Blood Pressure [Left Arm] 211/86 H Blood Pressure [Right Thigh] Blood Pressure Mean 157 158 Blood Pressure Mean [Left Arm] 127 Blood Pressure Mean [Right Thigh] Blood Pressure Position [Left Arm] Sitting Pulse Oximetry 85 L 98 100 Oxygen Delivery Method Room Air Nasal Cannula Oxygen Flow Rate 2 01/10/19 20:38 01/10/19 20:46 01/10/19 20:50 Temperature Temperature Source Sepsis Recent Fever Within 48 Hours Sepsis New/Unexplained Change in Mental Status Sepsis Action Taken by Nursing Pulse Rate 97 H 83 100 H Pulse Rate [Left Finger] Pulse Rate from SpO2 Sensor 86 98 H Pulse Rhythm Regular Pulse Rhythm [Left Finger] Pulse Strength Pulse Strength [Left Finger] Respiratory Rate 20 21 24 Respiratory Effort / Characteristics Respiratory Depth Respiratory Pattern Blood Pressure Blood Pressure [Left Arm] Blood Pressure [Right Thigh] Blood Pressure Mean Blood Pressure Mean [Left Arm] Blood Pressure Mean [Right Thigh] Blood Pressure Position [Left Arm] Pulse Oximetry 97 98 97 Oxygen Delivery Method Room Air Oxygen Flow Rate 01/10/19 21:00 01/10/19 21:01 01/10/19 21:10 Temperature Temperature Source Sepsis Recent Fever Within 48 Hours Sepsis New/Unexplained Change in Mental Status Sepsis Action Taken by Nursing Pulse Rate 92 H 86 81 Pulse Rate [Left Finger] Pulse Rate from SpO2 Sensor 92 H 88 Pulse Rhythm Pulse Rhythm [Left Finger] Pulse Strength Pulse Strength [Left Finger] Respiratory Rate 22 19 23 Respiratory Effort / Characteristics Respiratory Depth Respiratory Pattern Blood Pressure 183/109 H Blood Pressure [Left Arm] Blood Pressure [Right Thigh] Blood Pressure Mean 133 Blood Pressure Mean [Left Arm] Blood Pressure Mean [Right Thigh] Blood Pressure Position [Left Arm] Pulse Oximetry 98 97 Oxygen Delivery Method Oxygen Flow Rate 01/10/19 21:20 01/10/19 21:31 01/10/19 21:46 Temperature Temperature Source Sepsis Recent Fever Within 48 Hours Sepsis New/Unexplained Change in Mental Status Sepsis Action Taken by Nursing Pulse Rate 71 85 Pulse Rate [Left Finger] Pulse Rate from SpO2 Sensor 74 83 Pulse Rhythm Pulse Rhythm [Left Finger] Pulse Strength Pulse Strength [Left Finger] Respiratory Rate 8 L 21 Respiratory Effort / Characteristics Respiratory Depth Respiratory Pattern Blood Pressure 195/115 H Blood Pressure [Left Arm] Blood Pressure [Right Thigh] Blood Pressure Mean 141 Blood Pressure Mean [Left Arm] Blood Pressure Mean [Right Thigh] Blood Pressure Position [Left Arm] Pulse Oximetry 98 93 Oxygen Delivery Method Oxygen Flow Rate 01/10/19 21:50 01/10/19 22:00 01/10/19 22:01 Temperature Temperature Source Sepsis Recent Fever Within 48 Hours Sepsis New/Unexplained Change in Mental Status Sepsis Action Taken by Nursing Pulse Rate 73 76 70 Pulse Rate [Left Finger] Pulse Rate from SpO2 Sensor 73 79 70 Pulse Rhythm Pulse Rhythm [Left Finger] Pulse Strength Pulse Strength [Left Finger] Respiratory Rate 8 L 11 L 9 L Respiratory Effort / Characteristics Respiratory Depth Respiratory Pattern Blood Pressure 188/93 H Blood Pressure [Left Arm] Blood Pressure [Right Thigh] Blood Pressure Mean 124 Blood Pressure Mean [Left Arm] Blood Pressure Mean [Right Thigh] Blood Pressure Position [Left Arm] Pulse Oximetry 97 98 98 Oxygen Delivery Method Oxygen Flow Rate 01/10/19 22:10 01/10/19 23:01 01/11/19 00:06 Temperature Temperature Source Sepsis Recent Fever Within 48 Hours Sepsis New/Unexplained Change in Mental Status Sepsis Action Taken by Nursing Pulse Rate 83 Pulse Rate [Left Finger] 82 74 Pulse Rate from SpO2 Sensor 83 Pulse Rhythm Pulse Rhythm [Left Finger] Pulse Strength Pulse Strength [Left Finger] Respiratory Rate 7 L 18 14 Respiratory Effort / Characteristics Respiratory Depth Shallow Respiratory Pattern Blood Pressure Blood Pressure [Left Arm] 199/112 H Blood Pressure [Right Thigh] 212/103 H Blood Pressure Mean Blood Pressure Mean [Left Arm] 141 Blood Pressure Mean [Right Thigh] 139 Blood Pressure Position [Left Arm] Pulse Oximetry 97 97 92 Oxygen Delivery Method Nasal Cannula Nasal Cannula Oxygen Flow Rate 01/11/19 01:19 Temperature Temperature Source Sepsis Recent Fever Within 48 Hours Sepsis New/Unexplained Change in Mental Status Sepsis Action Taken by Nursing Pulse Rate Pulse Rate [Left Finger] 62 Pulse Rate from SpO2 Sensor Pulse Rhythm Pulse Rhythm [Left Finger] Pulse Strength Pulse Strength [Left Finger] Respiratory Rate 18 Respiratory Effort / Characteristics Respiratory Depth Respiratory Pattern Blood Pressure Blood Pressure [Left Arm] Blood Pressure [Right Thigh] 195/92 H Blood Pressure Mean Blood Pressure Mean [Left Arm] Blood Pressure Mean [Right Thigh] 126 Blood Pressure Position [Left Arm] Pulse Oximetry 98 Oxygen Delivery Method Room Air Oxygen Flow Rate GENERAL: Well appearing, well nourished, mild distress with NC in place, non- toxic. EYE EXAM: Normal conjunctiva. PERRL, no anisocoria and EOM's grossly intact w/o pain. OROPHARYNX: Moist MM. NECK: Supple, no nuchal rigidity, no adenopathy, non-tender. No signs of m eningismus. LUNGS: Bibasilar crackles. Normal chest wall mechanics. HEART: NSR, no MRG. CHEST: Ostomy over left chest with clear secretions. ABDOMEN: Abdomen soft, upper abdominal pain worse in the epigastrium, normo- active bowel sounds, no masses, no rebound or guarding. G tube in mid abdomen that is clean, dry and intact. BACK: No CVA TTP. SKIN: No rashes and no bruising. UPPER EXTREMITIES: Upper extremities show RUE PICC line in place, LUE w/ palpable thrill consistent w/ AVF. LOWER EXTREMITIES: 2-3+ pitting edema bilaterally. No calf pain. NEURO EXAM: A and O x3. GCS 15. Moves all 4 extremities on command w/o issue. Course 2026: Past medical records reviewed. The patient was evaluated in room C09, and a complete history and physical examination were performed. 2230: I reevaluated the patient and he is feeling much better. 2330: I spoke to Dr. Sonny Vidal [facility] Hospitalist about the patient's case and he is going to accept him for further evaluation. Consultations Consultation #1: I spoke to Dr. Sonny Vidal [facility] Hospitalist about the patient's case and he is going to accept him for further evaluation. Time: 23:30 Administered Medications Discontinued Medications Piperacillin Sod/Tazobactam Sod (Zosyn) 4.5 gm in 120 mls @ 240 mls/hr IV NOW ONE Stop: 01/10/19 21:07 Last Infusion: 01/10/19 21:35 Dose: 0 mls/hr Documented by: [id number] Admin: 01/10/19 21:02 Dose: 240 mls/hr Documented by: [id number] Linezolid (Zyvox) 600 mg in 300 mls @ 200 mls/hr IV NOW STA Stop: 01/11/19 01:23 Last Infusion: 01/11/19 01:48 Dose: 0 mls/hr Documented by: [id number] Admin: 01/11/19 00:17 Dose: 200 mls/hr Documented by: [id number] Morphine Sulfate (Morphine Sulfate) 4 mg IV NOW STA Stop: 01/10/19 20:39 Last Admin: 01/10/19 21:02 Dose: 4 mg Documented by: [id number] Medical Decision Making Medical Records Attestation: I reviewed the patient's medical records. Home Medications Current Medication List: was personally reviewed by me Laboratory Data Attestation: I reviewed the patient's lab results. Result diagrams: 01/10/19 20:15 01/10/19 20:15 Lab Results 01/10/19 01/10/19 01/10/19 Range/Units 20:15 20:15 21:00 WBC 14.55 H (4.8-10.8) K/uL RBC 2.98 L (4.7-6.1) M/uL Hgb 9.5 L (14.0-18.0) g/dL Hct 28.5 L (42-52) % MCV 95.6 (80-100) fL MCH 31.9 (25-34) pg MCHC 33.3 (32-36) g/dL RDW Std Deviation 67.0 H (36.4-46.3) fL RDW Coeff of [place] 19.3 H (11.5-14.5) % Plt Count 194 (130-400) K/uL MPV 13.6 H (7.4-10.4) fL Immature Gran % (Auto) 0.4 % Neut % (Auto) 85.7 % Lymph % (Auto) 7.5 % [place] % (Auto) 6.2 % Eos % (Auto) 0.1 % Baso % (Auto) 0.1 % Immature Gran # (Auto) 0.06 H (0.00-0.02) K/uL Neut # (Auto) 12.48 H (1.4-6.5) K/uL Lymph # (Auto) 1.09 L (1.2-3.4) K/uL [place] # (Auto) 0.90 H (0.11-0.59) K/uL Eos # (Auto) 0.01 (0-0.5) K/uL Baso # (Auto) 0.01 (0-0.2) K/uL ABG pH 7.48 H (7.35-7.45) ABG pCO2 40 (35-46) mmHg ABG pO2 95 (80-95) mm/Hg ABG HCO3 29 H (19-24) mmol/L ABG O2 Saturation 97.1 H (90-95) % ABG Base Excess 5.3 H (-9-1.8) mEq/L Xander Test POS (Pos) Barometric Pressure 725.0 mm/Hg Oxygen Given 4L O2 Sodium 136 (136-145) mmol/L Potassium 4.3 (3.5-5.1) mmol/L Chloride 97 L (98-107) mmol/L Carbon Dioxide 30 (21-32) mmol/L Anion Gap 9.0 (3-11) BUN 125 H (7-18) mg/dl Creatinine 3.68 H (0.6-1.4) mg/dl Est Cr Clr Drug Dosing 19.8 ml/min Est GFR ( Amer) 18.7 Est GFR (Non-Af Amer) 16.2 BUN/Creatinine Ratio 34.0 H (10-20) Glucose 86 (70-99) mg/dl Calcium 8.8 (8.5-10.1) mg/dl Total Bilirubin 0.7 (0.2-1) mg/dl AST 31 (15-37) U/L ALT 26 (12-78) U/L Alkaline Phosphatase 291 H (45-117) U/L Troponin I 0.024 (0-0.045) ng/ml NT-Pro-B Natriuret Pep 2621 H (0-900) pg/ml Total Protein 6.9 (6.4-8.2) gm/dl Albumin 2.6 L (3.4-5.0) gm/dl Globulin 4.3 H (2.5-4.0) gm/dl Albumin/Globulin Ratio 0.6 L (0.9-2) Lipase 1973 H (73-393) U/L Urine Color Urine Appearance (Clear) Urine pH (4.5-7.5) Ur Specific [place] (1.000-1.030) Urine Protein (Negative) Urine Glucose (UA) (Negative) Urine Ketones (Negative) Urine Blood (Negative) Urine Nitrite (Negative) Urine Bilirubin (Negative) Urine Urobilinogen (Negative) Ur Leukocyte Esterase (Negative) Urine WBC (Auto) (0-5) /hpf Urine RBC (Auto) (0-4) /hpf U Hyaline Cast (Auto) (0-5) /lpf U Epithel Cells (Auto) (0-5) /lpf Urine Bacteria (Auto) (Negative) 01/10/19 Range/Units Unknown WBC (4.8-10.8) K/uL RBC (4.7-6.1) M/uL Hgb (14.0-18.0) g/dL Hct (42-52) % MCV (80-100) fL MCH (25-34) pg MCHC (32-36) g/dL RDW Std Deviation (36.4-46.3) fL RDW Coeff of [place] (11.5-14.5) % Plt Count (130-400) K/uL MPV (7.4-10.4) fL Immature Gran % (Auto) % Neut % (Auto) % Lymph % (Auto) % [place] % (Auto) % Eos % (Auto) % Baso % (Auto) % Immature Gran # (Auto) (0.00-0.02) K/uL Neut # (Auto) (1.4-6.5) K/uL Lymph # (Auto) (1.2-3.4) K/uL [place] # (Auto) (0.11-0.59) K/uL Eos # (Auto) (0-0.5) K/uL Baso # (Auto) (0-0.2) K/uL ABG pH (7.35-7.45) ABG pCO2 (35-46) mmHg ABG pO2 (80-95) mm/Hg ABG HCO3 (19-24) mmol/L ABG O2 Saturation (90-95) % ABG Base Excess (-9-1.8) mEq/L Xander Test (Pos) Barometric Pressure mm/Hg Oxygen Given Sodium (136-145) mmol/L Potassium (3.5-5.1) mmol/L Chloride (98-107) mmol/L Carbon Dioxide (21-32) mmol/L Anion Gap (3-11) BUN (7-18) mg/dl Creatinine (0.6-1.4) mg/dl Est Cr Clr Drug Dosing ml/min Est GFR ( Amer) Est GFR (Non-Af Amer) BUN/Creatinine Ratio (10-20) Glucose (70-99) mg/dl Calcium (8.5-10.1) mg/dl Total Bilirubin (0.2-1) mg/dl AST (15-37) U/L ALT (12-78) U/L Alkaline Phosphatase (45-117) U/L Troponin I (0-0.045) ng/ml NT-Pro-B Natriuret Pep (0-900) pg/ml Total Protein (6.4-8.2) gm/dl Albumin (3.4-5.0) gm/dl Globulin (2.5-4.0) gm/dl Albumin/Globulin Ratio (0.9-2) Lipase (73-393) U/L Urine Color Yellow Urine Appearance Clear (Clear) Urine pH 7.5 (4.5-7.5) Ur Specific [place] 1.011 (1.000-1.030) Urine Protein 2+ H (Negative) Urine Glucose (UA) Negative (Negative) Urine Ketones Negative (Negative) Urine Blood Trace H (Negative) Urine Nitrite Negative (Negative) Urine Bilirubin Negative (Negative) Urine Urobilinogen Negative (Negative) Ur Leukocyte Esterase Negative (Negative) Urine WBC (Auto) 1-5 (0-5) /hpf Urine RBC (Auto) 0-4 (0-4) /hpf U Hyaline Cast (Auto) 1-5 (0-5) /lpf U Epithel Cells (Auto) 0-5 (0-5) /lpf Urine Bacteria (Auto) Negative (Negative) Imaging Data Radiologist's Impression: Radiology results as stated below per my review and th e radiologist's interpretation: XR chest 1V portable CLINICAL HISTORY: sob, hypoxia COMPARISON STUDY: Chest radiograph July 10, 2018. FINDINGS: A metallic density projects over the right hilum. This is unchanged. A right PICC is in place. Small left and [id number] right pleural effusions are noted. Right pleural effusion may be loculated. There is been interval development of interstitial thickening and left perihilar opacity. There is no pneumothorax. Median sternotomy wires are noted. IMPRESSION: 1. Interval development of small to moderate right and small left pleural fusions. The right pleural effusion may be partially loculated. 2. Interstitial thickening suggestive of pulmonary edema. 2. Interval development of left perihilar opacity which may reflect asymmetric alveolar edema or pneumonia. Electronically signed by: Cheng Sykes M.D. 01/10/2019 11:[address] OF THE ABDOMEN AND PELVIS WITHOUT CONTRAST CLINICAL HISTORY: CKD, G tube, upper ab pain COMPARISON STUDY: CT of the abdomen and pelvis July 17, 2018. TECHNIQUE: Axial images of the abdomen and pelvis were obtained without IV contrast. Images were reviewed in the axial, sagittal, and coronal planes. Automated exposure control was utilized for the study. A dose lowering technique was utilized adhering to the principles of ALARA. FINDINGS: Small bilateral pleural effusions are partially imaged on this exam. The right pleural effusion may be partially loculated. Associated airspace opacities favor atelectasis. Hyperdensities within the lung parenchyma are shown on prior exam. The heart is mildly enlarged. Evaluation of the abdomen and pelvis is suboptimal on this unenhanced examination. A metallic density within the inferior right hepatic lobe is unchanged. No pneumatosis, free air or portal venous gas is present. Abnormal liver morphology is unchanged. Moderate gallbladder distention is similar to prior exam. There is a gallstone within the gallbladder. The spleen is not visualized. The adrenal glands are unremarkable. There is mild/moderate to marked bilateral renal atrophy. A probable cyst within the midpole of the right kidney is suboptimally assessed on this unenhanced exam. A left-sided jejunostomy tube is noted. There is extensive mesenteric infiltration, a nonspecific finding. Pancreatic glandular atrophy appears increased since CT of July 17, 2018. There is peripancreatic infiltration. There is diffuse infiltration of the soft tissues. There is no evidence for a bowel obstruction. A bowel anastomosis is noted. Right colon wall thickening is noted. This is probably due to underdistention. There is colonic diverticulosis without evidence for acute diverticulitis. The stomach is not visualized. Distal esophagus is not visualized. Mild T11 compression deformity is unchanged. There is a possible sacral decubitus ulcer. IMPRESSION: 1. Exam compromised given the lack of IV contrast. Extensive mesenteric infiltration. This is nonspecific although may be related to volume overload. However, infectious and inflammatory etiologies are within the differential. Acute pancreatitis is considered unlikely however could be correlated with lipase levels. 2. No bowel obstruction. Right colon wall thickening which is likely due to underdistention although a nonspecific colitis could appear similar. 3. Cholelithiasis with moderate gallbladder distention. Moderate gallbladder dis tention. Acute cholecystitis cannot be excluded but this finding has been shown on several previous exams. 4. Small bilateral pleural effusions. Right pleural effusion may be partially loculated. Evidence for mild pulmonary edema. Electronically signed by: Cheng Sykes M.D. 01/10/2019 10:13 PM Blood Pressure Blood Pressure Findings: Elevated blood pressure Blood Pressure Disposition: further management by hospitalist ZACK Bacon The patient is a 68 year old male w/ PMHx anemia, DVT, pancolitis, esophagectomy, CKD stage 5, J tube, G tube, splenectomy, and gastrectomy who presents to the ED w/ CC of intermittent abdominal pain around the area of his G tube beginning this morning. Differential diagnoses includes but is not limited to gastritis, peptic ulcer disease, GERD, gallbladder disease, pancreatitis, small bowel obstruction, acute coronary syndrome, pericarditis, ischemic bowel, irritable bowel disease, irritable bowel syndrome, appendicitis, diverticulitis, malignancy, hernia, urinary tract infection, torsion, perforation, trauma, infectious, pneumonia, bronchitis, COPD/Asthma exacerbation, pneumothorax, pulmonary embolism, congest reina heart failure, acute coronary syndrome. Patient was seen and evaluated the bedside. The patient was presenting as he was having some associated abdominal pain. The patient had been hypoxic on p resentation was placed on nasal cannula. Patient does have some coarse breath sounds. The patient does have some lower extremity edema. The patient did have a recent AV fistula placed in the left upper extremity. There is a good palpable thrill. The patient does receive TPN through PICC line in the right upper extremity. The patient does have some lower extremity edema. The patient from his own history states that he had a recent echocardiogram that he states was fairly normal. The patient states that he was recently obturate titrated on a diuretic. Patient did a blood work completed along with a Noncon CT of the abdomen pelvis. The patient does have a white count of 14. The patient's chest x-ray is concerning for a left-sided pneumonia potentially. There is a concern for aspir ation risk given the prior history of some sort of esophageal diversion as the patient does have an ostomy over the left chest. The patient was started on antibiotics and did have blood cultures obtained. The patient had an ABG which shows no CO2 retention and a fairly normal pH. The patient's kidney function shows an elevated BUN to creatinine ratio. The patient does have a known history of CKD and is potentially pending dialysis in the future. Patient does have an elevated alk phos but this appears elevated from past. The patient's bilirubin and AST elevated ALT are within normal limits. Patient CT of the abdomen pelvis does show increased mesenteric infiltration which is likely rel ated to the patient's volume overload. The patient does have an elevated lipase which may be consistent with pancreatitis. Was shown that the patient does have some gallbladder distention but this has been chronic in the past. The patient's pain on exam is more consistent with epigastric discomfort likely related to pancreatitis. Given the patient's associated increased O2 requirement and likely pneumonia believe the patient would benefit from inpatient treatment. I did speak with the on-call hospitalist who agreed to further evaluate treat the patient. Patient was admitted to the medicine service. Impression & Plan Aspiration pneumonia, CKD (chronic kidney disease) stage 5, GFR less than 15 ml/min, Respiratory failure with hypoxia, Volume overload, Acute pancreatitis Critical Care Time I have personally spent greater than 75 minutes of critical care time in direct management of this patient. This includes bedside care, interpretation of diagnostic studies, and testing, discussion with consultants, patient, and family members, and other require inpatient management activities. This 75 minutes is in excess of all separately billable procedures. Critical Care Time: Yes Total Critical Care Time: 75 Discharge Plan Visit Data Chief Complaint: Abdominal Pain Stated Complaint: WEAKNESS, CHILLS, ABDOMINAL PAIN ED Provider: Darian Aldridge Discharge Problem: Aspiration pneumonia, CKD (chronic kidney disease) stage 5, GFR less than 15 ml/min, Respiratory failure with hypoxia, Volume overload, Acute pancreatitis Patient Disposition: Being Evaluated by Hospitalist Forms Stand Alone Forms: Call Back Authorization, [facility] Prescriptions Prescriptions: No Action fluticasone propion-salmeterol [Advair Diskus] 100-50 mcg/dose Blister With Device 1 puff INHALATION BID RF: 0 amlodipine 5 mg Tablet 5 mg PO DAILY RF: 0 copper gluconate 2 mg Capsule 2 mg PO DAILY RF: 0 fluticasone propionate 50 mcg/actuation [place],Suspension 1 - 2 spray INTRANASAL DAILY RF: 0 loperamide [Imodium A-D] 1 mg/7.5 mL Liquid 20 ml PO Q6H PRN (Reason: Diarrhea) RF: 0 nystatin 100,000 unit/gram Powder 1 applic TOPICAL DIRECTED RF: 0 ondansetron HCl [Zofran] 4 mg Tablet 4 mg PO TID PRN (Reason: nausea/vomiting) RF: 0 Procrit 2,000 unit/mL Solution subcut DIRECTED RF: 0 torsemide 20 mg Tablet 20 mg PO TID RF: 0 triamcinolone acetonide 0.1 % Cream 1 applic TOPICAL BID PRN (Reason: itchy) RF: 0 albuterol sulfate [Ventolin HFA] 90 mcg/actuation Hfa Aerosol Inhaler 2 puff INHALATION Q4H PRN (Reason: sob) RF: 0 cyanocobalamin (vitamin B-12) [Vitamin B-12] 1,000 mcg Tablet PO MONTHLY RF: 0 Referrals Referrals: Freddie Zuleta MD [Primary Care Provider] - Discharge Problem: Aspiration pneumonia Qualifiers: Aspiration pneumonia type: unspecified Laterality: left Lung location: lower lobe of lung Qualified Code(s): J69.0 - Pneumonitis due to inhalation of food and vomit Respiratory failure with hypoxia Qualifiers: Chronicity: acute Qualified Code(s): J96.01 - Acute respiratory failure with hypoxia Volume overload Qualifiers: Hypervolemia type: unspecified Qualified Code(s): E87.70 - Fluid overload, unspecified The scribe's documentation has been prepared under my direction and personally reviewed by me in its entirety. I confirm that the note above accurately reflects all work, treatment, procedures, and medical decision making performed by me.
[2019-01-11] MEDS ORDERED: ALBUMIN 25% 50 ML with FUROSEMIDE 40 MG IV ONE (02:23)
[2019-01-11] MEDS ORDERED: TRIAMCINOLONE ACET 0.1% CR 15 GM TUBE TOP PRN (02:23)
[2019-01-11] MEDS ORDERED: ONDANSETRON INJ 2 MG/ML 2 ML VIAL IV PRN (02:23)
[2019-01-11] MEDS ORDERED: ICU PROTOCOL FOR HYPERGLYCEMIA PRN (02:23)
[2019-01-11] MEDS ORDERED: HydrALAZINE HCL 20 MG/ML VIAL IV PRN (02:23)
[2019-01-11] MEDS ORDERED: HYDROmorphone INJ 0.5 MG/0.5 ML SYR IV PRN (02:23)
[2019-01-11] MEDS ORDERED: NYSTATIN POWDER 15GM BTL EXT PRN (02:23)
[2019-01-11] MEDS ORDERED: TPN/PPN CONSULT PHARMACY STA (02:23)
[2019-01-11] MEDS ORDERED: LOPERAMIDE LIQUID 120 ML BOTTLE PO PRN (02:47)
[2019-01-11 03:55] LABS: INR 1.3 (0.9-1.1); Partial Thromboplastin Ratio 1.2; Partial Thromboplastin Time 31.4 Seconds (21.0-31.0); Prothrombin Time 13.3 Seconds (9.0-12.0)
[2019-01-11 03:56] LABS: Hematocrit (blood only) 23.9 % (42-52); Immature Granulocytes # (auto) 0.03 K/uL (0.00-0.02); Immature Granulocytes % (auto) 0.2 %; Lymphocytes # (auto) 0.35 K/uL (1.2-3.4); Lymphocytes % (auto) 2.5 %; Mean Corpuscular Hgb Conc 33.5 g/dL (32-36); Mean Corpuscular Volume 94.8 fL (80-100); Mean Platelet Volume 12.7 fL (7.4-10.4); Monocytes # (auto) 0.77 K/uL (0.11-0.59); Monocytes % (auto) 5.6 %; Neutrophils # (auto) 12.69 K/uL (1.4-6.5); Neutrophils % (auto) 91.7 %; Platelet Count 167 K/uL (130-400); RDW Coefficient of Variation 19.4 % (11.5-14.5); Red Blood Count 2.52 M/uL (4.7-6.1); White Blood Count 13.84 K/uL (4.8-10.8)
[2019-01-11 04:12] LABS: Albumin Level 2.4 gm/dl (3.4-5.0); BUN Creatinine Ratio 32.5 (10-20); Calcium 8.1 mg/dl (8.5-10.1); Creatinine Clr Calc Pharmacy 17.7 ml/min; Est GFR (African American) 18.2; Est GFR (Non-African American) 15.7; Magnesium 2.1 mg/dl (1.8-2.4); Potassium 4.2 mmol/L (3.5-5.1)
--- NOTE | 2019-01-11 04:13 | Critical Care Consultation ---
Date of Consultation January 11, 2019 Assessment & Plan (1) Admitted to intensive care unit: Reason Critically Ill: 68-year-old male with multifocal pneumonia versus CHF with possible component of loculated parapneumonic effusion presenting with hypoxic respiratory failure. NEURO - * CAM ICU: NEGATIVE * Pain: Dilaudid as needed CARDIAC/VASCULAR - * Concerns for volume overload: * Lasix as needed * A.m. echo. * Monitor on telemetry. RESPIRATORY - * Multifocal pneumonia with new parapneumonic effusions with concern of a loculated component in the RIGHT sided pleural space: * Agree with need for evaluation from a pulmonary standpoint. Possible need for thoracentesis for evaluation of empyema. Will defer to pulm. * Currently covered with Zyvox and Zosyn. * Supplemental O2 as needed. GI/NUTRITION - * History of gastrectomy and partial esophagectomy: * Ostomy in place for esophageal secretions. * J-tube in place for eventual feedings. * Prophylaxis: Protonix RENAL/LYTES - * CKD 5: * Immature fistula recently placed in early December to the LEFT upper extremity. * Agree with nephro evaluation. - * Voiding without issue. ENDO - * No history of diabetes or thyroid disease. * BSGs per unit protocol. ISS --> gtt per unit policy. HEME - * Chronic anemia. ID - * Multifocal pneumonia: * Placed on Zyvox and Zosyn. * Agree with need for MRSA coverage as well as aspiration coverage. * Consider need for atypical coverage with presenting x-ray/CT findings. LINES/IV ACCESS - * PIVs x1 * PICC to the RUE. * Immature Fistula to the LUE * J-Tube * Ostomy - esophageal. DVT PROPHYLAXIS - * SCDs Thank you for allowing us to participate in the care of this patient. Please refer to my attending physician's documentation for any further recommendations. (2) Multifocal pneumonia: (3) Respiratory failure with hypoxia: (4) CKD (chronic kidney disease) stage 5, GFR less than 15 ml/min: (5) Aspiration pneumonia: (6) Anemia: (7) Abdominal pain: History of Present Illness Attending Physician: Yobani Dennis MD 68-year-old male with a significant past medical history of gastrectomy and partial esophagectomy status post hiatal hernia repair with complications. Splenectomy as well. Presents with complaints of RIGHT lower quadrant abdominal pain. Patient with RIGHT upper extremity PICC line in place for TPN. Ostomy bag for esophageal secretions. Recent placement of J-tube this week at [facility] for eventual nutritional supplementation. Hypoxic in the emergency department. CT of the chest concerning for parapneumonic effusions with loculated component. Treated with Zyvox and Zosyn in the emergency department. On evaluation in the ICU, the patient is awake, alert, and oriented. He reports that his abdominal pain feels much better. He denies any shortness of breath. Patient denies any headaches, dizziness, lightheadedness, chest pain, palpitations, pleuritic pain, or change in bowel habits. He does admit to recent admission at [facility] for dark stools. He underwent colonoscopy without diagnostic findings. Reports a bowel movement last evening which he describes as "normal". Allergies Allergy/AdvReac Type Severity Reaction Status Date / Time moxifloxacin AdvReac Unknown Pt said he Verified 01/10/19 22:57 could barely walk oxycodone AdvReac Unknown NAUSEA Verified 01/10/19 22:57 simvastatin AdvReac Unknown " my legs Verified 01/10/19 22:57 cramp up" sulfamethoxazole AdvReac Unknown SEVERE Verified 01/10/19 22:57 DIARRHEA tramadol AdvReac Unknown NAUSEA Verified 01/10/19 22:57 Home Medications Home Medications Medication Instructions Recorded Confirmed Type albuterol sulfate [Ventolin HFA] 2 puff INHALATION Q4H PRN 01/10/19 01/10/19 History amlodipine 5 mg PO DAILY 01/10/19 01/10/19 History copper gluconate 2 mg PO DAILY 01/10/19 01/10/19 History cyanocobalamin (vitamin B-12) mcg PO MONTHLY 01/10/19 History [Vitamin B-12] epoetin andi [Procrit] unit SUBCUT DIRECTED 01/10/19 History fluticasone propion-salmeterol 1 puff INHALATION BID 01/10/19 01/10/19 History [Advair Diskus] fluticasone propionate 1 - 2 spray INTRANASAL DAILY 01/10/19 01/10/19 History loperamide [Imodium A-D] 20 ml PO Q6H PRN 01/10/19 01/10/19 History nystatin 1 applic TOPICAL DIRECTED 01/10/19 01/10/19 History ondansetron HCl [Zofran] 4 mg PO TID PRN 01/10/19 01/10/19 History torsemide 20 mg PO TID 01/10/19 01/10/19 History triamcinolone acetonide 1 applic TOPICAL BID PRN 01/10/19 01/10/19 History Patient History Medical History Normocytic anemia (Chronic) Dehydration (Acute 12/29/13) Jejunostomy tube present (Chronic) Hyponatremia (Resolved) Jejunostomy tube leak (Resolved) Hyponatremia (Acute) Leukocytosis (Resolved) HAYLEY (acute kidney injury) Hypokalemia Jejunostomy tube leak Jejunostomy tube present Kidney stones Low serum copper for age Surgical History S/P gastrectomy S/P splenectomy Family History Other Hypertension Social History Preferred Language: Spanish Communication Ability: Effective Template Worker Required: Yes Beliefs That Will Affect Care: None Current Living Situation: Spouse Other Information That Helps Us Care for You: No Feels Safe at Home: Yes Safety Concerns: Feels Safe At This Time Smoking Status: Never smoker Hx Alcohol Use: No Hx Substance Use: No Review of Systems A complete 10 point review of systems was reviewed with the patient with pertinent positives and negatives as per history of present illness. All else were negative. Physical Exam Vital Signs (Past 24 Hours): Last Vital Signs Temp 36.6 C 01/11/19 02:23 Pulse 92 H 01/11/19 03:01 Resp 16 01/11/19 03:01 BP 152/101 H 01/11/19 03:01 Pulse Ox 95 01/11/19 03:01 Physical Exam: VITAL SIGNS - Vital signs and nursing notes were reviewed. GENERAL - 68-year-old male appearing his stated age who is in no acute distress. Communicates well with provider and answers questions appropriately. SKIN - Without rashes. HEAD - NC/AT. EYES - PERRL with EOMI bilaterally. Sclera anicteric. EARS - No deformities of external structures noted on gross examination bilaterally. NOSE - Midline and without cyanosis. MOUTH/OROPHARYNX - Without perioral cyanosis. Buccal mucosa pink and moist. NECK - Neck with FROM. LUNGS - Chest wall symmetric without accessory muscle use, intercostals retractions, or central cyanosis. Normal vesicular breath sounds CTA B/L. No wheezes, rales, or rhonchi appreciated. CARDIAC - RRR with S1/S2. No murmur, rubs, or gallops appreciated. ABDOMEN - Abdominal contour flat without pulsations or visible masses. J-tube in place midline. BS normoactive all four quadrants. No tenderness, palpable masses, hepatosplenomegaly, or ascites noted. EXTREMITIES - No clubbing or peripheral cyanosis. No pretibial edema present. +3/5 radial, posterior tibial, and dorsalis pedis pulses palpated throughout. +5/5 strength noted in UE/LE bilaterally. NEUROLOGIC - Cranial nerves II through XII grossly intact. Sensory intact to light touch throughout. PSYCH - A&Ox3 and cooperates fully with examiner. Pt is very pleasant and interacts well with examiner. (1) Respiratory failure with hypoxia Chronicity: acute Qualified Code(s): J96.01 - Acute respiratory failure with hypoxia (2) Aspiration pneumonia Aspiration pneumonia type: unspecified Laterality: left Lung location: lower lobe of lung Qualified Code(s): J69.0 - Pneumonitis due to inhalation of food and vomit (3) Anemia Anemia type: other cause
[2019-01-11 04:16] LABS: Bilirubin Direct 0.3 mg/dl (0-0.2); Bilirubin,Total 0.6 mg/dl (0.2-1); Phosphorus 3.8 mg/dl (2.5-4.9); Total Protein 5.9 gm/dl (6.4-8.2)
[2019-01-11 04:26] LABS: Echinocytes 1+; Giant Platelets 1+; Howell-Jolly Bodies 1+; Target Cells 1+
--- NOTE | 2019-01-11 07:17 | XRay Report ---
XR chest 1V portable CLINICAL HISTORY: hypoxia dyspnea COMPARISON STUDY: 01/10/2019 FINDINGS: Unchanged exam. The findings of pulmonary edema as well as pleural effusions are unchanged. Central catheter remains in superior vena cava. IMPRESSION: Unchanged exam compared to the prior study. The above report was generated using voice recognition software. It may contain grammatical, syntax or spelling errors. Electronically signed by: Davonte Mendoza M.D. 01/11/2019 7:15 AM
--- NOTE | 2019-01-11 07:19 | Nephrology Consultation ---
Date of Consultation January 11, 2019 Assessment & Plan (1) CKD (chronic kidney disease) stage 5, GFR less than 15 ml/min: Baseline creatinine low-mid 3's; has maturing avf. his creatinine here is a bit owrse than baseline and could be HAYLEY versus further progression into esrd. urine sediment w/ 2+ protein, trace blood, else bland. Chemistries, acid-base status for now acceptable. Volume overloaded -no indication for emergent dialysis; cannot rule out need this admission however -daily bmp -diurese as below Present on Admission?: Yes (2) Volume overload: team already working at minimizing iv meds; he is tpn dependent though -needs further diuresis > will start lasix 40 IV q6h (but hold midnight doses starting Monday evening) -daily bmp -HTN noted > started lasix ; cont amlodipine; will also start standing hydralazine in addition to already ordered prn Present on Admission?: Yes (3) Anemia: on epo as outpt multifactorial in pt w/ esrd, abnormal GI tract/ tpn dependence >ordered iron studies for am -will dose epo today [id number] subQ Present on Admission?: Yes History of Present Illness Attending Physician: Yobani Dennis MD History of Present Illness Medically complex 68 y/o M whom I'm asked to see for renal failure after he was admitted last night to ICU for acute hypoxic respiratory failure driven by multifocal PNA, loculated parapneumonic effusion, possible HF. PMH includes CKD5, recent [facility] admission (12/31-01/03) for GI bleed, remote gastrectomy/partial esophagectomy/splenectomy from complications of hiatal hernia repair, TPN dependent and w/ thoracic ostomy bag for esophageal secretions. At the time of the hiatal hernia repair he had ATN w/ several mos of dialysis dependence. He has CKD since then which has slowly progressed now to stage 5, preparing for HD w/ maturing avf; baseline weight about 125 lb, though at recent hospital stay he did have 30 lb wt gain, volume overload and more issues w/ HTN. His baseline creatinine most recently is low-mid 3's; his bun runs chronically low 100s. He has chronic electrolyte issues related to GI/renal dxs; he has a maturing AVF placed at [facility]. His creatinine since admission has run 3.7-3.8. His chemistries/acid base status have been stabilized overnight. He is receiving lasix 40 mg IV daily, amlodipine, zyvox, protonix gtt. Allergies Allergy/AdvReac Type Severity Reaction Status Date / Time sulfamethoxazole AdvReac Intermediate SEVERE Verified 01/11/19 06:42 DIARRHEA oxycodone AdvReac Mild NAUSEA Verified 01/11/19 06:42 simvastatin AdvReac Mild " my legs Verified 01/11/19 06:42 cramp up" tramadol AdvReac Mild NAUSEA Verified 01/11/19 06:42 moxifloxacin AdvReac Unknown Pt said he Verified 01/10/19 22:57 could barely walk Home Medications Home Medications Medication Instructions Recorded Confirmed Type albuterol sulfate [Ventolin HFA] 2 puff INHALATION Q4H PRN 01/10/19 01/10/19 History amlodipine 5 mg PO DAILY 01/10/19 01/10/19 History copper gluconate 2 mg PO DAILY 01/10/19 01/10/19 History cyanocobalamin (vitamin B-12) mcg PO MONTHLY 01/10/19 History [Vitamin B-12] epoetin andi [Procrit] unit SUBCUT DIRECTED 01/10/19 History fluticasone propion-salmeterol 1 puff INHALATION BID 01/10/19 01/10/19 History [Advair Diskus] fluticasone propionate 1 - 2 spray INTRANASAL DAILY 01/10/19 01/10/19 History loperamide [Imodium A-D] 20 ml PO Q6H PRN 01/10/19 01/10/19 History nystatin 1 applic TOPICAL DIRECTED 01/10/19 01/10/19 History ondansetron HCl [Zofran] 4 mg PO TID PRN 01/10/19 01/10/19 History torsemide 20 mg PO TID 01/10/19 01/10/19 History triamcinolone acetonide 1 applic TOPICAL BID PRN 01/10/19 01/10/19 History Patient History Medical History Normocytic anemia (Chronic) Dehydration (Acute 12/29/13) Jejunostomy tube present (Chronic) Hyponatremia (Resolved) Jejunostomy tube leak (Resolved) Hyponatremia (Acute) Leukocytosis (Resolved) HAYLEY (acute kidney injury) Hypokalemia Jejunostomy tube leak Jejunostomy tube present Kidney stones Low serum copper for age Surgical History S/P gastrectomy S/P splenectomy Family History Other Hypertension Social History Communication Ability: Effective Beliefs That Will Affect Care: None Current Living Situation: Spouse Other Information That Helps Us Care for You: No Feels Safe at Home: Yes Safety Concerns: Feels Safe At This Time Smoking Status: Never smoker Hx Alcohol Use: No Hx Substance Use: No Review of Systems Constitutional: + fatigue and + weakness Eyes: no worsening vision Ear, Nose, Mouth, Throat: no dry mouth Respiratory: as per Subjective / HPI and + hemoptysis (intermittent x 1 wk before presentation) Cardiovascular: + edema; no chest pain and no palpitations Gastrointestinal: + abdominal pain (around FT exit site) Genitourinary (Male): no dysuria, no difficulty urinating, no urinary hesitancy and no hematuria Musculoskeletal: + swelling and + muscle weakness Integumentary: no rash and no non-healing lesions Neurologic: + generalized weakness; no confusion Psychiatric: no behavioral changes Endocrine: + fatigue Hematologic / Lymphatic: + easy bleeding Physical Exam Vital Signs (Past 24 Hours): Last Vital Signs Temp 36.6 C 01/11/19 02:23 Pulse 76 01/11/19 06:01 Resp 16 01/11/19 06:01 BP 166/77 H 01/11/19 06:01 Pulse Ox 93 01/11/19 06:01 Constitutional: well developed appears chronically ill, tired on 02 nc Eyes: EOM intact bilaterally mild facial edema ENMT: Ears: no external ear abnormality Nose: no external nose abnormality Mouth: + dry oral mucous membranes Neck: no nuchal rigidity Respiratory: normal respiratory effort Auscultation: + diminished lung sounds Cardiovascular: Rate/Rhythm: regular rate and regular rhythm Extremities: + edema (3+ pedal and 2+ ankle /distal LE) and + AV fistula (LUE + t/b) Gastrointestinal (Abdomen): Inspection/Auscultation: normal bowel sounds Percussion/Palpation: abdomen soft; abdomen nontender Musculoskeletal: Extremities: strength 5/5 throughout Skin: no rashes, warm and dry Neurologic: kramer, fluent speech, no tremor Psychiatric: Orientation: alert and oriented x 3 Eye Contact: good eye contact Speech: normal rate/rhythm/volume of speech Genitourinary: no walters Results & Data Laboratory Results Abnormal lab results 01/10/19 01/10/19 01/10/19 Range/Units 20:15 20:15 21:00 WBC 14.55 H (4.8-10.8) K/uL RBC 2.98 L (4.7-6.1) M/uL Hgb 9.5 L (14.0-18.0) g/dL Hct 28.5 L (42-52) % RDW Std Deviation 67.0 H (36.4-46.3) fL RDW Coeff of [place] 19.3 H (11.5-14.5) % MPV 13.6 H (7.4-10.4) fL Immature Gran # (Auto) 0.06 H (0.00-0.02) K/uL Neut # (Auto) 12.48 H (1.4-6.5) K/uL Lymph # (Auto) 1.09 L (1.2-3.4) K/uL [place] # (Auto) 0.90 H (0.11-0.59) K/uL PT (9.0-12.0) Seconds INR (0.9-1.1) APTT (21.0-31.0) Seconds ABG pH 7.48 H (7.35-7.45) ABG HCO3 29 H (19-24) mmol/L ABG O2 Saturation 97.1 H (90-95) % ABG Base Excess 5.3 H (-9-1.8) mEq/L Sodium (136-145) mmol/L Chloride 97 L (98-107) mmol/L BUN 125 H (7-18) mg/dl Creatinine 3.68 H (0.6-1.4) mg/dl BUN/Creatinine Ratio 34.0 H (10-20) Glucose (70-99) mg/dl POC Glucose (70-99) Calcium (8.5-10.1) mg/dl Direct Bilirubin (0-0.2) mg/dl Alkaline Phosphatase 291 H (45-117) U/L NT-Pro-B Natriuret Pep 2621 H (0-900) pg/ml Total Protein (6.4-8.2) gm/dl Albumin 2.6 L (3.4-5.0) gm/dl Globulin 4.3 H (2.5-4.0) gm/dl Albumin/Globulin Ratio 0.6 L (0.9-2) Lipase 1973 H (73-393) U/L Urine Protein (Negative) Urine Blood (Negative) 01/10/19 01/11/19 01/11/19 Range/Units Unknown 03:35 03:35 WBC 13.84 H (4.8-10.8) K/uL RBC 2.52 L (4.7-6.1) M/uL Hgb 8.0 L (14.0-18.0) g/dL Hct 23.9 L (42-52) % RDW Std Deviation 67.0 H (36.4-46.3) fL RDW Coeff of [place] 19.4 H (11.5-14.5) % MPV 12.7 H (7.4-10.4) fL Immature Gran # (Auto) 0.03 H (0.00-0.02) K/uL Neut # (Auto) 12.69 H (1.4-6.5) K/uL Lymph # (Auto) 0.35 L (1.2-3.4) K/uL [place] # (Auto) 0.77 H (0.11-0.59) K/uL PT (9.0-12.0) Seconds INR (0.9-1.1) APTT (21.0-31.0) Seconds ABG pH (7.35-7.45) ABG HCO3 (19-24) mmol/L ABG O2 Saturation (90-95) % ABG Base Excess (-9-1.8) mEq/L Sodium 134 L (136-145) mmol/L Chloride 96 L (98-107) mmol/L BUN 122 H (7-18) mg/dl Creatinine 3.76 H (0.6-1.4) mg/dl BUN/Creatinine Ratio 32.5 H (10-20) Glucose 109 H (70-99) mg/dl POC Glucose (70-99) Calcium 8.1 L (8.5-10.1) mg/dl Direct Bilirubin 0.3 H (0-0.2) mg/dl Alkaline Phosphatase 234 H (45-117) U/L NT-Pro-B Natriuret Pep (0-900) pg/ml Total Protein 5.9 L (6.4-8.2) gm/dl Albumin 2.4 L (3.4-5.0) gm/dl Globulin (2.5-4.0) gm/dl Albumin/Globulin Ratio (0.9-2) Lipase 1307 H (73-393) U/L Urine Protein 2+ H (Negative) Urine Blood Trace H (Negative) 01/11/19 01/11/19 01/11/19 Range/Units 03:35 09:17 11:36 WBC (4.8-10.8) K/uL RBC (4.7-6.1) M/uL Hgb 8.1 L (14.0-18.0) g/dL Hct 23.5 L (42-52) % RDW Std Deviation (36.4-46.3) fL RDW Coeff of [place] (11.5-14.5) % MPV (7.4-10.4) fL Immature Gran # (Auto) (0.00-0.02) K/uL Neut # (Auto) (1.4-6.5) K/uL Lymph # (Auto) (1.2-3.4) K/uL [place] # (Auto) (0.11-0.59) K/uL PT 13.3 H (9.0-12.0) Seconds INR 1.3 H (0.9-1.1) APTT 31.4 H (21.0-31.0) Seconds ABG pH (7.35-7.45) ABG HCO3 (19-24) mmol/L ABG O2 Saturation (90-95) % ABG Base Excess (-9-1.8) mEq/L Sodium (136-145) mmol/L Chloride (98-107) mmol/L BUN (7-18) mg/dl Creatinine (0.6-1.4) mg/dl BUN/Creatinine Ratio (10-20) Glucose (70-99) mg/dl POC Glucose 104 H (70-99) Calcium (8.5-10.1) mg/dl Direct Bilirubin (0-0.2) mg/dl Alkaline Phosphatase (45-117) U/L NT-Pro-B Natriuret Pep (0-900) pg/ml Total Protein (6.4-8.2) gm/dl Albumin (3.4-5.0) gm/dl Globulin (2.5-4.0) gm/dl Albumin/Globulin Ratio (0.9-2) Lipase (73-393) U/L Urine Protein (Negative) Urine Blood (Negative) Diagnostic Findings CT chest non con 1. Cardiomegaly with evidence of congestive failure. 2. There is bilateral airspace consolidation, left greater than right. This could represent a component of interstitial edema and/or multifocal pneumonia. Clinical correlation will be required. 3. There are small to moderate bilateral pleural effusions with associated atelectasis. 4. 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 5. There is an 8 mm nodular density identified in the trachea at the level of the thoracic inlet. This could represent adherent secretions versus a small polyp. 6. The patient is status post gastroesophageal resection with a spit fistula in the left upper chest wall. 7. There is nonspecific mesenteric induration identified in the left upper quadrant, greatest around the left colon. Correlate clinically for evidence of a nonspecific colitis. CT abd non con 1. Exam compromised given the lack of IV contrast. Extensive mesenteric infiltration. This is nonspecific although may be related to volume overload. However, infectious and inflammatory etiologies are within the differential. Acute pancreatitis is considered unlikely however could be correlated with lipase levels. 2. No bowel obstruction. Right colon wall thickening which is likely due to underdistention although a nonspecific colitis could appear similar. 3. Cholelithiasis with moderate gallbladder distention. Moderate gallbladder distention. Acute cholecystitis cannot be excluded but this finding has been shown on several previous exams. 4. Small bilateral pleural effusions. Right pleural effusion may be partially loculated. Evidence for mild pulmonary edema. (1) Volume overload Hypervolemia type: unspecified Qualified Code(s): E87.70 - Fluid overload, unspecified (2) Anemia Anemia type: other cause
[2019-01-11] MEDS: ALBUT/IPRATROP 3MG/0.5MG NEB 3 ML VIAL NEB SCH ×4 (07:22→20:21)
--- NOTE | 2019-01-11 07:46 | CT Scan Report ---
CT SCAN OF THE CHEST WITHOUT IV CONTRAST CLINICAL HISTORY: Pneumonia. Hypoxia. COMPARISON STUDY: Chest CT dated 12/29/2013. Chest x-ray dated 01/10/2019. TECHNIQUE: CT scan of the thorax was performed from the thoracic inlet to the upper abdomen. Images are reviewed in the axial, sagittal, and coronal planes. IV contrast was not administered for this ex amination as per the referring clinician. A dose lowering technique was utilized adhering to the [place]. CT DOSE: 203.43 mGy.cm FINDINGS: Thyroid: Imaged portions of the thyroid gland are normal in size and heterogeneous in attenuation. Thoracic aorta: There is mild atherosclerotic calcification of the thoracic aorta. There is aneurysma l dilatation of the ascending thoracic aorta which measures up to 4.4 cm in diameter. The remainder o f the thoracic aorta is normal in caliber. The arch demonstrates bovine variant anatomy. Heart: The patient is status post midline sternotomy. The heart is enlarged and without pericardial e ffusion. The coronary arteries are densely calcified. There is diminished attenuation of the cardiac blood pool as compared to the myocardium suggesting anemia. A right PICC line is in place. The pulmon juan trunk is dilated, measuring 3.9 cm in diameter. This suggests pulmonary artery hypertension. Lungs and pleural spaces: There are small to moderate bilateral pleural effusions with associated ate lectasis. Diffuse intralobular septal thickening is noted. There is patchy airspace consolidation see n bilaterally. This is perihilar in the right lung and diffuse throughout the left lung. There is an 8 mm nodular density along the wall of the trachea at the thoracic inlet seen on image #50. The trach ea and central airways are otherwise clear. A metallic foreign body is present in the right lower lob e. Scattered calcified granulomas are observed. Mediastinum: There are numerous subcentimeter based on the lymph nodes. The esophagus is surgically a bsent, and a spit fistula is noted in the left upper chest wall. Nadine: Not well assessed without IV contrast. Axillae: There is no axillary lymphadenopathy. Upper abdomen: The stomach is surgically absent. The spleen is also not identified and presumed surgi cesar absent. The partially imaged left kidney demonstrates cortical atrophy. There is nonspecific me senteric edema throughout the left upper quadrant located on the left colon. Metallic foreign bodies are seen in the left upper quadrant. Skeletal structures: The skeletal structures are osteopenic. There are compression deformities of T3, T4, T5, T6, and T11. No lytic or blastic bony lesions are seen. There are healed bilateral rib fract ures. Soft tissues: There is mild body wall edema. IMPRESSION: 1. Cardiomegaly with evidence of congestive failure. 2. There is bilateral airspace consolidation, left greater than right. This could represent a compone nt of interstitial edema and/or multifocal pneumonia. Clinical correlation will be required. 3. There are small to moderate bilateral pleural effusions with associated atelectasis. 4. 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 5. There is an 8 mm nodular density identified in the trachea at the level of the thoracic inlet. Thi s could represent adherent secretions versus a small polyp. 6. The patient is status post gastroesophageal resection with a spit fistula in the left upper chest wall. 7. There is nonspecific mesenteric induration identified in the left upper quadrant, greatest around the left colon. Correlate clinically for evidence of a nonspecific colitis. 8. Additional findings as above. Electronically signed by: Ronak Chilel M.D. 01/11/2019 7:44 AM
[2019-01-11] MEDS ORDERED: TPN/PPN CONSULT PHARMACY SCH (08:08)
[2019-01-11] MEDS ORDERED: PIPERACILL/TAZOBAC CONSULT ACTIVE PRN (08:30)
[2019-01-11] MEDS ORDERED: PIPERACILLIN/TAZOBACTAM 2.25 GM in DEXTROSE 5% 100 ML IV STA (08:31)
[2019-01-11] MEDS ORDERED: COPPER GLUCONATE 2 MG PO SCH (09:00)
[2019-01-11] MEDS: FLUTICASONE/SALMETEROL 100/50 (ADVAIR) 14 PUFF/1 INHALER INH SCH ×2 (09:00→20:01)
[2019-01-11] MEDS ORDERED: FUROSEMIDE 40 MG in SYRINGE 0 ML IV SCH (09:00)
[2019-01-11] MEDS: AMLODIPINE BESYLATE 5 MG TAB PO SCH (09:01)
[2019-01-11] MEDS: FLUTICASONE PROPIONATE NA SPR 16 GM BTL SCH ×2 (09:01→09:26)
[2019-01-11 09:25] LABS: Hematocrit (blood only) 23.5 % (42-52); Hemoglobin 8.1 g/dL (14.0-18.0)
[2019-01-11] MEDS ORDERED: PANTOprazole 40 MG in SYRINGE 0 ML IV SCH (11:00)
[2019-01-11] MEDS ORDERED: LINEZOLID 600 MG/300 ML D5W IV SCH (12:00)
--- NOTE | 2019-01-11 13:19 | Surgery Consultation ---
Date of Consultation January 11, 2019 Assessment & Plan (1) Abdominal pain: 68 year-old male with significant medical history including parastomal hernia repair complicated by esophagectomy, gastrectomy, partial splenectomy and chronic jejunostomy tube in 2010. Patient has had a cholecystostomy tube about 3 years ago in which gallbladder was drained. Also had recent repair of jejunostomy tube due to leakage in the last week and a gastrostomy tube was placed. Presented to hospital for hypoxia and abdominal pain. CT scan showing distended gallbladder with gallstone similar to previous CT scan in June of 2018. Alk phos slightly improved but elevated but has been elevated up to in the 400's in the past. Abdomen is soft, tender but no peritonitis or guarding. Plan: Given patients extensive abdominal surgeries and chronic findings of abdominal distention and gallstones seen back since June of 2018 with history of cholecystostomy tube, would not recommend surgical cholecystectomy at this time. There is no findings of acute cholecystitis or need for emergency cholecys tectomy. If patient would eventually want cholecystectomy or there are signs of increasing pain or infection, would recommend transfer to tertiary center for further evaluation and management . Continue current ICU management No surgical intervention, will sign off at this time. Dr. Turcios has seen and examined pt, agrees with above Pt was interviewed and examined with MINISTERIO Zhang. I agree with the note as outlined above. He has a very complicated abdomen. There is a question of cholecystitis because of gallbladder distention and known gallstone. This distention is unchanged on imaging since 06/2018 CT scan. His pain is more referred on the left side. No clinical sign of acute cholecystitis. He has undergone percutaneous cholecystostomy tube placement in the past (maybe 3-4 yrs ago by 's report). He is not a candidate for cholecystectomy at this institution. Explained that his abdomen is too high risk given his multiple prior operations and mesh. He was encouraged to get the opinion of the surgeons at [place] who manage his care. For now, OK to start feeds as abdominal pain improves. If worsens, would recommend transfer. Will sign off - please call with questions. (2) Cholelithiasis: (3) Abdominal distention: History of Present Illness Attending Physician: Erick Buckley MD History of Present Illness 68 year-old male with significant extensive medical history including parastomal hernia repair complicated by esophagectomy, gastrectomy, partial splenectomy and chronic jejunostomy tube in 2010. Patient has had a cholecystostomy tube about 3 years ago in which gallbladder was drained. Also had recent repair of jejunostomy tube due to leakage in the last week and a gastrostomy tube was placed. He has started tube feedings yet. States he presented to emergency department complaint of difficulty breathing and abdominal pain. He had recent abdominal CT scan in June of 2017 in which he had gallbladder distention and gallstone present at the time. He states he has generalized abdominal pain more so in the left lower abdomen near the feeding tube site. Looking back intro his labs since October of 2017 he had elevated alk phos up to 400 and now his alk ohis is 200. He had a ct scan on admission which showed similar gallbladder with distention and gallstone present. There is similar to findings to his previous ct scan. There is mild leukocytosis however he also have pneumonia currently in which he was started on IV antibiotics. He states he is sharp stabbing pain in the the upper abdomen. Comes and goes. No nausea or vomiting. He did have an epsidoe of rectal bleeding in which he want to [facility] and had a colonoscopy which showed no evidence of GI bleeding. Allergies Allergy/AdvReac Type Severity Reaction Status Date / Time sulfamethoxazole AdvReac Intermediate SEVERE Verified 01/11/19 06:42 DIARRHEA oxycodone AdvReac Mild NAUSEA Verified 01/11/19 06:42 simvastatin AdvReac Mild " my legs Verified 01/11/19 06:42 cramp up" tramadol AdvReac Mild NAUSEA Verified 01/11/19 06:42 moxifloxacin AdvReac Unknown Pt said he Verified 01/10/19 22:57 could barely walk Home Medications Home Medications Medication Instructions Recorded Confirmed Type albuterol sulfate [Ventolin HFA] 2 puff INHALATION Q4H PRN 01/10/19 01/10/19 His tory amlodipine 5 mg PO DAILY 01/10/19 01/10/19 History copper gluconate 2 mg PO DAILY 01/10/19 01/10/19 History cyanocobalamin (vitamin B-12) mcg PO MONTHLY 01/10/19 History [Vitamin B-12] epoetin andi [Procrit] unit SUBCUT DIRECTED 01/10/19 History fluticasone propion-salmeterol 1 puff INHALATION BID 01/10/19 01/10/19 History [Advair Diskus] fluticasone propionate 1 - 2 spray INTRANASAL DAILY 01/10/19 01/10/19 History loperamide [Imodium A-D] 20 ml PO Q6H PRN 01/10/19 01/10/19 History nystatin 1 applic TOPICAL DIRECTED 01/10/19 01/10/19 History ondansetron HCl [Zofran] 4 mg PO TID PRN 01/10/19 01/10/19 History torsemide 20 mg PO TID 01/10/19 01/10/19 History triamcinolone acetonide 1 applic TOPICAL BID PRN 01/10/19 01/10/19 History Patient History Medical History Normocytic anemia (Chronic) Dehydration (Acute 12/29/13) Jejunostomy tube present (Chronic) Hyponatremia (Resolved) Jejunostomy tube leak (Resolved) Hyponatremia (Acute) Leukocytosis (Resolved) HAYLEY (acute kidney injury) Hypokalemia Jejunostomy tube leak Jejunostomy tube present Kidney stones Low serum copper for age Surgical History S/P gastrectomy S/P splenectomy Family History Other Hypertension Social History Preferred Language: Uzbek Communication Ability: Effective [employer]ard[employer] Driver Required: Yes Beliefs That Will Affect Care: None Current Living Situation: Spouse Other Information That Helps Us Care for You: No Feels Safe at Home: Yes Safety Concerns: Feels Safe At This Time Smoking Status: Never smoker Hx Alcohol Use: No Hx Substance Use: No Review of Systems Constitutional: as per Subjective / HPI Physical Exam Vital Signs (Past 24 Hours): Last Vital Signs Temp 36.8 C 01/11/19 08:01 Pulse 74 01/11/19 13:01 Resp 21 01/11/19 13:01 BP 156/77 H 01/11/19 13:01 Pulse Ox 97 01/11/19 13:01 Constitutional: WD/WN, vitals as above no acute distress Respiratory: normal respiratory effort, lungs clear to auscultation no respiratory distress Gastrointestinal (Abdomen): Inspection/Auscultation: normal bowel sounds; abdomen not distended Percussion/Palpation: + abdomen tender, + abdomen rigid and abdomen soft; no guarding There is gastrostomy tube present, no surrounding erythema or redness Skin: no rashes, warm and dry Psychiatric: A+Ox3, euthymic affect Results & Data Laboratory Results 01/11/19 01/11/19 01/11/19 Range/Units 11:36 09:17 09:17 WBC (4.8-10.8) K/uL RBC (4.7-6.1) M/uL Hgb 8.1 L (14.0-18.0) g/dL Hct 23.5 L (42-52) % MCV (80-100) fL MCH (25-34) pg MCHC (32-36) g/dL RDW Std Deviation (36.4-46.3) fL RDW Coeff of [place] (11.5-14.5) % Plt Count (130-400) K/uL MPV (7.4-10.4) fL Immature Gran % (Auto) % Neut % (Auto) % Lymph % (Auto) % [place] % (Auto) % Eos % (Auto) % Baso % (Auto) % Immature Gran # (Auto) (0.00-0.02) K/uL Neut # (Auto) (1.4-6.5) K/uL Lymph # (Auto) (1.2-3.4) K/uL [place] # (Auto) (0.11-0.59) K/uL Eos # (Auto) (0-0.5) K/uL Baso # (Auto) (0-0.2) K/uL Giant Platelets Target Cells [place] Bodies Echinocytes PT (9.0-12.0) Seconds INR (0.9-1.1) APTT (21.0-31.0) Seconds PTT Ratio ABG pH (7.35-7.45) ABG pCO2 (35-46) mmHg ABG pO2 (80-95) mm/Hg ABG HCO3 (19-24) mmol/L ABG O2 Saturation (90-95) % ABG Base Excess (-9-1.8) mEq/L Xander Test (Pos) Barometric Pressure mm/Hg Oxygen Given Sodium (136-145) mmol/L Potassium (3.5-5.1) mmol/L Chloride (98-107) mmol/L Carbon Dioxide (21-32) mmol/L Anion Gap (3-11) BUN (7-18) mg/dl Creatinine (0.6-1.4) mg/dl Est Cr Clr Drug Dosing ml/min Est GFR ( Amer) Est GFR (Non-Af Amer) BUN/Creatinine Ratio (10-20) Glucose (70-99) mg/dl POC Glucose 104 H (70-99) Calcium (8.5-10.1) mg/dl Phosphorus (2.5-4.9) mg/dl Magnesium (1.8-2.4) mg/dl Total Bilirubin (0.2-1) mg/dl Direct Bilirubin (0-0.2) mg/dl AST (15-37) U/L ALT (12-78) U/L Alkaline Phosphatase (45-117) U/L Troponin I 0.026 (0-0.045) ng/ml NT-Pro-B Natriuret Pep (0-900) pg/ml Total Protein (6.4-8.2) gm/dl Albumin (3.4-5.0) gm/dl Globulin (2.5-4.0) gm/dl Albumin/Globulin Ratio (0.9-2) Lipase (73-393) U/L Urine Color Urine Appearance (Clear) Urine pH (4.5-7.5) Ur Specific [place] (1.000-1.030) Urine Protein (Negative) Urine Glucose (UA) (Negative) Urine Ketones (Negative) Urine Blood (Negative) Urine Nitrite (Negative) Urine Bilirubin (Negative) Urine Urobilinogen (Negative) Ur Leukocyte Esterase (Negative) Urine WBC (Auto) (0-5) /hpf Urine RBC (Auto) (0-4) /hpf U Hyaline Cast (Auto) (0-5) /lpf U Epithel Cells (Auto) (0-5) /lpf Urine Bacteria (Auto) (Negative) Nasal Screen MRSA (PCR) (Negative) 01/11/19 01/11/19 01/11/19 Range/Units 03:35 03:35 03:35 WBC 13.84 H (4.8-10.8) K/uL RBC 2.52 L (4.7-6.1) M/uL Hgb 8.0 L (14.0-18.0) g/dL Hct 23.9 L (42-52) % MCV 94.8 (80-100) fL MCH 31.7 (25-34) pg MCHC 33.5 (32-36) g/dL RDW Std Deviation 67.0 H (36.4-46.3) fL RDW Coeff of [place] 19.4 H (11.5-14.5) % Plt Count 167 (130-400) K/uL MPV 12.7 H (7.4-10.4) fL Immature Gran % (Auto) 0.2 % Neut % (Auto) 91.7 % Lymph % (Auto) 2.5 % [place] % (Auto) 5.6 % Eos % (Auto) 0.0 % Baso % (Auto) 0.0 % Immature Gran # (Auto) 0.03 H (0.00-0.02) K/uL Neut # (Auto) 12.69 H (1.4-6.5) K/uL Lymph # (Auto) 0.35 L (1.2-3.4) K/uL [place] # (Auto) 0.77 H (0.11-0.59) K/uL Eos # (Auto) 0.00 (0-0.5) K/uL Baso # (Auto) 0.00 (0-0.2) K/uL Giant Platelets 1+ Target Cells 1+ [place] Bodies 1+ Echinocytes 1+ PT 13.3 H (9.0-12.0) Seconds INR 1.3 H (0.9-1.1) APTT 31.4 H (21.0-31.0) Seconds PTT Ratio 1.2 ABG pH (7.35-7.45) ABG pCO2 (35-46) mmHg ABG pO2 (80-95) mm/Hg ABG HCO3 (19-24) mmol/L ABG O2 Saturation (90-95) % ABG Base Excess (-9-1.8) mEq/L Xander Test (Pos) Barometric Pressure mm/Hg Oxygen Given Sodium 134 L (136-145) mmol/L Potassium 4.2 (3.5-5.1) mmol/L Chloride 96 L (98-107) mmol/L Carbon Dioxide 29 (21-32) mmol/L Anion Gap 9.0 (3-11) BUN 122 H (7-18) mg/dl Creatinine 3.76 H (0.6-1.4) mg/dl Est Cr Clr Drug Dosing 17.7 ml/min Est GFR ( Amer) 18.2 Est GFR (Non-Af Amer) 15.7 BUN/Creatinine Ratio 32.5 H (10-20) Glucose 109 H (70-99) mg/dl POC Glucose (70-99) Calcium 8.1 L (8.5-10.1) mg/dl Phosphorus 3.8 (2.5-4.9) mg/dl Magnesium 2.1 (1.8-2.4) mg/dl Total Bilirubin 0.6 (0.2-1) mg/dl Direct Bilirubin 0.3 H (0-0.2) mg/dl AST 25 (15-37) U/L ALT 22 (12-78) U/L Alkaline Phosphatase 234 H (45-117) U/L Troponin I (0-0.045) ng/ml NT-Pro-B Natriuret Pep (0-900) pg/ml Total Protein 5.9 L (6.4-8.2) gm/dl Albumin 2.4 L (3.4-5.0) gm/dl Globulin (2.5-4.0) gm/dl Albumin/Globulin Ratio (0.9-2) Lipase 1307 H (73-393) U/L Urine Color Urine Appearance (Clear) Urine pH (4.5-7.5) Ur Specific [place] (1.000-1.030) Urine Protein (Negative) Urine Glucose (UA) (Negative) Urine Ketones (Negative) Urine Blood (Negative) Urine Nitrite (Negative) Urine Bilirubin (Negative) Urine Urobilinogen (Negative) Ur Leukocyte Esterase (Negative) Urine WBC (Auto) (0-5) /hpf Urine RBC (Auto) (0-4) /hpf U Hyaline Cast (Auto) (0-5) /lpf U Epithel Cells (Auto) (0-5) /lpf Urine Bacteria (Auto) (Negative) Nasal Screen MRSA (PCR) (Negative) 01/11/19 01/10/19 01/10/19 Range/Units 02:30 Unknown 21:00 WBC (4.8-10.8) K/uL RBC (4.7-6.1) M/uL Hgb (14.0-18.0) g/dL Hct (42-52) % MCV (80-100) fL MCH (25-34) pg MCHC (32-36) g/dL RDW Std Deviation (36.4-46.3) fL RDW Coeff of [place] (11.5-14.5) % Plt Count (130-400) K/uL MPV (7.4-10.4) fL Immature Gran % (Auto) % Neut % (Auto) % Lymph % (Auto) % [place] % (Auto) % Eos % (Auto) % Baso % (Auto) % Immature Gran # (Auto) (0.00-0.02) K/uL Neut # (Auto) (1.4-6.5) K/uL Lymph # (Auto) (1.2-3.4) K/uL [place] # (Auto) (0.11-0.59) K/uL Eos # (Auto) (0-0.5) K/uL Baso # (Auto) (0-0.2) K/uL Giant Platelets Target Cells [place] Bodies Echinocytes PT (9.0-12.0) Seconds INR (0.9-1.1) APTT (21.0-31.0) Seconds PTT Ratio ABG pH 7.48 H (7.35-7.45) ABG pCO2 40 (35-46) mmHg ABG pO2 95 (80-95) mm/Hg ABG HCO3 29 H (19-24) mmol/L ABG O2 Saturation 97.1 H (90-95) % ABG Base Excess 5.3 H (-9-1.8) mEq/L Xander Test POS (Pos) Barometric Pressure 725.0 mm/Hg Oxygen Given 4L O2 Sodium (136-145) mmol/L Potassium (3.5-5.1) mmol/L Chloride (98-107) mmol/L Carbon Dioxide (21-32) mmol/L Anion Gap (3-11) BUN (7-18) mg/dl Creatinine (0.6-1.4) mg/dl Est Cr Clr Drug Dosing ml/min Est GFR ( Amer) Est GFR (Non-Af Amer) BUN/Creatinine Ratio (10-20) Glucose (70-99) mg/dl POC Glucose (70-99) Calcium (8.5-10.1) mg/dl Phosphorus (2.5-4.9) mg/dl Magnesium (1.8-2.4) mg/dl Total Bilirubin (0.2-1) mg/dl Direct Bilirubin (0-0.2) mg/dl AST (15-37) U/L ALT (12-78) U/L Alkaline Phosphatase (45-117) U/L Troponin I (0-0.045) ng/ml NT-Pro-B Natriuret Pep (0-900) pg/ml Total Protein (6.4-8.2) gm/dl Albumin (3.4-5.0) gm/dl Globulin (2.5-4.0) gm/dl Albumin/Globulin Ratio (0.9-2) Lipase (73-393) U/L Urine Color Yellow Urine Appearance Clear (Clear) Urine pH 7.5 (4.5-7.5) Ur Specific [place] 1.011 (1.000-1.030) Urine Protein 2+ H (Negative) Urine Glucose (UA) Negative (Negative) Urine Ketones Negative (Negative) Urine Blood Trace H (Negative) Urine Nitrite Negative (Negative) Urine Bilirubin Negative (Negative) Urine Urobilinogen Negative (Negative) Ur Leukocyte Esterase Negative (Negative) Urine WBC (Auto) 1-5 (0-5) /hpf Urine RBC (Auto) 0-4 (0-4) /hpf U Hyaline Cast (Auto) 1-5 (0-5) /lpf U Epithel Cells (Auto) 0-5 (0-5) /lpf Urine Bacteria (Auto) Negative (Negative) Nasal Screen MRSA (PCR) Negative (Negative) 01/10/19 01/10/19 Range/Units 20:15 20:15 WBC 14.55 H (4.8-10.8) K/uL RBC 2.98 L (4.7-6.1) M/uL Hgb 9.5 L (14.0-18.0) g/dL Hct 28.5 L (42-52) % MCV 95.6 (80-100) fL MCH 31.9 (25-34) pg MCHC 33.3 (32-36) g/dL RDW Std Deviation 67.0 H (36.4-46.3) fL RDW Coeff of [place] 19.3 H (11.5-14.5) % Plt Count 194 (130-400) K/uL MPV 13.6 H (7.4-10.4) fL Immature Gran % (Auto) 0.4 % Neut % (Auto) 85.7 % Lymph % (Auto) 7.5 % [place] % (Auto) 6.2 % Eos % (Auto) 0.1 % Baso % (Auto) 0.1 % Immature Gran # (Auto) 0.06 H (0.00-0.02) K/uL Neut # (Auto) 12.48 H (1.4-6.5) K/uL Lymph # (Auto) 1.09 L (1.2-3.4) K/uL [place] # (Auto) 0.90 H (0.11-0.59) K/uL Eos # (Auto) 0.01 (0-0.5) K/uL Baso # (Auto) 0.01 (0-0.2) K/uL Giant Platelets Target Cells [place] Bodies Echinocytes PT (9.0-12.0) Seconds INR (0.9-1.1) APTT (21.0-31.0) Seconds PTT Ratio ABG pH (7.35-7.45) ABG pCO2 (35-46) mmHg ABG pO2 (80-95) mm/Hg ABG HCO3 (19-24) mmol/L ABG O2 Saturation (90-95) % ABG Base Excess (-9-1.8) mEq/L Xander Test (Pos) Barometric Pressure mm/Hg Oxygen Given Sodium 136 (136-145) mmol/L Potassium 4.3 (3.5-5.1) mmol/L Chloride 97 L (98-107) mmol/L Carbon Dioxide 30 (21-32) mmol/L Anion Gap 9.0 (3-11) BUN 125 H (7-18) mg/dl Creatinine 3.68 H (0.6-1.4) mg/dl Est Cr Clr Drug Dosing 19.8 ml/min Est GFR ( Amer) 18.7 Est GFR (Non-Af Amer) 16.2 BUN/Creatinine Ratio 34.0 H (10-20) Glucose 86 (70-99) mg/dl POC Glucose (70-99) Calcium 8.8 (8.5-10.1) mg/dl Phosphorus (2.5-4.9) mg/dl Magnesium (1.8-2.4) mg/dl Total Bilirubin 0.7 (0.2-1) mg/dl Direct Bilirubin (0-0.2) mg/dl AST 31 (15-37) U/L ALT 26 (12-78) U/L Alkaline Phosphatase 291 H (45-117) U/L Troponin I 0.024 (0-0.045) ng/ml NT-Pro-B Natriuret Pep 2621 H (0-900) pg/ml Total Protein 6.9 (6.4-8.2) gm/dl Albumin 2.6 L (3.4-5.0) gm/dl Globulin 4.3 H (2.5-4.0) gm/dl Albumin/Globulin Ratio 0.6 L (0.9-2) Lipase 1973 H (73-393) U/L Urine Color Urine Appearance (Clear) Urine pH (4.5-7.5) Ur Specific [place] (1.000-1.030) Urine Protein (Negative) Urine Glucose (UA) (Negative) Urine Ketones (Negative) Urine Blood (Negative) Urine Nitrite (Negative) Urine Bilirubin (Negative) Urine Urobilinogen (Negative) Ur Leukocyte Esterase (Negative) Urine WBC (Auto) (0-5) /hpf Urine RBC (Auto) (0-4) /hpf U Hyaline Cast (Auto) (0-5) /lpf U Epithel Cells (Auto) (0-5) /lpf Urine Bacteria (Auto) (Negative) Nasal Screen MRSA (PCR) (Negative) Diagnostic Findings CT OF THE ABDOMEN AND PELVIS WITHOUT CONTRAST CLINICAL HISTORY: CKD, G tube, upper ab pain COMPARISON STUDY: CT of the abdomen and pelvis July 17, 2018. TECHNIQUE: Axial images of the abdomen and pelvis were obtained without IV contrast. Images were reviewed in the axial, sagittal, and coronal planes. Automated exposure control was utilized for the study. A dose lowering technique was utilized adhering to the principles of ALARA. FINDINGS: Small bilateral pleural effusions are partially imaged on this exam. The right pleural effusion may be partially loculated. Associated airspace opacities favor atelectasis. Hyperdensities within the lung parenchyma are shown on prior exam. The heart is mildly enlarged. Evaluation of the abdomen and pelvis is suboptimal on this unenhanced examination. A metallic density within the inferior right hepatic lobe is unchanged. No pneumatosis, free air or portal venous gas is present. Abnormal liver morphology is unchanged. Moderate gallbladder distention is similar to prior exam. There is a gallstone within the gallbladder. The spleen is not visualized. The adrenal glands are unremarkable. There is mild/moderate to marked bilateral renal atrophy. A probable cyst within the midpole of the right kidney is suboptimally assessed on this unenhanced exam. A left-sided jejunostomy tube is noted. There is extensive mesenteric infiltration, a nonspecific finding. Pancreatic glandular atrophy appears increased since CT of July 17, 2018. There is peripancreatic infiltration. There is diffuse infiltration of the soft tissues. There is no evidence for a bowel obstruction. A bowel anastomosis is noted. Right colon wall thickening is noted. This is probably due to underdistention. There is colonic diverticulosis without evidence for acute diverticulitis. The stomach is not visualized. Distal esophagus is not visualized. Mild T11 compression deformity is unchanged. There is a possible sacral decubitus ulcer. IMPRESSION: 1. Exam compromised given the lack of IV contrast. Extensive mesenteric infi ltration. This is nonspecific although may be related to volume overload. However, infectious and inflammatory etiologies are within the differential. Acute pancreatitis is considered unlikely however could be correlated with lipase levels. 2. No bowel obstruction. Right colon wall thickening which is likely due to underdistention although a nonspecific colitis could appear similar. 3. Cholelithiasis with moderate gallbladder distention. Moderate gallbladder distention. Acute cholecystitis cannot be excluded but this finding has been shown on several previous exams. 4. Small bilateral pleural effusions. Right pleural effusion may be partially loculated. Evidence for mild pulmonary edema.
[2019-01-11] MEDS ORDERED: HEPARIN SOD 5,000 UNIT/0.5 ML VIAL SQ SCH (14:00)
--- NOTE | 2019-01-11 14:09 | History & Physical Bridge Note ---
Date of Service January 11, 2019 History & Physical Bridge Note Patient seen and examined today. Abdominal pain improved. Less shortness of breath. No major concerns. Evaluated by surgery with no surgical plan at this time. Will advance tube feeds and water and if he cannot tolerate, will need transfer for tertiary surgical care.
--- NOTE | 2019-01-11 15:21 | Consultation Report ---
DATE OF CONSULTATION: 01/11/2019 GI CONSULT NOTE REASON FOR EVALUATION: Pancreatitis and gallstones. HISTORY OF PRESENT ILLNESS: The patient is a 68-year-old man who is admitted with acute onset of epigastric pain and nausea. The patient was seen in the Emergency Room and found to have a lipase of almost 2000. CT scan of the abdomen was performed which showed an atrophic pancreas, but a lot of infiltration around the pancreas. He also has multiple gallstones in his gallbladder, which he has had in the past. Of note is that the patient has had extensive abdominal surgery in the past. He has had a hiatal hernia repair which was complicated and he had to have a gastrectomy and partial esophagectomy. He has an esophageal diversion into a bag on his chest and is getting fed through a jejunostomy tube as well as a PICC line for TPN. He has had mesh placed in the abdomen for surgical repair of his abdominal incisions. GI consultation has been requested to evaluate this situation. PAST MEDICAL HISTORY: Remarkable for his extensive abdominal surgery mentioned above. He has also had a history of some congestive heart failure, anemia, hypertension. MEDICATIONS: Albuterol, amlodipine, copper, vitamin B12, Procrit, Advair, fluticasone, Imodium, nystatin, Zofran, torsemide, triamcinolone. ALLERGIES: MOXIFLOXACIN, OXYCODONE, SIMVASTATIN, SULFAMETHOXAZOLE, AND TRAMADOL. FAMILY HISTORY: Positive for hypertension. SOCIAL HISTORY: The patient is and lives with his spouse, does not smoke, does not consume any alcohol. REVIEW OF SYSTEMS: Positive for epigastric pain. PHYSICAL EXAMINATION: GENERAL: The patient is lying in bed, in no acute distress. VITAL SIGNS: Show blood pressure of 160/80, pulse 60. He is afebrile. CHEST: Shows an esophageal drainage, stoma in the left anterior chest emptying into a stoma bag. ABDOMEN: Shows a jejunostomy tube in the left side of the abdomen. There is a midline abdominal scar. There is tenderness in the epigastric area throughout to light palpation. IMPRESSION: The patient has abdominal pain, typical of pancreatitis. He is tender in the epigastric area. His lipase is elevated and there is some infiltration of the abdomen around the pancreas consistent with pancreatitis. This is most likely related to a gallstone in the common bile duct as his alkaline phosphatase is also elevated. He also has stones in his gallbladder. Unfortunately, due to the patient's residual anatomy following surgery, there is no endoscopic access to his small intestine for an ERCP if this is to be addressed surgically, it would have to be done through cholecystectomy with common bile duct exploration. This would also represent several challenges due to his previous multiple operations and mesh in the abdominal wall. It is possible that he may pass the gallstone and his pancreatitis resolve, but there is no option for endoscopic intervention in this patient. Please contact me if any other input is needed.
[2019-01-11] MEDS: PIPERACILLIN/TAZOBACTAM 3.375 GM in DEXTROSE 5% 100 ML IV SCH (15:46)
[2019-01-11] MEDS ORDERED: FUROSEMIDE 60 MG in SYRINGE 0 ML IV SCH (18:00)
[2019-01-11] MEDS: FUROSEMIDE 40 MG in SYRINGE 0 ML IV SCH ×2 (18:44→23:46)
[2019-01-11] MEDS: CUSTOM CENTRAL PN IV SCH ×2 (18:47→20:00)
[2019-01-11] MEDS: HEPARIN SOD 5,000 UNIT/0.5 ML VIAL SQ SCH (20:02)
[2019-01-11] MEDS ORDERED: EPOETIN ALFA 20,000 UNITS/ML VIAL SQ ONE (21:00)
[2019-01-12] MEDS ORDERED: GLUCOSE 10 TABS/TUBE PO PRN (01:00)
[2019-01-12] MEDS ORDERED: GLUCAGON FOR INJ 1 MG VIAL SQ PRN (01:00)
[2019-01-12] MEDS ORDERED: CARBOHYDRATES FOR HYPOGLYCEMIA PO PRN (01:00)
[2019-01-12] MEDS ORDERED: GLUCOSE 40% GEL 15 GM TUBE PO PRN (01:00)
[2019-01-12] MEDS: PIPERACILLIN/TAZOBACTAM 3.375 GM in DEXTROSE 5% 100 ML IV SCH ×2 (04:31→16:33)
[2019-01-12] MEDS ORDERED: INSULIN ASPART 100 UNITS/ML 3 ML PEN SC STA (04:56)
[2019-01-12] MEDS: FUROSEMIDE 40 MG in SYRINGE 0 ML IV SCH ×3 (06:15→18:05)
[2019-01-12 06:47] LABS: Basophils # (auto) 0.01 K/uL (0-0.2); Basophils % (auto) 0.1 %; Eosinophils % (auto) 1.1 %; Hematocrit (blood only) 21.6 % (42-52); Hemoglobin 7.3 g/dL (14.0-18.0); Immature Granulocytes # (auto) 0.02 K/uL (0.00-0.02); Immature Granulocytes % (auto) 0.2 %; Lymphocytes # (auto) 0.87 K/uL (1.2-3.4); Lymphocytes % (auto) 9.2 %; Mean Corpuscular Hgb Conc 33.8 g/dL (32-36); Mean Corpuscular Volume 95.6 fL (80-100); Mean Platelet Volume 13.2 fL (7.4-10.4); Monocytes % (auto) 7.4 %; Neutrophils # (auto) 7.78 K/uL (1.4-6.5); Platelet Count 153 K/uL (130-400); RDW Coefficient of Variation 19.5 % (11.5-14.5); RDW Standard Deviation 67.6 fL (36.4-46.3); Red Blood Count 2.26 M/uL (4.7-6.1); White Blood Count 9.48 K/uL (4.8-10.8)
[2019-01-12 07:09] LABS: INR 1.3 (0.9-1.1); Partial Thromboplastin Ratio 1.1; Prothrombin Time 13.2 Seconds (9.0-12.0)
[2019-01-12] MEDS: ALBUT/IPRATROP 3MG/0.5MG NEB 3 ML VIAL NEB SCH ×4 (07:11→19:23)
[2019-01-12 07:18] LABS: Anisocytosis Present; Giant Platelets 1+; Howell-Jolly Bodies 1+; Schistocytes 1+; Target Cells 1+
[2019-01-12 07:23] LABS: Albumin Level 2.2 gm/dl (3.4-5.0); BUN Creatinine Ratio 30.2 (10-20); Calcium 8.1 mg/dl (8.5-10.1); Creatinine Clr Calc Pharmacy 17.8 ml/min; Est GFR (African American) 16.2; Magnesium 2.2 mg/dl (1.8-2.4); Potassium 3.8 mmol/L (3.5-5.1)
[2019-01-12 07:27] LABS: Bilirubin Direct 0.2 mg/dl (0-0.2); Bilirubin,Total 0.5 mg/dl (0.2-1); Phosphorus 3.3 mg/dl (2.5-4.9); Total Protein 5.9 gm/dl (6.4-8.2)
[2019-01-12] MEDS ORDERED: INSULIN ASPART 100 UNITS/ML 3 ML PEN SC SCH (07:30)
[2019-01-12] MEDS: FLUTICASONE/SALMETEROL 100/50 (ADVAIR) 14 PUFF/1 INHALER INH SCH ×2 (08:46→20:11)
[2019-01-12] MEDS: TPN STOP ORDER SCH (08:46)
[2019-01-12] MEDS: FLUTICASONE PROPIONATE NA SPR 16 GM BTL SCH (08:47)
[2019-01-12] MEDS: AMLODIPINE BESYLATE 5 MG TAB PO SCH (08:48)
[2019-01-12] MEDS: HEPARIN SOD 5,000 UNIT/0.5 ML VIAL SQ SCH ×2 (08:48→20:08)
[2019-01-12] MEDS: INSULIN ASPART 100 UNITS/ML 3 ML PEN SC SCH ×4 (08:53→20:29)
[2019-01-12] MEDS: TUBE FEEDING WATER FLUSH GT SCH ×5 (10:51→23:02)
--- NOTE | 2019-01-12 13:04 | Hospitalist Progress Note ---
Date of Service January 12, 2019 Assessment & Plan (1) Abdominal pain: Likely some amount of pancreatitis given the typical pain and elevated lipase; however, CT a/p on 01/10 did not show pancreatitis. CT a/p on 01/10 did show cholelithaisis with moderate gallbladder distention; however, surgery felt this was chronic in nature and did not represent cholecystitis. 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 - Monitor lipase - Monitor abdominal pain with re-starting tube feeds. Will need transfer to tertiary care if abdominal pain re-occurs - Restart tube feeds 1 syringe at a time (2) Multifocal pneumonia: CT chest on 01/10 showed bilateral airspace consolidations with left>right. Could be interstitial edema vs. multifocal pneumonia. On admission, WBC was 14.5; now normal. Otherwise no SIRS/sepsis symptoms. - Started on Zosyn on admission - Will get procalcitonin to help determine pneumonia vs. edema (3) Volume overload: Patient reports 1-2 months of increasing edema in legs, abdomen, face, and arms. Echo on 01/11 showed EF 55-60%, borderline LVH, no valvular pathology. - Likely due to poor kidney function - Diuresis per nephrology - Monitor Cr on Lasix (4) CKD (chronic kidney disease) stage 5, GFR less than 15 ml/min: Baseline Cr is ~3.5 with eGFR ~15. Near baseline at present. - Diuresis per nephrology (5) Anemia: Baseline hgb appears to be 8-10 (the 10 looks to be after transfusion). - On 01/12, hgb was down to 7.3. - Iron studies showed anemia of chronic disease/CKD - No signs of bleeding. - Epo given by nephro on 01/12 - Will transfuse for hgb < 7 (6) DVT prophylaxis: Heparin 5000 BID Subjective 68yo M w/ hx of esophagectomy and gastrectomy who presents with abdominal pain; likely pancreatitis and/or cholecystitis. This morning, he is feeling very well. No abdominal pain, no shortness of breath. No cough, no fevers chills. Reports no fevers/chills, chest pain, shortness of breath, abdominal pain, nausea, or vomiting. Physical Exam Vital Signs (Past 24 Hours): Last Vital Signs Temp 36.6 C 01/12/19 11:46 Pulse 84 01/12/19 11:46 Resp 17 01/12/19 11:46 BP 182/82 H 01/12/19 11:46 Pulse Ox 96 01/12/19 11:46 Constitutional: WD/WN, vitals as above Eyes: EOM intact bilaterally; no conjunctival abnormality ENMT: external ear and nose normal, oropharynx normal Neck: trachea midline, no thyromegaly normal visual inspection Respiratory: normal respiratory effort, lungs clear to auscultation no respiratory distress Cardiovascular: RRR, no murmur, no edema Chest (Breasts): Additional Comments: Esophagectomy bag on left chest. Gastrointestinal (Abdomen): Inspection/Auscultation: abdomen normal to inspection; abdomen not distended G-tube in place. Musculoskeletal: no cyanosis or clubbing, extremities motor strength 5/5 Skin: no rashes, warm and dry Neurologic: moves all extremities and awake Psychiatric: Orientation: alert, oriented to person and cooperative (1) Volume overload Hypervolemia type: unspecified Qualified Code(s): E87.70 - Fluid overload, unspecified (2) Anemia Anemia type: other cause
[2019-01-12] MEDS ORDERED: Nursing to Pharmacy Communication ONE (13:33)
[2019-01-12] MEDS ORDERED: NOVASOURCE RENAL 2.0 CAL 1000ML BAG GT SCH (14:30)
[2019-01-12] MEDS ORDERED: CUSTOM CENTRAL PN IV SCH (18:00)
[2019-01-12 21:43] LABS: Basophils # (auto) 0.02 K/uL (0-0.2); Basophils % (auto) 0.2 %; Eosinophils # (auto) 0.04 K/uL (0-0.5); Eosinophils % (auto) 0.4 %; Hematocrit (blood only) 24.1 % (42-52); Hemoglobin 8.1 g/dL (14.0-18.0); Immature Granulocytes # (auto) 0.01 K/uL (0.00-0.02); Immature Granulocytes % (auto) 0.1 %; Lymphocytes # (auto) 1.14 K/uL (1.2-3.4); Lymphocytes % (auto) 12.2 %; Mean Corpuscular Volume 96.8 fL (80-100); Mean Platelet Volume 12.4 fL (7.4-10.4); Monocytes # (auto) 0.62 K/uL (0.11-0.59); Monocytes % (auto) 6.6 %; Neutrophils # (auto) 7.51 K/uL (1.4-6.5); Neutrophils % (auto) 80.5 %; Platelet Count 157 K/uL (130-400); RDW Coefficient of Variation 19.3 % (11.5-14.5); RDW Standard Deviation 68.4 fL (36.4-46.3); Red Blood Count 2.49 M/uL (4.7-6.1); White Blood Count 9.34 K/uL (4.8-10.8)
[2019-01-12 21:51] LABS: Mean Corpuscular Hgb Conc 33.6 g/dL (32-36)
[2019-01-12] MEDS ORDERED: METOPROLOL TARTRATE 1 MG/ML VIAL IV STA (21:52)
[2019-01-12 22:05] LABS: Albumin Level 2.4 gm/dl (3.4-5.0); BUN Creatinine Ratio 29.1 (10-20); Calcium 8.3 mg/dl (8.5-10.1); Creatinine Clr Calc Pharmacy 16.9 ml/min; Est GFR (African American) 15.3; Est GFR (Non-African American) 13.2; Magnesium 2.2 mg/dl (1.8-2.4); Potassium 3.6 mmol/L (3.5-5.1)
[2019-01-12 22:07] LABS: Target Cells 1+
[2019-01-12 22:08] LABS: Albumin Globulin Ratio 0.6 (0.9-2); Bilirubin,Total 0.5 mg/dl (0.2-1); Total Protein 6.4 gm/dl (6.4-8.2)
[2019-01-12] MEDS ORDERED: POTASSIUM CHLORIDE 20 MEQ TABCR PO STA (22:56)
[2019-01-12] MEDS: ALBUMIN 25% 50 ML IV SCH (23:01)
[2019-01-13] MEDS: ALBUMIN 25% 50 ML IV SCH ×3 (00:02→01:18)
[2019-01-13] MEDS ORDERED: dilTIAZem HCL 30 MG TAB PO SCH (00:45)
[2019-01-13] MEDS: TUBE FEEDING WATER FLUSH GT SCH ×7 (01:05→19:33)
[2019-01-13] MEDS ORDERED: dilTIAZem HCl 5 MG/ML 5 ML VIAL IV SCH (01:15)
[2019-01-13] MEDS ORDERED: dilTIAZem HCl 5 MG/ML 5 ML VIAL IV PRN (01:19)
[2019-01-13] MEDS: PIPERACILLIN/TAZOBACTAM 3.375 GM in DEXTROSE 5% 100 ML IV SCH ×2 (04:06→15:58)
[2019-01-13 05:24] LABS: Mean Corpuscular Hgb Conc 33.2 g/dL (32-36)
[2019-01-13 05:35] LABS: INR 1.3 (0.9-1.1); Partial Thromboplastin Ratio 1.2; Partial Thromboplastin Time 31.8 Seconds (21.0-31.0); Prothrombin Time 13.5 Seconds (9.0-12.0)
[2019-01-13 05:41] LABS: Hemoglobin 7.3 g/dL (14.0-18.0); Mean Corpuscular Volume 96.9 fL (80-100); RDW Coefficient of Variation 19.6 % (11.5-14.5); RDW Standard Deviation 69.2 fL (36.4-46.3); Red Blood Count 2.27 M/uL (4.7-6.1); White Blood Count 8.23 K/uL (4.8-10.8)
[2019-01-13 05:44] LABS: Albumin Level 2.7 gm/dl (3.4-5.0); BUN Creatinine Ratio 30.4 (10-20); Calcium 8.2 mg/dl (8.5-10.1); Est GFR (African American) 16.4; Est GFR (Non-African American) 14.2; Magnesium 2.2 mg/dl (1.8-2.4); Potassium 3.8 mmol/L (3.5-5.1)
[2019-01-13 05:45] LABS: Mean Platelet Volume 12.9 fL (7.4-10.4); Platelet Count 149 K/uL (130-400)
[2019-01-13 05:46] LABS: Basophils # (auto) 0.03 K/uL (0-0.2); Basophils % (auto) 0.4 %; Eosinophils # (auto) 0.18 K/uL (0-0.5); Eosinophils % (auto) 2.2 %; Immature Granulocytes # (auto) 0.02 K/uL (0.00-0.02); Immature Granulocytes % (auto) 0.2 %; Lymphocytes # (auto) 1.11 K/uL (1.2-3.4); Lymphocytes % (auto) 13.5 %; Monocytes # (auto) 0.78 K/uL (0.11-0.59); Monocytes % (auto) 9.5 %; Neutrophils # (auto) 6.11 K/uL (1.4-6.5); Neutrophils % (auto) 74.2 %; Platelet Estimate Decreased (Normal)
[2019-01-13 05:48] LABS: Bilirubin Direct 0.2 mg/dl (0-0.2); Bilirubin,Total 0.5 mg/dl (0.2-1); Phosphorus 3.4 mg/dl (2.5-4.9); Total Protein 6.2 gm/dl (6.4-8.2)
[2019-01-13] MEDS ORDERED: FUROSEMIDE 40 MG in SYRINGE 0 ML IV SCH (06:00)
[2019-01-13] MEDS ORDERED: FUROSEMIDE 60 MG in SYRINGE 0 ML IV SCH (06:00)
[2019-01-13] MEDS: ALBUT/IPRATROP 3MG/0.5MG NEB 3 ML VIAL NEB SCH (06:02)
[2019-01-13] MEDS: TPN STOP ORDER SCH (08:00)
[2019-01-13] MEDS: FLUTICASONE/SALMETEROL 100/50 (ADVAIR) 14 PUFF/1 INHALER INH SCH ×2 (08:19→19:29)
[2019-01-13] MEDS: FLUTICASONE PROPIONATE NA SPR 16 GM BTL SCH (08:21)
[2019-01-13] MEDS: HEPARIN SOD 5,000 UNIT/0.5 ML VIAL SQ SCH ×2 (08:22→19:24)
[2019-01-13] MEDS: INSULIN ASPART 100 UNITS/ML 3 ML PEN SC SCH ×4 (08:23→20:26)
[2019-01-13] MEDS ORDERED: PANCREAZE (LIPASE 4,200U) CAP PO SCH (09:30)
[2019-01-13] MEDS ORDERED: ALBUT/IPRATROP 3MG/0.5MG NEB 3 ML VIAL NEB PRN (10:00)
--- NOTE | 2019-01-13 13:37 | Progress Note ---
DATE: 01/13/2019 NEPHROLOGY NOTE SUBJECTIVE: Overnight, patient developed shortness of breath, but he feels better now. He is making urine with IV Lasix, but I do not think it is enough. Total urine yesterday in a 24-hour time period was only 1200 mL, which is significantly less fluid than he actually gets. OBJECTIVE: VITAL SIGNS: Blood pressure is still high at 177/83, 94% on 2 liter nasal cannula. HEENT: Mucous membrane is moist. NECK: Supple. CHEST: Bilateral decreased breath sounds. CARDIOVASCULAR: S1 and S2, regular. ABDOMEN: Soft, nontender. EXTREMITIES: Shows 1+ edema in all 4 extremities including upper extremity. LABORATORY TESTS: Blood work from this morning shows BUN 125, creatinine 4.10. Sodium 137, potassium 3.8. ASSESSMENT AND PLAN: 1. The patient has baseline chronic kidney disease V with a baseline creatinine in the high 3s, but he already has a fistula in preparation for dialysis in the very near future. BUN has been more than 100 for many months now. 2. Volume overload. I would cut down the free water flushes down to 100 mL q.6 hours. He is total parenteral nutrition dependent. Also, we will use a higher dose of Lasix at 80 mg IV b.i.d. At discharge, he needs to be discharged with torsemide 100 twice daily. My hope is to delay the dialysis for few more weeks so that we can use the arteriovenous fistula and do not have to put a tunneled catheter. However, this may not be possible as he does have a high amount of fluid intake with the total parenteral nutrition and the free water flush. 3. Anemia of renal failure. He has already been started on Epogen very recently as an outpatient. He just had 20,000 units 2 days ago, no further need. Blood transfusion if hemoglobin less than 7.
--- NOTE | 2019-01-13 14:45 | Hospitalist Progress Note ---
Date of Service January 13, 2019 Assessment & Plan (1) Abdominal pain: Likely some amount of pancreatitis given the typical pain and elevated lipase; however, CT a/p on 01/10 did not show pancreatitis. CT a/p on 01/10 did show cholelithaisis with moderate gallbladder distention; however, surgery felt this was chronic in nature and did not represent cholecystitis. 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 - Monitor lipase - Down to 180 on 01/13 with no further abdominal pain - On 01/12 in the evening, his J-tube became clogged with medication. Have attempted warm water, pancreatic enzyme, and Coca-Cola flushes without success. Have discussed with GI and surgery possible remedies. Will attempt Coca-Cola flush one more time, but then will need to transfer to [place] for more definitive care. (2) Multifocal pneumonia: CT chest on 01/10 showed bilateral airspace consolidations with left>right. Could be interstitial edema vs. multifocal pneumonia. On admission, WBC was 14.5; now normal. Otherwise no SIRS/sepsis symptoms. - Started on Zosyn on admission - Procalcitonin on 01/13 was 1.2. - Continue abx (3) Volume overload: Patient reports 1-2 months of increasing edema in legs, abdomen, face, and arms. Echo on 01/11 showed EF 55-60%, borderline LVH, no valvular pathology. - Likely due to poor kidney function - Diuresis per nephrology - As of 01/13, was net -1L and weight was to 69 kg. Base weight appears to be ~52 kg from prior admissions, so seems to have lots of room to go. - Cr is stable. (4) CKD (chronic kidney disease) stage 5, GFR less than 15 ml/min: Baseline Cr is ~3.5 with eGFR ~15. Near baseline at present. - Diuresis per nephrology (5) Anemia: Baseline hgb appears to be 8-10 (the 10 looks to be after transfusion). - On 01/13, hgb was down to 7.3. - Iron studies showed anemia of chronic disease/CKD - No signs of bleeding. - Epo given by nephro on 01/12 - Will transfuse for hgb < 7 (6) DVT prophylaxis: Heparin 5000 BID Dispo: Likely transfer to [place] unless J-tube can be unclogged. Subjective 68yo M w/ hx of esophagectomy and gastrectomy who presents with abdominal pain; likely pancreatitis and/or cholecystitis. This morning, he is feeling frustrated. G-J tube is clogged and has not been able to be unclogged. Overnight, he had an episode of shortness of breath that resolved by the morning. No abdominal pain. No cough, no fevers chills. Reports no fevers/chills, chest pain, shortness of breath, abdominal pain, nausea, or vomiting. Physical Exam Vital Signs (Past 24 Hours): Last Vital Signs Temp 36.7 C 01/13/19 10:55 Pulse 82 01/13/19 10:55 Resp 19 01/13/19 10:55 BP 177/83 H 01/13/19 10:55 Pulse Ox 94 01/13/19 10:55 Constitutional: WD/WN, vitals as above Eyes: EOM intact bilaterally; no conjunctival abnormality ENMT: external ear and nose normal, oropharynx normal Neck: trachea midline, no thyromegaly normal visual inspection Respiratory: normal respiratory effort, lungs clear to auscultation no respiratory distress Cardiovascular: RRR, no murmur, no edema Gastrointestinal (Abdomen): Inspection/Auscultation: abdomen not distended Esophageal exit on left upper chest. Left-sided G-J tube Musculoskeletal: no cyanosis or clubbing, extremities motor strength 5/5 Skin: no rashes, warm and dry Neurologic: moves all extremities and awake Psychiatric: Orientation: alert, oriented to person and cooperative (1) Volume overload Hypervolemia type: unspecified Qualified Code(s): E87.70 - Fluid overload, unspecified (2) Anemia Anemia type: other cause
[2019-01-13] MEDS: FUROSEMIDE 40 MG in SYRINGE 0 ML IV SCH (17:56)
[2019-01-13] MEDS ORDERED: CUSTOM CENTRAL PN IV SCH (18:00)
[2019-01-13] MEDS ORDERED: dilTIAZem HCl 5 MG/ML 5 ML VIAL IV STA (23:30)
[2019-01-14] MEDS ORDERED: dilTIAZem HCl 5 MG/ML 5 ML VIAL IV STA (03:36)
[2019-01-14] MEDS: TUBE FEEDING WATER FLUSH GT SCH ×4 (03:37→20:54)
[2019-01-14] MEDS: PIPERACILLIN/TAZOBACTAM 3.375 GM in DEXTROSE 5% 100 ML IV SCH ×2 (03:45→16:34)
[2019-01-14] MEDS ORDERED: METOPROLOL TARTRATE 1 MG/ML VIAL IV STA (04:49)
[2019-01-14] MEDS ORDERED: ACETAMINOPHEN 325 MG TAB PO STA (05:02)
[2019-01-14] MEDS ORDERED: ACETAMINOPHEN 325 MG TAB PO PRN (05:02)
[2019-01-14] MEDS ORDERED: ACETAMINOPHEN 65 ML IV ONE (05:10)
[2019-01-14] MEDS: INSULIN ASPART 100 UNITS/ML 3 ML PEN SC SCH ×4 (08:13→20:54)
[2019-01-14] MEDS: FUROSEMIDE 40 MG in SYRINGE 0 ML IV SCH ×2 (08:14→16:35)
[2019-01-14] MEDS: HEPARIN SOD 5,000 UNIT/0.5 ML VIAL SQ SCH ×2 (08:14→20:54)
[2019-01-14] MEDS: FLUTICASONE PROPIONATE NA SPR 16 GM BTL SCH (08:15)
[2019-01-14] MEDS: FLUTICASONE/SALMETEROL 100/50 (ADVAIR) 14 PUFF/1 INHALER INH SCH ×2 (08:15→20:53)
[2019-01-14] MEDS: TPN STOP ORDER SCH (08:22)
[2019-01-14 08:58] LABS: Hematocrit (blood only) 23.2 % (42-52); Hemoglobin 7.6 g/dL (14.0-18.0); Mean Corpuscular Hgb Conc 32.8 g/dL (32-36); Mean Corpuscular Volume 97.5 fL (80-100); Mean Platelet Volume 12.3 fL (7.4-10.4); Nucleated RBC # (auto) 0.03 K/uL (0-0); Nucleated RBC % (auto) 0.4 %; Platelet Count 156 K/uL (130-400); RDW Coefficient of Variation 19.7 % (11.5-14.5); RDW Standard Deviation 70.2 fL (36.4-46.3); Red Blood Count 2.38 M/uL (4.7-6.1); White Blood Count 8.62 K/uL (4.8-10.8)
[2019-01-14 09:14] LABS: Albumin Level 2.6 gm/dl (3.4-5.0); BUN Creatinine Ratio 29.7 (10-20); Calcium 8.9 mg/dl (8.5-10.1); Creatinine Clr Calc Pharmacy 15.8 ml/min; Est GFR (African American) 15.3; Est GFR (Non-African American) 13.2; Magnesium 2.3 mg/dl (1.8-2.4); Potassium 4.2 mmol/L (3.5-5.1)
[2019-01-14 09:17] LABS: Albumin Globulin Ratio 0.7 (0.9-2); Bilirubin,Total 0.5 mg/dl (0.2-1); Globulin 3.8 gm/dl (2.5-4.0); Total Protein 6.4 gm/dl (6.4-8.2)
[2019-01-14] MEDS ORDERED: HydrALAZINE HCL 20 MG/ML VIAL ONE (13:54)
[2019-01-14] MEDS ORDERED: CUSTOM CENTRAL PN IV SCH (18:00)
--- NOTE | 2019-01-14 18:58 | Hospitalist Progress Note ---
Date of Service January 14, 2019 Assessment & Plan (1) Abdominal pain: (2) Multifocal pneumonia: (3) Volume overload: (4) CKD (chronic kidney disease) stage 5, GFR less than 15 ml/min: (5) Anemia: (6) DVT prophylaxis: 68-year-old white male admitted on January 11, 2019 because of abdominal p ain Abdominal pain: Resolved Likely some amount of pancreatitis given the typical pain and elevated lipase; however, CT a/p on 01/10 did not show pancreatitis. CT a/p on 01/10 did show cholelithaisis with moderate gallbladder distention; however, surgery felt this was chronic in nature and did not represent cholecystitis. 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 J-tube became clogged with medication. Have attempted warm water, pancreatic enzyme, and Coca-Cola flushes without success. Have discussed with GI and surgery possible remedies. 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 Later I felt patient not applicable to be direct transferring to do the procedure in the interventional radiology service to change the J-tube in [facility] because patient has going on pneumonia and acute on chronic kidney failure, patient cannot be alone for hours without medical care. Later I called to the medicine service, the on-call doctor accept the patient however no bed, will see if her bed or not tomorrow. Before all of this transferring conversation started, I discussed with patient and his in bedside with present of registered nurse, they noted the risk and benefit of transferring the risk including delayed care, car accident etc. patient and family willing to take all risks by himself. At the same time, I told him because of the bed is in critical conditions possible no bed in [facility], i strongly recommend other tertiary Medical Center such as [facility] [address]. however, pt and fam, only want [facility], may be need he would like to consider [facility] [address] if nobed tomorrow Multifocal pneumonia: Continue abx Acute kidney failure on chronic kidney disease Baseline Cr is ~3.5 with eGFR ~15. Possible worseningthan baseline at present. Diuresis per nephrology Anemia, Will transfuse for hgb < 7 DVT prophylaxis: Heparin 5000 BID Dispo: Likely transfer to [place] unless J-tube can be unclogged. Subjective Report doing okay generalized weakness, no fever and chill Mild cough some white sputum, still difficulty breathing requiring oxygen Epigastric pain is getting better However J-tube still clogged Review of Systems Constitutional: Positive weakness, or fatigue Respiratory: no wheezing, Cardiac: No chest pain, No orthopnea, No PND, No claudication, No palpitations, Abdomen: pos pain, No nausea, No vomiting, No diarrhea, No constipation, Musculoskeletal: No joint pain, No muscle pain, No swelling, No calf pain, No problem reported : No dysuria, No urinary frequency, No incontinence, No hematuria Neurologic: No paralysis, No weakness, No numbness/tingling, No vertigo, No balance problems Psychiatric: No depression symptoms, No anhedonism, No anxiety, No insomnia, No substance abuse Skin: No rash, No itch, No new/changing skin lesions Physical Exam Vital Signs (Past 24 Hours): Last Vital Signs Temp 36.4 C L 01/14/19 16:00 Pulse 81 01/14/19 16:54 Resp 18 01/14/19 16:00 BP 177/83 H 01/14/19 16:00 Pulse Ox 92 01/14/19 16:00 Physical Exam: Constitutional: Thin and frail WD/WN, vitals as above Eyes: EOM intact bilaterally; no conjunctival abnormality ENMT: external ear and nose normal, oropharynx normal Neck: trachea midline, no thyromegal Respiratory: normal respiratory effort, bilateral lungs decreased breathing sounds, no respiratory distress, no w/r/c Cardiovascular RRR, no murmur, no edema GI: Inspection/Auscultation: abdomen not distended , Esophageal exit on left upper chest. Left-sided J tube Musculoskeletal no cyanosis or clubbing, extremities motor strength 5/5 Skin no rashes, warm and dry Neurologic: moves all extremities and awake Results & Data Laboratory Results Laboratory Results - last 24 hr 01/13/19 01/14/19 01/14/19 20:22 07:17 08:44 WBC 8.62 RBC 2.38 L Hgb 7.6 L Hct 23.2 L MCV 97.5 MCH 31.9 MCHC 32.8 RDW Std Deviation 70.2 H RDW Coeff of [place] 19.7 H Plt Count 156 MPV 12.3 H Absolute Nucleated RBC 0.03 H Nucleated RBC % (auto) 0.4 Sodium Potassium Chloride Carbon Dioxide Anion Gap BUN Creatinine Est Cr Clr Drug Dosing Est GFR ( Amer) Est GFR (Non-Af Amer) BUN/Creatinine Ratio Glucose POC Glucose 157 H 149 H Calcium Phosphorus Magnesium Total Bilirubin AST ALT Alkaline Phosphatase Total Protein Albumin Globulin Albumin/Globulin Ratio 01/14/19 01/14/19 01/14/19 08:44 08:44 08:44 WBC RBC Hgb Hct MCV MCH MCHC RDW Std Deviation RDW Coeff of [place] Plt Count MPV Absolute Nucleated RBC Nucleated RBC % (auto) Sodium Cancelled 143 Potassium Cancelled 4.2 Chloride Cancelled 101 Carbon Dioxide Cancelled 35 H Anion Gap Cancelled 6.0 BUN Cancelled 130 H Creatinine Cancelled 4.36 H Est Cr Clr Drug Dosing Cancelled 15.8 Est GFR ( Amer) Cancelled 15.3 Est GFR (Non-Af Amer) Cancelled 13.2 BUN/Creatinine Ratio Cancelled 29.7 H Glucose Cancelled 90 POC Glucose Calcium Cancelled 8.9 Phosphorus 2.8 Magnesium Cancelled 2.3 Total Bilirubin 0.5 AST 16 ALT 18 Alkaline Phosphatase 181 H Total Protein 6.4 Albumin 2.6 L Globulin 3.8 Albumin/Globulin Ratio 0.7 L 01/14/19 01/14/19 11:11 16:23 WBC RBC Hgb Hct MCV MCH MCHC RDW Std Deviation RDW Coeff of [place] Plt Count MPV Absolute Nucleated RBC Nucleated RBC % (auto) Sodium Potassium Chloride Carbon Dioxide Anion Gap BUN Creatinine Est Cr Clr Drug Dosing Est GFR ( Amer) Est GFR (Non-Af Amer) BUN/Creatinine Ratio Glucose POC Glucose 103 H 124 H Calcium Phosphorus Magnesium Total Bilirubin AST ALT Alkaline Phosphatase Total Protein Albumin Globulin Albumin/Globulin Ratio Microbiology 01/10/19 20:50 Blood Blood Culture - Preliminary No growth to date. (1) Volume overload Hypervolemia type: unspecified Qualified Code(s): E87.70 - Fluid overload, unspecified (2) Anemia Anemia type: other cause
[2019-01-14] MEDS ORDERED: AMLODIPINE BESYLATE 5 MG TAB PO ONE (20:17)
[2019-01-14] MEDS: HydrALAZINE HCL 20 MG/ML VIAL IV PRN (23:45)
[2019-01-15] MEDS: TUBE FEEDING WATER FLUSH GT SCH ×4 (03:00→20:35)
[2019-01-15] MEDS: PIPERACILLIN/TAZOBACTAM 3.375 GM in DEXTROSE 5% 100 ML IV SCH ×2 (03:54→16:18)
[2019-01-15] MEDS: HydrALAZINE HCL 20 MG/ML VIAL IV PRN (06:45)
[2019-01-15 07:21] LABS: BUN Creatinine Ratio 29.2 (10-20); Calcium 8.6 mg/dl (8.5-10.1); Est GFR (African American) 14.6; Est GFR (Non-African American) 12.6; Magnesium 2.3 mg/dl (1.8-2.4); Phosphorus 2.5 mg/dl (2.5-4.9); Potassium 4.1 mmol/L (3.5-5.1)
[2019-01-15] MEDS: INSULIN ASPART 100 UNITS/ML 3 ML PEN SC SCH ×4 (07:47→20:37)
[2019-01-15] MEDS: HEPARIN SOD 5,000 UNIT/0.5 ML VIAL SQ SCH ×2 (07:48→20:37)
[2019-01-15] MEDS: TPN STOP ORDER SCH (07:48)
[2019-01-15] MEDS: FLUTICASONE PROPIONATE NA SPR 16 GM BTL SCH (07:48)
[2019-01-15] MEDS: FLUTICASONE/SALMETEROL 100/50 (ADVAIR) 14 PUFF/1 INHALER INH SCH ×2 (07:48→20:36)
[2019-01-15] MEDS: FUROSEMIDE 40 MG in SYRINGE 0 ML IV SCH ×2 (07:49→16:18)
[2019-01-15] MEDS ORDERED: AMLODIPINE BESYLATE 5 MG TAB PO SCH (09:00)
[2019-01-15] MEDS ORDERED: AMLODIPINE BESYLATE 5 MG TAB PO ONE (09:14)
--- NOTE | 2019-01-15 10:00 | Nephrology Progress Note ---
Date of Service January 15, 2019 Assessment & Plan (1) CKD (chronic kidney disease) stage 5, GFR less than 15 ml/min: Baseline creatinine low-mid 3's; has maturing avf. Creatinine is up trending to 4.5 and BUN of 131. Worsening renal function likely due to ATN in setting of pneumonia. Urine sediment w/ 2+ protein, trace blood, else bland. Chemistries, acid-base status for now acceptable. Volume overloaded And no need for dialysis today. High BUN partly due to the high protein load from the tube feeds/TPN We will monitor daily for dialysis need. Continue obtaining daily BMP (2) Volume overload: Continue Lasix 40 mg IV twice daily and monitor input output (3) Anemia: on epo as outpt multifactorial in pt w/ esrd, abnormal GI tract/ tpn dependence -will dose epo tomorrow [id number] subQ if blood pressure is better. (4) Hypertension: Blood pressure is above target. Increase amlodipine to 10 mg daily. Subjective Patient with CKD stage V completed by pneumonia and volume overload seen in follow-up. He reports feeling better this morning although complains of palpitations and nausea. His PEG tube was clogged but finally opened up last night. He is making a lot of urine. Constitutional: + fatigue, + weakness and + anorexia Eyes: no problem reported Bag for saliva Respiratory: + dyspnea on exertion Cardiovascular: + dyspnea on exertion PEG tube Integumentary: no skin ulcer Neurologic: + dizziness Physical Exam Vital Signs (Past 24 Hours): Last Vital Signs Temp 37.0 C 01/15/19 06:37 Pulse 85 01/15/19 08:00 Resp 20 01/15/19 06:37 BP 167/75 H 01/15/19 08:03 Pulse Ox 93 01/15/19 06:37 Physical Exam: General exam: Appears comfortable, no acute distress HEENT: Pupils are equal and reactive to light Neck: No JVD, neck is supple trachea is midline Respiratory system: Crackles in the bases bilaterally. Gastrointestinal: Abdomen is soft, non distended, non tender, bowel sounds are p resent. PEG tube CVS: Regular rate and rhythm. No murmurs, rubs or gallops Musculoskeletal: No joint or muscle tenderness Extremities: Non tender, no edema, peripheral pulses are present Neuro: Oriented, no tremors, no focal neurological deficits Skin: No rashes Access: Left upper arm AV fistula with good bruit Results & Data Laboratory Results Labs reviewed including potassium of 4.1 and creatinine of 4.5. BUN of 131 (1) Volume overload Hypervolemia type: unspecified Qualified Code(s): E87.70 - Fluid overload, unspecified (2) Anemia Anemia type: other cause
[2019-01-15] MEDS ORDERED: METOPROLOL TARTRATE 1 MG/ML VIAL IV ONE (12:36)
[2019-01-15] MEDS ORDERED: METOPROLOL TARTRATE 1 MG/ML VIAL IV STA (12:36)
[2019-01-15] MEDS ORDERED: METOPROLOL TARTRATE 1 MG/ML VIAL IV PRN (12:36)
[2019-01-15] MEDS: NOVASOURCE RENAL 2.0 CAL 1000ML BAG GT SCH (13:58)
[2019-01-15] MEDS ORDERED: CUSTOM CENTRAL PN IV SCH (18:00)
--- NOTE | 2019-01-15 18:06 | Hospitalist Progress Note ---
Date of Service January 15, 2019 Assessment & Plan (1) Abdominal pain: (2) Multifocal pneumonia: (3) Volume overload: (4) CKD (chronic kidney disease) stage 5, GFR less than 15 ml/min: (5) Anemia: (6) DVT prophylaxis: 68-year-old white male admitted on January 11, 2019 because of abdominal p ain Abdominal pain: Resolved Likely pancreatitis admission with elevated lipase; CT a/p on 01/10 did not show pancreatitis. CT a/p on 01/10 did show cholelithaisis with moderate gallbladder distention; however, surgery felt this was chronic in nature and did not represent cholecystitis. 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 J-tube became clogged with medication. Now is unclogged: Start tube feeding, small amount to begin with per diatitian Multifocal pneumonia: Continue abx, neb, NC O2 Acute kidney failure on chronic, nephrology input appreciated, monitor urine input output, fluid overload, continue Lasix Anemia, Will transfuse for hgb < 7 DVT prophylaxis: Heparin 5000 BID Increase activity, PT OT, aids social worker for discharge plan Subjective Report generally doing better, J-tube is unclogged , Review of Systems Constitutional: Positive weakness, or fatigue Respiratory: no wheezing, Cardiac: No chest pain, No orthopnea, No PND, No claudication, No palpitations, Abdomen: pos pain, No nausea, No vomiting, No diarrhea, No constipation, Musculoskeletal: No joint pain, No muscle pain, No swelling, No calf pain, No problem reported : No dysuria, No urinary frequency, No incontinence, No hematuria Neurologic: No paralysis, No weakness, No numbness/tingling, No vertigo, No balance problems Psychiatric: No depression symptoms, No anhedonism, Skin: No rash, No itch, No new/changing skin lesions Physical Exam Vital Signs (Past 24 Hours): Last Vital Signs Temp 36.6 C 01/15/19 15:00 Pulse 84 01/15/19 15:00 Resp 17 01/15/19 15:00 BP 157/79 H 01/15/19 15:00 Pulse Ox 94 01/15/19 15:00 Physical Exam: General exam: Pleasant conversational, no acute distress HEENT: Pupils are equal and reactive to light Neck: No JVD, neck is supple trachea is midline Respiratory system: Crackles in the bases bilaterally. Gastrointestinal: Abdomen is soft, non distended, non tender, bowel sounds are present. J tube in place CVS: Regular rate and rhythm. No murmurs, rubs or gallops Musculoskeletal: No joint or muscle tenderness Extremities: Non tender, no edema, peripheral pulses are present Neuro: Oriented, no tremors, no focal neurological deficits Skin: No rashes Access: Left upper arm AV fistula with good bruit Results & Data Laboratory Results Laboratory Results - last 24 hr 01/14/19 01/15/19 01/15/19 20:22 06:28 07:28 Sodium 143 Potassium 4.1 Chloride 101 Carbon Dioxide 34 H Anion Gap 8.0 BUN 131 H Creatinine 4.52 H* Est Cr Clr Drug Dosing 15.0 Est GFR ( Amer) 14.6 Est GFR (Non-Af Amer) 12.6 BUN/Creatinine Ratio 29.2 H Glucose 171 H POC Glucose 201 H 151 H Calcium 8.6 Phosphorus 2.5 Magnesium 2.3 01/15/19 01/15/19 11:53 16:30 Sodium Potassium Chloride Carbon Dioxide Anion Gap BUN Creatinine Est Cr Clr Drug Dosing Est GFR ( Amer) Est GFR (Non-Af Amer) BUN/Creatinine Ratio Glucose POC Glucose 170 H 145 H Calcium Phosphorus Magnesium (1) Volume overload Hypervolemia type: unspecified Qualified Code(s): E87.70 - Fluid overload, unspecified (2) Anemia Anemia type: other cause
[2019-01-16] MEDS: PIPERACILLIN/TAZOBACTAM 3.375 GM in DEXTROSE 5% 100 ML IV SCH ×2 (03:25→16:51)
[2019-01-16] MEDS: TUBE FEEDING WATER FLUSH GT SCH ×4 (03:25→20:48)
[2019-01-16] MEDS: HydrALAZINE HCL 20 MG/ML VIAL IV PRN (03:25)
[2019-01-16 08:07] LABS: Albumin Globulin Ratio 0.6 (0.9-2); Albumin Level 2.3 gm/dl (3.4-5.0); BUN Creatinine Ratio 28.9 (10-20); Bilirubin,Total 0.4 mg/dl (0.2-1); Calcium 8.9 mg/dl (8.5-10.1); Creatinine Clr Calc Pharmacy 14.3 ml/min; Est GFR (African American) 13.8; Est GFR (Non-African American) 11.9; Globulin 3.8 gm/dl (2.5-4.0); Magnesium 2.3 mg/dl (1.8-2.4); Phosphorus 2.2 mg/dl (2.5-4.9); Potassium 3.8 mmol/L (3.5-5.1); Total Protein 6.1 gm/dl (6.4-8.2)
[2019-01-16] MEDS: TPN STOP ORDER SCH (08:12)
[2019-01-16] MEDS: NOVASOURCE RENAL 2.0 CAL 1000ML BAG GT SCH (08:27)
[2019-01-16] MEDS: FLUTICASONE/SALMETEROL 100/50 (ADVAIR) 14 PUFF/1 INHALER INH SCH ×2 (08:28→20:47)
[2019-01-16] MEDS: FLUTICASONE PROPIONATE NA SPR 16 GM BTL SCH (08:29)
[2019-01-16] MEDS: HEPARIN SOD 5,000 UNIT/0.5 ML VIAL SQ SCH ×2 (08:29→20:47)
[2019-01-16] MEDS: FUROSEMIDE 40 MG in SYRINGE 0 ML IV SCH ×2 (08:29→16:51)
[2019-01-16] MEDS: AMLODIPINE BESYLATE 5 MG TAB PO SCH (08:31)
[2019-01-16] MEDS: INSULIN ASPART 100 UNITS/ML 3 ML PEN SC SCH ×4 (08:31→20:49)
[2019-01-16] MEDS ORDERED: LABETALOL HCL 200 MG TAB PO SCH (09:00)
[2019-01-16] MEDS ORDERED: BISACODYL 10 MG SUPP PR STA ×2 (12:47→14:19)
[2019-01-16] MEDS ORDERED: SOD PHOSPHATE/SOD BIPHOSPHATE ENEMA 132 ML BTL PR PRN (12:47)
[2019-01-16] MEDS ORDERED: POTASSIUM PHOSPHATE 8 MMOL in SODIUM CHLORIDE 0.9% 250 ML IV ONE (13:00)
[2019-01-16] MEDS ORDERED: INSULIN GLARGINE 100 UNIT/ML VIAL SC ONE (13:00)
--- NOTE | 2019-01-16 13:13 | Nephrology Progress Note ---
Date of Service January 16, 2019 Assessment & Plan (1) CKD (chronic kidney disease) stage 5, GFR less than 15 ml/min: Baseline creatinine low-mid 3's; has maturing avf. Creatinine is up trending to 4.7 and BUN of 137. Worsening renal function likely due to ATN in setting of pneumonia. Urine sediment w/ 2+ protein, trace blood, else bland. Chemistries, acid-base status for now acceptable. Volume overloaded No need for dialysis today. High BUN partly due to the high protein load from the tube feeds/TPN We will monitor daily for dialysis need. Continue obtaining daily BMP (2) Volume overload: Continue Lasix 40 mg IV twice daily and monitor input output (3) Anemia: on epo as outpt multifactorial in pt w/ esrd, abnormal GI tract/ tpn dependence -will dose epo tomorrow [id number] subQ if blood pressure is better. (4) Hypertension: Blood pressure is above target. Start labetalol 200mg tid and continue amlodipine to 10 mg daily. Subjective Patient with CKD stage V completed by pneumonia and volume overload seen in follow-up. He reports feeling better this morning. No nausea. His PEG tube working well now. BP still high. He is making a lot of urine. Constitutional: + fatigue, + weakness and + anorexia Physical Exam Vital Signs (Past 24 Hours): Last Vital Signs Temp 37.1 C 01/16/19 07:22 Pulse 90 01/16/19 07:22 Resp 18 01/16/19 07:22 BP 167/77 H 01/16/19 12:03 Pulse Ox 90 01/16/19 07:22 Physical Exam: General exam: Appears comfortable, no acute distress HEENT: Pupils are equal and reactive to light Neck: No JVD, neck is supple trachea is midline Respiratory system: Clear breath sounds bilaterally. Gastrointestinal: Abdomen is soft, non distended, non tender, bowel sounds are present. PEG tube CVS: Regular rate and rhythm. No murmurs, rubs or gallops Musculoskeletal: No joint or muscle tenderness Extremities: Non tender, no edema, peripheral pulses are present Neuro: Oriented, no tremors, no focal neurological deficits Skin: No rashes Results & Data Laboratory Results Cr 4.7, BUN 137 (1) Volume overload Hypervolemia type: unspecified Qualified Code(s): E87.70 - Fluid overload, unspecified (2) Anemia Anemia type: other cause
[2019-01-16] MEDS ORDERED: LANTUS PER UNIT CHARGE SQ ONE (14:30)
[2019-01-16] MEDS: LABETALOL HCL 200 MG TAB PO SCH ×2 (14:39→20:48)
--- NOTE | 2019-01-16 16:58 | Hospitalist Progress Note ---
Date of Service January 16, 2019 Assessment & Plan (1) Abdominal pain: (2) Multifocal pneumonia: (3) Volume overload: (4) CKD (chronic kidney disease) stage 5, GFR less than 15 ml/min: (5) Anemia: (6) DVT prophylaxis: 68-year-old white male admitted on January 11, 2019 because of abdominal p ain Abdominal pain: Resolved Likely pancreatitis admission with elevated lipase; CT a/p on 01/10 did not show pancreatitis. CT a/p on 01/10 did show cholelithaisis with moderate gallbladder distention; however, surgery felt this was chronic in nature and did not represent cholecystitis. 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 J-tube became clogged with medication. Now is unclogged on January 16, 2019, she was yesterday Start tube feeding, small amount to begin with per diatitian Multifocal pneumonia: Continue abx, neb, NC O2, will repeat a chest x-ray to see the progress of pneumonia and then make a judgment of antibiotic Acute kidney failure on chronic, nephrology input appreciated, fluid overload, continue Lasix Anemia, has been stable, Will transfuse for hgb < 7 DVT prophylaxis: Heparin 5000 BID Increase activity, PT OT, secondary social studies teacher for discharge plan Subjective generally feeling tired, possible not resting well, J-tube is unclogged , has been going on feeding, was on 5 ml per hour now increase to 10ml/hr, and gradually decreased /discontinue of TPN Review of Systems Constitutional: Positive weakness, or fatigue Respiratory: no wheezing, Cardiac: No chest pain, No orthopnea, No PND, No claudication, No palpitations, Abdomen: pos pain, No nausea, No vomiting, No diarrhea, No constipation, Musculoskeletal: No joint pain, No muscle pain, No swelling, No calf pain, No problem reported : No dysuria, No urinary frequency, No incontinence, No hematuria Neurologic: No paralysis, No weakness, No numbness/tingling, No vertigo, No balance problems Psychiatric: No depression symptoms, No anhedonism, Skin: No rash, No itch, No new/changing skin lesions Physical Exam Vital Signs (Past 24 Hours): Last Vital Signs Temp 37.1 C 01/16/19 07:22 Pulse 63 01/16/19 15:12 Resp 18 01/16/19 15:12 BP 124/70 01/16/19 15:12 Pulse Ox 96 01/16/19 15:12 Physical Exam: General exam: Pleasant conversational, however looks tired, no acute distress HEENT: Pupils are equal and reactive to light Neck: No JVD, neck is supple trachea is midline Respiratory system: Crackles in the bases bilaterally. Gastrointestinal: Abdomen is soft, non distended, non tender, bowel sounds are present. J tube in place CVS: Regular rate and rhythm. No murmurs, rubs or gallops Musculoskeletal: No joint or muscle tenderness Extremities: Non tender, no edema, peripheral pulses are present Neuro: Oriented, no tremors, no focal neurological deficits Skin: No rashes Access: Left upper arm AV fistula with good bruit Results & Data Laboratory Results Laboratory Results - last 24 hr 01/15/19 01/16/19 01/16/19 20:35 06:12 07:14 Sodium 143 Potassium 3.8 Chloride 100 Carbon Dioxide 35 H Anion Gap 8.0 BUN 137 H Creatinine 4.74 H* Est Cr Clr Drug Dosing 14.3 Est GFR ( Amer) 13.8 Est GFR (Non-Af Amer) 11.9 BUN/Creatinine Ratio 28.9 H Glucose 241 H POC Glucose 262 H 236 H Calcium 8.9 Phosphorus 2.2 L Magnesium 2.3 Total Bilirubin 0.4 AST 10 L ALT 14 Alkaline Phosphatase 146 H Total Protein 6.1 L Albumin 2.3 L Globulin 3.8 Albumin/Globulin Ratio 0.6 L 01/16/19 11:07 Sodium Potassium Chloride Carbon Dioxide Anion Gap BUN Creatinine Est Cr Clr Drug Dosing Est GFR ( Amer) Est GFR (Non-Af Amer) BUN/Creatinine Ratio Glucose POC Glucose 93 Calcium Phosphorus Magnesium Total Bilirubin AST ALT Alkaline Phosphatase Total Protein Albumin Globulin Albumin/Globulin Ratio Microbiology 01/10/19 20:50 Blood Blood Culture - Final No growth (1) Volume overload Hypervolemia type: unspecified Qualified Code(s): E87.70 - Fluid overload, unspecified (2) Anemia Anemia type: other cause
[2019-01-16] MEDS ORDERED: CUSTOM CENTRAL PN IV SCH (18:00)
--- NOTE | 2019-01-16 19:05 | XRay Report ---
XR chest 2V routine CLINICAL HISTORY: Follow-up pneumonia COMPARISON STUDY: 01/11/2019 FINDINGS: The cardiac and mediastinal contours remain stable. There are postsurgical changes of a mid line sternotomy. There are extensive bilateral pulmonary airspace opacities relatively similar to the prior study with exception of perhaps slight progression within the right upper lung zone. A right-s ided PICC catheter is again visualized. There are small bilateral pleural effusions.[ IMPRESSION: Persistent extensive bilateral pulmonary airspace opacities with equivocal slight progres sherif involving the right upper lung zone Electronically signed by: Tucker More M.D. 01/16/2019 7:03 PM
[2019-01-17] MEDS: PIPERACILLIN/TAZOBACTAM 3.375 GM in DEXTROSE 5% 100 ML IV SCH (03:57)
[2019-01-17] MEDS: TUBE FEEDING WATER FLUSH GT SCH ×4 (03:57→21:10)
[2019-01-17 05:28] LABS: BUN Creatinine Ratio 29.2 (10-20); Calcium 8.8 mg/dl (8.5-10.1); Est GFR (African American) 13.4; Est GFR (Non-African American) 11.6; Magnesium 2.4 mg/dl (1.8-2.4); Potassium 3.8 mmol/L (3.5-5.1)
--- NOTE | 2019-01-17 07:58 | Pharmacy Report ---
PHA: Parenteral Nutrition Con - Date of Service January 17, 2019 - Scope Pharmacy was consulted on 01/11/19 to manage parenteral nutrition orders for this patient. - Subjective 68 yr old male with h/o esophagectomy and gastrectomy who presents with abdominal pain . Patient is TPN dependent at home. He recently had his J-tube replaced for tube feedings but was having issues with the tube leaking prior to admission. We were unable to use his tube earlier this admission due to the tube being clogged. Feeding tube has since been unclogged and tube feeds were initiated on 01/15. Home TPN formulation: * 290 gm dextrose, 75 gm amino acids, and 25 gm lipids 3x/week to provide a total of 1536 kcal on days w/lipids and 1286 kcal on days w/out lipids * 2400 mL over 14 hours with a 1 hour taper up and 1 hour taper down - Objective Height: 5 ft 11 in Weight: 64.7 kg Diet: Tube Feed Intake & Output (24hrs):: Intake & Output 01/15/19 01/16/19 01/17/19 01/18/19 06:59 06:59 06:59 06:59 Intake Total 1460 / 1460 1230 / 1230 1532.6667 / 1532.6667 Output Total 2275 / 2275 2750 / 2750 1050 / 1050 Balance -815 / -815 -1520 / -9787 426.4459 / 482.6667 Weight 65.771 kg 65.9 kg 64.7 kg Laboratory Data (Last 24 Hr):: 01/16/19 01/17/19 06:12 04:33 Sodium 143 144 Potassium 3.8 3.8 Chloride 100 101 Carbon Dioxide 35 H 36 H BUN 137 H 142 H Creatinine 4.74 H* 4.84 H* Glucose 241 H 214 H Calcium 8.9 8.8 Phosphorus 2.2 L 3.0 Magnesium 2.3 2.4 Total Bilirubin 0.4 AST 10 L ALT 14 Alkaline Phosphatase 146 H Albumin 2.3 L Triglycerides 41 Nutrition Assessment:: Please refer to the Notes section of the EMR for the most recent plate fitter note. - Assessment 68 yr old male receiving central parenteral nutrition in addition to Novasource tube feeds. Will continue to overlap TPN with Novasource until tube feed rate can be titrated up to goal of 35 ml/hr. Patients home TPN was utilized 01/11-01/16. Will transition to pharmacy compounded TPN today. - Plan For day 7 of inpatient PN administration, the following will be ordered: Macronutrients Amino acids 75 grams/day Dextrose 225 grams/day Lipids 50 grams/day Micronutrients Sodium chloride 190 mEq Sodium acetate 118 mEq Potassium phosphate 12 mMol Potassium chloride 30 mEq Magnesium sulfate 8.12 mEq Calcium gluconate 13.95 mEq Multivitamins 10 mL Trace Elements 1 mL Total volume 2400 mL to be infused over 14 hrs will provide kcal/day Labs, as indicated, will be ordered per protocol Pharmacy will continue to follow and adjust parenteral nutrition orders on a daily basis. Thank you for allowing us to participate in the care of this patient.
[2019-01-17] MEDS: TPN STOP ORDER SCH (07:59)
[2019-01-17] MEDS: FLUTICASONE/SALMETEROL 100/50 (ADVAIR) 14 PUFF/1 INHALER INH SCH ×2 (08:52→21:09)
[2019-01-17] MEDS: FLUTICASONE PROPIONATE NA SPR 16 GM BTL SCH (08:53)
[2019-01-17] MEDS: HEPARIN SOD 5,000 UNIT/0.5 ML VIAL SQ SCH ×2 (08:54→21:10)
[2019-01-17] MEDS: FUROSEMIDE 40 MG in SYRINGE 0 ML IV SCH (08:54)
[2019-01-17] MEDS: LABETALOL HCL 200 MG TAB PO SCH ×2 (08:54→21:10)
[2019-01-17] MEDS: AMLODIPINE BESYLATE 5 MG TAB PO SCH (08:54)
[2019-01-17] MEDS: INSULIN ASPART 100 UNITS/ML 3 ML PEN SC SCH ×2 (08:55→11:46)
[2019-01-17] MEDS ORDERED: LANTUS PER UNIT CHARGE SQ SCH (09:00)
[2019-01-17 09:20] LABS: Hematocrit (blood only) 21.8 % (42-52); Hemoglobin 7.1 g/dL (14.0-18.0); Mean Corpuscular Hgb Conc 32.6 g/dL (32-36); Mean Corpuscular Volume 100.5 fL (80-100); Mean Platelet Volume 13.2 fL (7.4-10.4); Nucleated RBC # (auto) 0.08 K/uL (0-0); Platelet Count 183 K/uL (130-400); RDW Standard Deviation 71.6 fL (36.4-46.3); Red Blood Count 2.17 M/uL (4.7-6.1); White Blood Count 8.07 K/uL (4.8-10.8)
[2019-01-17 09:35] LABS: Basophils # (auto) 0.01 K/uL (0-0.2); Basophils % (auto) 0.1 %; Eosinophils # (auto) 0.15 K/uL (0-0.5); Eosinophils % (auto) 1.9 %; Howell-Jolly Bodies 2+; Immature Granulocytes # (auto) 0.04 K/uL (0.00-0.02); Immature Granulocytes % (auto) 0.5 %; Lymphocytes # (auto) 0.59 K/uL (1.2-3.4); Lymphocytes % (auto) 7.3 %; Macrocytosis Present; Monocytes # (auto) 1.25 K/uL (0.11-0.59); Monocytes % (auto) 15.5 %; Neutrophils # (auto) 6.03 K/uL (1.4-6.5); Neutrophils % (auto) 74.7 %; Schistocytes 1+; Target Cells 2+
[2019-01-17] MEDS: NOVASOURCE RENAL 2.0 CAL 1000ML BAG GT SCH (09:58)
--- NOTE | 2019-01-17 11:09 | Nephrology Progress Note ---
Date of Service January 17, 2019 Assessment & Plan (1) CKD (chronic kidney disease) stage 5, GFR less than 15 ml/min: Baseline creatinine low-mid 3's; has maturing avf. Creatinine is up trending to 4.8 and BUN of 142. Worsening renal function likely due to ATN in setting of pneumonia. Urine sediment w/ 2+ protein, trace blood, else bland. Chemistries, acid-base status for now acceptable. Volume status better. No need for dialysis today. High BUN partly due to the high protein load from the tube feeds/TPN We will monitor daily for dialysis need. Continue obtaining daily BMP (2) Volume overload: Reduce Lasix to 40 mg IV daily and monitor input output (3) Anemia: on epo as outpt multifactorial in pt w/ esrd, abnormal GI tract/ tpn dependence -will dose epo [id number] subQ. (4) Hypertension: Blood pressure is controlled. Reduce labetalol 200mg bid and continue amlodipine to 10 mg daily. Subjective Patient with CKD stage V admitted with pneumonia and volume overload seen in follow-up. He reports feeling better this morning. No nausea. His PEG tube working well now. BP controlled. cr and BUN uptrending. Constitutional: + fatigue, + weakness and + anorexia Respiratory: + dyspnea on exertion Cardiovascular: + dyspnea on exertion Gastrointestinal: + abdominal pain (around FT exit site) Musculoskeletal: + swelling and + muscle weakness Neurologic: + dizziness Endocrine: + fatigue Hematologic / Lymphatic: + easy bleeding Physical Exam Vital Signs (Past 24 Hours): Last Vital Signs Temp 36.7 C 01/17/19 07:10 Pulse 66 01/17/19 07:10 Resp 21 01/17/19 07:10 BP 131/65 01/17/19 07:10 Pulse Ox 94 01/17/19 07:10 Physical Exam: General exam: Appears comfortable, no acute distress HEENT: Pupils are equal and reactive to light Neck: No JVD, neck is supple trachea is midline Respiratory system: Clear breath sounds bilaterally. Gastrointestinal: Abdomen is soft, non distended, non tender, bowel sounds are present CVS: Regular rate and rhythm. No murmurs, rubs or gallops Musculoskeletal: No joint or muscle tenderness Extremities: Non tender, no edema, peripheral pulses are present Neuro: Oriented, no tremors, no focal neurological deficits Skin: No rashes Access: left UA AVF, good bruit Results & Data Laboratory Results cr 4.8, BUN 142 (1) Volume overload Hypervolemia type: unspecified Qualified Code(s): E87.70 - Fluid overload, unspecified (2) Anemia Anemia type: other cause
[2019-01-17] MEDS: DEXTROSE 50% 50 ML SYRINGE IV PRN ×3 (11:31→16:46)
[2019-01-17] MEDS ORDERED: EPOETIN ALFA 10,000 UNITS/ML VIAL SQ ONE (13:00)
--- NOTE | 2019-01-17 15:11 | Hospitalist Progress Note ---
Date of Service January 17, 2019 Assessment & Plan (1) Abdominal pain: (2) Multifocal pneumonia: (3) Volume overload: (4) CKD (chronic kidney disease) stage 5, GFR less than 15 ml/min: (5) Anemia: (6) DVT prophylaxis: 68-year-old white male admitted on January 11, 2019 because of abdominal p ain Abdominal pain: Resolved Likely pancreatitis admission with elevated lipase; CT a/p on 01/10 did not show pancreatitis. CT a/p on 01/10 did show cholelithaisis with moderate gallbladder distention; however, surgery felt this was chronic in nature and did not represent cholecystitis. 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 J-tube became clogged with medication. Now is unclogged on January 16, 2019, Start tube feeding, small amount to begin with per diatitian Home TPN formulation: 290 gm dextrose, 75 gm amino acids, and 25 gm lipids 3x/week to provide a total of 1536 kcal on days w/lipids and 1286 kcal on days w/out lipids 2400 mL over 14 hours with a 1 hour taper up and 1 hour taper down Planning to gradually increase tube feeding and decrease TPN, will have good transition, patient will follow up with Semaj in the cardiology clinical nurse specialist at Dr. Medina Episode of hypoglycemia, normal insulin sliding scale, closely monitoring Multifocal pneumonia, repeat x-ray not significantly improved Has been on iv abx, was switched to Augmentin, crushed and per J tube Continue neb, NC O2, Acute kidney failure on chronic, nephrology input appreciated, creatinine mild elevation compared to yesterday, nephrology on the case, Per note, No need for dialysis today. High BUN partly due to the high protein load from the tube feeds/TPN, monitor daily for dialysis need. Continue obtaining daily BMP Reduce Lasix to 40 mg IV daily and monitor input output Anemia, has been stable, Will transfuse for hgb < 7 DVT prophylaxis: Heparin 5000 BID Increase activity, PT OT, sr. social media & mobile manager for discharge plan, prescription of TPN give to nursing staff, planning to discharge soon Subjective 2 episodes of hypoglycemia, the second episode was at 40, the first episode was at 60 Second episode required D50 IV , blood glucose normalized Patient general condition feeling okay, feels better than yesterday generally feeling tired, J-tube is unclogged 2 days ago, has been going on feeding, has increased to 10ml/hr, and gradually decreased /discontinue of TPN No fever chills, no cough Review of Systems Constitutional: Positive weakness, or fatigue Respiratory: no wheezing, Cardiac: No chest pain, No orthopnea, No PND, No claudication, No palpitations, Abdomen: pos pain, No nausea, No vomiting, No diarrhea, No constipation, Musculoskeletal: No joint pain, No muscle pain, No swelling, No calf pain, No problem reported : No dysuria, No urinary frequency, Neurologic: No paralysis, No weakness, No numbness/tingling, No vertigo, No balance problems Psychiatric: No depression symptoms, Skin: No rash, No itch, No new/changing skin lesions Physical Exam Vital Signs (Past 24 Hours): Last Vital Signs Temp 36.7 C 01/17/19 11:10 Pulse 54 L 01/17/19 15:04 Resp 18 01/17/19 11:10 BP 112/64 01/17/19 11:10 Pulse Ox 93 01/17/19 11:10 Physical Exam: General exam: comfortable, no acute distress HEENT: Pupils are equal and reactive to light Neck: No JVD, neck is supple trachea is midline Respiratory system: Clear breath sounds bilaterally, no wheezing rhonchi or crackles Gastrointestinal: Abdomen is soft, non distended, non tender, bowel sounds are present, J tube in place CVS: Regular rate and rhythm. No murmurs, rubs or gallops Musculoskeletal: No joint or muscle tenderness Extremities: Non tender, no edema, peripheral pulses are present Neuro: Oriented, no tremors, no focal neurological deficits Skin: No rashes Access: left UA AVF, good bruit Results & Data Laboratory Results Laboratory Results - last 24 hr 01/16/19 01/16/19 01/17/19 16:02 19:58 04:33 WBC RBC Hgb Hct MCV MCH MCHC RDW Std Deviation RDW Coeff of [place] Plt Count MPV Immature Gran % (Auto) Neut % (Auto) Lymph % (Auto) [place] % (Auto) Eos % (Auto) Baso % (Auto) Immature Gran # (Auto) Neut # (Auto) Lymph # (Auto) [place] # (Auto) Eos # (Auto) Baso # (Auto) Absolute Nucleated RBC Nucleated RBC % (auto) Hypersegmented Neuts Macrocytosis Target Cells [place] Bodies Schistocytes Sodium 144 Potassium 3.8 Chloride 101 Carbon Dioxide 36 H Anion Gap 7.0 BUN 142 H Creatinine 4.84 H* Est Cr Clr Drug Dosing 14.0 Est GFR ( Amer) 13.4 Est GFR (Non-Af Amer) 11.6 BUN/Creatinine Ratio 29.2 H Glucose 214 H POC Glucose 132 H 150 H Calcium 8.8 Phosphorus 3.0 Magnesium 2.4 Triglycerides 41 01/17/19 01/17/19 01/17/19 04:33 07:27 11:23 WBC 8.07 RBC 2.17 L Hgb 7.1 L Hct 21.8 L MCV 100.5 H MCH 32.7 MCHC 32.6 RDW Std Deviation 71.6 H RDW Coeff of [place] 20.0 H Plt Count 183 MPV 13.2 H Immature Gran % (Auto) 0.5 Neut % (Auto) 74.7 Lymph % (Auto) 7.3 [place] % (Auto) 15.5 Eos % (Auto) 1.9 Baso % (Auto) 0.1 Immature Gran # (Auto) 0.04 H Neut # (Auto) 6.03 Lymph # (Auto) 0.59 L [place] # (Auto) 1.25 H Eos # (Auto) 0.15 Baso # (Auto) 0.01 Absolute Nucleated RBC 0.08 H Nucleated RBC % (auto) 1.0 Hypersegmented Neuts 1+ Macrocytosis Present Target Cells 2+ [place] Bodies 2+ Schistocytes 1+ Sodium Potassium Chloride Carbon Dioxide Anion Gap BUN Creatinine Est Cr Clr Drug Dosing Est GFR ( Amer) Est GFR (Non-Af Amer) BUN/Creatinine Ratio Glucose POC Glucose 169 H 51 L* Calcium Phosphorus Magnesium Triglycerides 01/17/19 01/17/19 01/17/19 11:39 13:53 14:12 WBC RBC Hgb Hct MCV MCH MCHC RDW Std Deviation RDW Coeff of [place] Plt Count MPV Immature Gran % (Auto) Neut % (Auto) Lymph % (Auto) [place] % (Auto) Eos % (Auto) Baso % (Auto) Immature Gran # (Auto) Neut # (Auto) Lymph # (Auto) [place] # (Auto) Eos # (Auto) Baso # (Auto) Absolute Nucleated RBC Nucleated RBC % (auto) Hypersegmented Neuts Macrocytosis Target Cells [place] Bodies Schistocytes Sodium Potassium Chloride Carbon Dioxide Anion Gap BUN Creatinine Est Cr Clr Drug Dosing Est GFR ( Amer) Est GFR (Non-Af Amer) BUN/Creatinine Ratio Glucose POC Glucose 110 H 42 L* 120 H Calcium Phosphorus Magnesium Triglycerides Diagnostic Findings CXR yesterday: Persistent extensive bilateral pulmonary airspace opacities with equivocal slight progression involving the right upper lung zone (1) Anemia Anemia type: other cause (2) Volume overload Hypervolemia type: unspecified Qualified Code(s): E87.70 - Fluid overload, unspecified
[2019-01-17] MEDS ORDERED: CUSTOM CENTRAL PN IV SCH (18:00)
[2019-01-17] MEDS: AMOXICILLIN/CLAVULANATE SUSP 400MG/5ML 50ML BOTTLE GT SCH (21:09)
[2019-01-18] MEDS: TUBE FEEDING WATER FLUSH GT SCH ×4 (03:28→20:39)
[2019-01-18] MEDS ORDERED: Nursing to Pharmacy Communication ONE (03:38)
[2019-01-18] MEDS: INSULIN ASPART 100 UNITS/ML 3 ML PEN SC SCH ×5 (04:12→20:54)
[2019-01-18 06:09] LABS: BUN Creatinine Ratio 28.5 (10-20); Calcium 8.9 mg/dl (8.5-10.1); Creatinine Clr Calc Pharmacy 13.9 ml/min; Est GFR (African American) 12.9; Est GFR (Non-African American) 11.1; Magnesium 2.2 mg/dl (1.8-2.4); Phosphorus 3.3 mg/dl (2.5-4.9)
[2019-01-18 06:24] LABS: Beta-Hydroxybutyrate 0.94 mg/dl (0.2-2.81)
[2019-01-18] MEDS: NOVASOURCE RENAL 2.0 CAL 1000ML BAG GT SCH (08:03)
[2019-01-18] MEDS: LABETALOL HCL 200 MG TAB PO SCH ×2 (08:04→20:38)
[2019-01-18] MEDS: AMLODIPINE BESYLATE 5 MG TAB PO SCH (08:04)
[2019-01-18] MEDS: FLUTICASONE/SALMETEROL 100/50 (ADVAIR) 14 PUFF/1 INHALER INH SCH ×2 (08:05→20:39)
[2019-01-18] MEDS: TPN STOP ORDER SCH (08:05)
[2019-01-18] MEDS: AMOXICILLIN/CLAVULANATE SUSP 400MG/5ML 50ML BOTTLE GT SCH ×2 (08:05→20:39)
[2019-01-18] MEDS: FLUTICASONE PROPIONATE NA SPR 16 GM BTL SCH (08:06)
[2019-01-18] MEDS: HEPARIN SOD 5,000 UNIT/0.5 ML VIAL SQ SCH ×2 (08:06→20:39)
[2019-01-18] MEDS: FUROSEMIDE 40 MG in SYRINGE 0 ML IV SCH (08:07)
[2019-01-18 09:23] LABS: Basophils # (auto) 0.03 K/uL (0-0.2); Basophils % (auto) 0.3 %; Eosinophils # (auto) 0.52 K/uL (0-0.5); Hematocrit (blood only) 22.8 % (42-52); Hemoglobin 7.4 g/dL (14.0-18.0); Immature Granulocytes # (auto) 0.05 K/uL (0.00-0.02); Immature Granulocytes % (auto) 0.5 %; Lymphocytes # (auto) 1.23 K/uL (1.2-3.4); Lymphocytes % (auto) 11.9 %; Mean Corpuscular Volume 101.3 fL (80-100); Mean Platelet Volume 12.1 fL (7.4-10.4); Monocytes # (auto) 0.51 K/uL (0.11-0.59); Neutrophils # (auto) 7.96 K/uL (1.4-6.5); Neutrophils % (auto) 77.3 %; Nucleated RBC # (auto) 0.13 K/uL (0-0); Nucleated RBC % (auto) 1.2 %; Platelet Count 178 K/uL (130-400); RDW Coefficient of Variation 20.4 % (11.5-14.5); RDW Standard Deviation 73.6 fL (36.4-46.3); Red Blood Count 2.25 M/uL (4.7-6.1)
[2019-01-18 09:24] LABS: Mean Corpuscular Hgb Conc 32.5 g/dL (32-36)
[2019-01-18 09:43] LABS: Ferritin 1041.1 ng/ml (8-388)
[2019-01-18 09:53] LABS: Folate (Folic Acid) 20.14 ng/ml (>5.38)
[2019-01-18 10:13] LABS: Anisocytosis Present; Howell-Jolly Bodies 1+; Polychromasia 1+; Target Cells 1+
[2019-01-18] MEDS ORDERED: SODIUM CHLORIDE 0.9% 250 ML IV PRN (13:06)
--- NOTE | 2019-01-18 16:02 | Hospitalist Progress Note ---
Date of Service January 18, 2019 Assessment & Plan (1) Abdominal pain: (2) Multifocal pneumonia: (3) Volume overload: (4) CKD (chronic kidney disease) stage 5, GFR less than 15 ml/min: (5) Anemia: (6) DVT prophylaxis: 68-year-old white male admitted on January 11, 2019 because of abdominal p ain, resolved, currently is pending TPN fluid delivered to home so that he can continue TPN and tube feeding at home Abdominal pain upon admission: Resolved Likely pancreatitis admission with elevated lipase; CT a/p on 01/10 did not show pancreatitis. CT a/p on 01/10 did show cholelithaisis with moderate gallbladder distention; however, surgery felt this was chronic in nature and did not represent cholecystitis. 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 J-tube became clogged with medication. Now is unclogged on January 16, 2019, Has been resumed tube feeding, small amount to begin with per diatitian , currently is 10 mL/h feeding History of complex tach gastrectomy and abdominal hernia surgery, and is on J- tube feeding, surgeon is in [facility] Home TPN formulation: 290 gm dextrose, 75 gm amino acids, and 25 gm lipids 3x/week to provide a total of 1536 kcal on days w/lipids and 1286 kcal on days w/out lipids 2400 mL over 14 hours with a 1 hour taper up and 1 hour taper down Planning to gradually increase tube feeding and decrease TPN, will have good transition, patient will follow up with Semaj in the equipment mechanic specialist at Dr. Medina J tube feeding Rx: Andreina brock renal, 4 can per day, with pum,p. 100ml/hr, 10 hr per day, with J tube, use 100ml water every 6 hr washing. Episode of hypoglycemia yesterday, has the same episodes in [facility] before, no more insulin sliding scale, patient declined any insulin, closely monitoring Multifocal pneumonia, repeat x-ray not significantly improved Has been on iv abx, was switched to Augmentin, crushed and per J tube Continue neb, NC O2, Acute kidney failure on chronic, nephrology input appreciated, creatinine mild elevation, nephrology on the case, patient has fistula, nephrology recommend checking labs q. weekly after discharge, and start dialysis if needed Per note, No need for dialysis today. High BUN partly due to the high protein load from the tube feeds/TPN, monitor daily for dialysis need. Continue obtaining daily BMP Reduce Lasix to 40 mg IV daily and monitor input output Anemia, , hemoglobin less than 8, will transfuse 1 unit, DVT prophylaxis: Heparin 5000 BID Increase activity, PT OT, case management social worker for discharge plan, prescription of TPN give to nursing staff, currently is pending TPN fluid delivered to home so that he can continue TPN and tube feeding at home, patient can be discharged home tomorrow Subjective no more episodes of hypoglycemia, Blood glucose was high, he declined insulin general condition feeling okay, feels better than yesterday generally feeling tired, J-tube is unclogged, has been going on feeding, has increased to 20ml/hr, and gradually decreased /discontinue of TPN No fever chills, no cough Review of Systems Constitutional: Positive weakness, or fatigue Respiratory: no wheezing, Cardiac: No chest pain, No orthopnea, No PND, No claudication, No palpitations, Abdomen: pos pain, No nausea, No vomiting, No diarrhea, No constipation, Musculoskeletal: No joint pain, No muscle pain, No swelling, No calf pain, No problem reported : No dysuria, No urinary frequency, Neurologic: No paralysis, No weakness, No numbness/tingling, No vertigo, No balance problems Psychiatric: No depression symptoms, Skin: No rash, No itch, No new/changing skin lesions Physical Exam Vital Signs (Past 24 Hours): Last Vital Signs Temp 36.5 C 01/18/19 11:30 Pulse 69 01/18/19 11:30 Resp 16 01/18/19 11:30 BP 118/64 01/18/19 11:30 Pulse Ox 83 L 01/18/19 11:35 Physical Exam: General exam: Pleasant conversational, however looks tired, no acute distress HEENT: Pupils are equal and reactive to light Neck: No JVD, neck is supple trachea is midline Respiratory system: Crackles in the bases bilaterally. Gastrointestinal: Abdomen is soft, non distended, non tender, bowel sounds are present. J tube in place CVS: Regular rate and rhythm. No murmurs, rubs or gallops Musculoskeletal: No joint or muscle tenderness Extremities: Non tender, no edema, peripheral pulses are present Neuro: Oriented, no tremors, no focal neurological deficits Skin: No rashes Access: Left upper arm AV fistula with good bruit Results & Data Laboratory Results Laboratory Results - last 24 hr 01/17/19 01/17/19 01/17/19 16:39 16:41 17:01 WBC RBC Hgb Hct MCV MCH MCHC RDW Std Deviation RDW Coeff of [place] Plt Count MPV Immature Gran % (Auto) Neut % (Auto) Lymph % (Auto) Hitchcock % (Auto) Eos % (Auto) Baso % (Auto) Immature Gran # (Auto) Neut # (Auto) Lymph # (Auto) Hitchcock # (Auto) Eos # (Auto) Baso # (Auto) Absolute Nucleated RBC Nucleated RBC % (auto) Polychromasia Anisocytosis Target Cells Curran[place] Bodies Sodium Potassium Chloride Carbon Dioxide Anion Gap BUN Creatinine Est Cr Clr Drug Dosing Est GFR ( Amer) Est GFR (Non-Af Amer) BUN/Creatinine Ratio Glucose POC Glucose 59 L* 61 L* 111 H Calcium Phosphorus Magnesium Iron Ferritin Vitamin B12 Folate Beta-Hydroxybutyric Acd Blood Type Antibody Screen Crossmatch 01/17/19 01/17/19 01/18/19 19:18 23:38 03:11 WBC RBC Hgb Hct MCV MCH MCHC RDW Std Deviation RDW Coeff of [place] Plt Count MPV Immature Gran % (Auto) Neut % (Auto) Lymph % (Auto) Hitchcock % (Auto) Eos % (Auto) Baso % (Auto) Immature Gran # (Auto) Neut # (Auto) Lymph # (Auto) Hitchcock # (Auto) Eos # (Auto) Baso # (Auto) Absolute Nucleated RBC Nucleated RBC % (auto) Polychromasia Anisocytosis Target Cells [place] Bodies Sodium Potassium Chloride Carbon Dioxide Anion Gap BUN Creatinine Est Cr Clr Drug Dosing Est GFR ( Amer) Est GFR (Non-Af Amer) BUN/Creatinine Ratio Glucose POC Glucose 104 H 247 H 322 H Calcium Phosphorus Magnesium Iron Ferritin Vitamin B12 Folate Beta-Hydroxybutyric Acd Blood Type Antibody Screen Crossmatch 01/18/19 01/18/19 01/18/19 05:09 08:01 09:05 WBC 10.30 RBC 2.25 L Hgb 7.4 L Hct 22.8 L MCV 101.3 H MCH 32.9 MCHC 32.5 RDW Std Deviation 73.6 H RDW Coeff of [place] 20.4 H Plt Count 178 MPV 12.1 H Immature Gran % (Auto) 0.5 Neut % (Auto) 77.3 Lymph % (Auto) 11.9 Hitchcock % (Auto) 5.0 Eos % (Auto) 5.0 Baso % (Auto) 0.3 Immature Gran # (Auto) 0.05 H Neut # (Auto) 7.96 H Lymph # (Auto) 1.23 Hitchcock # (Auto) 0.51 Eos # (Auto) 0.52 H Baso # (Auto) 0.03 Absolute Nucleated RBC 0.13 H Nucleated RBC % (auto) 1.2 Polychromasia 1+ Anisocytosis Present Target Cells 1+ [place] Bodies 1+ Sodium 145 Potassium 4.0 Chloride 101 Carbon Dioxide 36 H Anion Gap 8.0 BUN 143 H Creatinine 5.01 H* Est Cr Clr Drug Dosing 13.9 Est GFR ( Amer) 12.9 Est GFR (Non-Af Amer) 11.1 BUN/Creatinine Ratio 28.5 H Glucose 335 H POC Glucose 247 H Calcium 8.9 Phosphorus 3.3 Magnesium 2.2 Iron Ferritin Vitamin B12 Folate Beta-Hydroxybutyric Acd 0.94 Blood Type Antibody Screen Crossmatch 01/18/19 01/18/19 01/18/19 09:05 09:05 11:56 WBC RBC Hgb Hct MCV MCH MCHC RDW Std Deviation RDW Coeff of [place] Plt Count MPV Immature Gran % (Auto) Neut % (Auto) Lymph % (Auto) Hitchcock % (Auto) Eos % (Auto) Baso % (Auto) Immature Gran # (Auto) Neut # (Auto) Lymph # (Auto) Hitchcock # (Auto) Eos # (Auto) Baso # (Auto) Absolute Nucleated RBC Nucleated RBC % (auto) Polychromasia Anisocytosis Target Cells [place] Bodies Sodium Potassium Chloride Carbon Dioxide Anion Gap BUN Creatinine Est Cr Clr Drug Dosing Est GFR ( Amer) Est GFR (Non-Af Amer) BUN/Creatinine Ratio Glucose POC Glucose 102 H Calcium Phosphorus Magnesium Iron 38 Ferritin 1041.1 H Vitamin B12 1841 H Folate 20.14 Beta-Hydroxybutyric Acd Blood Type Antibody Screen Crossmatch 01/18/19 13:14 WBC RBC Hgb Hct MCV MCH MCHC RDW Std Deviation RDW Coeff of [place] Plt Count MPV Immature Gran % (Auto) Neut % (Auto) Lymph % (Auto) Hitchcock % (Auto) Eos % (Auto) Baso % (Auto) Immature Gran # (Auto) Neut # (Auto) Lymph # (Auto) Hitchcock # (Auto) Eos # (Auto) Baso # (Auto) Absolute Nucleated RBC Nucleated RBC % (auto) Polychromasia Anisocytosis Target Cells [place] Bodies Sodium Potassium Chloride Carbon Dioxide Anion Gap BUN Creatinine Est Cr Clr Drug Dosing Est GFR ( Amer) Est GFR (Non-Af Amer) BUN/Creatinine Ratio Glucose POC Glucose Calcium Phosphorus Magnesium Iron Ferritin Vitamin B12 Folate Beta-Hydroxybutyric Acd Blood Type A Negative Antibody Screen NEGATIVE Crossmatch See Detail (1) Volume overload Hypervolemia type: unspecified Qualified Code(s): E87.70 - Fluid overload, unspecified (2) Anemia Anemia type: other cause
[2019-01-18] MEDS ORDERED: CUSTOM CENTRAL PN IV SCH (18:00)
--- NOTE | 2019-01-18 18:44 | Nephrology Progress Note ---
Date of Service January 18, 2019 Assessment & Plan (1) CKD (chronic kidney disease) stage 5, GFR less than 15 ml/min: Baseline creatinine low-mid 3's; has maturing avf. Creatinine is up trending to 5 and BUN of 143. Worsening renal function likely due to ATN in setting of pneumonia. Urine sediment w/ 2+ protein, trace blood, else bland. Chemistries, acid-base status for now acceptable. Volume status better. No need for dialysis today. High BUN partly due to the high protein load from the tube feeds/TPN We will monitor daily for dialysis need. Continue obtaining daily BMP (2) Volume overload: Conitnue Lasix to 40 mg IV daily and monitor input output (3) Anemia: on epo as outpt multifactorial in pt w/ esrd, abnormal GI tract/ tpn dependence -He needs a unit of blood. Discussed with Primary team (4) Hypertension: Blood pressure is controlled. Continue labetalol 200mg bid and amlodipine to 10 mg daily. Subjective Patient with CKD stage V admitted with pneumonia and volume overload seen in follow-up. He reports feeling better this morning. No nausea. His PEG tube working well now, getting TPN and tube feeds. BP controlled. cr and BUN uptrending. Constitutional: + fatigue, + weakness and + anorexia Respiratory: + dyspnea on exertion Cardiovascular: + dyspnea on exertion Gastrointestinal: + abdominal pain (around FT exit site) Musculoskeletal: + swelling and + muscle weakness Neurologic: + dizziness Endocrine: + fatigue Hematologic / Lymphatic: + easy bleeding Physical Exam Vital Signs (Past 24 Hours): Last Vital Signs Temp 36.6 C 01/18/19 18:15 Pulse 64 01/18/19 18:15 Resp 18 01/18/19 18:15 BP 133/70 01/18/19 18:15 Pulse Ox 92 01/18/19 18:15 Physical Exam: General exam: Appears comfortable, no acute distress HEENT: Pupils are equal and reactive to light Neck: No JVD, neck is supple trachea is midline Respiratory system: Clear breath sounds bilaterally. Gastrointestinal: Abdomen is soft, non distended, non tender, bowel sounds are present. PEG tube present CVS: Regular rate and rhythm. No murmurs, rubs or gallops Musculoskeletal: No joint or muscle tenderness Extremities: Non tender, no edema, peripheral pulses are present Neuro: Oriented, no tremors, no focal neurological deficits Skin: No rashes Results & Data Laboratory Results hb 7.1, cr 5, BUN 143 (1) Volume overload Hypervolemia type: unspecified Qualified Code(s): E87.70 - Fluid overload, unspecified (2) Anemia Anemia type: other cause
[2019-01-19] MEDS: INSULIN ASPART 100 UNITS/ML 3 ML PEN SC SCH ×6 (00:46→20:49)
[2019-01-19] MEDS: TUBE FEEDING WATER FLUSH GT SCH ×4 (03:19→21:09)
[2019-01-19 05:52] LABS: Basophils # (auto) 0.01 K/uL (0-0.2); Basophils % (auto) 0.1 %; Eosinophils # (auto) 0.45 K/uL (0-0.5); Hematocrit (blood only) 27.2 % (42-52); Hemoglobin 9.1 g/dL (14.0-18.0); Immature Granulocytes # (auto) 0.04 K/uL (0.00-0.02); Immature Granulocytes % (auto) 0.4 %; Lymphocytes # (auto) 1.28 K/uL (1.2-3.4); Lymphocytes % (auto) 14.3 %; Mean Corpuscular Hgb Conc 33.5 g/dL (32-36); Mean Corpuscular Volume 98.6 fL (80-100); Mean Platelet Volume 12.9 fL (7.4-10.4); Monocytes % (auto) 7.8 %; Neutrophils # (auto) 6.44 K/uL (1.4-6.5); Neutrophils % (auto) 72.4 %; Nucleated RBC # (auto) 0.08 K/uL (0-0); Nucleated RBC % (auto) 0.9 %; Platelet Count 173 K/uL (130-400); RDW Coefficient of Variation 21.4 % (11.5-14.5); RDW Standard Deviation 73.9 fL (36.4-46.3); Red Blood Count 2.76 M/uL (4.7-6.1); White Blood Count 8.92 K/uL (4.8-10.8)
[2019-01-19 06:24] LABS: Anisocytosis Present; BUN Creatinine Ratio 28.6 (10-20); Calcium 8.6 mg/dl (8.5-10.1); Creatinine Clr Calc Pharmacy 14.3 ml/min; Est GFR (African American) 13.3; Est GFR (Non-African American) 11.5; Howell-Jolly Bodies 1+; Magnesium 2.6 mg/dl (1.8-2.4); Pappenheimer Bodies 2+; Phosphorus 4.1 mg/dl (2.5-4.9); Potassium 4.4 mmol/L (3.5-5.1); Target Cells 1+
[2019-01-19] MEDS: FUROSEMIDE 40 MG in SYRINGE 0 ML IV SCH (08:05)
[2019-01-19] MEDS: TPN STOP ORDER SCH (08:09)
[2019-01-19] MEDS: HEPARIN SOD 5,000 UNIT/0.5 ML VIAL SQ SCH ×2 (09:49→21:09)
[2019-01-19] MEDS: FLUTICASONE/SALMETEROL 100/50 (ADVAIR) 14 PUFF/1 INHALER INH SCH ×2 (12:13→21:06)
[2019-01-19] MEDS: FLUTICASONE PROPIONATE NA SPR 16 GM BTL SCH (12:14)
[2019-01-19] MEDS: AMOXICILLIN/CLAVULANATE SUSP 400MG/5ML 50ML BOTTLE GT SCH ×2 (12:14→21:09)
[2019-01-19] MEDS: AMLODIPINE BESYLATE 5 MG TAB PO SCH (12:15)
[2019-01-19] MEDS: LABETALOL HCL 200 MG TAB PO SCH ×2 (12:15→21:08)
[2019-01-19] MEDS: NOVASOURCE RENAL 2.0 CAL 1000ML BAG GT SCH (12:29)
--- NOTE | 2019-01-19 16:38 | Hospitalist Progress Note ---
Date of Service January 19, 2019 Assessment & Plan (1) Abdominal pain: * This has primarily resolved * Patient has a jejunostomy tube which was clogged and now appears to be patent * Patient seems to be tolerating tube feeds at this time - Novasource restarted today 20 mL an hour * No abdominals distention or rebound tenderness today * Imaging revealed cholelithiasis with some moderate gallbladder distention which appeared to be chronic in nature * Continue to monitor for recurrent abdominal pain (2) Anemia: * Anemia of chronic disease * Status post transfusion of packed red blood cells * HgB 9.1 today * Check CBC in the morning * Hemodynamically stable (3) Chronic kidney disease, stage 5, kidney failure: * Dialysis patient followed by [facility] nephrology * Uremia seems to be worsening with a BUN of 140 -most likely due to protein load of TPN * Appreciate nephrology consult * Continue to follow and manage per nephrology (4) Hypertension: * More dynamically stable with no hypotension * Continue diuresis as needed * Continue amlodipine and labetalol * Follow vital signs per protocol (5) Cholelithiasis: * Appears to be chronic * Imaging with distended gallbladder * No pain with palpation over liver today * Continue to monitor * Tolerating tube feeds (6) Respiratory failure with hypoxia: * Secondary multifocal pneumonia and poor inspiration from abdominal pain on admission * Inspirational effort was much improved today * Continue with antibiotic treatment for pneumonia -Augmentin 500 mg every 12 hours * Patient was some hemoptysis * Monitor hemoptysis closely and reconsult pulmonary if it worsens * Continue supplemental O2 as needed * Monitoring hallway with ambulation for desaturation * 6-minute walk test (2 step) before discharge * No supplemental O2 use at home (7) Electrolyte and fluid disorder: * Sodium 146 today * Other electrolytes are balanced * Nephrology following * Dialysis as needed * Follow serial labs (8) Jejunostomy tube present: * Blocked and nonfunctional on admission * Seems to be working well now * Continue to monitor (9) DVT prophylaxis: * Heparin 5000 units subcutaneously every 12 hours * If hemoptysis worsens hold heparin * Continue to monitor * Ambulate as tolerated DISPOSITION: Case management was working on discharge for the weekend. However, tube feeds were not set up, patient had increased hemoptysis, patient had increased hypoxia, did not feel equipped to manage at home without assistance. At this time, we will continue to work on these issues and target Monday or Monday for discharge. Discussed with pharmacy for continued management of TPN as well as nova source to meet nutritional requirements on discharge. Please refer to Dr. Ibarra's addendum for further recommendations Supervising Physician Co-Signing Physician Notes chart reviewed, case discussed w Ronak Plata PAC, agree w plan as above. Subjective Attending Dr. Ibarra Is a 68-year-old male admitted 322 for shortness of breath and found to have multifocal loculated pneumonia. He was treated with antibiotics and continues to improve. However he has an ongoing uremia which seems to be worsening with a BUN of 140 today. The patient is on TPN at home and was started on tube feeds this admission with nova source renal. Patient continued to be hypoxic and has increasing shortness of breath with ambulation. On rest today he was found to be in the 70s and was unable to ambulate without supplemental O2. The patient states that he is easily fatigued but has no chest pain or tightness with hypoxia. Patient does have chronic kidney disease stage V. He is putting out urine and has responded well to furosemide. He does follow the [facility] team for dialysis. Per their comment worsening renal failure is most likely due to ATN. The patient denies any fever or chills. He has no chest pain or tightness at the time of examination. He has ongoing chronic edema of the lower extremities but this is improved since admission. Patient also has edema of the upper extremities this also is improved. Patient has a non-mature AV fistula graft in the left forearm which he reports as seeping serous fluid. He has no pain or discomfort at the AV graft site. Patient denies any neuropathy of the upper extremities. The patient does report several incidents of coughing up quarter size clots of bright red blood. He does not have chest pain with cough. This hemoptysis seems to be intermittent. The patient has no other acute complaints. Physical Exam Vital Signs (Past 24 Hours): Last Vital Signs Temp 36.3 C L 01/19/19 14:55 Pulse 60 01/19/19 14:55 Resp 18 01/19/19 14:55 BP 138/69 01/19/19 14:55 Pulse Ox 90 01/19/19 14:55 Physical Exam: GENERAL : No acute distress. EYES: No icterus, gaze conjugate NOSE: No evidence of epistaxis MOUTH: No lesions or candidiasis NECK: Supple LUNGS: Fine bibasilar rales. No significant bronchospasm. Good inspiratory effort. CHEST: Left upper drainage pouch intact with no inflammation of os and draining clear fluid HEART: Regular, rate controlled ABDOMEN: Soft, NT, ND, BS Present EXTREMITIES: Bilateral upper extremity and lower extremity edema, pedal pulses intact and equal bilaterally. NEURO: A&OX3 Results & Data Laboratory Results Abnormal lab results 01/18/19 01/18/19 01/19/19 Range/Units 13:14 19: 00:12 RBC (4.7-6.1) M/uL Hgb (14.0-18.0) g/dL Hct (42-52) % RDW Std Deviation (36.4-46.3) fL RDW Coeff of [place] (11.5-14.5) % MPV (7.4-10.4) fL Immature Gran # (Auto) (0.00-0.02) K/uL Kay # (Auto) (0.11-0.59) K/uL Absolute Nucleated RBC (0-0) K/uL Sodium (136-145) mmol/L Carbon Dioxide (21-32) mmol/L BUN (7-18) mg/dl Creatinine (0.6-1.4) mg/dl BUN/Creatinine Ratio (10-20) Glucose (70-99) mg/dl POC Glucose 171 H 212 H (70-99) Magnesium (1.8-2.4) mg/dl Crossmatch See Detail 01/19/19 01/19/19 01/19/19 Range/Units 03:23 05:34 05:34 RBC 2.76 L (4.7-6.1) M/uL Hgb 9.1 L (14.0-18.0) g/dL Hct 27.2 L (42-52) % RDW Std Deviation 73.9 H (36.4-46.3) fL RDW Coeff of [place] 21.4 H (11.5-14.5) % MPV 12.9 H (7.4-10.4) fL Immature Gran # (Auto) 0.04 H (0.00-0.02) K/uL Kay # (Auto) 0.70 H (0.11-0.59) K/uL Absolute Nucleated RBC 0.08 H (0-0) K/uL Sodium 146 H (136-145) mmol/L Carbon Dioxide 37 H (21-32) mmol/L BUN 140 H (7-18) mg/dl Creatinine 4.88 H* (0.6-1.4) mg/dl BUN/Creatinine Ratio 28.6 H (10-20) Glucose 181 H (70-99) mg/dl POC Glucose 177 H (70-99) Magnesium 2.6 H (1.8-2.4) mg/dl Crossmatch 01/19/19 Range/Units 11:39 RBC (4.7-6.1) M/uL Hgb (14.0-18.0) g/dL Hct (42-52) % RDW Std Deviation (36.4-46.3) fL RDW Coeff of [place] (11.5-14.5) % MPV (7.4-10.4) fL Immature Gran # (Auto) (0.00-0.02) K/uL Kay # (Auto) (0.11-0.59) K/uL Absolute Nucleated RBC (0-0) K/uL Sodium (136-145) mmol/L Carbon Dioxide (21-32) mmol/L BUN (7-18) mg/dl Creatinine (0.6-1.4) mg/dl BUN/Creatinine Ratio (10-20) Glucose (70-99) mg/dl POC Glucose 132 H (70-99) Magnesium (1.8-2.4) mg/dl Crossmatch Diagnostic Findings XR chest 2V routine CLINICAL HISTORY: Follow-up pneumonia COMPARISON STUDY: 01/11/2019 FINDINGS: The cardiac and mediastinal contours remain stable. There are postsurgical changes of a midline sternotomy. There are extensive bilateral pulmonary airspace opacities relatively similar to the prior study with exception of perhaps slight progression within the right upper lung zone. A right-sided PICC catheter is again visualized. There are small bilateral pleural effusions.[ IMPRESSION: Persistent extensive bilateral pulmonary airspace opacities with equivocal slight progression involving the right upper lung zone Electronically signed by: Tucker More M.D. 01/16/2019 7:03 PM (1) Respiratory failure with hypoxia Chronicity: acute Qualified Code(s): J96.01 - Acute respiratory failure with hypoxia (2) Anemia Anemia type: other cause
[2019-01-19] MEDS ORDERED: CUSTOM CENTRAL PN IV SCH (18:00)
[2019-01-20] MEDS: INSULIN ASPART 100 UNITS/ML 3 ML PEN SC SCH ×6 (00:06→21:01)
[2019-01-20] MEDS: TUBE FEEDING WATER FLUSH GT SCH ×4 (03:19→21:02)
[2019-01-20 06:09] LABS: Basophils # (auto) 0.04 K/uL (0-0.2); Basophils % (auto) 0.5 %; Eosinophils # (auto) 0.32 K/uL (0-0.5); Eosinophils % (auto) 3.7 %; Hematocrit (blood only) 27.3 % (42-52); Hemoglobin 8.8 g/dL (14.0-18.0); Immature Granulocytes # (auto) 0.06 K/uL (0.00-0.02); Immature Granulocytes % (auto) 0.7 %; Lymphocytes # (auto) 0.75 K/uL (1.2-3.4); Lymphocytes % (auto) 8.7 %; Mean Corpuscular Hgb Conc 32.2 g/dL (32-36); Mean Platelet Volume 13.4 fL (7.4-10.4); Monocytes # (auto) 1.22 K/uL (0.11-0.59); Monocytes % (auto) 14.1 %; Neutrophils # (auto) 6.28 K/uL (1.4-6.5); Neutrophils % (auto) 72.3 %; Nucleated RBC % (auto) 1.2 %; Platelet Count 181 K/uL (130-400); RDW Coefficient of Variation 21.2 % (11.5-14.5); RDW Standard Deviation 74.7 fL (36.4-46.3); Red Blood Count 2.73 M/uL (4.7-6.1); White Blood Count 8.67 K/uL (4.8-10.8)
[2019-01-20 06:44] LABS: Anisocytosis Present; Howell-Jolly Bodies 2+; Ovalocytes 1+; Pappenheimer Bodies 1+
[2019-01-20 06:50] LABS: BUN Creatinine Ratio 28.8 (10-20); Calcium 8.6 mg/dl (8.5-10.1); Creatinine Clr Calc Pharmacy 13.6 ml/min; Est GFR (African American) 12.6; Est GFR (Non-African American) 10.8; Potassium 4.1 mmol/L (3.5-5.1)
--- NOTE | 2019-01-20 07:19 | XRay Report ---
XR chest 1V portable HISTORY: 68 years-old Male Hypoxia acute shortness of breath COMPARISON: Chest radiographs 01/16/2019 TECHNIQUE: Portable AP view of the chest FINDINGS: Cardiac silhouette is enlarged, unchanged. Prior median sternotomy. Stable positioning of the right-s ided PICC. No pneumothorax. Small bilateral pleural effusions redemonstrated with mild loculation on the right. Extensive bilateral alveolar opacities are redemonstrated which have slightly progressed o n the left. Degenerative changes of the shoulders and spine. IMPRESSION: 1. Persistent extensive bilateral alveolar opacities with mild progression on the left suggestive of multifocal pneumonia. 2. Persistent bilateral pleural effusions. The above report was generated using voice recognition software. It may contain grammatical, syntax o r spelling errors. Electronically signed by: Bo Thornton M.D. 01/20/2019 7:18 AM
[2019-01-20] MEDS: TPN STOP ORDER SCH (08:23)
[2019-01-20] MEDS: FUROSEMIDE 40 MG in SYRINGE 0 ML IV SCH (08:24)
[2019-01-20] MEDS: FLUTICASONE/SALMETEROL 100/50 (ADVAIR) 14 PUFF/1 INHALER INH SCH ×2 (08:25→21:01)
[2019-01-20] MEDS: HEPARIN SOD 5,000 UNIT/0.5 ML VIAL SQ SCH ×2 (08:25→21:01)
[2019-01-20] MEDS: AMLODIPINE BESYLATE 5 MG TAB PO SCH (08:26)
[2019-01-20] MEDS: FLUTICASONE PROPIONATE NA SPR 16 GM BTL SCH (08:26)
[2019-01-20] MEDS: LABETALOL HCL 200 MG TAB PO SCH ×2 (08:26→21:00)
[2019-01-20] MEDS: AMOXICILLIN/CLAVULANATE SUSP 400MG/5ML 50ML BOTTLE GT SCH (08:34)
[2019-01-20] MEDS: NOVASOURCE RENAL 2.0 CAL 1000ML BAG GT SCH (08:40)
--- NOTE | 2019-01-20 09:35 | Hospitalist Progress Note ---
Date of Service January 20, 2019 Assessment & Plan (1) Multifocal pneumonia: CT chest on 01/10 showed bilateral airspace consolidations with left>right. Could be interstitial edema vs. multifocal pneumonia. On admission, WBC was 14.5; now normal. Otherwise no SIRS/sepsis symptoms. - Started on Zosyn on admission - Procalcitonin on 01/13 was 1.2. Patient clinically feels more fatigued x-ray shows progression by imaging. He has had some mild hemoptysis. Transitioning antibiotics to include MRSA coverage while repeating MRSA nasal swab and stopping Augmentin return to Zosyn (2) Abdominal pain: Likely some amount of pancreatitis given the typical pain and elevated lipase; however, CT a/p on 01/10 did not show pancreatitis. CT a/p on 01/10 did show cholelithaisis with moderate gallbladder distention; however, surgery felt this was chronic in nature and did not represent cholecystitis. 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 -Patient's abdominal symptoms have improved. We are escalating G-tube usage but continue TPN (3) Volume overload: Patient reports 1-2 months of increasing edema in legs, abdomen, face, and arms. Echo on 01/11 showed EF 55-60%, borderline LVH, no valvular pathology. - Likely due to poor kidney function and poor nutritional status -Continuing diuresis per nephrology (4) CKD (chronic kidney disease) stage 5, GFR less than 15 ml/min: Baseline Cr is ~3.5 with eGFR ~15. Near baseline at present. - Diuresis per nephrology (5) Anemia: Baseline hgb appears to be 8-10 (the 10 looks to be after transfusion). - Iron studies showed anemia of chronic disease/CKD Transfuse 1 unit packed red blood cells - Epo given by nephro on 01/12 (6) DVT prophylaxis: DVT prophylaxis: Heparin 5000 BID 68-year-old white male admitted on January 11, 2019 because of abdominal pain, resolved, currently is pending TPN fluid delivered to home so that he can continue TPN and tube feeding at home Abdominal pain upon admission: Resolved Likely pancreatitis admission with elevated lipase; CT a/p on 01/10 did not show pancreatitis. CT a/p on 01/10 did show cholelithaisis with moderate gallbladder distention; however, surgery felt this was chronic in nature and did not represent cholecystitis. 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 J-tube became clogged with medication. Now is unclogged on January 16, 2019, Has been resumed tube feeding, small amount to begin with per diatitian , currently is 10 mL/h feeding History of complex tach gastrectomy and abdominal hernia surgery, and is on J- tube feeding, surgeon is in [facility] Home TPN formulation: 290 gm dextrose, 75 gm amino acids, and 25 gm lipids 3x/week to provide a total of 1536 kcal on days w/lipids and 1286 kcal on days w/out lipids 2400 mL over 14 hours with a 1 hour taper up and 1 hour taper down Planning to gradually increase tube feeding and decrease TPN, will have good transition, patient will follow up with Semaj in the trim carpenter at Dr. Medina J tube feeding Rx: Nova saurce renal, 4 can per day, with pum,p. 100ml/hr, 10 hr per day, with J tube, use 100ml water every 6 hr washing. Subjective Patient feels weak tired and fatigued on the morning of 01/20. He has a cough although only occasionally having mild blood-tinged mucus. Repeat x-ray ordered yesterday this morning shows progression of his pulmonary infiltrates most notably in the left middle lung field. Given progression of infiltrates antibiotic coverage will be widened to cover healthcare associated pathogens. Although his previous MRSA nasal swabs were negative will include coverage for MRSA and sputum cultures ordered. Consideration for bronchoscopic evaluations urine collection could be undertaken if he does not clinically improve Review of Systems ROS: Patient is thin and appears chronically ill No double vision blurry vision No problems with speech or swallowing No palpitations, chest pain or pressure Feels short of breath has a bloodstained mucus production No abdominal pain nausea vomiting diarrhea continues to have difficulty with weight No burning urine urine frequency or changes in color No focal joint pain or muscle pain No skin rashes or oral lesions No unusual bruising or bleeding No focused back pain or numbness or loss of strength No changes in memory or confusion Physical Exam Vital Signs (Past 24 Hours): Last Vital Signs Temp 37.0 C 01/20/19 07:31 Pulse 80 01/20/19 07:31 Resp 18 01/20/19 07:31 BP 165/72 H 01/20/19 07:31 Pulse Ox 90 01/20/19 07:31 the patient appeared thin and chronically ill Vital signs as documented. Head exam is unremarkable. normocephalic, atraumatic Neck is without jugular venous distension, thyromegaly, or lymphademopathy Lungs are coarse breath sounds throughout no egophony increased tactile fremitus over the left lung zone Cardiac exam reveals Rhythm is regular. First and second heart sounds normal. Abdominal exam reveals normal bowel sounds, no masses, no organomegaly Extremities are nonedematous and both pedal pulses are present Neurologic exam is A&Ox3, no focal deficits, strength is equal bilateral Psychologically seems neither anxious or depressed Skin is warm Dry without bruises or lesions (1) Anemia Anemia type: other cause (2) Volume overload Hypervolemia type: unspecified Qualified Code(s): E87.70 - Fluid overload, unspecified
[2019-01-20] MEDS ORDERED: PIPERACILL/TAZOBAC CONSULT ACTIVE PRN (09:54)
[2019-01-20] MEDS ORDERED: VANCOMYCIN CONSULT ACTIVE PRN (10:07)
[2019-01-20] MEDS ORDERED: VANCOMYCIN HCL 1,500 MG in SODIUM CHLORIDE 0.9% 500 ML IV ONE (10:15)
[2019-01-20] MEDS ORDERED: PIPERACILLIN/TAZOBACTAM 3.375 GM in DEXTROSE 5% 100 ML IV ONE (10:15)
[2019-01-20 10:55] LABS: Magnesium 2.5 mg/dl (1.8-2.4); Phosphorus 3.7 mg/dl (2.5-4.9)
--- NOTE | 2019-01-20 16:10 | Pharmacy Report ---
Pharmacy Abx Initial Consult - Date of Service January 20, 2019 - Pharmacy Dosing Scope Date of Consult: 01/20/19 Consultation requested by: Dr. Goldstein Pharmacy is consulted to initiate Vancomycin and Zosyn IV/PO dosing therapy, order appropriate labs and adjust drug dose/frequency. - Subjective The patient is a 68 year old M admitted on 01/11/19 01:31. - Objective Height: 5 ft 11 in Weight: 67.9 kg Vital Signs (Past 12hrs): Vital Signs Temp Pulse Resp BP Pulse Ox 01/20/19 15:31 90 01/20/19 15:10 36.4 C L 64 22 150/75 H 85 L 01/20/19 07:31 37.0 C 80 18 165/72 H 90 Lab Results (24hrs): Laboratory Tests (24 Hours) 01/20/19 01/20/19 05:37 05:37 WBC 8.67 Neut # (Auto) 6.28 Creatinine 5.12 H* Est Cr Clr Drug Dosing 13.6 Micro Results: 01/10/19 20:50 Blood Culture - Final Blood No growth - Risk Factors for Resistance * Hospitalization for 48 hours or more within the past 90 days * Current hospitalization > 5 days * Chronic dialysis within the past 30 days * Antimicrobial use within the last 90 days - Assessment & Plan Assessment 68 year old M admitted on 01/11 for hypoxia and treated with vanc/zosyn transitioned to augmentin on 01/15 and had last dose this morning. * Pt with Stage 5 CKD. Baseline SCr ~3.5 * HD prn. * MRSA nasal swab negative * PCT ordered * Vanc/zosyn ordered due to progression on chest x-ray today. * Pt continues to be afebrile, WBC WNL * Sputum culture ordered Plan Vancomycin and Zosyn for treatment of HCAP. Vancomycin IV * Loading dose: 1500 mg ( 22 mg/kg) * Dosing will be per level at this time. Pt CrCl less than 20ml/min, receiving HD prn. Next HD unknown. * Goal trough level for HCAP: ~20 mcg/mL * Random level ordered for 01/21/19 with am labs Piperacillin/tazobactam * 3.375 g bolus administered over 30 minutes, then 3.375 g IV extended infusion every 12 hours for CrCl 20 mL/min or less and dialysis. Pharmacy will continue to follow and will adjust dose/frequency as necessary. Thank you.
[2019-01-20] MEDS: PIPERACILLIN/TAZOBACTAM 3.375 GM in DEXTROSE 5% 100 ML IV SCH (17:53)
[2019-01-20] MEDS ORDERED: CUSTOM CENTRAL PN IV SCH (18:00)
[2019-01-21] MEDS: INSULIN ASPART 100 UNITS/ML 3 ML PEN SC SCH ×5 (00:31→18:41)
[2019-01-21] MEDS: TUBE FEEDING WATER FLUSH GT SCH ×4 (03:21→21:23)
[2019-01-21] MEDS: PIPERACILLIN/TAZOBACTAM 3.375 GM in DEXTROSE 5% 100 ML IV SCH ×2 (05:23→18:07)
[2019-01-21 07:10] LABS: BUN Creatinine Ratio 28.3 (10-20); Calcium 8.7 mg/dl (8.5-10.1); Creatinine Clr Calc Pharmacy 13.8 ml/min; Est GFR (African American) 12.7; Magnesium 2.1 mg/dl (1.8-2.4); Phosphorus 3.8 mg/dl (2.5-4.9); Potassium 3.9 mmol/L (3.5-5.1)
[2019-01-21] MEDS: TPN STOP ORDER SCH (07:36)
--- NOTE | 2019-01-21 08:06 | Nephrology Progress Note ---
Date of Service January 21, 2019 Assessment & Plan (1) CKD (chronic kidney disease) stage 5, GFR less than 15 ml/min: Baseline creatinine low-mid 3's; has maturing avf. Creatinine is up trending to 5 and BUN of 143. Worsening renal function likely due to ATN in setting of pneumonia, presumptive pancreatitis. Urine sediment w/ 2+ protein, trace blood, else bland. Chemistries, acid-base status for now acceptable. High BUN partly due to the high protein load from the tube feeds/TPN -markedly overloaded -No need for dialysis today; may need vascular to see him next 24-48 hrs re TDC placement/ avf eval (it's oozing -Continue obtaining daily BMP (2) Volume overload: net negative on Lasix 40 mg IV daily but still overloaded on PE and XR -monitor input output -lasix 60 mg IV now and again 2200; reassess in am (3) Anemia: on epo as outpt; dosed here last 01/12 -redose today 85722 units SQ multifactorial in pt w/ esrd, abnormal GI tract/ tpn dependence (4) Hypertension: Blood pressure elevated on past 36 hrs on labetalol 200mg bid and amlodipine 10 mg daily and lasix 40 mg IV daily adn prn hydralazine; labetalol is a new med for him thsi admission Subjective seen on rounds this afternoon. still w/ hemoptysis and sob and marked edema. +dry mouth/thirst. Physical Exam Vital Signs (Past 24 Hours): Last Vital Signs Temp 36.8 C 01/21/19 07:45 Pulse 74 01/21/19 07:45 Resp 18 01/21/19 07:45 BP 158/72 H 01/21/19 07:45 Pulse Ox 91 01/21/19 07:45 Constitutional: well developed and + frail appearing on 02nc, slight sob w/ speech; no cough Eyes: EOM intact bilaterally ENMT: Ears: no external ear abnormality Nose: no external nose abnormality Mouth: + dry oral mucous membranes Neck: no nuchal rigidity Respiratory: + labored breathing (slight; +tachypnea) and able to speak in complete sentences (but breaks after most every sentence) Auscultation: + diminished lung sounds and + crackles (diffusely) chest L upper w/ esophageal ostomy/exit Cardiovascular: Rate/Rhythm: regular rate and regular rhythm Extremities: + edema (3+ pedal and 2+ ankle /distal RLe, trace LLE, 2+ BUE) and + AV fistula (LUE + t/b w/ dressing) Gastrointestinal (Abdomen): Inspection/Auscultation: normal bowel sounds Percussion/Palpation: abdomen soft; abdomen nontender J tube Musculoskeletal: Extremities: strength 5/5 throughout Skin: no rashes, warm and dry Neurologic: kramer, fluent speech Psychiatric: Orientation: alert and oriented x 3 Eye Contact: good eye contact Speech: normal rate/rhythm/volume of speech Results & Data Laboratory Results Abnormal lab results 01/20/19 01/21/19 Range/Units 05:37 05:41 Carbon Dioxide 35 H (21-32) mmol/L BUN 141 H (7-18) mg/dl Creatinine 5.07 H* (0.6-1.4) mg/dl BUN/Creatinine Ratio 28.3 H (10-20) Glucose 123 H (70-99) mg/dl Magnesium 2.5 H (1.8-2.4) mg/dl Diagnostic Findings cxr 01/20 1. Persistent extensive bilateral alveolar opacities with mild progression on the left suggestive of multifocal pneumonia. 2. Persistent bilateral pleural effusions. (1) Anemia Anemia type: other cause (2) Volume overload Hypervolemia type: unspecified Qualified Code(s): E87.70 - Fluid overload, unspecified
[2019-01-21] MEDS: HEPARIN SOD 5,000 UNIT/0.5 ML VIAL SQ SCH ×2 (09:04→20:07)
[2019-01-21] MEDS: AMLODIPINE BESYLATE 5 MG TAB PO SCH (09:06)
[2019-01-21] MEDS: FUROSEMIDE 40 MG in SYRINGE 0 ML IV SCH (09:06)
[2019-01-21] MEDS: LABETALOL HCL 200 MG TAB PO SCH ×2 (09:06→21:23)
[2019-01-21] MEDS: FLUTICASONE PROPIONATE NA SPR 16 GM BTL SCH (09:06)
[2019-01-21] MEDS: FLUTICASONE/SALMETEROL 100/50 (ADVAIR) 14 PUFF/1 INHALER INH SCH ×2 (09:06→21:23)
[2019-01-21] MEDS: NOVASOURCE RENAL 2.0 CAL 1000ML BAG GT SCH (09:23)
[2019-01-21] MEDS ORDERED: EPOETIN ALFA 20,000 UNITS/ML VIAL SQ SCH (09:30)
--- NOTE | 2019-01-21 13:40 | Hospitalist Progress Note ---
Date of Service January 21, 2019 Assessment & Plan (1) Multifocal pneumonia: CT chest on 01/10 showed bilateral airspace consolidations with left>right. Could be interstitial edema vs. multifocal pneumonia. On admission, WBC was 14.5; now normal. Otherwise no SIRS/sepsis symptoms. - Started on Zosyn on admission - Procalcitonin on 01/13 was 1.2. CXR on 01/20 with increased consolidation on the left antibiotics changed from Augmentin back to Zosyn, Vanco added procalcitonin only 0.27 MRSA swab negative, stop the Vanco in light of renal function and no clear role of therapy consult pulmonology for any further input having some intermittent hemoptysis patient mentioned bronchoscopy but would defer that to pulmonology if they felt necessary some signs of volume overload peripherally but CXR not that convincing for pulmonary edema (2) Abdominal pain: Likely some amount of pancreatitis given the typical pain and elevated lipase; however, CT a/p on 01/10 did not show pancreatitis. CT a/p on 01/10 did show cholelithaisis with moderate gallbladder distention; however, surgery felt this was chronic in nature and did not represent cholecystitis. 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 -Patient's abdominal symptoms have improved. We are escalating G-tube usage but continue TPN no complaints today, continue to use the G tube (3) Volume overload: Patient reports 1-2 months of increasing edema in legs, abdomen, face, and arms. Echo on 01/11 showed EF 55-60%, borderline LVH, no valvular pathology. - Likely due to poor kidney function and poor nutritional status -Continuing diuresis per nephrology no indication for HD at this time but likely in the future has maturing fistula (4) CKD (chronic kidney disease) stage 5, GFR less than 15 ml/min: Baseline Cr is ~3.5 with eGFR ~15. Cr is now 5.0 with BUN of 140 nephrology following holding on HD for time being, electrolytes stable and still makes urine with Lasix (5) Anemia: Baseline hgb appears to be 8-10 (the 10 looks to be after transfusion). - Iron studies showed anemia of chronic disease/CKD Transfuse 1 unit packed red blood cells - Epo given by nephro on 01/12 Hb is 8.8 on most recent testing repeat tomorrow (6) DVT prophylaxis: DVT prophylaxis: Heparin 5000 BID Home TPN formulation: 290 gm dextrose, 75 gm amino acids, and 25 gm lipids 3x/week to provide a total of 1536 kcal on days w/lipids and 1286 kcal on days w/out lipids 2400 mL over 14 hours with a 1 hour taper up and 1 hour taper down Planning to gradually increase tube feeding and decrease TPN, will have good transition, patient will follow up with Semaj in the reference investigator at Dr. Medina J tube feeding Rx: Andreina brock renal, 4 can per day, with pum,p. 100ml/hr, 10 hr per day, with J tube, use 100ml water every 6 hr washing. Subjective patient says he is not feeling well again today continues to cough up blood, not much sputum says he sat up to eat because it provides comfort, empties his bag said that he was really fatigued and more dyspneic he felt better after laying down discussed with Dr. Edward, no plans for HD at this time reviewed labs, BUN 141 and Cr 5.0 Review of Systems All systems reviewed & are unremarkable except as noted in HPI & below Constitutional: + fatigue and + weakness; no fever and no sweats Respiratory: + cough, + chest congestion, + dyspnea, + dyspnea on exertion and + hemoptysis (intermittent); no pain with cough and no sputum production Physical Exam Vital Signs (Past 24 Hours): Last Vital Signs Temp 36.8 C 01/21/19 07:45 Pulse 74 01/21/19 07:45 Resp 18 01/21/19 07:45 BP 158/72 H 01/21/19 07:45 Pulse Ox 91 01/21/19 07:45 Constitutional: WD/WN, vitals as above + thin Eyes: PERRL, conjunctivae normal, anicteric sclerae ENMT: external ear and nose normal, oropharynx normal Neck: trachea midline, no thyromegaly Respiratory: + labored breathing and + uses accessory muscles; no respiratory distress Auscultation: + rales (bases) and + rhonchi Cardiovascular: RRR, no murmur, no edema Gastrointestinal (Abdomen): normal bowel sounds, soft, nontender, no hepatosplenomegaly Musculoskeletal: no cyanosis or clubbing, extremities motor strength 5/5 Skin: no rashes, warm and dry Neurologic: patellar DTR's 2+ bilat, sensation intact and PERRL, EOMI, accommodation nl, no face palsy, no dysarthria Psychiatric: A+Ox3, euthymic affect Lymphatic: no cervical or axillary lymphadenopathy Results & Data Laboratory Results Laboratory Results - last 24 hr 01/20/19 01/21/19 01/21/19 16:03 05:41 05:41 Sodium 145 Potassium 3.9 Chloride 101 Carbon Dioxide 35 H Anion Gap 9.0 BUN 141 H Creatinine 5.07 H* Est Cr Clr Drug Dosing 13.8 Est GFR ( Amer) 12.7 Est GFR (Non-Af Amer) 11.0 BUN/Creatinine Ratio 28.3 H Glucose 123 H Calcium 8.7 Phosphorus 3.8 Magnesium 2.1 Procalcitonin 0.27 Random Vancomycin 17.7 Medications Administered Current Inpatient Medications Albuterol (Duoneb) 3 ml NEB Q4 PRN PRN Reason: Shortness Of Breath Or Wheezing Stop: 02/12/19 09:58 Amlodipine Besylate (Norvasc) 10 mg PO QAM ESTEPHANIA Stop: 02/15/19 08:59 Last Admin: 01/21/19 09:06 Dose: 10 mg Documented by: Dextrose (Dextrose 50%) 25 - 50 ml IV UD PRN; Protocol PRN Reason: Hypoglycemia Protocol Stop: 02/11/19 00:59 Last Admin: 01/17/19 16:46 Dose: 25 ml Documented by: Diltiazem HCl (Cardizem) 10 mg IV Q4H PRN PRN Reason: Tachycardia Stop: 02/12/19 01:18 Enteral Nutritional Formula (Novasource Renal) 1,000 ml GT UD ESTEPHANIA; Protocol Stop: 02/14/19 12:14 Last Admin: 01/21/19 09:23 Dose: 1,000 ml Documented by: Fluticasone Propionate (Flonase) 1 sprays NA DAILY ESTEPHANIA Stop: 02/10/19 08:59 Last Admin: 01/21/19 09:06 Dose: Not Given Documented by: Glucagon (Glucagen) 1 mg SQ UD PRN; Protocol PRN Reason: Hypoglycemia Protocol Stop: 02/11/19 00:59 Glucose (Glucose 40%) 15 - 30 gm PO UD PRN; Protocol PRN Reason: Hypoglycemia Protocol Stop: 02/11/19 00:59 Glucose (Dex4 Glucose) 4 - 8 tabs PO UD PRN; Protocol PRN Reason: Hypoglycemia Protocol Stop: 02/11/19 00:59 Heparin Sodium (Beef Lung) (Heparin Sod 10 Unit/Ml Flush) 5 ml FLUSH PRN PRN PRN Reason: Flush Stop: 02/10/19 23:50 Last Admin: 01/21/19 09:05 Dose: 5 ml Documented by: Heparin Sodium (Porcine) (Heparin Sodium (Porcine)) 5,000 units SQ Q12H ESTEPHANIA Stop: 02/10/19 20:59 Last Admin: 01/21/19 09:04 Dose: Not Given Documented by: Hydralazine HCl (Hydralazine Hcl) 20 mg IV Q6H PRN PRN Reason: systolic >180 Stop: 02/13/19 13:48 Last Admin: 01/16/19 03:25 Dose: 20 mg Documented by: Furosemide 40 mg/ Syringe 4 mls @ 8 mls/min IV QAM ESTEPHANIA; Protocol Stop: 02/17/19 08:59 Last Admin: 01/21/19 09:06 Dose: 8 mls/min Documented by: Sodium Chloride (Nss) 250 mls @ 15 mls/hr IV .[id number] PRN PRN Reason: For Transfusion Stop: 02/17/19 13:05 Piperacillin Sod/Tazobactam (Sod 3.375 gm/ Dextrose) 115 mls @ 28.75 mls/hr IV Q12H ESTEPHANIA Stop: 01/27/19 17:59 Last Infusion: 01/21/19 09:15 Dose: Infused Documented by: Insulin Aspart (Novolog Flexpen) 0 units SC Q4 ESTEPHANIA Stop: 02/17/19 03:59 Last Admin: 01/21/19 12:37 Dose: Not Given Documented by: Labetalol HCl (Normodyne) 200 mg PO BID ESTEPHANIA Stop: 02/16/19 08:59 Last Admin: 01/21/19 09:06 Dose: 200 mg Documented by: Loperamide HCl (Imodium A-D Liquid) 2.65 mg PO Q6H PRN PRN Reason: Diarrhea Stop: 02/10/19 02:46 Metoprolol Tartrate (Lopressor) 5 mg IV Q6 PRN PRN Reason: afib Stop: 02/14/19 17:59 Miscellaneous (Stop Order) 1 ea N/A DAILY@0800 ESTEPHANIA Stop: 02/11/19 07:59 Last Admin: 01/21/19 07:36 Dose: 1 ea Documented by: Miscellaneous (Pending Order) 1 ea N/A DAILY@0700,1900 ESTEPHANIA Stop: 02/10/19 18:59 Last Admin: 01/21/19 07:36 Dose: 1 ea Documented by: Miscellaneous (Carbohydrates For Hypoglycemia) 15 - 30 gm PO UD PRN PRN Reason: Hypoglycemia Treatment Stop: 02/11/19 00:59 Miscellaneous (Stop Order) 1 ea N/A DAILY@1800 ESTEPHANIA Stop: 02/14/19 17:59 Last Admin: 01/20/19 17:51 Dose: 1 ea Documented by: Miscellaneous Information (Pharmacy Tpn/Ppn Consult Active) 1 ea N/A UD ESTEPHANIA Stop: 02/10/19 08:07 Miscellaneous Information (Consult) 1 ea N/A UD PRN PRN Reason: Consult Stop: 02/19/19 09:53 Nutrition (Parenteral) (Custom Central Pn) 1 bag IV 1800 ESTEPHANIA; Protocol Stop: 01/22/19 07:59 Nystatin (Mycostatin) 1 appln EXT PRN PRN PRN Reason: Rash Stop: 02/10/19 02:22 Ondansetron HCl (Zofran) 4 mg IV Q4H PRN PRN Reason: Nausea Stop: 02/10/19 02:22 Fluticasone/Salmeterol (Advair Diskus 100/50) 1 puffs INH BID ESTEPHANIA Stop: 02/10/19 08:59 Last Admin: 01/21/19 09:06 Dose: 1 puffs Documented by: Sodium Biphosphate/Sodium Phosphate (Fleet Enema) 132 ml WI DAILY PRN PRN Reason: Constipation Stop: 02/15/19 12:46 Sterile Water (Tube Feeding Water Flush) 1 ea GT Q6H ESTEPHANIA Stop: 02/12/19 14:59 Last Admin: 01/21/19 15:17 Dose: 1 ea Documented by: Triamcinolone Acetonide (Kenalog 0.1%) 1 appln TOP BID PRN PRN Reason: itchy Stop: 02/10/19 02:22 (1) Anemia Anemia type: other cause (2) Volume overload Hypervolemia type: unspecified Qualified Code(s): E87.70 - Fluid overload, unspecified
[2019-01-21] MEDS ORDERED: CUSTOM CENTRAL PN IV SCH (18:00)
[2019-01-21] MEDS: FUROSEMIDE 60 MG in SYRINGE 0 ML IV SCH ×2 (19:06→21:24)
--- NOTE | 2019-01-21 19:37 | XRay Report ---
SINGLE VIEW CHEST CLINICAL HISTORY: Hemoptysis. FINDINGS: An AP, portable, upright chest radiograph is compared to study dated 01/20/2019 and correlat ed with chest CT dated 01/10/2019. The examination is degraded by portable technique and patient rotat ion. A right PICC line is unchanged in position. The patient is status post midline sternotomy. The h eart is enlarged and there is atherosclerotic calcification of the thoracic aorta. The pulmonary vasc ulature appears congested. Extensive/diffuse bilateral airspace consolidation has not appreciably ac nged from yesterday. There are layering pleural effusions with bibasilar atelectasis. No pneumothorax is seen. The skeletal structures are osteopenic. The bony thorax is grossly intact. IMPRESSION: 1. No significant change from yesterday. 2. Cardiomegaly and pulmonary vascular congestion. 3. Extensive and confluent bilateral airspace consolidation is again noted. Top differential consider ations include multifocal pneumonia, ARDS, and/or pulmonary edema. Clinical correlation will be requi red. 4. Layering pleural effusions. Electronically signed by: Ronak Chilel M.D. 01/21/2019 7:35 PM
[2019-01-22] MEDS: TUBE FEEDING WATER FLUSH GT SCH ×2 (02:59→09:52)
[2019-01-22] MEDS: PIPERACILLIN/TAZOBACTAM 3.375 GM in DEXTROSE 5% 100 ML IV SCH ×2 (06:10→17:59)
[2019-01-22 06:46] LABS: BUN Creatinine Ratio 26.1 (10-20); Calcium 8.8 mg/dl (8.5-10.1); Creatinine Clr Calc Pharmacy 13.4 ml/min; Est GFR (African American) 12.3; Est GFR (Non-African American) 10.6; Magnesium 2.1 mg/dl (1.8-2.4)
--- NOTE | 2019-01-22 08:33 | Nephrology Progress Note ---
Date of Service January 22, 2019 Assessment & Plan (1) CKD (chronic kidney disease) stage 5, GFR less than 15 ml/min: Baseline creatinine low-mid 3's; has maturing avf but it's basobasilic and will need transposition. Creatinine is up trending to low 5's and BUN of 136. Worsening renal function likely due to ATN in setting of pneumonia, presumptive pancreatitis; pt also however w/ underlying ESRD prior to this admission. Urine sediment w/ 2+ protein, trace blood, else bland. Chemistries, acid-base status for now acceptable. High BUN partly due to the high protein load from the tube feeds/TPN -- pt may well come off of TPN later this week at least for now -markedly overloaded - pharmacy appreciated in lowering fluid burden both in TPN and in FW flushes; would CONTINUE po water as tolerated which he craves -No need for dialysis today but vascular following for TDC placement; look to start dialysis later this week -Continue obtaining daily BMP (2) Volume overload: still overloaded on PE and XR -monitor input output -start lasix 60 mg IV q6h but hold MN doses --looking to start dialysis later this week >> will get dialysis cath likely or monday -bronchoscopy being considered (3) Anemia: on epo as outpt; dosed here 01/12, 01/21; t stn on 01/12 was 21%; acceptable for now -redosed 01/21 35922 units SQ multifactorial in pt w/ esrd, abnormal GI tract/ tpn dependence (4) Hypertension: Blood pressure elevated on past 36 hrs on labetalol 200mg bid and amlodipine 10 mg daily and and prn hydralazine; labetalol is a new med for him this admission; increased lasix today as well to 60 mg IV tid >> increase labetalol to 300 mg bid Subjective diarrhea +; still very sob still cough. no abd pain currently. cough +; worried they took his water away. avf still oozing; willing to start dialysis Physical Exam Vital Signs (Past 24 Hours): Last Vital Signs Temp 36.7 C 01/22/19 07:32 Pulse 72 01/22/19 07:32 Resp 18 01/22/19 07:32 BP 160/79 H 01/22/19 07:32 Pulse Ox 90 01/21/19 23:10 Constitutional: well developed and + frail appearing on 02nc, lying flat; occasional cough; tired Eyes: EOM intact bilaterally ENMT: Ears: no external ear abnormality Nose: no external nose abnormality Mouth: + dry oral mucous membranes Neck: no nuchal rigidity Respiratory: + labored breathing (slight; +tachypnea) and able to speak in complete sentences (but breaks after most every sentence) Auscultation: + diminished lung sounds and + crackles (diffusely) Cardiovascular: Rate/Rhythm: regular rate and regular rhythm Extremities: + edema (3+ pedal and 2+ ankle /distal RLe, trace LLE, 2+ BUE) and + AV fistula (LUE + t/b w/ dressing) Gastrointestinal (Abdomen): Inspection/Auscultation: normal bowel sounds Percussion/Palpation: abdomen soft; abdomen nontender Musculoskeletal: Extremities: strength 5/5 throughout Skin: no rashes, warm and dry Psychiatric: Orientation: alert and oriented x 3 Eye Contact: good eye contact Speech: normal rate/rhythm/volume of speech Results & Data Laboratory Results Abnormal lab results 01/22/19 Range/Units 05:34 Carbon Dioxide 34 H (21-32) mmol/L BUN 136 H (7-18) mg/dl Creatinine 5.22 H* (0.6-1.4) mg/dl BUN/Creatinine Ratio 26.1 H (10-20) Glucose 228 H (70-99) mg/dl (1) Anemia Anemia type: other cause (2) Volume overload Hypervolemia type: unspecified Qualified Code(s): E87.70 - Fluid overload, unspecified
--- NOTE | 2019-01-22 09:49 | Pulmonary Consultation ---
Date of Consultation January 22, 2019 Assessment & Plan (1) Multifocal pneumonia: * Started on cefepime and linezolid on admission * Patient was then converted to Zosyn for anaerobic coverage and the cefepime and linezolid was stopped * Patient is continued on Zosyn. Today appears to be day 12 of antibiotics. * Chest x-ray seems to be worsening * Will repeat CT chest scan without contrast * Leukocytosis is resolved * Febrile * Not sure there is further benefit to antibiotics; will wait to discontinue antibiotics pending CT scan of the chest and discussion with Dr. Velazquez * Continue supplemental O2 to maintain SaO2 greater than 90% * Unable to tolerate 6-minute walk test secondary to hypoxia and dyspnea * See note below regarding hemoptysis * MRSA swab is negative (2) Hemoptysis: * Hemoptysis seems to be intermittent * Chest x-ray is worsened * Auscultation of lungs is better * Will repeat CT scan without contrast secondary to renal failure * Do not see immediate need for bronchoscopy but will speak with Dr. Velazquez * We will continue to follow (3) Hypoxia: * Multifocal pneumonia on admission * Status post 12 days of antibiotics * Respiratory status appears to be worsening clinically as well as on chest radiograph * We will check a CT scan chest without contrast * We will follow along (4) DVT prophylaxis: * Heparin 5000 units subcutaneously every 12 hours Thank you for including us in the care of this patient. We will follow along with you Please refer to Dr. Velazquez's addendum for further recommendations. Supervising Physician Co-Signing Physician Notes seen and examined with MINISTERIO Plata. agree with above except as noted below 68 y/o male with complex medical history who was intially found to have bilateral infiltrates and was treated as pneumonia with some improvement. then became more short of breath and hypoxic with worsening infiltrates on CXR and CT. comfortable on NC. crackles bilaterally with decreased breath sounds + clubbing bilateral infiltrates worsening unclear cause. bronchoscopy may be helpful for diagnosis but he likely would not tolerate this at this point. differential for worsening infiltrates includes resistant organisms await speciation and sensitivities of gram negative in sputum. could be fungal infection but likely would have increased fevers and WBC. I am also concerned about acute interstitial pneumonitis but I would not have expected him to improve in the middle of treatment. would recommend starting steroids 60 mg q12 methylprednisolone. if not improving would start antifungal. his antibiotics may also need to be changed based on sputum culture. check sputum fungal culture [facility] Pulmonary/Critical Care Medicine History of Present Illness Reason for Consultation: Hemoptysis Requesting Physician: Dr. Elena Attending Physician: Kemal Elena DO History of Present Illness Attending: Dr. Velazquez Is a medically complex patient that was admitted for abdominal pain and was admitted to the intensive care unit for hypoxemic respiratory failure secondary multifocal pneumonia and loculated parapneumonic effusion. He has a complex past medical history including chronic kidney disease stage V/ESRD, recent admission for GI bleed from 12/31-01/03, history of gastrectomy/partial esophagectomy/splenectomy for complications of a hiatal hernia repair. He is TPN dependent with thoracic ostomy bag for esophageal secretions secondary to the gastrectomy. Fluid overload. Chronic elevated BUN above 100 with history of dialysis with a maturing AV fistula. Hypertension. Failure to thrive. Normocytic anemia secondary to chronic illness on chronic epoetin/Procrit. We are asked see the patient for question of hemoptysis. Patient has had recent issue with quarter size bright red blood clots in his esophageal drainage bag. On report today he states that the frequency is less over the last 2 days but he still has some. He reports that sometimes he does appear in the bag without cough and that when he does cough sometimes it comes out of the mouth sometimes it comes out of the bag. He has no chest pain or tightness today. He does report that his shortness of breath is worsening and that yesterday he was so weak he had trouble getting back to the bed from the bathroom and had to call nursing. He has increased supplemental O2 demand and is now on nasal cannula at 2 L at rest. He has not ambulated in the hallways or done 6-minute walk test. He has no prior home supplemental O2 requirements. CT scan of the chest completed 01/11/2019 shows bilateral airspace consolidation left greater than right. There was small to moderate bilateral pleural effusions with associated atelectasis. Patient denies any fever, chills, sweats, rigors. Increasing weakness and malaise. Very dry oral mucosa. No nausea or vomiting. No rectal bleeding. M inimal cough. Increased shortness of breath. Allergies Allergy/AdvReac Type Severity Reaction Status Date / Time sulfamethoxazole AdvReac Intermediate SEVERE Verified 01/11/19 06:42 DIARRHEA oxycodone AdvReac Mild NAUSEA Verified 01/11/19 06:42 simvastatin AdvReac Mild " my legs Verified 01/11/19 06:42 cramp up" tramadol AdvReac Mild NAUSEA Verified 01/11/19 06:42 moxifloxacin AdvReac Unknown Pt said he Verified 01/10/19 22:57 could barely walk Home Medications Home Medications Medication Instructions Recorded Confirmed Type albuterol sulfate [Ventolin HFA] 2 puff INHALATION Q4H PRN 01/10/19 01/10/19 History amlodipine 5 mg PO DAILY 01/10/19 01/10/19 History copper gluconate 2 mg PO DAILY 01/10/19 01/10/19 History cyanocobalamin (vitamin B-12) mcg PO MONTHLY 01/10/19 History [Vitamin B-12] epoetin andi [Procrit] unit SUBCUT DIRECTED 01/10/19 History fluticasone propion-salmeterol 1 puff INHALATION BID 01/10/19 01/10/19 History [Advair Diskus] fluticasone propionate 1 - 2 spray INTRANASAL DAILY 01/10/19 01/10/19 History loperamide [Imodium A-D] 20 ml PO Q6H PRN 01/10/19 01/10/19 History nystatin 1 applic TOPICAL DIRECTED 01/10/19 01/10/19 History ondansetron HCl [Zofran] 4 mg PO TID PRN 01/10/19 01/10/19 History torsemide 20 mg PO TID 01/10/19 01/10/19 History triamcinolone acetonide 1 applic TOPICAL BID PRN 01/10/19 01/10/19 History Patient History Medical History Normocytic anemia (Chronic) Dehydration (Acute 12/29/13) Jejunostomy tube present (Chronic) Hyponatremia (Resolved) Jejunostomy tube leak (Resolved) Hyponatremia (Acute) Leukocytosis (Resolved) HAYLEY (acute kidney injury) Hypokalemia Jejunostomy tube leak Jejunostomy tube present Kidney stones Low serum copper for age Surgical History S/P gastrectomy S/P splenectomy Family History Other Hypertension Social History Communication Ability: Effective Beliefs That Will Affect Care: None Current Living Situation: Spouse Other Information That Helps Us Care for You: No Feels Safe at Home: Yes Safety Concerns: Feels Safe At This Time Smoking Status: Never smoker Hx Alcohol Use: No Hx Substance Use: No Review of Systems A total of 12 systems was reviewed and is negative other than as listed above in the HPI Physical Exam Vital Signs (Past 24 Hours): Last Vital Signs Temp 36.7 C 01/22/19 07:32 Pulse 72 01/22/19 07:32 Resp 18 01/22/19 07:32 BP 160/79 H 01/22/19 07:32 Pulse Ox 90 01/21/19 23:10 Physical Exam: GENERAL : No acute distress. Patient appears cachectic. EYES: No icterus, gaze conjugate. Pupils equal round and reactive to light NOSE: No evidence of epistaxis. Nasal cannula in place MOUTH: No lesions or candidiasis. Oral mucosa dry NECK: Supple. No distended neck veins LUNGS: Good aeration in all lung zones. Bibasilar rales. No rhonchi. No bronchospasm HEART: Regular, rate controlled CHEST: Esophageal drainage bag in place and draining clear to escalera sputum. No evidence of bloody secretions. ABDOMEN: Soft, NT, ND, BS Present. J-tube in place and secure with some tenderness around os EXTREMITIES: 3+ LE/UE edema, pedal pulses intact NEURO: A&OX3. Results & Data Laboratory Results 01/20/19 05:37 01/22/19 05:34
[2019-01-22] MEDS: TPN STOP ORDER SCH (09:51)
[2019-01-22] MEDS: HEPARIN SOD 5,000 UNIT/0.5 ML VIAL SQ SCH ×2 (09:51→20:27)
[2019-01-22] MEDS: AMLODIPINE BESYLATE 5 MG TAB PO SCH (09:52)
[2019-01-22] MEDS: FLUTICASONE/SALMETEROL 100/50 (ADVAIR) 14 PUFF/1 INHALER INH SCH ×2 (09:52→20:26)
[2019-01-22] MEDS: FLUTICASONE PROPIONATE NA SPR 16 GM BTL SCH (09:52)
[2019-01-22] MEDS: FUROSEMIDE 40 MG in SYRINGE 0 ML IV SCH (09:53)
[2019-01-22] MEDS: LABETALOL HCL 200 MG TAB PO SCH (09:53)
--- NOTE | 2019-01-22 10:58 | Consultation ---
Date of Consultation January 22, 2019 Assessment & Plan (1) CKD (chronic kidney disease) stage 5, GFR less than 15 ml/min: Pt with L AC basilic v AVF creation approx 4 weeks old. Maturing well, however, not able to be accessed d/t location. Will require basilic v transposition in future before can be accessed. Discussed this with nephrology, they recommend pt have permcath inserted this week for imminent HD. Pt agreeable. After discussion with Dr Watts, planning on tomorrow. In meantime, recommend frequent dressing changes to L AC draining site. Present on Admission?: Yes History of Present Illness Reason for Consultation: need access for HD Attending Physician: Kemal Elena DO History of Present Illness 68 yo m with complicated medical hx, currently admitted d/t aspiration pneumonia and with noted worsening renal fxn, seen in consultation today for assessment for HD access. Pt states had a LUE AVF created at [facility] on 12/25/18. Is not yet on HD, but having decreased renal fxn and generalized fluid overload. Pt admits SOB and JOSE, but denies GALEANA, fever, chills, chest pain, abd pain, N/V, rest pain, other complaints. Allergies Allergy/AdvReac Type Severity Reaction Status Date / Time sulfamethoxazole AdvReac Intermediate SEVERE Verified 01/11/19 06:42 DIARRHEA oxycodone AdvReac Mild NAUSEA Verified 01/11/19 06:42 simvastatin AdvReac Mild " my legs Verified 01/11/19 06:42 cramp up" tramadol AdvReac Mild NAUSEA Verified 01/11/19 06:42 moxifloxacin AdvReac Unknown Pt said he Verified 01/10/19 22:57 could barely walk Home Medications Home Medications Medication Instructions Recorded Confirmed Type albuterol sulfate [Ventolin HFA] 2 puff INHALATION Q4H PRN 01/10/19 01/10/19 Hi story amlodipine 5 mg PO DAILY 01/10/19 01/10/19 History copper gluconate 2 mg PO DAILY 01/10/19 01/10/19 History cyanocobalamin (vitamin B-12) mcg PO MONTHLY 01/10/19 History [Vitamin B-12] epoetin andi [Procrit] unit SUBCUT DIRECTED 01/10/19 History fluticasone propion-salmeterol 1 puff INHALATION BID 01/10/19 01/10/19 History [Advair Diskus] fluticasone propionate 1 - 2 spray INTRANASAL DAILY 01/10/19 01/10/19 History loperamide [Imodium A-D] 20 ml PO Q6H PRN 01/10/19 01/10/19 History nystatin 1 applic TOPICAL DIRECTED 01/10/19 01/10/19 History ondansetron HCl [Zofran] 4 mg PO TID PRN 01/10/19 01/10/19 History torsemide 20 mg PO TID 01/10/19 01/10/19 History triamcinolone acetonide 1 applic TOPICAL BID PRN 01/10/19 01/10/19 History Patient History Medical History Normocytic anemia (Chronic) Dehydration (Acute 12/29/13) Jejunostomy tube present (Chronic) Hyponatremia (Resolved) Jejunostomy tube leak (Resolved) Hyponatremia (Acute) Leukocytosis (Resolved) HAYLEY (acute kidney injury) Hypokalemia Jejunostomy tube leak Jejunostomy tube present Kidney stones Low serum copper for age Surgical History S/P gastrectomy S/P splenectomy Family History Other Hypertension Social History Communication Ability: Effective Beliefs That Will Affect Care: None Current Living Situation: Spouse Other Information That Helps Us Care for You: No Feels Safe at Home: Yes Safety Concerns: Feels Safe At This Time Smoking Status: Never smoker Hx Alcohol Use: No Hx Substance Use: No Review of Systems Constitutional: + malaise; no fever, no chills, no sweats, no fatigue and no weight loss Eyes: no blind spots and no problem reported Ear, Nose, Mouth, Throat: no hearing loss and no sore throat Respiratory: + cough, + dyspnea on exertion and + hemoptysis; no dyspnea Cardiovascular: no chest pain, no palpitations, no syncope, no claudication and no problem reported Gastrointestinal: no abdominal pain, no early satiety, no nausea, no vomiting, no cramping, no change in bowel habits, no diarrhea/loose stools and no blood in stools Musculoskeletal: no back pain, no joint pain, no swelling and no muscle weakness Integumentary: no rash, no non-healing lesions, no skin ulcer, no wounds and no erythema Neurologic: no localized weakness, no generalized weakness, no paralysis, no loss of sensation, no tingling, no numbness, no paresthesia, no seizure-like activity, no syncope, no headache(s) and no confusion Psychiatric: as per Subjective / HPI Hematologic / Lymphatic: no easy bleeding, no easy bruising, no coagulopathy, no night sweats and no unexplained weight loss Physical Exam Vital Signs (Past 24 Hours): Last Vital Signs Temp 36.7 C 01/22/19 07:32 Pulse 72 01/22/19 07:32 Resp 18 01/22/19 07:32 BP 160/79 H 01/22/19 07:32 Pulse Ox 90 01/21/19 23:10 Constitutional: WD/WN, vitals as above well developed, well nourished, + ill appearing, + thin, + frail appearing, well groomed, + disheveled, cooperative and comfortable; not in distress Eyes: PERRL, conjunctivae normal, anicteric sclerae EOM intact bilaterally ENMT: external ear and nose normal, oropharynx normal Ears: no hearing impairment Nose: no nasal discharge Neck: trachea midline, no thyromegaly no tracheal deviation, no neck crepitus and neck nontender Respiratory: + cough and able to speak in complete sentences; does not use accessory muscles, not tachypneic and no audible wheezes Auscultation: + diminished lung sounds and + crackles; no rhonchi and no wheezes Cardiovascular: RRR, no murmur, no edema Heart Sounds: no gallop and no murmur Vessels: femoral pulses present, posterior tibial pulses present, dorsalis pedis pulses present, brachial pulses present and radial pulses present; no carotid bruit and no femoral bruit Extremities: normal capillary refill, + pedal edema, + edema and + AV fistula (LUE basilic v avf +thrill/bruit, incision pinpoint open with clear drainage) Chest (Breasts): Chest: normal inspection of chest Gastrointestinal (Abdomen): normal bowel sounds, soft, nontender, no hepatosplenomegaly Inspection/Auscultation: abdomen normal to inspection and normal bowel sounds; abdomen not distended Percussion/Palpation: abdomen soft; abdomen nontender, no guarding and abdomen not rigid Musculoskeletal: no cyanosis or clubbing, extremities motor strength 5/5 Head/Neck/Chest: normocephalic, head atraumatic and neck supple Extremities: extremities normal to inspection and strength 5/5 throughout; full ROM of extremities Skin: no rashes, warm and dry normal turgor and + incision (L AC incision healed except pinpoint open area with significant serous drai); no rashes, no lesions, no ulcers, no dry skin and no excoriations Neurologic: moves all extremities and awake; no focal motor deficits and not confused Speech / Cognition: no expressive aphasia and no receptive aphasia Motor/Sensory: no tremor and no sensory deficit Cranial Nerves: EOM intact bilaterally, normal facial strength and tongue midline Psychiatric: Orientation: alert, oriented x 3 and cooperative Apperance: appropriately dressed, appropriately groomed and appeared stated age Affect: + depressed affect and + flat affect Thought Process: goal directed thought process, linear/logical thought process and clear/coherent thought process Cognition: recent memory grossly intact, remote memory grossly intact, attention grossly intact and language grossly intact Estimated Intelligence: average estimated intelligence Lymphatic: no lymphedema
[2019-01-22 11:22] LABS: Hepatitis B Surface Antibody Non-Immune
[2019-01-22 11:33] LABS: Hepatitis B Surface Antigen Neg (Neg)
--- NOTE | 2019-01-22 11:38 | CT Scan Report ---
CT chest wo con CLINICAL HISTORY: 68 years-old Male presenting with Increasing hypoxia, hemoptysis. TECHNIQUE: Multidetector CT imaging of the chest was performed without the use of intravenous contras t. IV contrast: None. One or more dose lowering techniques were used consistent with the principles o f ALARA (as low as reasonably achievable), including automatic exposure control, mA or kV adjustment to individual patient size, and/or use of iterative reconstruction. COMPARISON: 01/10/2019. CT DOSE (mGy.cm): The estimated cumulative dose is 193.31 mGy.cm. 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 Bilateral pulmonary opacities a nd effusions. Soft tissues: Normal thyroid. Postsurgical changes of gastroesophageal resection with esophageal fist tatyana to the left anterior chest wall. Right upper terminate PICC terminates in the superior cavoatrial junction. Numerous prominent mediastinal lymph nodes measuring up to 10 mm in short axis. Evaluation of the mino limited in the absence of intravenous contrast. Atherosclerosis of the aorta. Ectasia of the ascending aorta, which measures 4 cm in diameter. Top normal heart size. Coronary artery calcifi cation. Small bilateral pleural effusions, which are loculated. These have remained stable to slightl y decreased in size since the prior exam. No pericardial effusion. Upper abdomen normal. Lungs and airways: No pneumothorax. Minimal layering debris is evident in the upper trachea. The prev iously noted polypoid filling defect within the upper trachea at the thoracic inlet has resolved, lik janna adherent debris on the prior exam. Pulmonary arteries enlarged relative to adjacent bronchi thoug h slightly decreased from prior. Decreased interlobular septal thickening. Interval increase in perib ronchovascular predominant consolidation, left greater than right. Peripheral punctate calcification within the lungs at the lung bases may relate to chronic aspiration or other chronic disease. Musculoskeletal: Degenerative changes of the spine. Compression deformity of T6 and to a lesser exten t at T5. This is unchanged from prior. IMPRESSION: 1. Interval worsening of multifocal consolidation compatible with multifocal pneumonia. Multifocal h emorrhage would BE considered less likely given the density of the infiltrates. 2. Bilateral loculated pleural effusions. Parapneumonic effusions not excluded. 3. Decreased volume overload and congestive change. 4. Mediastinal lymphadenopathy, nonspecific and possibly reactive given the pulmonary infiltrates. 5. 4 cm ascending aortic aneurysm. Electronically signed by: Jah Wilde M.D. 01/22/2019 11:37 AM
[2019-01-22] MEDS: FUROSEMIDE 60 MG in SYRINGE 0 ML IV SCH ×2 (12:43→17:58)
[2019-01-22] MEDS ORDERED: NOVASOURCE RENAL 2.0 CAL 1000ML BAG JT SCH (14:45)
[2019-01-22] MEDS: methylPREDNISolone 60 MG in SYRINGE 0 ML IV SCH (15:22)
--- NOTE | 2019-01-22 17:25 | Hospitalist Progress Note ---
Date of Service January 22, 2019 Assessment & Plan (1) Multifocal pneumonia: CT chest on 01/10 showed bilateral airspace consolidations with left>right. Could be interstitial edema vs. multifocal pneumonia. On admission, WBC was 14.5; now normal. Otherwise no SIRS/sepsis symptoms. - Started on Zosyn on admission - Procalcitonin on 01/13 was 1.2. CXR on 01/20 with increased consolidation on the left antibiotics changed from Augmentin back to Zosyn, Vanco added procalcitonin only 0.27 MRSA swab negative, stop the Vanco in light of renal function and no clear role of therapy CT chest today shows worsening infiltrates, but no fever, WBC stable appreciate pulmonology consult, will start on Prednisone no antifungals for now since it does not fit picture for fungal pneumonia no plans for bronchoscopy for time being (2) Abdominal pain: Likely some amount of pancreatitis given the typical pain and elevated lipase; however, CT a/p on 01/10 did not show pancreatitis. CT a/p on 01/10 did show cholelithaisis with moderate gallbladder distention; however, surgery felt this was chronic in nature and did not represent cholecystitis. 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 -Patient's abdominal symptoms have improved. tolerating G tube feedings no complaints today, no pain (3) Volume overload: Patient reports 1-2 months of increasing edema in legs, abdomen, face, and arms. Echo on 01/11 showed EF 55-60%, borderline LVH, no valvular pathology. - Likely due to poor kidney function and poor nutritional status -Continuing diuresis per nephrology no indication for HD at this time but likely by end of week has maturing fistula vascular surgery consulted for permacath placement (4) CKD (chronic kidney disease) stage 5, GFR less than 15 ml/min: Baseline Cr is ~3.5 with eGFR ~15. Cr is now 5.22 with BUN of 136 nephrology following as above, will have Permacath placed, plan for HD in near future electrolytes stable (5) Anemia: Baseline hgb appears to be 8-10 (the 10 looks to be after transfusion). - Iron studies showed anemia of chronic disease/CKD Transfuse 1 unit packed red blood cells - Epo given by nephro on 01/12 Hb is 8.8 on most recent testing no signs of bleeding (6) DVT prophylaxis: DVT prophylaxis: Heparin 5000 BID Home TPN formulation: 290 gm dextrose, 75 gm amino acids, and 25 gm lipids 3x/week to provide a total of 1536 kcal on days w/lipids and 1286 kcal on days w/out lipids 2400 mL over 14 hours with a 1 hour taper up and 1 hour taper down Planning to gradually increase tube feeding and decrease TPN, will have good transition, patient will follow up with [facility] in the [facility] at Dr. Medina J tube feeding Rx: Andreina brock renal, 4 can per day, with pum,p. 100ml/hr, 10 hr per day, with J tube, use 100ml water every 6 hr washing. Subjective patient still with dyspnea, cough, intermittent hemoptysis discussed with pulmonology reviewed the result of CT chest will start Prednisone to treat potential pneumonitis reviewed labs, Cr rising as is BUN, vascular surgery consulted for permacath placement planning on HD prior to end of the week, appreciate Dr. Edward's input reviewed TPN and tube feeds with pharmacy and nutrition plan to decrease fluids since he is becoming edematous Review of Systems All systems reviewed & are unremarkable except as noted in HPI & below Constitutional: + chills, + fatigue and + weakness; no fever and no sweats Respiratory: + cough, + chest congestion, + dyspnea, + dyspnea on exertion and + hemoptysis (intermittent); no pain with cough and no sputum production Physical Exam Vital Signs (Past 24 Hours): Last Vital Signs Temp 36.5 C 01/22/19 14:40 Pulse 61 01/22/19 14:40 Resp 20 01/22/19 14:40 BP 176/73 H 01/22/19 14:40 Pulse Ox 90 01/22/19 14:40 Constitutional: WD/WN, vitals as above + thin Eyes: PERRL, conjunctivae normal, anicteric sclerae ENMT: external ear and nose normal, oropharynx normal Neck: trachea midline, no thyromegaly Respiratory: + labored breathing and + uses accessory muscles; no respiratory distress Auscultation: + rales (bases) and + rhonchi Cardiovascular: RRR, no murmur, no edema Gastrointestinal (Abdomen): normal bowel sounds, soft, nontender, no hepatosplenomegaly Musculoskeletal: no cyanosis or clubbing, extremities motor strength 5/5 Skin: no rashes, warm and dry Neurologic: patellar DTR's 2+ bilat, sensation intact and PERRL, EOMI, accommodation nl, no face palsy, no dysarthria Psychiatric: A+Ox3, euthymic affect Lymphatic: no cervical or axillary lymphadenopathy Results & Data Laboratory Results Laboratory Results - last 24 hr 01/22/19 01/22/19 05:34 10:34 Sodium 144 Potassium 4.0 Chloride 101 Carbon Dioxide 34 H Anion Gap 9.0 BUN 136 H Creatinine 5.22 H* Est Cr Clr Drug Dosing 13.4 Est GFR ( Amer) 12.3 Est GFR (Non-Af Amer) 10.6 BUN/Creatinine Ratio 26.1 H Glucose 228 H Calcium 8.8 Magnesium 2.1 Hep Bs Antigen Neg Hep Bs Antibody Non-Immune Hep Bs Antibody, Quant 3.[address] CHEST IMPRESSION: 1. Interval worsening of multifocal consolidation compatible with multifocal pneumonia. Multifocal hemorrhage would BE considered less likely given the density of the infiltrates. 2. Bilateral loculated pleural effusions. Parapneumonic effusions not excluded. 3. Decreased volume overload and congestive change. 4. Mediastinal lymphadenopathy, nonspecific and possibly reactive given the pulmonary infiltrates. 5. 4 cm ascending aortic aneurysm. Medications Administered Current Inpatient Medications Albuterol (Duoneb) 3 ml NEB Q4 PRN PRN Reason: Shortness Of Breath Or Wheezing Stop: 02/12/19 09:58 Amlodipine Besylate (Norvasc) 10 mg PO QAM [facility] Stop: 02/15/19 08:59 Last Admin: 01/22/19 09:52 Dose: 10 mg Documented by: Dextrose (Dextrose 50%) 25 - 50 ml IV UD PRN; Protocol PRN Reason: Hypoglycemia Protocol Stop: 02/11/19 00:59 Last Admin: 01/17/19 16:46 Dose: 25 ml Documented by: Enteral Nutritional Formula (Novasource Renal) 1 ml JT UD ESTEPHANIA; Protocol Stop: 02/21/19 14:44 Fluticasone Propionate (Flonase) 1 sprays NA DAILY [facility] Stop: 02/10/19 08:59 Last Admin: 01/22/19 09:52 Dose: Not Given Documented by: Glucagon (Glucagen) 1 mg SQ UD PRN; Protocol PRN Reason: Hypoglycemia Protocol Stop: 02/11/19 00:59 Glucose (Glucose 40%) 15 - 30 gm PO UD PRN; Protocol PRN Reason: Hypoglycemia Protocol Stop: 02/11/19 00:59 Glucose (Dex4 Glucose) 4 - 8 tabs PO UD PRN; Protocol PRN Reason: Hypoglycemia Protocol Stop: 02/11/19 00:59 Heparin Sodium (Beef Lung) (Heparin Sod 10 Unit/Ml Flush) 5 ml FLUSH PRN PRN PRN Reason: Flush Stop: 02/10/19 23:50 Last Admin: 01/21/19 22:14 Dose: 5 ml Documented by: Heparin Sodium (Porcine) (Heparin Sodium (Porcine)) 5,000 units SQ Q12H [facility]IA Stop: 02/10/19 20:59 Last Admin: 01/22/19 09:51 Dose: Not Given Documented by: Hydralazine HCl (Hydralazine Hcl) 20 mg IV Q6H PRN PRN Reason: systolic >180 Stop: 02/13/19 13:48 Last Admin: 01/16/19 03:25 Dose: 20 mg Documented by: Sodium Chloride (Nss) 250 mls @ 15 mls/hr IV .[id number] PRN PRN Reason: For Transfusion Stop: 02/17/19 13:05 Piperacillin Sod/Tazobactam (Sod 3.375 gm/ Dextrose) 115 mls @ 28.75 mls/hr IV Q12H [facility]IA Stop: 01/27/19 17:59 Last Infusion: 01/22/19 09:53 Dose: Infused Documented by: Furosemide 60 mg/ Syringe 6 mls @ 4 mls/min IV TID@0600,1200,1800 [facility] Stop: 02/21/19 11:59 Last Admin: 01/22/19 12:43 Dose: 4 mls/min Documented by: Methylprednisolone 60 mg/ (Syringe) 0.96 mls @ 1.5 mls/min IV Q12H [place]IA Stop: 02/21/19 13:59 Last Admin: 01/22/19 15:22 Dose: 1.5 mls/min Documented by: Labetalol HCl (Normodyne) 300 mg PO BID [place]IA Stop: 02/21/19 20:59 Loperamide HCl (Imodium A-D Liquid) 2.65 mg PO Q6H PRN PRN Reason: Diarrhea Stop: 02/10/19 02:46 Miscellaneous (Stop Order) 1 ea N/A DAILY@0800 [place] Stop: 02/11/19 07:59 Last Admin: 01/22/19 09:51 Dose: 1 ea Documented by: Miscellaneous (Pending Order) 1 ea N/A DAILY@0700,1900 [facility] Stop: 02/10/19 18:59 Last Admin: 01/22/19 06:31 Dose: 1 ea Documented by: Miscellaneous (Carbohydrates For Hypoglycemia) 15 - 30 gm PO UD PRN PRN Reason: Hypoglycemia Treatment Stop: 02/11/19 00:59 Miscellaneous (Stop Order) 1 ea N/A DAILY@1800 [place]IA Stop: 02/14/19 17:59 Last Admin: 01/21/19 18:09 Dose: 1 ea Documented by: Miscellaneous Information (Pharmacy Tpn/Ppn Consult Active) 1 ea N/A UD [place]IA Stop: 02/10/19 08:07 Miscellaneous Information (Consult) 1 ea N/A UD PRN PRN Reason: Consult Stop: 02/19/19 09:53 Nutrition (Parenteral) (Custom Central Pn) 1 bag IV 1800 ESTEPHANIA; Protocol Stop: 01/23/19 17:59 Nystatin (Mycostatin) 1 appln EXT PRN PRN PRN Reason: Rash Stop: 02/10/19 02:22 Ondansetron HCl (Zofran) 4 mg IV Q4H PRN PRN Reason: Nausea Stop: 02/10/19 02:22 Fluticasone/Salmeterol (Advair Diskus 100/50) 1 puffs INH BID [place]E[facility]IA Stop: 02/10/19 08:59 Last Admin: 01/22/19 09:52 Dose: 1 puffs Documented by: Sodium Biphosphate/Sodium Phosphate (Fleet Enema) 132 ml NV DAILY PRN PRN Reason: Constipation Stop: 02/15/19 12:46 Triamcinolone Acetonide (Kenalog 0.1%) 1 appln TOP BID PRN PRN Reason: itchy Stop: 02/10/19 02:22 (1) Anemia Anemia type: other cause (2) Volume overload Hypervolemia type: unspecified Qualified Code(s): E87.70 - Fluid overload, unspecified
[2019-01-22] MEDS ORDERED: CUSTOM CENTRAL PN IV SCH (18:00)
[2019-01-22] MEDS: LABETALOL HCL 300 MG TAB PO SCH (20:27)
[2019-01-23] MEDS: methylPREDNISolone 60 MG in SYRINGE 0 ML IV SCH ×2 (01:28→14:44)
[2019-01-23] MEDS: FUROSEMIDE 60 MG in SYRINGE 0 ML IV SCH ×3 (05:32→17:54)
[2019-01-23] MEDS: PIPERACILLIN/TAZOBACTAM 3.375 GM in DEXTROSE 5% 100 ML IV SCH (05:33)
[2019-01-23] MEDS: FLUTICASONE PROPIONATE NA SPR 16 GM BTL SCH (07:30)
[2019-01-23] MEDS: TPN STOP ORDER SCH (07:30)
[2019-01-23] MEDS: HEPARIN SOD 5,000 UNIT/0.5 ML VIAL SQ SCH ×2 (07:32→20:54)
[2019-01-23] MEDS: FLUTICASONE/SALMETEROL 100/50 (ADVAIR) 14 PUFF/1 INHALER INH SCH ×2 (07:33→21:33)
[2019-01-23] MEDS: AMLODIPINE BESYLATE 5 MG TAB PO SCH (07:34)
[2019-01-23] MEDS: LABETALOL HCL 300 MG TAB PO SCH (07:35)
[2019-01-23 07:36] LABS: BUN Creatinine Ratio 25.7 (10-20); Calcium 8.6 mg/dl (8.5-10.1); Est GFR (African American) 11.3; Est GFR (Non-African American) 9.8; Magnesium 2.3 mg/dl (1.8-2.4); Potassium 4.2 mmol/L (3.5-5.1)
[2019-01-23] MEDS ORDERED: IMIPENEM/CILASTATIN SODIUM 500 MG in DEXTROSE 5% 100 ML IV SCH (10:00)
[2019-01-23] MEDS ORDERED: IMIPENEM/CILASTATIN CONSULT ACTIVE PRN (10:03)
--- NOTE | 2019-01-23 10:21 | Nephrology Progress Note ---
Date of Service January 23, 2019 Assessment & Plan (1) CKD (chronic kidney disease) stage 5, GFR less than 15 ml/min: Baseline creatinine low-mid 3's; has maturing avf but it's basobasilic and will need transposition. Creatinine is up trending to low 5's and BUN of 136. Worsening renal function likely due to ATN in setting of pneumonia, presumptive pancreatitis; pt also however w/ underlying ESRD prior to this admission. Urine sediment w/ 2+ protein, trace blood, else bland. Chemistries, acid-base status for now acceptable. High BUN partly due to the high protein load from the tube feeds/TPN -- pt may well come off of TPN later this week at least for now -markedly overloaded - pharmacy appreciated in lowering fluid burden both in TPN and in FW flushes; would CONTINUE po water as tolerated which he craves >>s/p tunnelled dialysis cath placement today >> for first HD this PM; plan HD tomorrow as well >>>pls ask case mgt to arrange for outpatient dialysis at [facility] dialysis clinic -Continue obtaining daily BMP (2) Volume overload: still overloaded on PE and XR -monitor input output -continue lasix 60 mg IV q6h but hold MN doses (so 3 doses daily) -pulm following closely (3) Anemia: on epo as outpt; dosed here 01/12, 01/21; t stn on 01/12 was 21%; acceptable for now -redosed 01/21 44489 units SQ multifactorial in pt w/ esrd, abnormal GI tract/ tpn dependence (4) Hypertension: Blood pressure elevated on past 36 hrs on labetalol 200mg bid and amlodipine 10 mg daily and and prn hydralazine; labetalol is a new med for him this admission; cont lasix 60 mg IV tid >> lowered labetalol back to 200 mg bid given HR Subjective seen on rounds this am; feels breathing a bit better; still marked edema; just started on isolation b/c has ESBLKlebsiella in sputum; no voiding concnerns; no loose bowels. Physical Exam Vital Signs (Past 24 Hours): Last Vital Signs Temp 36.6 C 01/23/19 07:19 Pulse 65 01/23/19 09:24 Resp 22 04/03/19 09:24 BP 125/73 01/23/19 09:24 Pulse Ox 91 01/23/19 09:27 Constitutional: well developed and + frail appearing on 02nc; tired, chron ically ill Eyes: EOM intact bilaterally ENMT: Ears: no external ear abnormality Nose: no external nose abnormality Mouth: + dry oral mucous membranes Neck: no nuchal rigidity Respiratory: able to speak in complete sentences (but breaks after most every sentence) Auscultation: + diminished lung sounds and + crackles (diffuse crackles) Cardiovascular: Rate/Rhythm: regular rate and regular rhythm Extremities: + edema (3+ pedal and 2+ ankle /distal RLe, trace LLE, 2+ BUE) and + AV fistula (LUE + t/b w/ dressing) Gastrointestinal (Abdomen): Inspection/Auscultation: normal bowel sounds Percussion/Palpation: abdomen soft; abdomen nontender esophageal outlet tube L chest; feeding tube L abd Musculoskeletal: Extremities: strength 5/5 throughout Skin: no rashes, warm and dry Psychiatric: Orientation: alert and oriented x 3 Eye Contact: good eye contact Speech: normal rate/rhythm/volume of speech Results & Data Laboratory Results Abnormal lab results 01/23/19 Range/Units 05:22 BUN 143 H (7-18) mg/dl Creatinine 5.58 H* D (0.6-1.4) mg/dl BUN/Creatinine Ratio 25.7 H (10-20) Glucose 261 H (70-99) mg/dl Alkaline Phosphatase 156 H (45-117) U/L (1) Anemia Anemia type: other cause (2) Volume overload Hypervolemia type: unspecified Qualified Code(s): E87.70 - Fluid overload, unspecified
[2019-01-23] MEDS ORDERED: ERTAPENEM CONSULT ACTIVE PRN (10:32)
--- NOTE | 2019-01-23 10:40 | Pulmonology Progress Note ---
Date of Service January 23, 2019 Assessment & Plan (1) Multifocal pneumonia: 68 y/o male with complex medical history who was intially found to have bilateral infiltrates and was treated as pneumonia with some improvement. then became more short of breath and hypoxic with worsening infiltrates on CXR and CT. bilateral infiltrates worsening likely related to ESBL klebsiella acute interstitial pneumonitis is still possible but less likely with other explanation. continue steroids for now Subjective feeling slightly better today Physical Exam Vital Signs (Past 24 Hours): Last Vital Signs Temp 36.6 C 01/23/19 07:19 Pulse 65 01/23/19 09:24 Resp 22 01/23/19 09:24 BP 125/73 01/23/19 09:24 Pulse Ox 91 01/23/19 09:27 Physical Exam: Constitutional: Comfortable NAD HEENT: normocephalic atraumatic. MMM CV: RRR nl s1,s2 no murmurs rubs or gallops Lungs: slight crackles bilaterally. no accessory muscle use Abd: soft nontender nondistended. normal bowel sounds Ext: no edema. no cyanosis, + clubbing Skin: warm dry Neuro: alert and oriented. moving all extremities Psych: normal mood and affect
--- NOTE | 2019-01-23 10:49 | Infectious Disease Consult ---
Date of Consultation January 23, 2019 Assessment & Plan (1) Multifocal pneumonia: 68-year-old male with multifocal pneumonia with ESBL producing Klebsiella pneumoniae in the setting of prior splenectomy making infection with encapsulated organisms more likely. Patient will be changed to IV ertapenem given renal insufficiency, with length of therapy to be determined by clinical response. Will follow. (2) Klebsiella infection: History of Present Illness Reason for Consultation: ESBL Klebsiella pneumonia Attending Physician: Kemal Elena DO History of Present Illness 68-year-old male with very complicated past medical history including esophagectomy, gastrectomy, and splenectomy with indwelling J-tube, end-stage renal disease, who was January 11 with abdominal pain and hypoxia, thought to have possible gallstone pancreatitis as well as pneumonia. Patient was received first vancomycin and cefepime and Zosyn for multifocal pneumonia. Patient developed worsening respiratory status, and culture of sputum now growing an ESBL producing Klebsiella pneumoniae. Patient was just started on IV imipenem. Currently complaining of mild cough, no hemoptysis at present, blood cultures have been negative. Has bilateral effusions noted on chest x-ray and CT scanning. Allergies Allergy/AdvReac Type Severity Reaction Status Date / Time sulfamethoxazole AdvReac Intermediate SEVERE Verified 01/11/19 06:42 DIARRHEA oxycodone AdvReac Mild NAUSEA Verified 01/11/19 06:42 simvastatin AdvReac Mild " my legs Verified 01/11/19 06:42 cramp up" tramadol AdvReac Mild NAUSEA Verified 01/11/19 06:42 moxifloxacin AdvReac Unknown Pt said he Verified 01/10/19 22:57 could barely walk Home Medications Home Medications Medication Instructions Recorded Confirmed Type albuterol sulfate [Ventolin HFA] 2 puff INHALATION Q4H PRN 01/10/19 01/10/19 History amlodipine 5 mg PO DAILY 01/10/19 01/10/19 History copper gluconate 2 mg PO DAILY 01/10/19 01/10/19 History cyanocobalamin (vitamin B-12) mcg PO MONTHLY 01/10/19 History [Vitamin B-12] epoetin andi [Procrit] unit SUBCUT DIRECTED 01/10/19 History fluticasone propion-salmeterol 1 puff INHALATION BID 01/10/19 01/10/19 History [Advair Diskus] fluticasone propionate 1 - 2 spray INTRANASAL DAILY 01/10/19 01/10/19 History loperamide [Imodium A-D] 20 ml PO Q6H PRN 01/10/19 01/10/19 History nystatin 1 applic TOPICAL DIRECTED 01/10/19 01/10/19 History ondansetron HCl [Zofran] 4 mg PO TID PRN 01/10/19 01/10/19 History torsemide 20 mg PO TID 01/10/19 01/10/19 History triamcinolone acetonide 1 applic TOPICAL BID PRN 01/10/19 01/10/19 History Patient History Medical History Normocytic anemia (Chronic) Dehydration (Acute 12/29/13) Jejunostomy tube present (Chronic) Hyponatremia (Resolved) Jejunostomy tube leak (Resolved) Hyponatremia (Acute) Leukocytosis (Resolved) HAYLEY (acute kidney injury) Hypokalemia Jejunostomy tube leak Jejunostomy tube present Kidney stones Low serum copper for age Surgical History S/P gastrectomy S/P splenectomy Family History Other Hypertension Social History Communication Ability: Effective Beliefs That Will Affect Care: None Current Living Situation: Spouse Other Information That Helps Us Care for You: No Feels Safe at Home: Yes Safety Concerns: Feels Safe At This Time Smoking Status: Never smoker Hx Alcohol Use: No Hx Substance Use: No Review of Systems Constitutional: + fatigue and + weakness; no fever Eyes: no problem reported Ear, Nose, Mouth, Throat: no problem reported Respiratory: as per Subjective / HPI Cardiovascular: no chest pain Gastrointestinal: as per Subjective / HPI Genitourinary (Male): no problem reported Musculoskeletal: no problem reported Integumentary: no problem reported Neurologic: no problem reported Psychiatric: no problem reported Endocrine: no problem reported Hematologic / Lymphatic: no problem reported Allergy / Immunological: no problem reported Physical Exam Vital Signs (Past 24 Hours): Last Vital Signs Temp 36.6 C 01/23/19 07:19 Pulse 65 01/23/19 09:24 Resp 22 01/23/19 09:24 BP 125/73 04/03/19 09:24 Pulse Ox 91 01/23/19 09:27 Constitutional: WD/WN, vitals as above comfortable; no acute distress Eyes: PERRL, conjunctivae normal, anicteric sclerae ENMT: external ear and nose normal, oropharynx normal Neck: trachea midline, no thyromegaly neck nontender Respiratory: normal percussion; no respiratory distress and does not use accessory muscles Auscultation: + rhonchi Cardiovascular: Rate/Rhythm: regular rate and regular rhythm Heart Sounds: normal S1 and normal S2; no gallop, no murmur and no cardiac rub Vessels: normal peripheral pulses; no JVD Gastrointestinal (Abdomen): normal bowel sounds, soft, nontender, no hepatosplenomegaly Percussion/Palpation: no abdominal mass J-tube in place Musculoskeletal: no cyanosis or clubbing, extremities motor strength 5/5 Spine: thoracic spine normal to inspection and lumbar spine normal to inspection; no cervical spinal tenderness Skin: no rashes, warm and dry normal turgor; no lesions Neurologic: patellar DTR's 2+ bilat, sensation intact no focal motor deficits Psychiatric: A+Ox3, euthymic affect Orientation: cooperative Lymphatic: no cervical or axillary lymphadenopathy no inguinal lymphadenopathy Results & Data Laboratory Results BMP 01/23/19 05:22 Sodium 145 Potassium 4.2 Chloride 102 Carbon Dioxide 32 BUN 143 H Creatinine 5.58 H* D Glucose 261 H Calcium 8.6 Liver Function 01/23/19 Range/Units 05:22 AST 17 (15-37) U/L ALT 18 (12-78) U/L Alkaline Phosphatase 156 H (45-117) U/L Diagnostic Findings Microbiology 01/21/19 03:24 Sputum, Expectorated Gram Stain - Final 01/21/19 03:24 Sputum, Expectorated Sputum Culture - Preliminary Klebsiella pneumoniae ESBL 01/10/19 20:50 Blood Blood Culture - Final No growth cc: ~ CT chest wo con CLINICAL HISTORY: 68 years-old Male presenting with Increasing hypoxia, hemoptysis. TECHNIQUE: Multidetector CT imaging of the chest was performed without the use of intravenous contrast. IV contrast: None. One or more dose lowering techniques were used consistent with the principles of ALARA (as low as reasonably achievable), including automatic exposure control, mA or kV adjustment to individual patient size, and/or use of iterative reconstruction. COMPARISON: 01/10/2019. CT DOSE (mGy.cm): The estimated cumulative dose is 193.31 mGy.cm. FINDINGS: Software Test Developer topogram: Median sternotomy wires and extensive surgical clips. Bilateral pulmonary opacities and effusions. Soft tissues: Normal thyroid. Postsurgical changes of gastroesophageal resection with esophageal fistula to the left anterior chest wall. Right upper terminate PICC terminates in the superior cavoatrial junction. Numerous prominent mediastinal lymph nodes measuring up to 10 mm in short axis. Evaluation of the mino limited in the absence of intravenous contrast. Atherosclerosis of the ao rta. Ectasia of the ascending aorta, which measures 4 cm in diameter. Top normal heart size. Coronary artery calcification. Small bilateral pleural effusions, which are loculated. These have remained stable to slightly decreased in size since the prior exam. No pericardial effusion. Upper abdomen normal. Lungs and airways: No pneumothorax. Minimal layering debris is evident in the upper trachea. The previously noted polypoid filling defect within the upper trachea at the thoracic inlet has resolved, likely adherent debris on the prior exam. Pulmonary arteries enlarged relative to adjacent bronchi though slightly decreased from prior. Decreased interlobular septal thickening. Interval increase in peribronchovascular predominant consolidation, left greater than right. Peripheral punctate calcification within the lungs at the lung bases may relate to chronic aspiration or other chronic disease. Musculoskeletal: Degenerative changes of the spine. Compression deformity of T6 and to a lesser extent at T5. This is unchanged from prior. IMPRESSION: 1. Interval worsening of multifocal consolidation compatible with multifocal pneumonia. Multifocal hemorrhage would BE considered less likely given the density of the infiltrates. 2. Bilateral loculated pleural effusions. Parapneumonic effusions not excluded. 3. Decreased volume overload and congestive change. 4. Mediastinal lymphadenopathy, nonspecific and possibly reactive given the pulmonary infiltrates. 5. 4 cm ascending aortic aneurysm. Electronically signed by: Jah Wilde M.D. 01/22/2019 11:37 AM
[2019-01-23] MEDS: ERTAPENEM SODIUM 500 MG in SODIUM CHLORIDE 0.9% 50 ML IV SCH (11:39)
[2019-01-23] MEDS ORDERED: LIDOCAINE HCL 1% 20 ML VIAL ONE (12:46)
[2019-01-23] MEDS ORDERED: fentaNYL citrate 100 MCG/2 ML VIAL ONE (12:46)
[2019-01-23] MEDS ORDERED: MIDAZOLAM HCL 1 MG/ML 2ML VIAL ONE (12:46)
[2019-01-23] MEDS ORDERED: HEPARIN SOD (PORCINE) 5,000 UNITS/ML VIAL ONE (12:47)
--- NOTE | 2019-01-23 13:16 | History & Physical Bridge Note ---
Date of Service January 23, 2019 History & Physical Bridge Note Patient for insertion of a permcath today. I have discussed the risks options and benefits of the procedure with the patient. The patient understands the risks options and benefits and agrees to the procedure. I have examined the patient, reviewed the History & Physical and in the interval since the performance of the History & Physical I have noted the following changes of clinical significance: no changes noted
--- NOTE | 2019-01-23 13:17 | Pre Anesthesia Assessment ---
Date of Service January 23, 2019 Pre Sedation Assessment Vital Signs Temp Pulse Pulse Resp BP BP Pulse Ox 01/23/19 12:44 36 C L 55 L 18 148/56 H 92 01/23/19 09:27 91 01/23/19 09:24 65 22 125/73 88 L 01/23/19 07:19 36.6 C 72 16 199/104 H 88 L 01/22/19 23:30 36.6 C 65 18 160/65 H 92 01/22/19 14:40 36.5 C 61 20 176/73 H 90 Cardiovascular RRR, no murmur, no edema Respiratory normal respiratory effort, lungs clear to auscultation Pre-Sedation Airway Assessment Smoking Status: Never smoker Hx Sleep Apnea: No Short, Thick Neck: No Thyromental Distance: > or= 3.5 Finger Breadths Oral Cavity: + WNL Mallampati Class: II ASA: ASA4 NPO Status Date of Last Intake of Fluids: 01/22/19 Date of Last Intake of Solid Food: 01/22/19 Procedure Planning Contraindications for Sedation: none Current Medications Reviewed: Yes Notes The planned sedation has been discussed with the patient. Informed Consent was obtained. I have identified the patient, determined the appropriateness of sedation and have assessed the patient immediately prior to the procedure. All medicine(s) and interventions are by my order.
--- NOTE | 2019-01-23 13:37 | Hospitalist Progress Note ---
Date of Service January 23, 2019 Assessment & Plan (1) Multifocal pneumonia: CT chest on 01/10 showed bilateral airspace consolidations with left>right. Could be interstitial edema vs. multifocal pneumonia. On admission, WBC was 14.5; now normal. Otherwise no SIRS/sepsis symptoms. - Started on Zosyn on admission - Procalcitonin on 01/13 was 1.2. CXR on 01/20 with increased consolidation on the left antibiotics changed from Augmentin back to Zosyn, Vanco added procalcitonin only 0.27 MRSA swab negative, stop the Vanco in light of renal function and no clear role of therapy CT chest on 01/22 showed worsening infiltrates, but no fever, WBC stable appreciate pulmonology consult, will start on Prednisone sputum culture grew ESBL Klebsiella on 01/23 changed antibiotics to Ertapenem, ID consulted follow for clinical improvement now that antibiotics will be treating the ESBL Klebsiella (2) Abdominal pain: Likely some amount of pancreatitis given the typical pain and elevated lipase; however, CT a/p on 01/10 did not show pancreatitis. CT a/p on 01/10 did show cholelithaisis with moderate gallbladder distention; however, surgery felt this was chronic in nature and did not represent cholecystitis. 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 -Patient's abdominal symptoms have resolved. tolerating G tube feedings no complaints today, no pain (3) Volume overload: Patient reports 1-2 months of increasing edema in legs, abdomen, face, and arms. Echo on 01/11 showed EF 55-60%, borderline LVH, no valvular pathology. - Likely due to poor kidney function and poor nutritional status -Continuing diuresis per nephrology planning for HD, possibly as early as today if there is time after the catheter placed (4) CKD (chronic kidney disease) stage 5, GFR less than 15 ml/min: Baseline Cr is ~3.5 with eGFR ~15. Cr is now 5.58 with BUN of 143 nephrology following as above, will have Permacath placed today, plan for HD later today or tomorrow electrolytes stable continue Lasix 60mg IV TID for urine output (5) Anemia: Baseline hgb appears to be 8-10 (the 10 looks to be after transfusion). - Iron studies showed anemia of chronic disease/CKD Transfuse 1 unit packed red blood cells - Epo given by nephro on 01/12 Hb is 8.8 on most recent testing no signs of bleeding (6) DVT prophylaxis: DVT prophylaxis: Heparin 5000 BID Home TPN formulation: 290 gm dextrose, 75 gm amino acids, and 25 gm lipids 3x/week to provide a total of 1536 kcal on days w/lipids and 1286 kcal on days w/out lipids 2400 mL over 14 hours with a 1 hour taper up and 1 hour taper down Planning to gradually increase tube feeding and decrease TPN, will have good transition, patient will follow up with [facility] in the [place] [facility] at Dr. Medina J tube feeding Rx: Andreina brock renal, 4 can per day, with pum,p. 100ml/hr, 10 hr per day, with J tube, use 100ml water every 6 hr washing. Subjective patient says his breathing is better today he admits that he is not doing much, not moving around so that may be why breathing is better reviewed labs, sputum culture grew ESBL Klebsiella ID recommends Ertapenem for treatment discussed with pulmonology, will continue Ertapenem and steroids for now for temp catheter placement today to start HD, may be as early as this evening if there is time Dr. Edward following closely overall, patient is in better spirits today happy that he is breathing better and he feels ready to start hemodialysis Review of Systems All systems reviewed & are unremarkable except as noted in HPI & below Constitutional: + fatigue and + weakness; no fever, no chills and no sweats Respiratory: + cough, + chest congestion, + dyspnea and + dyspnea on exertion; no pain with cough and no sputum production Cardiovascular: no chest pain Gastrointestinal: no abdominal pain Physical Exam Vital Signs (Past 24 Hours): Last Vital Signs Temp 36 C L 01/23/19 12:44 Pulse 55 L 01/23/19 12:44 Resp 18 01/23/19 12:44 BP 148/56 H 01/23/19 12:44 Pulse Ox 92 01/23/19 12:44 Constitutional: WD/WN, vitals as above + thin Eyes: PERRL, conjunctivae normal, anicteric sclerae ENMT: external ear and nose normal, oropharynx normal Neck: trachea midline, no thyromegaly Respiratory: normal respiratory effort; no respiratory distress Auscultation: + rhonchi Cardiovascular: RRR, no murmur, no edema Gastrointestinal (Abdomen): normal bowel sounds, soft, nontender, no hepatosplenomegaly Musculoskeletal: no cyanosis or clubbing, extremities motor strength 5/5 Skin: no rashes, warm and dry Neurologic: patellar DTR's 2+ bilat, sensation intact and PERRL, EOMI, accommodation nl, no face palsy, no dysarthria Psychiatric: A+Ox3, euthymic affect Lymphatic: no cervical or axillary lymphadenopathy Results & Data Laboratory Results Microbiology 01/21/19 03:24 Sputum, Expectorated Gram Stain - Final 01/21/19 03:24 Sputum, Expectorated Sputum Culture - Final Klebsiella pneumoniae ESBL 01/10/19 20:50 Blood Blood Culture - Final No growth Laboratory Results - last 24 hr 01/23/19 05:22 Sodium 145 Potassium 4.2 Chloride 102 Carbon Dioxide 32 Anion Gap 11.0 BUN 143 H Creatinine 5.58 H* D Est Cr Clr Drug Dosing 13.0 Est GFR ( Amer) 11.3 Est GFR (Non-Af Amer) 9.8 BUN/Creatinine Ratio 25.7 H Glucose 261 H Calcium 8.6 Phosphorus 4.0 Magnesium 2.3 AST 17 ALT 18 Alkaline Phosphatase 156 H Triglycerides 57 Medications Administered Current Inpatient Medications Albuterol (Duoneb) 3 ml NEB Q4 PRN PRN Reason: Shortness Of Breath Or Wheezing Stop: 02/12/19 09:58 Amlodipine Besylate (Norvasc) 10 mg PO QAM ESTEPHANIA Stop: 02/15/19 08:59 Last Admin: 01/23/19 07:34 Dose: 10 mg Documented by: Dextrose (Dextrose 50%) 25 - 50 ml IV UD PRN; Protocol PRN Reason: Hypoglycemia Protocol Stop: 02/11/19 00:59 Last Admin: 01/17/19 16:46 Dose: 25 ml Documented by: Enteral Nutritional Formula (Novasource Renal) 1 ml JT UD ESTEPHANIA; Protocol Stop: 02/21/19 14:44 Ertapenem (Consult) 1 ea N/A UD PRN PRN Reason: Consult Stop: 02/22/19 10:31 Fluticasone Propionate (Flonase) 1 sprays NA DAILY ESTEPHANIA Stop: 02/10/19 08:59 Last Admin: 01/23/19 07:30 Dose: Not Given Documented by: Glucagon (Glucagen) 1 mg SQ UD PRN; Protocol PRN Reason: Hypoglycemia Protocol Stop: 02/11/19 00:59 Glucose (Glucose 40%) 15 - 30 gm PO UD PRN; Protocol PRN Reason: Hypoglycemia Protocol Stop: 02/11/19 00:59 Glucose (Dex4 Glucose) 4 - 8 tabs PO UD PRN; Protocol PRN Reason: Hypoglycemia Protocol Stop: 02/11/19 00:59 Heparin Sodium (Beef Lung) (Heparin Sod 10 Unit/Ml Flush) 5 ml FLUSH PRN PRN PRN Reason: Flush Stop: 02/10/19 23:50 Last Admin: 01/23/19 07:30 Dose: 5 ml Documented by: Heparin Sodium (Porcine) (Heparin Sodium (Porcine)) 5,000 units SQ Q12H ESTEPHANIA Stop: 02/10/19 20:59 Last Admin: 01/23/19 07:32 Dose: Not Given Documented by: Hydralazine HCl (Hydralazine Hcl) 20 mg IV Q6H PRN PRN Reason: systolic >180 Stop: 02/13/19 13:48 Last Admin: 01/16/19 03:25 Dose: 20 mg Documented by: Sodium Chloride (Nss) 250 mls @ 15 mls/hr IV .[id number] PRN PRN Reason: For Transfusion Stop: 02/17/19 13:05 Furosemide 60 mg/ Syringe 6 mls @ 4 mls/min IV TID@0600,1200,1800 [facility] Stop: 02/21/19 11:59 Last Admin: 01/23/19 11:40 Dose: 4 mls/min Documented by: Methylprednisolone 60 mg/ (Syringe) 0.96 mls @ 1.5 mls/min IV Q12H ESTEPHANIA Stop: 02/21/19 13:59 Last Admin: 01/23/19 01:28 Dose: 1.5 mls/min Documented by: Ertapenem 500 mg/ Sodium (Chloride) 55 mls @ 110 mls/hr IV Q24H ESTEPHANIA; Protocol Stop: 01/30/19 10:59 Last Infusion: 01/23/19 12:33 Dose: Infused Documented by: Labetalol HCl (Normodyne) 300 mg PO BID ESTEPHANIA Stop: 02/21/19 20:59 Last Admin: 01/23/19 07:35 Dose: 300 mg Documented by: Loperamide HCl (Imodium A-D Liquid) 2.65 mg PO Q6H PRN PRN Reason: Diarrhea Stop: 02/10/19 02:46 Miscellaneous (Stop Order) 1 ea N/A DAILY@0800 [place]IA Stop: 02/11/19 07:59 Last Admin: 01/23/19 07:30 Dose: 1 ea Documented by: Miscellaneous (Pending Order) 1 ea N/A DAILY@0700,1900 [place] Stop: 02/10/19 18:59 Last Admin: 01/23/19 06:41 Dose: 1 ea Documented by: Miscellaneous (Carbohydrates For Hypoglycemia) 15 - 30 gm PO UD PRN PRN Reason: Hypoglycemia Treatment Stop: 02/11/19 00:59 Miscellaneous Information (Pharmacy Tpn/Ppn Consult Active) 1 ea N/A UD ESTEPHANIA Stop: 02/10/19 08:07 Nutrition (Parenteral) (Custom Central Pn) 1 bag IV 1800 ESTEPHANIA; Protocol Stop: 01/24/19 07:59 Nystatin (Mycostatin) 1 appln EXT PRN PRN PRN Reason: Rash Stop: 02/10/19 02:22 Ondansetron HCl (Zofran) 4 mg IV Q4H PRN PRN Reason: Nausea Stop: 02/10/19 02:22 Fluticasone/Salmeterol (Advair Diskus 100/50) 1 puffs INH BID ESTEPHANIA Stop: 02/10/19 08:59 Last Admin: 01/23/19 07:33 Dose: 1 puffs Documented by: Sodium Biphosphate/Sodium Phosphate (Fleet Enema) 132 ml OK DAILY PRN PRN Reason: Constipation Stop: 02/15/19 12:46 Triamcinolone Acetonide (Kenalog 0.1%) 1 appln TOP BID PRN PRN Reason: itchy Stop: 02/10/19 02:22 (1) Volume overload Hypervolemia type: unspecified Qualified Code(s): E87.70 - Fluid overload, unspecified (2) Anemia Anemia type: other cause
--- NOTE | 2019-01-23 14:12 | Post Operative Brief Note ---
Immediate Post Op Note v1 Date of Surgery January 23, 2019 Pre & Post Diagnosis Operation Date: 01/23/19 10:30 Pre-Op Diagnosis: chronic kidney disease Post-Op Diagnosis: chronic kidney disease Procedure Operation Date: 01/23/19 10:30 Actual Procedures p Insertion Of Perm Catheter, Right Internal Jugular Approach, Ultrasound Lo calization Of Right Internal Jugular Vein, Fluoroscopy For Positioning, Moderate Concious Sedation 1351 to 1417(Right) - Joshua Watts MD Surgeon Joshua Watts MD Plow And Boring Machine Tender MD Ariel Estimated Blood Loss 5 Findings Consistent with Post-Op Diagnosis Anesthesia Type RN Sedation Complications none Disposition Accompanied Patient To Recovery: Yes Disposition: Recovery Room
--- NOTE | 2019-01-23 14:18 | Operative Report ---
Post Operative Report Pre & Post Diagnosis Operation Date: 01/23/19 10:30 Pre-Op Diagnosis: chronic kidney disease Post-Op Diagnosis: chronic kidney disease Procedure Operation Date: 01/23/19 10:30 Actual Procedures p Insertion Of Perm Catheter, Right Internal Jugular Approach, Ultrasound Localization Of Right Internal Jugular Vein, Fluoroscopy For Positioning, Moderate Concious Sedation 1351 to 1417(Right) - Joshua Watts MD Surgeon Dr. Mac Cha MD Propellant Assembler MD Ariel Estimated Blood Loss 5 Findings Consistent with Post-Op Diagnosis Specimens none Anesthesia Type RN Sedation Disposition Accompanied Patient To Recovery: No Disposition: Recovery Room Indications need for HD Description of Procedure Patient was takent to the angio suite and placed in the supine position. The right side of the neck and chest wall were prepped and draped in a sterile manner. Local anesthesia was then administered to the appropriate areas of the neck and chest wall. Ultrasound was then used to locate the right internal jugular vein. The vein compressed easily, had no filing defects, and was patent. The vein was then punctured under direct ultrasound imaging. A guidewire was then passed centrally under fluoroscopic imaging. A stab wound was then made in the anterior chest wall and a 19 cm permcath was passed from the stab wound on the chest wall to the puncture site on the neck. The puncture site was then dilated till the 14Fr peel away sheath was inserted. The permcath was then inserted through the sheath to a central position in the distal superior vena cava. The peel away sheath was then removed. The catheter was then sutured in place using nylon sutures. The puncture was then closed using a 4-0 Vicryl subcuticular suture. Dermabond was used for a dressing on the [facility] site. Both ports aspirated and flushed easily and were then packed with heparin. A sterile dressing was applied to the catheter. The patient left the angio suite in good condition and tolerated the procedure well. Dr. Watts was present and scrubbed for the entire procedure. I attest to the content of the Intraoperative Record and any orders documented therein. Any exceptions are noted below.
[2019-01-23] MEDS ORDERED: SODIUM CHLORIDE 0.9% 1000ML 1,000 ML IV PRN (15:20)
[2019-01-23] MEDS ORDERED: ACETAMINOPHEN 1000 MG/100 ML IV IV PRN (17:18)
[2019-01-23] MEDS: PEPTAMEN 1.5 CAL 1,000 ML BAG GT SCH (17:18)
[2019-01-23] MEDS: ACETAMINOPHEN 1,000 MG/100 ML VIAL IV PRN (17:32)
[2019-01-23] MEDS ORDERED: CUSTOM CENTRAL PN IV SCH (18:00)
[2019-01-23] MEDS: LABETALOL HCL 200 MG TAB PO SCH (21:34)
[2019-01-24] MEDS: methylPREDNISolone 60 MG in SYRINGE 0 ML IV SCH ×2 (02:24→13:59)
[2019-01-24] MEDS: ACETAMINOPHEN 1,000 MG/100 ML VIAL IV PRN (02:34)
[2019-01-24] MEDS: FUROSEMIDE 60 MG in SYRINGE 0 ML IV SCH ×3 (06:15→18:48)
[2019-01-24] MEDS: FLUTICASONE PROPIONATE NA SPR 16 GM BTL SCH (07:29)
[2019-01-24] MEDS: TPN STOP ORDER SCH (07:29)
[2019-01-24] MEDS: HEPARIN SOD 5,000 UNIT/0.5 ML VIAL SQ SCH ×2 (07:30→20:40)
[2019-01-24] MEDS ORDERED: HEPARIN SOD (PORCINE) 1000 UNIT/ML 10 ML VIAL IV ONE (08:08)
[2019-01-24] MEDS ORDERED: SODIUM CHLORIDE 0.9% 1000ML 1,000 ML IV PRN (08:08)
--- NOTE | 2019-01-24 08:08 | Nephrology Progress Note ---
Date of Service January 24, 2019 Assessment & Plan (1) CKD (chronic kidney disease) stage 5, GFR less than 15 ml/min: Baseline creatinine low-mid 3's; has maturing avf but it's basobasilic and will need transposition. Creatinine is up trending to low 5's and BUN of 136. Worsening renal function likely due to ATN in setting of pneumonia, presumptive pancreatitis; pt also however w/ underlying ESRD prior to this admission. Urine sediment w/ 2+ protein, trace blood, else bland. Chemistries, acid-base status for now acceptable. High BUN partly due to the high protein load from the tube feeds/TPN -- pt may well come off of TPN later this week at least for now -markedly overloaded - pharmacy appreciated in lowering fluid burden both in TPN and in FW flushes; would CONTINUE po water as tolerated which he craves >>s/p tunnelled dialysis cath placement 01/23 >> had first HD 01/23; plan HD today and tomorrow as well >>>pls ask case mgt to arrange for outpatient dialysis at [facility] -Continue obtaining daily BMP -- ordered for today (2) Volume overload: still overloaded on PE and XR -monitor input output -continue lasix 60 mg IV q6h but hold MN doses (so 3 doses daily) -pulm following closely (3) Anemia: on epo as outpt; dosed here 01/12, 01/21; t stn on 01/12 was 21%; acceptable for now -redosed 01/21 02406 units SQ multifactorial in pt w/ esrd, abnormal GI tract/ tpn dependence -ordered repeat CBc today -- and another checked d/t bleeding > hgb stable >>>consider DDAVP to improve platelet dysfunction w/ uremia >> IF hgb falling/bleeding worsening; else per surgery (4) Hypertension: Blood pressure elevated on past 36 hrs on labetalol 200mg bid and amlodipine 10 mg daily and and prn hydralazine; labetalol is a new med for him this admission; cont lasix 60 mg IV tid >> lowered labetalol back to 200 mg bid given HR; cont same Subjective got TDC yesterday and had first HD; seen thsi evening after second HD; got 750 off today. pt exhausted adn w/ some abd cramping. also considerable oozing from tdc insertion site > ran w/o heparin today Physical Exam Vital Signs (Past 24 Hours): Last Vital Signs Temp 36.4 C L 01/24/19 07:28 Pulse 64 01/24/19 07:28 Resp 20 01/24/19 07:28 BP 146/71 H 01/24/19 07:28 Pulse Ox 96 01/24/19 07:28 Constitutional: well developed and + frail appearing tired on 02nc -- tells me he's too tired to talk (first this admission) Eyes: EOM intact bilaterally ENMT: Ears: no external ear abnormality Nose: no external nose abnormality Mouth: + dry oral mucous membranes Neck: no nuchal rigidity Respiratory: able to speak in complete sentences (but breaks after most every sentence) Auscultation: + diminished lung sounds and + crackles (diffuse crackles) Cardiovascular: Rate/Rhythm: regular rate and regular rhythm Extremities: + edema (3+ pedal and 2+ ankle /distal RLe, trace LLE, 2+ BUE) and + AV fistula (LUE + t/b w/ dressing) pooling blood in dressing of tdc under sandbag Gastrointestinal (Abdomen): Inspection/Auscultation: normal bowel sounds Percussion/Palpation: abdomen soft; abdomen nontender Musculoskeletal: Extremities: strength 5/5 throughout Skin: no rashes, warm and dry Neurologic: kramer, fluen tspeech Psychiatric: Orientation: alert and oriented x 3 Eye Contact: good eye contact Speech: normal rate/rhythm/volume of speech Results & Data Laboratory Results no labs (1) Anemia Anemia type: other cause (2) Volume overload Hypervolemia type: unspecified Qualified Code(s): E87.70 - Fluid overload, unspecified
[2019-01-24] MEDS: FLUTICASONE/SALMETEROL 100/50 (ADVAIR) 14 PUFF/1 INHALER INH SCH ×2 (08:52→21:27)
[2019-01-24] MEDS: LABETALOL HCL 200 MG TAB PO SCH ×2 (08:52→21:27)
[2019-01-24] MEDS: AMLODIPINE BESYLATE 5 MG TAB PO SCH (08:53)
[2019-01-24] MEDS: PEPTAMEN 1.5 CAL 1,000 ML BAG GT SCH (08:57)
[2019-01-24 09:36] LABS: Hematocrit (blood only) 29.1 % (42-52); Hemoglobin 9.6 g/dL (14.0-18.0); Immature Granulocytes # (auto) 0.06 K/uL (0.00-0.02); Immature Granulocytes % (auto) 0.4 %; Lymphocytes # (auto) 0.36 K/uL (1.2-3.4); Lymphocytes % (auto) 2.4 %; Mean Platelet Volume 13.7 fL (7.4-10.4); Monocytes # (auto) 0.35 K/uL (0.11-0.59); Monocytes % (auto) 2.3 %; Neutrophils # (auto) 14.19 K/uL (1.4-6.5); Neutrophils % (auto) 94.9 %; Nucleated RBC # (auto) 0.15 K/uL (0-0); Platelet Count 177 K/uL (130-400); RDW Coefficient of Variation 21.5 % (11.5-14.5); RDW Standard Deviation 77.8 fL (36.4-46.3); Red Blood Count 2.91 M/uL (4.7-6.1); White Blood Count 14.96 K/uL (4.8-10.8)
[2019-01-24 10:01] LABS: Anisocytosis Present; Howell-Jolly Bodies 1+; Pappenheimer Bodies 1+; Target Cells 1+
[2019-01-24 10:08] LABS: BUN Creatinine Ratio 25.3 (10-20); Calcium 8.6 mg/dl (8.5-10.1); Creatinine Clr Calc Pharmacy 15.5 ml/min; Est GFR (Non-African American) 12.1; Magnesium 2.1 mg/dl (1.8-2.4); Phosphorus 3.7 mg/dl (2.5-4.9); Potassium 4.1 mmol/L (3.5-5.1)
[2019-01-24] MEDS ORDERED: EPOETIN ALFA 14,000 UNITS in SYRINGE 0 ML IV SCH (12:30)
[2019-01-24] MEDS: ERTAPENEM SODIUM 500 MG in SODIUM CHLORIDE 0.9% 50 ML IV SCH (13:59)
--- NOTE | 2019-01-24 14:57 | Pulmonology Progress Note ---
Date of Service January 24, 2019 Assessment & Plan (1) Multifocal pneumonia: 68 y/o male with complex medical history who was intially found to have bilateral infiltrates and was treated as pneumonia with some improvement. then became more short of breath and hypoxic with worsening infiltrates on CXR and CT. bilateral infiltrates worsening likely related to ESBL klebsiella continue ertapenem acute interstitial pneumonitis is less likely with other explanation. will stop steroids Subjective breathing improved but feels worn out from 2 days of dialysis bleeding from dialysis catheter site Physical Exam Vital Signs (Past 24 Hours): Last Vital Signs Temp 36.2 C L 01/24/19 14:09 Pulse 67 01/24/19 14:09 Resp 20 01/24/19 14:09 BP 156/74 H 01/24/19 14:09 Pulse Ox 93 01/24/19 14:09 Physical Exam: Constitutional: Comfortable NAD HEENT: normocephalic atraumatic. MMM CV: RRR nl s1,s2 no murmurs rubs or gallops Lungs: slight crackles bilaterally. no accessory muscle use Abd: soft nontender nondistended. normal bowel sounds Ext: no edema. no cyanosis, + clubbing Skin: warm dry. blood in dressing from dialysis catheter R upper chest. no active bleeding Neuro: alert and oriented. moving all extremities Psych: depressed affect
--- NOTE | 2019-01-24 15:14 | Hospitalist Progress Note ---
Date of Service January 24, 2019 Assessment & Plan (1) Multifocal pneumonia: CT chest on 01/10 showed bilateral airspace consolidations with left>right. Could be interstitial edema vs. multifocal pneumonia. On admission, WBC was 14.5; now normal. Otherwise no SIRS/sepsis symptoms. - Started on Zosyn on admission - Procalcitonin on 01/13 was 1.2. CXR on 01/20 with increased consolidation on the left antibiotics changed from Augmentin back to Zosyn, Vanco added procalcitonin only 0.27 MRSA swab negative, stop the Vanco in light of renal function and no clear role of therapy CT chest on 01/22 showed worsening infiltrates, but no fever, WBC stable appreciate pulmonology consult, will start on Prednisone sputum culture grew ESBL Klebsiella on 01/23 changed antibiotics to Ertapenem, ID consulted follow for clinical improvement now that antibiotics will be treating the ESBL Klebsiella stop steroids now with clear bacterial etiology (2) Abdominal pain: Likely some amount of pancreatitis given the typical pain and elevated lipase; however, CT a/p on 01/10 did not show pancreatitis. CT a/p on 01/10 did show cholelithaisis with moderate gallbladder distention; however, surgery felt this was chronic in nature and did not represent cholecystitis. 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 -Patient's abdominal symptoms have resolved. tolerating G tube feedings no complaints today, no pain, tube feeds going slow at 10cc/hr (3) Volume overload: Patient reports 1-2 months of increasing edema in legs, abdomen, face, and arms. Echo on 01/11 showed EF 55-60%, borderline LVH, no valvular pathology. - Likely due to poor kidney function and poor nutritional status -Continuing diuresis per nephrology trying to remove fluid with HD 500cc UF yesterday and 750cc UF today (4) CKD (chronic kidney disease) stage 5, GFR less than 15 ml/min: Baseline Cr is ~3.5 with eGFR ~15. Cr climbed to 5.58 with BUN of 143 prior to starting HD on 01/23 nephrology following Cr down today, electrolytes stable, patient is fatigued from HD Permacath on 01/23, some bleeding still around site, using sandbags for compression continue Lasix 60mg IV TID for urine output (5) Anemia: Baseline hgb appears to be 8-10 (the 10 looks to be after transfusion). - Iron studies showed anemia of chronic disease/CKD Transfuse 1 unit packed red blood cells - Epo given by nephro on 01/12 Hb is 9.6 today, BP stable (6) DVT prophylaxis: DVT prophylaxis: Heparin 5000 BID Home TPN formulation: 290 gm dextrose, 75 gm amino acids, and 25 gm lipids 3x/week to provide a total of 1536 kcal on days w/lipids and 1286 kcal on days w/out lipids 2400 mL over 14 hours with a 1 hour taper up and 1 hour taper down Planning to gradually increase tube feeding and decrease TPN, will have good transition, patient will follow up with [facility] in the [employer] at Dr. Adam Beaver tube feeding Rx: Andreina brock renal, 4 can per day, with pum,p. 100ml/hr, 10 hr per day, with J tube, use 100ml water every 6 hr washing. (7) Protein calorie malnutrition: treating with TPN in addition to tube feeds, still running slowly at 10cc/hr Subjective patient feeling very lethargic today had three hours of HD today, two hours yesterday UF was 500cc yesterday and 750cc today still with some slow bleeding from cath site, weighted bags on board tube feeds at 10cc/hr, tolerating still with TPN, limiting fluid to 1000cc discussed with pharmacist discussed with Dr. Edward, appreciate her input discussed with Dr. Velazquez, will stop steroids since now treating Klebsiella ESBL reviewed labs today, Hb is 9.6, WBC is 18k Review of Systems All systems reviewed & are unremarkable except as noted in HPI & below Constitutional: + chills, + fatigue and + weakness; no fever and no sweats Respiratory: + cough and + dyspnea Physical Exam Vital Signs (Past 24 Hours): Last Vital Signs Temp 36.2 C L 01/24/19 14:09 Pulse 67 01/24/19 14:09 Resp 20 01/24/19 14:09 BP 156/74 H 01/24/19 14:09 Pulse Ox 93 01/24/19 14:09 Constitutional: WD/WN, vitals as above + thin Eyes: PERRL, conjunctivae normal, anicteric sclerae ENMT: external ear and nose normal, oropharynx normal Neck: trachea midline, no thyromegaly Respiratory: normal respiratory effort; no respiratory distress Cardiovascular: Rate/Rhythm: regular rate and regular rhythm Heart Sounds: normal S1 and normal S2; no murmur Extremities: + edema (pitting in legs, bilaterally) Gastrointestinal (Abdomen): normal bowel sounds, soft, nontender, no hepatosplenomegaly Musculoskeletal: no cyanosis or clubbing, extremities motor strength 5/5 Skin: no rashes, warm and dry Neurologic: patellar DTR's 2+ bilat, sensation intact and PERRL, EOMI, accommodation nl, no face palsy, no dysarthria Psychiatric: A+Ox3, euthymic affect Lymphatic: no cervical or axillary lymphadenopathy Results & Data Laboratory Results Laboratory Results - last 24 hr 01/24/19 01/24/19 01/24/19 09:21 09:21 15:30 WBC 14.96 H 18.82 H RBC 2.91 L 2.98 L Hgb 9.6 L 9.6 L Hct 29.1 L 29.8 L MCV 100.0 100.0 MCH 33.0 32.2 MCHC 33.0 32.2 RDW Std Deviation 77.8 H 76.2 H RDW Coeff of [place] 21.5 H 21.2 H Plt Count 177 170 MPV 13.7 H 13.3 H Immature Gran % (Auto) 0.4 0.6 Neut % (Auto) 94.9 94.9 Lymph % (Auto) 2.4 1.8 [place] % (Auto) 2.3 2.7 Eos % (Auto) 0.0 0.0 Baso % (Auto) 0.0 0.0 Immature Gran # (Auto) 0.06 H 0.11 H Neut # (Auto) 14.19 H 17.87 H Lymph # (Auto) 0.36 L 0.33 L [place] # (Auto) 0.35 0.51 Eos # (Auto) 0.00 0.00 Baso # (Auto) 0.00 0.00 Absolute Nucleated RBC 0.15 H 0.21 H Nucleated RBC % (auto) 1.0 1.1 Anisocytosis Present Pappenheimer Bodies 1+ Target Cells 1+ [place] Bodies 1+ PT INR APTT PTT Ratio Sodium 142 Potassium 4.1 Chloride 102 Carbon Dioxide 30 Anion Gap 10.0 BUN 118 H Creatinine 4.67 H* D Est Cr Clr Drug Dosing 15.5 Est GFR ( Amer) 14.0 Est GFR (Non-Af Amer) 12.1 BUN/Creatinine Ratio 25.3 H Glucose 300 H Calcium 8.6 Phosphorus 3.7 Magnesium 2.1 01/24/19 15:30 WBC RBC Hgb Hct MCV MCH MCHC RDW Std Deviation RDW Coeff of [place] Plt Count MPV Immature Gran % (Auto) Neut % (Auto) Lymph % (Auto) [place] % (Auto) Eos % (Auto) Baso % (Auto) Immature Gran # (Auto) Neut # (Auto) Lymph # (Auto) [place] # (Auto) Eos # (Auto) Baso # (Auto) Absolute Nucleated RBC Nucleated RBC % (auto) Anisocytosis [place] Bodies Target Cells [place] Bodies PT 13.9 H INR 1.4 H APTT 31.5 H PTT Ratio 1.2 Sodium Potassium Chloride Carbon Dioxide Anion Gap BUN Creatinine Est Cr Clr Drug Dosing Est GFR ( Amer) Est GFR (Non-Af Amer) BUN/Creatinine Ratio Glucose Calcium Phosphorus Magnesium Medications Administered Current Inpatient Medications Albuterol (Duoneb) 3 ml NEB Q4 PRN PRN Reason: Shortness Of Breath Or Wheezing Stop: 02/12/19 09:58 Amlodipine Besylate (Norvasc) 10 mg PO QAM [place] Stop: 02/15/19 08:59 Last Admin: 01/24/19 08:53 Dose: Not Given Documented by: Dextrose (Dextrose 50%) 25 - 50 ml IV UD PRN; Protocol PRN Reason: Hypoglycemia Protocol Stop: 02/11/19 00:59 Last Admin: 01/17/19 16:46 Dose: 25 ml Documented by: Enteral Nutritional Formula (Peptamen 1.5) 1,000 ml GT DAILY@1600 [place]IA; Protocol Stop: 02/22/19 15:59 Last Admin: 01/24/19 08:57 Dose: 1,000 ml Documented by: Ertapenem (Consult) 1 ea N/A UD PRN PRN Reason: Consult Stop: 02/22/19 10:31 Fluticasone Propionate (Flonase) 1 sprays NA DAILY [place] Stop: 02/10/19 08:59 Last Admin: 01/24/19 07:29 Dose: Not Given Documented by: Glucagon (Glucagen) 1 mg SQ UD PRN; Protocol PRN Reason: Hypoglycemia Protocol Stop: 02/11/19 00:59 Glucose (Glucose 40%) 15 - 30 gm PO UD PRN; Protocol PRN Reason: Hypoglycemia Protocol Stop: 02/11/19 00:59 Glucose (Dex4 Glucose) 4 - 8 tabs PO UD PRN; Protocol PRN Reason: Hypoglycemia Protocol Stop: 02/11/19 00:59 Heparin Sodium (Beef Lung) (Heparin Sod 10 Unit/Ml Flush) 5 ml FLUSH PRN PRN PRN Reason: Flush Stop: 02/10/19 23:50 Last Admin: 01/24/19 15:00 Dose: 5 ml Documented by: Heparin Sodium (Porcine) (Heparin Sodium (Porcine)) 5,000 units SQ Q12H [place] Stop: 02/10/19 20:59 Last Admin: 01/24/19 07:30 Dose: Not Given Documented by: Hydralazine HCl (Hydralazine Hcl) 20 mg IV Q6H PRN PRN Reason: systolic >180 Stop: 02/13/19 13:48 Last Admin: 01/16/19 03:25 Dose: 20 mg Documented by: Sodium Chloride (Nss) 250 mls @ 15 mls/hr IV .[id number] PRN PRN Reason: For Transfusion Stop: 02/17/19 13:05 Furosemide 60 mg/ Syringe 6 mls @ 4 mls/min IV TID@0600,1200,1800 [facility] Stop: 02/21/19 11:59 Last Admin: 01/24/19 13:58 Dose: 4 mls/min Documented by: Ertapenem 500 mg/ Sodium (Chloride) 55 mls @ 110 mls/hr IV Q24H [place]EPH[place]IA; Protocol Stop: 01/30/19 10:59 Last Infusion: 01/24/19 14:39 Dose: Infused Documented by: Acetaminophen (Ofirmev) 1,000 mg in 100 mls @ 400 mls/hr IV Q8H PRN; Protocol PRN Reason: mild pain Stop: 02/22/19 17:29 Last Infusion: 01/24/19 02:54 Dose: Infused Documented by: Insulin Aspart (Novolog Flexpen) 0 units SC Q6 [place] Stop: 02/23/19 17:59 Labetalol HCl (Normodyne) 200 mg PO BID [place] Stop: 02/22/19 20:59 Last Admin: 01/24/19 08:52 Dose: Not Given Documented by: Loperamide HCl (Imodium A-D Liquid) 2.65 mg PO Q6H PRN PRN Reason: Diarrhea Stop: 02/10/19 02:46 Miscellaneous (Stop Order) 1 ea N/A DAILY@0800 [place] Stop: 02/11/19 07:59 Last Admin: 01/24/19 07:29 Dose: 1 ea Documented by: Miscellaneous (Pending Order) 1 ea N/A DAILY@0700,1900 [place] Stop: 02/10/19 18:59 Last Admin: 01/24/19 07:27 Dose: 1 ea Documented by: Miscellaneous (Carbohydrates For Hypoglycemia) 15 - 30 gm PO UD PRN PRN Reason: Hypoglycemia Treatment Stop: 02/11/19 00:59 Miscellaneous Information (Pharmacy Tpn/Ppn Consult Active) 1 ea N/A UD [place] Stop: 02/10/19 08:07 Nutrition (Parenteral) (Custom Central Pn) 1 bag IV 1800 [place]IA; Protocol Stop: 01/25/19 07:59 Nystatin (Mycostatin) 1 appln EXT PRN PRN PRN Reason: Rash Stop: 02/10/19 02:22 Ondansetron HCl (Zofran) 4 mg IV Q4H PRN PRN Reason: Nausea Stop: 02/10/19 02:22 Fluticasone/Salmeterol (Advair Diskus 100/50) 1 puffs INH BID [place] Stop: 02/10/19 08:59 Last Admin: 01/24/19 08:52 Dose: 1 puffs Documented by: Sodium Biphosphate/Sodium Phosphate (Fleet Enema) 132 ml [place] DAILY PRN PRN Reason: Constipation Stop: 02/15/19 12:46 Triamcinolone Acetonide (Kenalog 0.1%) 1 appln TOP BID PRN PRN Reason: itchy Stop: 02/10/19 02:22 (1) Anemia Anemia type: other cause (2) Volume overload Hypervolemia type: unspecified Qualified Code(s): E87.70 - Fluid overload, unspecified
[2019-01-24 15:41] LABS: Hematocrit (blood only) 29.8 % (42-52); Hemoglobin 9.6 g/dL (14.0-18.0); Immature Granulocytes # (auto) 0.11 K/uL (0.00-0.02); Immature Granulocytes % (auto) 0.6 %; Lymphocytes # (auto) 0.33 K/uL (1.2-3.4); Lymphocytes % (auto) 1.8 %; Mean Corpuscular Hgb Conc 32.2 g/dL (32-36); Mean Platelet Volume 13.3 fL (7.4-10.4); Monocytes # (auto) 0.51 K/uL (0.11-0.59); Monocytes % (auto) 2.7 %; Neutrophils # (auto) 17.87 K/uL (1.4-6.5); Neutrophils % (auto) 94.9 %; Nucleated RBC # (auto) 0.21 K/uL (0-0); Nucleated RBC % (auto) 1.1 %; Platelet Count 170 K/uL (130-400); RDW Coefficient of Variation 21.2 % (11.5-14.5); RDW Standard Deviation 76.2 fL (36.4-46.3); Red Blood Count 2.98 M/uL (4.7-6.1); White Blood Count 18.82 K/uL (4.8-10.8)
[2019-01-24 15:53] LABS: INR 1.4 (0.9-1.1); Partial Thromboplastin Ratio 1.2; Partial Thromboplastin Time 31.5 Seconds (21.0-31.0); Prothrombin Time 13.9 Seconds (9.0-12.0)
[2019-01-24 16:01] LABS: Anisocytosis Present; Target Cells 1+
--- NOTE | 2019-01-24 16:08 | Pharmacy Report ---
PHA: Parenteral Nutrition Con - Date of Service January 24, 2019 - Scope Pharmacy was consulted on 01/11 to manage parenteral nutrition orders for this patient. - Subjective The patient is currently on day 13 of central parenteral nutrition for chronic use, secondary to J-tube malfunction that was recently replaced at [place], with eventual plans to solely use tube feedings. - Objective Height: 5 ft 11 in Weight: 70.4 kg Diet: Tube Feed Vascular Access:: PICC Intake & Output (24hrs):: Intake & Output 01/22/19 01/23/19 01/24/19 01/25/19 06:59 06:59 06:59 06:59 Intake Total 890 / 890 1290 / 1290 370 / 370 455 / 455 Output Total 725 / 725 2100 / 2100 750 / 750 Balance 165 / 165 -810 / -810 -380 / -380 455 / 455 Weight 67.9 kg 70.4 kg 70.4 kg Laboratory Data (Last 24 Hr):: 01/24/19 09:21 Sodium 142 Potassium 4.1 Chloride 102 Carbon Dioxide 30 BUN 118 H Creatinine 4.67 H* D Glucose 300 H Calcium 8.6 Phosphorus 3.7 Magnesium 2.1 Nutrition Assessment:: Please refer to the Notes section of the EMR for the most recent door person note. - Assessment Recent PN management * Mr. Shelton has been quite a complex patient, especially in terms of parenteral nutrition * He was being slowly titrated up on his J-tube feedings to a goal of 40 cc/hr and PN was decreasing to match total calorie requirements * On 01/21, PN volume was decreased to 2000 mL and macronutrients were decreased while Novasource was up to 30 cc/hr * On 01/22, pharmacy spoke w/ nephrology re: fluid status and patient was quite fluid overloaded. Lasix was being increased to 60 mg TID and request was to minimize volume from all sources (TF and PN). PN was cut back to a total of 1000 mL and has been this volume since then. Current AA in PN are ~0.8 gm/kg, to prevent overfeeding in setting of renal dysfunction and initiation of dialysis (as of last night). Glycemic control * BSGs have been increasing with steroids on board so we have been slowly increasing the insulin in the PN (being cautious in case steroids d/c'd). Patient had previously been refusing his BSG checks but I spoke w/ Dr. Elena and q6h Novolog will be restarted today until BSGs are improved. Steroids were supposed to continue today but have now been d/c'd. Last dose at 1400 today so I anticipate effects hanging around through the night. Insulin will need to be reduced in PN tomorrow. Tube feedings * Dietary has changed to Peptamen and resumed at 10 cc/hr this AM. This should not affect PN management until rate increased further - Plan For day 14 of PN administration, the following will be ordered: Macronutrients Amino acids 50 grams/day Dextrose 150 grams/day Lipids 25 grams/day Micronutrients Sodium chloride 140 mEq Potassium phosphate 4 mMol Potassium chloride 20 mEq Magnesium sulfate 2.03 mEq Calcium gluconate 13.65 mEq Multivitamins 10 mL Trace Elements 1 mL Insulin 20 units Total volume 1000 mL (minimum amount able to order) to be infused over 14 hrs will provide 960 kcal/day Labs, as indicated, will be ordered per protocol Pharmacy will continue to follow and adjust parenteral nutrition orders on a daily basis. Thank you for allowing us to participate in the care of this patient.
[2019-01-24] MEDS: INSULIN ASPART 100 UNITS/ML 3 ML PEN SC SCH (17:49)
[2019-01-24] MEDS ORDERED: CUSTOM CENTRAL PN IV SCH (18:00)
[2019-01-24] MEDS: HEPARIN SOD (PORCINE) 1000 UNIT/ML 10 ML VIAL IV SCH ×2 (18:50→18:51)
[2019-01-25] MEDS: INSULIN ASPART 100 UNITS/ML 3 ML PEN SC SCH ×4 (00:30→18:23)
[2019-01-25] MEDS: FUROSEMIDE 60 MG in SYRINGE 0 ML IV SCH ×3 (06:35→17:55)
[2019-01-25] MEDS: HEPARIN SOD 5,000 UNIT/0.5 ML VIAL SQ SCH (07:27)
--- NOTE | 2019-01-25 07:46 | Nephrology Progress Note ---
Date of Service January 25, 2019 Assessment & Plan (1) CKD (chronic kidney disease) stage 5, GFR less than 15 ml/min: Baseline creatinine low-mid 3's; has maturing avf but it's basobasilic and will need transposition. Creatinine is up trending to low 5's and BUN of 136. Worsening renal function likely due to ATN in setting of pneumonia, presumptive pancreatitis; pt also however w/ underlying ESRD prior to this admission. Urine sediment w/ 2+ protein, trace blood, else bland. Chemistries, acid-base status for now acceptable. High BUN partly due to the high protein load from the tube feeds/TPN -- pt may well come off of TPN later this week at least for now -markedly overloaded - pharmacy appreciated in lowering fluid burden both in TPN and in FW flushes; would CONTINUE po water as tolerated which he craves >>s/p tunnelled dialysis cath placement 01/23 >> had first HD 01/23; and 01/24; plan tomorrow midday >>>pls ask case mgt to arrange for outpatient dialysis at [facility] -Continue obtaining daily BMP -- pending for today > and on review ok after dialysis (2) Volume overload: still overloaded on PE and XR -monitor input output -continue lasix 60 mg IV q6h but hold MN doses (so 3 doses daily) -pulm following closely (3) Anemia: on epo as outpt; dosed here 01/12, 01/21; t stn on 01/12 was 21%; acceptable for now -redosed 01/21 [id number] units SQ multifactorial in pt w/ esrd, abnormal GI tract/ tpn dependence -noted bleeding > hgb stable as of last evening; today's labs show still stable hgb >>>consider DDAVP to improve platelet dysfunction w/ uremia >> IF hgb falling/bl eeding worsening; else per surgery - hope for improvement after change in pressure dressing position today (4) Hypertension: Blood pressure elevated on past 36 hrs on labetalol 200mg bid and amlodipine 10 mg daily and and prn hydralazine; labetalol is a new med for him this admission; cont lasix 60 mg IV tid; note bp taken on leg so ? accuracy >> lowered labetalol back to 200 mg bid given HR; cont same Subjective seen on rounds this am at about 0800; ongoing oozing/bleeding from TDC/around PICC; hgb is stable; pt furstrated/concerned about ongoing bleeding -- vascular evaluated today and made adjustments; no catheter use until tomorrow midday after these adjustemnts Physical Exam Vital Signs (Past 24 Hours): Last Vital Signs Temp 36.6 C 01/25/19 07:20 Pulse 68 01/25/19 07:20 Resp 20 01/25/19 07:20 BP 132/68 01/25/19 07:20 Pulse Ox 100 01/25/19 07:20 Constitutional: well developed and + frail appearing sitting on side of bed eating cream of wheat on 02nc Eyes: EOM intact bilaterally ENMT: Ears: no external ear abnormality Nose: no external nose abnormality Mouth: + dry oral mucous membranes Neck: no nuchal rigidity Respiratory: able to speak in complete sentences (less sob) Auscultation: + diminished lung sounds and + crackles (diffuse crackles) Cardiovascular: Rate/Rhythm: regular rate and regular rhythm Extremities: + edema (3+ pedal and 2+ ankle /distal RLe, trace LLE, 2+ BUE) and + AV fistula (LUE + t/b w/ dressing) Gastrointestinal (Abdomen): Inspection/Auscultation: normal bowel sounds Percussion/Palpation: abdomen soft; abdomen nontender Musculoskeletal: Extremities: strength 5/5 throughout Skin: no rashes, warm and dry Neurologic: kramer, fluent speech Psychiatric: Orientation: alert and oriented x 3 Eye Contact: good eye contact Speech: normal rate/rhythm/volume of speech Results & Data Laboratory Results Abnormal lab results 01/25/19 01/25/19 Range/Units 10:30 10:30 WBC 19.12 H (4.8-10.8) K/uL RBC 2.94 L (4.7-6.1) M/uL Hgb 9.8 L (14.0-18.0) g/dL Hct 29.6 L (42-52) % MCV 100.7 H (80-100) fL RDW Std Deviation 77.0 H (36.4-46.3) fL RDW Coeff of [place] 21.4 H (11.5-14.5) % MPV 13.2 H (7.4-10.4) fL Immature Gran # (Auto) 0.11 H (0.00-0.02) K/uL Neut # (Auto) 17.44 H (1.4-6.5) K/uL Lymph # (Auto) 1.11 L (1.2-3.4) K/uL Absolute Nucleated RBC 0.44 H (0-0) K/uL BUN 78 H (7-18) mg/dl Creatinine 3.38 H D (0.6-1.4) mg/dl BUN/Creatinine Ratio 23.1 H (10-20) Glucose 251 H (70-99) mg/dl Calcium 8.4 L (8.5-10.1) mg/dl (1) Anemia Anemia type: other cause (2) Volume overload Hypervolemia type: unspecified Qualified Code(s): E87.70 - Fluid overload, unspecified
[2019-01-25] MEDS: FLUTICASONE PROPIONATE NA SPR 16 GM BTL SCH (08:31)
[2019-01-25] MEDS: TPN STOP ORDER SCH (08:34)
[2019-01-25] MEDS: FLUTICASONE/SALMETEROL 100/50 (ADVAIR) 14 PUFF/1 INHALER INH SCH ×2 (08:34→21:46)
[2019-01-25] MEDS: LABETALOL HCL 200 MG TAB PO SCH ×2 (08:34→21:47)
[2019-01-25] MEDS: AMLODIPINE BESYLATE 5 MG TAB PO SCH (08:34)
[2019-01-25 09:14] LABS: Howell-Jolly Bodies 1+
--- NOTE | 2019-01-25 10:40 | Communication Note ---
Date of Service: January 25, 2019 Was asked to see pt d/t continued bleeding from tunneled catheter exit site. During exam, noted MARIBEL wrap and ABD wrapped around pt's torso and covering only the exit site. There was no pressure dressing on the pt. IV team called to change sterile exit site dressing and large clot removed from beneath dressing. Slight red oozing noted from exit site. With assistance of RN, pressure dressing applied to vein access site and along tunnel. Dressings not to be removed, dislodged, or changed for at least 24 hrs. May reinforce with 4x4s below exit site if needed initially, however, please call if continued bleeding occurs.
[2019-01-25 10:48] LABS: Hematocrit (blood only) 29.6 % (42-52); Hemoglobin 9.8 g/dL (14.0-18.0); Mean Corpuscular Hgb Conc 33.1 g/dL (32-36); Mean Corpuscular Volume 100.7 fL (80-100); Mean Platelet Volume 13.2 fL (7.4-10.4); Nucleated RBC # (auto) 0.44 K/uL (0-0); Nucleated RBC % (auto) 2.3 %; Platelet Count 181 K/uL (130-400); RDW Coefficient of Variation 21.4 % (11.5-14.5); Red Blood Count 2.94 M/uL (4.7-6.1); White Blood Count 19.12 K/uL (4.8-10.8)
[2019-01-25 11:09] LABS: BUN Creatinine Ratio 23.1 (10-20); Calcium 8.4 mg/dl (8.5-10.1); Creatinine Clr Calc Pharmacy 21.4 ml/min; Est GFR (African American) 20.8; Est GFR (Non-African American) 17.9; Phosphorus 3.1 mg/dl (2.5-4.9); Potassium 3.8 mmol/L (3.5-5.1)
[2019-01-25 11:18] LABS: Basophilic Stippling 1+; Basophils # (auto) 0.01 K/uL (0-0.2); Basophils % (auto) 0.1 %; Howell-Jolly Bodies 1+; Immature Granulocytes # (auto) 0.11 K/uL (0.00-0.02); Immature Granulocytes % (auto) 0.6 %; Lymphocytes # (auto) 1.11 K/uL (1.2-3.4); Lymphocytes % (auto) 5.8 %; Monocytes # (auto) 0.45 K/uL (0.11-0.59); Monocytes % (auto) 2.4 %; Neutrophils # (auto) 17.44 K/uL (1.4-6.5); Neutrophils % (auto) 91.1 %; Polychromasia 1+; Target Cells 1+
[2019-01-25] MEDS: PEPTAMEN 1.5 CAL 1,000 ML BAG GT SCH (13:29)
[2019-01-25] MEDS: ERTAPENEM SODIUM 500 MG in SODIUM CHLORIDE 0.9% 50 ML IV SCH (13:41)
[2019-01-25] MEDS ORDERED: CUSTOM CENTRAL PN IV SCH (18:00)
--- NOTE | 2019-01-25 18:40 | Hospitalist Progress Note ---
Date of Service January 25, 2019 Assessment & Plan (1) Multifocal pneumonia: CT chest on 01/10 showed bilateral airspace consolidations with left>right. Could be interstitial edema vs. multifocal pneumonia. On admission, WBC was 14.5; now normal. Otherwise no SIRS/sepsis symptoms. - Started on Zosyn on admission - Procalcitonin on 01/13 was 1.2. CXR on 01/20 with increased consolidation on the left antibiotics changed from Augmentin back to Zosyn, Vanco added procalcitonin only 0.27 MRSA swab negative, stop the Vanco in light of renal function and no clear role of therapy CT chest on 01/22 showed worsening infiltrates, but no fever, WBC stable sputum culture grew ESBL Klebsiella on 01/23 changed antibiotics to Ertapenem, ID consulted follow for clinical improvement now that antibiotics will be treating the ESBL Klebsiella patient feeling a lot better from respiratory standpoint since Ertapenem started duration of therapy per ID (2) Abdominal pain: Likely some amount of pancreatitis given the typical pain and elevated lipase; however, CT a/p on 01/10 did not show pancreatitis. CT a/p on 01/10 did show cholelithaisis with moderate gallbladder distention; however, surgery felt this was chronic in nature and did not represent cholecystitis. 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 -Patient's abdominal symptoms have resolved. tolerating G tube feedings no complaints today, no pain, will try to advance tube feeds (3) Volume overload: Patient reports 1-2 months of increasing edema in legs, abdomen, face, and arms. Echo on 01/11 showed EF 55-60%, borderline LVH, no valvular pathology. - Likely due to poor kidney function and poor nutritional status -Continuing diuresis per nephrology trying to remove fluid with HD 500cc UF on 01/23 and 750cc UF on 01/24 no HD today continues to be volume overloaded Lasix 60mg IV QID, hold midnight dose (4) CKD (chronic kidney disease) stage 5, GFR less than 15 ml/min: Baseline Cr is ~3.5 with eGFR ~15. Cr climbed to 5.58 with BUN of 143 prior to starting HD on 01/23 nephrology following Cr down to 3 today, electrolytes stable, patient more energetic without HD today Permacath on 01/23, less bleeding, pressure dressing applied continue Lasix 60mg IV TID for urine output (5) Anemia: Baseline hgb appears to be 8-10 (the 10 looks to be after transfusion). - Iron studies showed anemia of chronic disease/CKD Transfuse 1 unit packed red blood cells - Epo given by nephro on 01/12 Hb is 9.8 today, BP stable, actually trending up despite some blood loss (6) DVT prophylaxis: DVT prophylaxis: Heparin 5000 BID Home TPN formulation: 290 gm dextrose, 75 gm amino acids, and 25 gm lipids 3x/week to provide a total of 1536 kcal on days w/lipids and 1286 kcal on days w/out lipids 2400 mL over 14 hours with a 1 hour taper up and 1 hour taper down Planning to gradually increase tube feeding and decrease TPN, will have good transition, patient will follow up with [facility] in the ultrasonic tester at Dr. Medina J tube feeding Rx: Andreina brock renal, 4 can per day, with pum,p. 100ml/hr, 10 hr per day, with J tube, use 100ml water every 6 hr washing. (7) Protein calorie malnutrition: treating with TPN in addition to tube feeds follows with a nutrition director in [place] as outpatient Subjective patient feeling much more upbeat today admits that not getting HD today makes him much more energetic breathing is easier, no cough asking for more advanced diet reviewed labs, Cr is down to 3, electrolytes stable Hb actually up to 9.8 despite some blood loss from permacath appreciate note from vascular on permacath, pressure dressing applied appreciate note from nephrology, no HD today Review of Systems All systems reviewed & are unremarkable except as noted in HPI & below Constitutional: + fatigue and + weakness Respiratory: + dyspnea on exertion Cardiovascular: + edema Physical Exam Vital Signs (Past 24 Hours): Last Vital Signs Temp 36.3 C L 01/25/19 14:55 Pulse 58 L 01/25/19 14:55 Resp 18 01/25/19 14:55 BP 126/74 01/25/19 14:55 Pulse Ox 98 01/25/19 14:55 Constitutional: WD/WN, vitals as above + thin Eyes: PERRL, conjunctivae normal, anicteric sclerae ENMT: external ear and nose normal, oropharynx normal Neck: trachea midline, no thyromegaly Respiratory: normal respiratory effort; no respiratory distress Cardiovascular: RRR, no murmur, no edema Rate/Rhythm: regular rate and regular rhythm Heart Sounds: normal S1 and normal S2; no murmur Extremities: + edema (pitting in legs, bilaterally) Gastrointestinal (Abdomen): normal bowel sounds, soft, nontender, no hepatosplenomegaly Musculoskeletal: no cyanosis or clubbing, extremities motor strength 5/5 Skin: no rashes, warm and dry Neurologic: patellar DTR's 2+ bilat, sensation intact and PERRL, EOMI, accommodation nl, no face palsy, no dysarthria Psychiatric: A+Ox3, euthymic affect Lymphatic: no cervical or axillary lymphadenopathy Results & Data Laboratory Results Laboratory Results - last 24 hr 01/24/19 01/25/19 01/25/19 15:30 10:30 10:30 WBC 19.12 H RBC 2.94 L Hgb 9.8 L Hct 29.6 L MCV 100.7 H MCH 33.3 MCHC 33.1 RDW Std Deviation 77.0 H RDW Coeff of [place] 21.4 H Plt Count 181 MPV 13.2 H Immature Gran % (Auto) 0.6 Neut % (Auto) 91.1 Lymph % (Auto) 5.8 [place] % (Auto) 2.4 Eos % (Auto) 0.0 Baso % (Auto) 0.1 Immature Gran # (Auto) 0.11 H Neut # (Auto) 17.44 H Lymph # (Auto) 1.11 L [place] # (Auto) 0.45 Eos # (Auto) 0.00 Baso # (Auto) 0.01 Absolute Nucleated RBC 0.44 H Nucleated RBC % (auto) 2.3 Polychromasia 1+ Basophilic Stippling 1+ Microcytosis Target Cells 1+ [place] Bodies 1+ 1+ Sodium 138 Potassium 3.8 Chloride 101 Carbon Dioxide 30 Anion Gap 7.0 BUN 78 H Creatinine 3.38 H D Est Cr Clr Drug Dosing 21.4 Est GFR ( Amer) 20.8 Est GFR (Non-Af Amer) 17.9 BUN/Creatinine Ratio 23.1 H Glucose 251 H Calcium 8.4 L Phosphorus 3.1 Magnesium 2.0 Medications Administered Current Inpatient Medications Albuterol (Duoneb) 3 ml NEB Q4 PRN PRN Reason: Shortness Of Breath Or Wheezing Stop: 02/12/19 09:58 Amlodipine Besylate (Norvasc) 10 mg PO QAM [place] Stop: 02/15/19 08:59 Last Admin: 01/25/19 08:34 Dose: 10 mg Documented by: Dextrose (Dextrose 50%) 25 - 50 ml IV UD PRN; Protocol PRN Reason: Hypoglycemia Protocol Stop: 02/11/19 00:59 Last Admin: 01/17/19 16:46 Dose: 25 ml Documented by: Enteral Nutritional Formula (Peptamen 1.5) 1,000 ml GT DAILY@1600 [place]; Protocol Stop: 02/22/19 15:59 Last Admin: 01/25/19 13:29 Dose: 1,000 ml Documented by: Ertapenem (Consult) 1 ea N/A UD PRN PRN Reason: Consult Stop: 02/22/19 10:31 Fluticasone Propionate (Flonase) 1 sprays NA DAILY [place] Stop: 02/10/19 08:59 Last Admin: 01/25/19 08:31 Dose: Not Given Documented by: Glucagon (Glucagen) 1 mg SQ UD PRN; Protocol PRN Reason: Hypoglycemia Protocol Stop: 02/11/19 00:59 Glucose (Glucose 40%) 15 - 30 gm PO UD PRN; Protocol PRN Reason: Hypoglycemia Protocol Stop: 02/11/19 00:59 Glucose (Dex4 Glucose) 4 - 8 tabs PO UD PRN; Protocol PRN Reason: Hypoglycemia Protocol Stop: 02/11/19 00:59 Heparin Sodium (Beef Lung) (Heparin Sod 10 Unit/Ml Flush) 5 ml FLUSH PRN PRN PRN Reason: Flush Stop: 02/10/19 23:50 Last Admin: 01/24/19 15:00 Dose: 5 ml Documented by: Heparin Sodium (Porcine) (Heparin Sodium (Porcine)) 5,000 units SQ Q12H [place] Stop: 02/10/19 20:59 Last Admin: 01/25/19 07:27 Dose: Not Given Documented by: Hydralazine HCl (Hydralazine Hcl) 20 mg IV Q6H PRN PRN Reason: systolic >180 Stop: 02/13/19 13:48 Last Admin: 01/16/19 03:25 Dose: 20 mg Documented by: Sodium Chloride (Nss) 250 mls @ 15 mls/hr IV .[id number] PRN PRN Reason: For Transfusion Stop: 02/17/19 13:05 Furosemide 60 mg/ Syringe 6 mls @ 4 mls/min IV TID@0600,1200,1800 [facility] Stop: 02/21/19 11:59 Last Admin: 01/25/19 17:55 Dose: 4 mls/min Documented by: Ertapenem 500 mg/ Sodium (Chloride) 55 mls @ 110 mls/hr IV Q24H [place]; Protocol Stop: 01/30/19 10:59 Last Infusion: 01/25/19 14:32 Dose: Infused Documented by: Acetaminophen ([facility]) 1,000 mg in 100 mls @ 400 mls/hr IV Q8H PRN; Protocol PRN Reason: mild pain Stop: 02/22/19 17:29 Last Infusion: 01/24/19 02:54 Dose: Infused Documented by: Insulin Aspart (Novolog Flexpen) 0 units SC Q6 [place] Stop: 02/23/19 17:59 Last Admin: 01/25/19 18:23 Dose: Not Given Documented by: Labetalol HCl (Normodyne) 200 mg PO BID [facility] Stop: 02/22/19 20:59 Last Admin: 01/25/19 08:34 Dose: 200 mg Documented by: Loperamide HCl (Imodium A-D Liquid) 2.65 mg PO Q6H PRN PRN Reason: Diarrhea Stop: 02/10/19 02:46 Miscellaneous (Stop Order) 1 ea N/A DAILY@0800 [facility] Stop: 02/11/19 07:59 Last Admin: 01/25/19 08:34 Dose: 1 ea Documented by: Miscellaneous (Pending Order) 1 ea N/A DAILY@0700,1900 [facility] Stop: 02/10/19 18:59 Last Admin: 01/25/19 06:35 Dose: 1 ea Documented by: Miscellaneous (Carbohydrates For Hypoglycemia) 15 - 30 gm PO UD PRN PRN Reason: Hypoglycemia Treatment Stop: 02/11/19 00:59 Miscellaneous Information (Pharmacy Tpn/Ppn Consult Active) 1 ea N/A UD [facility] Stop: 02/10/19 08:07 Nutrition (Parenteral) ([employer] Pn) 1 bag IV 1800 [place]; Protocol Stop: 01/26/19 07:59 Last Admin: 01/25/19 17:51 Dose: 1 bag Documented by: Nystatin (Mycostatin) 1 appln EXT PRN PRN PRN Reason: Rash Stop: 02/10/19 02:22 Ondansetron HCl (Zofran) 4 mg IV Q4H PRN PRN Reason: Nausea Stop: 02/10/19 02:22 Fluticasone/Salmeterol (Advair Diskus 100/50) 1 puffs INH BID [place] Stop: 02/10/19 08:59 Last Admin: 01/25/19 08:34 Dose: 1 puffs Documented by: Sodium Biphosphate/Sodium Phosphate (Fleet Enema) 132 ml MI DAILY PRN PRN Reason: Constipation Stop: 02/15/19 12:46 Triamcinolone Acetonide (Kenalog 0.1%) 1 appln TOP BID PRN PRN Reason: itchy Stop: 02/10/19 02:22 (1) Volume overload Hypervolemia type: unspecified Qualified Code(s): E87.70 - Fluid overload, unspecified (2) Anemia Anemia type: other cause
--- NOTE | 2019-01-25 19:04 | Pulmonology Progress Note ---
Date of Service January 25, 2019 Assessment & Plan (1) Multifocal pneumonia: 68 y/o male with complex medical history who was intially found to have bilateral infiltrates and was treated as pneumonia with some improvement. then became more short of breath and hypoxic with worsening infiltrates on CXR and CT. bilateral infiltrates worsened likely related to ESBL klebsiella continue ertapenem improving symptoms will sign off please call with questions Subjective breathing improved able to walk without sob Physical Exam Vital Signs (Past 24 Hours): Last Vital Signs Temp 36.3 C L 01/25/19 14:55 Pulse 58 L 01/25/19 14:55 Resp 18 01/25/19 14:55 BP 126/74 01/25/19 14:55 Pulse Ox 98 01/25/19 14:55 Physical Exam: Constitutional: Comfortable NAD HEENT: normocephalic atraumatic. MMM CV: RRR nl s1,s2 no murmurs rubs or gallops Lungs: slight crackles bilaterally. no accessory muscle use Abd: soft nontender nondistended. normal bowel sounds Ext: no edema. no cyanosis, + clubbing Skin: warm dry. Neuro: alert and oriented. moving all extremities Psych: depressed affect
[2019-01-26] MEDS: ACETAMINOPHEN 1,000 MG/100 ML VIAL IV PRN ×2 (00:09→14:03)
[2019-01-26] MEDS: INSULIN ASPART 100 UNITS/ML 3 ML PEN SC SCH ×4 (02:16→18:20)
[2019-01-26] MEDS: FUROSEMIDE 60 MG in SYRINGE 0 ML IV SCH ×3 (05:54→18:14)
[2019-01-26] MEDS: FLUTICASONE/SALMETEROL 100/50 (ADVAIR) 14 PUFF/1 INHALER INH SCH ×2 (08:05→22:12)
[2019-01-26] MEDS: TPN STOP ORDER SCH (08:06)
[2019-01-26] MEDS: LABETALOL HCL 200 MG TAB PO SCH ×2 (08:06→22:12)
[2019-01-26] MEDS: AMLODIPINE BESYLATE 5 MG TAB PO SCH (08:06)
[2019-01-26] MEDS: FLUTICASONE PROPIONATE NA SPR 16 GM BTL SCH (08:16)
[2019-01-26 10:44] LABS: Basophils # (auto) 0.01 K/uL (0-0.2); Basophils % (auto) 0.1 %; Eosinophils # (auto) 0.01 K/uL (0-0.5); Eosinophils % (auto) 0.1 %; Hemoglobin 9.6 g/dL (14.0-18.0); Immature Granulocytes % (auto) 0.6 %; Lymphocytes # (auto) 1.16 K/uL (1.2-3.4); Lymphocytes % (auto) 6.8 %; Mean Platelet Volume 14.2 fL (7.4-10.4); Monocytes # (auto) 0.52 K/uL (0.11-0.59); Neutrophils # (auto) 15.32 K/uL (1.4-6.5); Neutrophils % (auto) 89.4 %; Nucleated RBC # (auto) 0.49 K/uL (0-0); Nucleated RBC % (auto) 2.8 %; Platelet Count 182 K/uL (130-400); RDW Coefficient of Variation 21.5 % (11.5-14.5); RDW Standard Deviation 77.5 fL (36.4-46.3); Red Blood Count 2.97 M/uL (4.7-6.1); White Blood Count 17.12 K/uL (4.8-10.8)
[2019-01-26 11:03] LABS: BUN Creatinine Ratio 23.4 (10-20); Calcium 8.9 mg/dl (8.5-10.1); Creatinine Clr Calc Pharmacy 19.5 ml/min; Est GFR (African American) 18.5; Magnesium 2.1 mg/dl (1.8-2.4); Potassium 3.9 mmol/L (3.5-5.1)
[2019-01-26 11:04] LABS: Phosphorus 3.3 mg/dl (2.5-4.9)
[2019-01-26 11:06] LABS: Anisocytosis Present; Howell-Jolly Bodies 1+; Pappenheimer Bodies 1+; Poikilocytosis Present; Target Cells 1+
--- NOTE | 2019-01-26 13:11 | Nephrology Progress Note ---
Date of Service January 26, 2019 Assessment & Plan (1) CKD (chronic kidney disease) stage 5, GFR less than 15 ml/min: Baseline creatinine low-mid 3's; has maturing avf but it's basobasilic and will need transposition. Creatinine is up trending to low 5's and BUN of 136. Worsening renal function likely due to ATN in setting of pneumonia, presumptive pancreatitis; pt also however w/ underlying ESRD prior to this admission. Urine sediment w/ 2+ protein, trace blood, else bland. Chemistries, acid-base status for now acceptable. High BUN partly due to the high protein load from the tube feeds/TPN -- pt may well come off of TPN later this week at least for now -markedly overloaded - pharmacy appreciated in lowering fluid burden both in TPN and in FW flushes; would CONTINUE po water as tolerated which he craves >>s/p tunnelled dialysis cath placement 01/23 >> had first HD 01/23; and 01/24 -i am worried about bleeding around TDC > no dialysis todya; will ask IV team to change dressings >>>pls ask case mgt to arrange for outpatient dialysis at [facility] dialysis clinic -Continue obtaining daily BMP (2) Volume overload: -dialysis when appropriate -monitor input output -continue lasix 60 mg IV q6h but hold MN doses (so 3 doses daily) -pulm following (3) Anemia: on epo as outpt; dosed here 01/12, 01/21; t stn on 01/12 was 21%; acceptable for now -redosed 01/21 54635 units SQ multifactorial in pt w/ esrd, abnormal GI tract/ tpn dependence -noted bleeding > hgb stable (4) Hypertension: Blood pressure elevated on past 36 hrs on labetalol 200mg bid and amlodipine 10 mg daily and and prn hydralazine; labetalol is a new med for him this admission; cont lasix 60 mg IV tid; note bp taken on leg so ? accuracy >> lowered labetalol back to 200 mg bid given HR; cont same Subjective ongoing oozing from dialysis catheter site; pressure dressings in place; notes new soft tissue fluid collection RLQ as well; still w/ BUE edema shelly L AVF arm and BLE; no n/v; on RA for now though sats borderline at times; + generalized weakness Physical Exam Vital Signs (Past 24 Hours): Last Vital Signs Temp 36.5 C 01/26/19 08:00 Pulse 53 L 01/26/19 12:15 Resp 12 01/26/19 12:15 BP 130/66 01/26/19 12:15 Pulse Ox 93 01/26/19 12:15 Constitutional: well developed and + frail appearing on RA A&0 x 3 Eyes: EOM intact bilaterally ENMT: Ears: no external ear abnormality Nose: no external nose abnormality Mouth: + dry oral mucous membranes Neck: no nuchal rigidity Respiratory: able to speak in complete sentences Auscultation: + diminished lung sounds and + crackles (diffuse crackles reduced) blood pooled under dressing for tdc and nearby Cardiovascular: Rate/Rhythm: regular rate and regular rhythm Extremities: + edema (2+ pedal and 3+ ankle /distal RLe, trace LLE, 2+ BUE) and + AV fistula (LUE + t/b w/ dressing) Gastrointestinal (Abdomen): Inspection/Auscultation: normal bowel sounds Percussion/Palpation: abdomen soft; abdomen nontender PEg ain abd and esoph drainage in L chest Musculoskeletal: Extremities: strength 5/5 throughout Skin: no rashes, warm and dry Neurologic: kramer, fluent speech Psychiatric: Orientation: alert and oriented x 3 Eye Contact: good eye contact Speech: normal rate/rhythm/volume of speech Results & Data Laboratory Results Abnormal lab results 01/26/19 01/26/19 Range/Units 10:18 10:18 WBC 17.12 H (4.8-10.8) K/uL RBC 2.97 L (4.7-6.1) M/uL Hgb 9.6 L (14.0-18.0) g/dL Hct 30.0 L (42-52) % MCV 101.0 H (80-100) fL RDW Std Deviation 77.5 H (36.4-46.3) fL RDW Coeff of [place] 21.5 H (11.5-14.5) % MPV 14.2 H (7.4-10.4) fL Immature Gran # (Auto) 0.10 H (0.00-0.02) K/uL Neut # (Auto) 15.32 H (1.4-6.5) K/uL Lymph # (Auto) 1.16 L (1.2-3.4) K/uL Absolute Nucleated RBC 0.49 H (0-0) K/uL BUN 87 H (7-18) mg/dl Creatinine 3.71 H D (0.6-1.4) mg/dl BUN/Creatinine Ratio 23.4 H (10-20) Glucose 196 H (70-99) mg/dl (1) Volume overload Hypervolemia type: unspecified Qualified Code(s): E87.70 - Fluid overload, unspecified (2) Anemia Anemia type: other cause
[2019-01-26] MEDS: ERTAPENEM SODIUM 500 MG in SODIUM CHLORIDE 0.9% 50 ML IV SCH (13:27)
--- NOTE | 2019-01-26 13:59 | Hospitalist Progress Note ---
Date of Service January 26, 2019 Assessment & Plan (1) Multifocal pneumonia: CT chest on 01/10 showed bilateral airspace consolidations with left>right. Could be interstitial edema vs. multifocal pneumonia. On admission, WBC was 14.5; now normal. Otherwise no SIRS/sepsis symptoms. - Started on Zosyn on admission - Procalcitonin on 01/13 was 1.2. CXR on 01/20 with increased consolidation on the left antibiotics changed from Augmentin back to Zosyn, Vanco added procalcitonin only 0.27 MRSA swab negative, stop the Vanco in light of renal function and no clear role of therapy CT chest on 01/22 showed worsening infiltrates, but no fever, WBC stable sputum culture grew ESBL Klebsiella on 01/23 changed antibiotics to Ertapenem, ID consulted patient improved a lot, titrated off of oxygen will continue Ertapenem on discharge, will need to ask ID about duration (2) CKD (chronic kidney disease) stage 5, GFR less than 15 ml/min: Baseline Cr is ~3.5 with eGFR ~15. Cr climbed to 5.58 with BUN of 143 prior to starting HD on 01/23 nephrology following Cr down to 3 for several days, electrolytes stable, patient more energetic without HD today Permacath on 01/23, still bleeding, pressure dressing applied continue Lasix 60mg IV TID for urine output, he is still making urine (3) Anemia: Baseline hgb appears to be 8-10 (the 10 looks to be after transfusion). - Iron studies showed anemia of chronic disease/CKD Transfuse 1 unit packed red blood cells - Epo given by nephro on 01/12 Hb is 9.6 today, BP stable, no signs of acute blood loss anemia despite the bleeding from cath site (4) Abdominal pain: Likely some amount of pancreatitis given the typical pain and elevated lipase; however, CT a/p on 01/10 did not show pancreatitis. CT a/p on 01/10 did show cholelithaisis with moderate gallbladder distention; however, surgery felt this was chronic in nature and did not represent cholecystitis. 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 -Patient's abdominal symptoms have resolved. tolerating G tube feedings no complaints today, no pain, will try to advance tube feeds (5) Volume overload: Patient reports 1-2 months of increasing edema in legs, abdomen, face, and arms. Echo on 01/11 showed EF 55-60%, borderline LVH, no valvular pathology. - Likely due to poor kidney function and poor nutritional status -Continuing diuresis per nephrology trying to remove fluid with HD 500cc UF on 01/23 and 750cc UF on 01/24 no HD today continues to be volume overloaded Lasix 60mg IV QID, hold midnight dose (6) Protein calorie malnutrition: treating with TPN in addition to tube feeds follows with a adaptive physical education specialist in [place] as outpatient (7) DVT prophylaxis: DVT prophylaxis: Heparin 5000 BID Home TPN formulation: 290 gm dextrose, 75 gm amino acids, and 25 gm lipids 3x/week to provide a total of 1536 kcal on days w/lipids and 1286 kcal on days w/out lipids 2400 mL over 14 hours with a 1 hour taper up and 1 hour taper down Planning to gradually increase tube feeding and decrease TPN, will have good transition, patient will follow up with Semaj in the [place] at Dr. Medina J tube feeding Rx: Andreina brock renal, 4 can per day, with pum,p. 100ml/hr, 10 hr per day, with J tube, use 100ml water every 6 hr washing. (8) Vitamin B 12 deficiency: give 1000mcg injection on 01/26 Subjective patient is breathing much better, actually able to titrate off of oxygen this morning still with bleeding from the tunneled HD catheter site Hb is stable despite the bleeding, Hb 9.6 Cr and electrolytes stable discussed with Dr. Edward, she won't do HD today, does not want to manipulate the catheter if not absolutely needed patient requesting Vitamin B12 injection as he missed his normal dose last week he is more upbeat and optimistic about going home now that pneumonia improving he is accepting that he needs hemodialysis Review of Systems All systems reviewed & are unremarkable except as noted in HPI & below Constitutional: + fatigue and + weakness Respiratory: + dyspnea on exertion Cardiovascular: + edema Physical Exam Vital Signs (Past 24 Hours): Last Vital Signs Temp 36.5 C 01/26/19 08:00 Pulse 53 L 01/26/19 12:15 Resp 12 01/26/19 12:15 BP 130/66 01/26/19 12:15 Pulse Ox 93 01/26/19 12:15 Constitutional: WD/WN, vitals as above + thin Eyes: PERRL, conjunctivae normal, anicteric sclerae ENMT: external ear and nose normal, oropharynx normal Neck: trachea midline, no thyromegaly Respiratory: normal respiratory effort; no respiratory distress Cardiovascular: RRR, no murmur, no edema Rate/Rhythm: regular rate and regular rhythm Heart Sounds: normal S1 and normal S2; no murmur Extremities: + edema (pitting in legs, bilaterally) Gastrointestinal (Abdomen): normal bowel sounds, soft, nontender, no hepatosplenomegaly Musculoskeletal: no cyanosis or clubbing, extremities motor strength 5/5 Skin: no rashes, warm and dry Neurologic: patellar DTR's 2+ bilat, sensation intact and PERRL, EOMI, accommodation nl, no face palsy, no dysarthria Psychiatric: A+Ox3, euthymic affect Lymphatic: no cervical or axillary lymphadenopathy Results & Data Laboratory Results Laboratory Results - last 24 hr 01/26/19 01/26/19 10:18 10:18 WBC 17.12 H RBC 2.97 L Hgb 9.6 L Hct 30.0 L MCV 101.0 H MCH 32.3 MCHC 32.0 RDW Std Deviation 77.5 H RDW Coeff of [place] 21.5 H Plt Count 182 MPV 14.2 H Immature Gran % (Auto) 0.6 Neut % (Auto) 89.4 Lymph % (Auto) 6.8 [place] % (Auto) 3.0 Eos % (Auto) 0.1 Baso % (Auto) 0.1 Immature Gran # (Auto) 0.10 H Neut # (Auto) 15.32 H Lymph # (Auto) 1.16 L [place] # (Auto) 0.52 Eos # (Auto) 0.01 Baso # (Auto) 0.01 Absolute Nucleated RBC 0.49 H Nucleated RBC % (auto) 2.8 Poikilocytosis Present Anisocytosis Present [place]app[place]heimer Bodies 1+ Target Cells 1+ [place] Bodies 1+ Sodium 141 Potassium 3.9 Chloride 104 Carbon Dioxide 29 Anion Gap 8.0 BUN 87 H Creatinine 3.71 H D Est Cr Clr Drug Dosing 19.5 Est GFR ( Amer) 18.5 Est GFR (Non-Af Amer) 16.0 BUN/Creatinine Ratio 23.4 H Glucose 196 H Calcium 8.9 Phosphorus 3.3 Magnesium 2.1 Medications Administered Current Inpatient Medications Albuterol (Duoneb) 3 ml NEB Q4 PRN PRN Reason: Shortness Of Breath Or Wheezing Stop: 02/12/19 09:58 Amlodipine Besylate (Norvasc) 10 mg PO QAM [facility] Stop: 02/15/19 08:59 Last Admin: 01/26/19 08:06 Dose: 10 mg Documented by: Cyanocobalamin (Vitamin B-12) 1,000 mcg IM ONE ONE Stop: 01/26/19 13:54 Dextrose (Dextrose 50%) 25 - 50 ml IV UD PRN; Protocol PRN Reason: Hypoglycemia Protocol Stop: 02/11/19 00:59 Last Admin: 01/17/19 16:46 Dose: 25 ml Documented by: Enteral Nutritional Formula (Peptamen 1.5) 1,000 ml GT DAILY@1600 [facility]; Protocol Stop: 02/22/19 15:59 Last Admin: 01/25/19 13:29 Dose: 1,000 ml Documented by: Ertapenem (Consult) 1 ea N/A UD PRN PRN Reason: Consult Stop: 02/22/19 10:31 Fluticasone Propionate (Flonase) 1 sprays NA DAILY [facility] Stop: 02/10/19 08:59 Last Admin: 01/26/19 08:16 Dose: Not Given Documented by: Glucagon (Glucagen) 1 mg SQ UD PRN; Protocol PRN Reason: Hypoglycemia Protocol Stop: 02/11/19 00:59 Glucose (Glucose 40%) 15 - 30 gm PO UD PRN; Protocol PRN Reason: Hypoglycemia Protocol Stop: 02/11/19 00:59 Glucose (Dex4 Glucose) 4 - 8 tabs PO UD PRN; Protocol PRN Reason: Hypoglycemia Protocol Stop: 02/11/19 00:59 Heparin Sodium (Beef Lung) (Heparin Sod 10 Unit/Ml Flush) 5 ml FLUSH PRN PRN PRN Reason: Flush Stop: 02/10/19 23:50 Last Admin: 01/26/19 08:05 Dose: 5 ml Documented by: Heparin Sodium (Porcine) (Heparin Sodium (Porcine)) 5,000 units SQ Q12H [facility] Stop: 02/10/19 20:59 Last Admin: 01/25/19 07:27 Dose: Not Given Documented by: Hydralazine HCl (Hydralazine Hcl) 20 mg IV Q6H PRN PRN Reason: systolic >180 Stop: 02/13/19 13:48 Last Admin: 01/16/19 03:25 Dose: 20 mg Documented by: Sodium Chloride (Nss) 250 mls @ 15 mls/hr IV .[id number] PRN PRN Reason: For Transfusion Stop: 02/17/19 13:05 Furosemide 60 mg/ Syringe 6 mls @ 4 mls/min IV TID@0600,1200,1800 [facility] Stop: 02/21/19 11:59 Last Admin: 01/26/19 13:27 Dose: 4 mls/min Documented by: Ertapenem 500 mg/ Sodium (Chloride) 55 mls @ 110 mls/hr IV Q24H [facility]; Protocol Stop: 01/30/19 10:59 Last Admin: 01/26/19 13:27 Dose: 110 mls/hr Documented by: Acetaminophen (Ofirmev) 1,000 mg in 100 mls @ 400 mls/hr IV Q8H PRN; Protocol PRN Reason: mild pain Stop: 02/22/19 17:29 Last Infusion: 01/26/19 00:24 Dose: Infused Documented by: Insulin Aspart (Novolog Flexpen) 0 units SC Q6 [facility] Stop: 02/23/19 17:59 Last Admin: 01/26/19 13:28 Dose: Not Given Documented by: Labetalol HCl (Normodyne) 200 mg PO BID [facility] Stop: 02/22/19 20:59 Last Admin: 01/26/19 08:06 Dose: 200 mg Documented by: Loperamide HCl (Imodium A-D Liquid) 2.65 mg PO Q6H PRN PRN Reason: Diarrhea Stop: 02/10/19 02:46 Miscellaneous (Stop Order) 1 ea N/A DAILY@0800 [facility] Stop: 02/11/19 07:59 Last Admin: 01/26/19 08:06 Dose: 1 ea Documented by: Miscellaneous (Pending Order) 1 ea N/A DAILY@0700,1900 [facility] Stop: 02/10/19 18:59 Last Admin: 01/26/19 07:00 Dose: 1 ea Documented by: Miscellaneous (Carbohydrates For Hypoglycemia) 15 - 30 gm PO UD PRN PRN Reason: Hypoglycemia Treatment Stop: 02/11/19 00:59 Miscellaneous Information (Pharmacy Tpn/Ppn Consult Active) 1 ea N/A UD [facility] Stop: 02/10/19 08:07 Nutrition (Parenteral) (Custom Central Pn) 1 bag IV TODAY@1800 [facility]; Protocol Stop: 01/27/19 17:59 Nystatin (Mycostatin) 1 appln EXT PRN PRN PRN Reason: Rash Stop: 02/10/19 02:22 Ondansetron HCl (Zofran) 4 mg IV Q4H PRN PRN Reason: Nausea Stop: 02/10/19 02:22 Fluticasone/Salmeterol (Advair Diskus 100/50) 1 puffs INH BID [facility] Stop: 02/10/19 08:59 Last Admin: 01/26/19 08:05 Dose: 1 puffs Documented by: Sodium Biphosphate/Sodium Phosphate (Fleet Enema) 132 ml [place] DAILY PRN PRN Reason: Constipation Stop: 02/15/19 12:46 Triamcinolone Acetonide (Kenalog 0.1%) 1 appln TOP BID PRN PRN Reason: itchy Stop: 02/10/19 02:22 (1) Volume overload Hypervolemia type: unspecified Qualified Code(s): E87.70 - Fluid overload, unspecified (2) Anemia Anemia type: other cause
[2019-01-26] MEDS ORDERED: CYANOCOBALAMIN 1000 MCG/ML VIAL IM ONE (14:30)
[2019-01-26] MEDS: PEPTAMEN 1.5 CAL 1,000 ML BAG GT SCH (15:58)
[2019-01-26] MEDS ORDERED: CUSTOM CENTRAL PN IV SCH (18:00)
[2019-01-27] MEDS: INSULIN ASPART 100 UNITS/ML 3 ML PEN SC SCH ×4 (01:07→19:05)
[2019-01-27 06:10] LABS: Basophils # (auto) 0.01 K/uL (0-0.2); Basophils % (auto) 0.1 %; Eosinophils % (auto) 0.8 %; Immature Granulocytes # (auto) 0.07 K/uL (0.00-0.02); Immature Granulocytes % (auto) 0.5 %; Lymphocytes # (auto) 1.04 K/uL (1.2-3.4); Mean Corpuscular Hgb Conc 32.1 g/dL (32-36); Mean Corpuscular Volume 102.2 fL (80-100); Mean Platelet Volume 14.2 fL (7.4-10.4); Monocytes # (auto) 0.68 K/uL (0.11-0.59); Monocytes % (auto) 5.3 %; Neutrophils # (auto) 11.03 K/uL (1.4-6.5); Neutrophils % (auto) 85.3 %; Nucleated RBC # (auto) 0.34 K/uL (0-0); Nucleated RBC % (auto) 2.6 %; Platelet Count 176 K/uL (130-400); RDW Coefficient of Variation 22.2 % (11.5-14.5); RDW Standard Deviation 79.5 fL (36.4-46.3); Red Blood Count 2.74 M/uL (4.7-6.1); White Blood Count 12.93 K/uL (4.8-10.8)
[2019-01-27] MEDS: FUROSEMIDE 60 MG in SYRINGE 0 ML IV SCH ×3 (06:24→18:38)
[2019-01-27 06:26] LABS: BUN Creatinine Ratio 23.3 (10-20); Calcium 8.7 mg/dl (8.5-10.1); Est GFR (African American) 16.9; Est GFR (Non-African American) 14.6; Potassium 3.9 mmol/L (3.5-5.1)
[2019-01-27 06:28] LABS: Phosphorus 3.1 mg/dl (2.5-4.9)
[2019-01-27 06:51] LABS: Acanthocytes 1+; Anisocytosis Present; Echinocytes 1+; Howell-Jolly Bodies 1+
[2019-01-27] MEDS: TPN STOP ORDER SCH (08:33)
[2019-01-27] MEDS: FLUTICASONE PROPIONATE NA SPR 16 GM BTL SCH (08:38)
[2019-01-27] MEDS: FLUTICASONE/SALMETEROL 100/50 (ADVAIR) 14 PUFF/1 INHALER INH SCH ×2 (08:38→20:37)
[2019-01-27] MEDS: LABETALOL HCL 200 MG TAB PO SCH ×2 (08:39→20:38)
[2019-01-27] MEDS: AMLODIPINE BESYLATE 5 MG TAB PO SCH (08:39)
[2019-01-27] MEDS: ERTAPENEM SODIUM 500 MG in SODIUM CHLORIDE 0.9% 50 ML IV SCH (11:51)
--- NOTE | 2019-01-27 15:21 | Hospitalist Progress Note ---
Date of Service January 27, 2019 Assessment & Plan (1) Multifocal pneumonia: CT chest on 01/10 showed bilateral airspace consolidations with left>right. Could be interstitial edema vs. multifocal pneumonia. On admission, WBC was 14.5; now normal. Otherwise no SIRS/sepsis symptoms. - Started on Zosyn on admission - Procalcitonin on 01/13 was 1.2. CXR on 01/20 with increased consolidation on the left antibiotics changed from Augmentin back to Zosyn, Vanco added procalcitonin only 0.27 MRSA swab negative, stop the Vanco in light of renal function and no clear role of therapy CT chest on 01/22 showed worsening infiltrates, but no fever, WBC stable sputum culture grew ESBL Klebsiella on 01/23 changed antibiotics to Ertapenem, ID consulted patient improved a lot, titrated off of oxygen will continue Ertapenem on discharge, will need to ask ID about duration, anticipate 7-10 more days has PICC line for TPN (2) CKD (chronic kidney disease) stage 5, GFR less than 15 ml/min: Baseline Cr is ~3.5 with eGFR ~15. Cr climbed to 5.58 with BUN of 143 prior to starting HD on 01/23 nephrology following Cr up to 4 today, electrolytes stable, patient more energetic without HD today Permacath on 01/23, still bleeding, pressure dressing applied continue Lasix 60mg IV TID for urine output, he is still making urine likely for HD tomorrow, [facility] nephrology following need bleeding to be stopped from tunneled catheter prior to discharge, if still bleeding tomorrow then vascular surgery will need to assess (3) Anemia: Baseline hgb appears to be 8-10 (the 10 looks to be after transfusion). - Iron studies showed anemia of chronic disease/CKD Transfuse 1 unit packed red blood cells - Epo given by nephro on 01/12 Hb is 9.0 today, BP stable, mild drop in Hb in setting of bleeding from cath site (4) Abdominal pain: Likely some amount of pancreatitis given the typical pain and elevated lipase; however, CT a/p on 01/10 did not show pancreatitis. CT a/p on 01/10 did show cholelithaisis with moderate gallbladder distention; however, surgery felt this was chronic in nature and did not represent cholecystitis. 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 -Patient's abdominal symptoms have resolved. tolerating G tube feedings no complaints today, no pain, will try to advance tube feeds (5) Volume overload: Patient reports 1-2 months of increasing edema in legs, abdomen, face, and arms. Echo on 01/11 showed EF 55-60%, borderline LVH, no valvular pathology. - Likely due to poor kidney function and poor nutritional status -Continuing diuresis per nephrology trying to remove fluid with HD 500cc UF on 01/23 and 750cc UF on 01/24 no HD today continues to be volume overloaded Lasix 60mg IV QID, hold midnight dose (6) Protein calorie malnutrition: treating with TPN in addition to tube feeds follows with a email production specialist in [place] as outpatient would continue TPN on discharge as well as tube feeds Home TPN formulation: 290 gm dextrose, 75 gm amino acids, and 25 gm lipids 3x/week to provide a total of 1536 kcal on days w/lipids and 1286 kcal on days w/out lipids 2400 mL over 14 hours with a 1 hour taper up and 1 hour taper down Planning to gradually increase tube feeding and decrease TPN, will have good transition, patient will follow up with Sem[facility] in [place] at Dr. Adam Beaver tube feeding Rx: currently giving 1000mL daily at 1600 (7) DVT prophylaxis: DVT prophylaxis: on hold due to bleeding (8) Vitamin B 12 deficiency: give 1000mcg injection on 01/26 Subjective patient breathing much easier today, still on room air tolerating tube feed and TPN still with some bleeding from tunneled catheter site but less today Hb down slightly at 9.0 WBC is 12k, down from 17k vitals stable, no fevers discussed that prior to leaving hospital would want bleeding stopped from tunneled catheter Review of Systems All systems reviewed & are unremarkable except as noted in HPI & below Constitutional: + fatigue and + weakness Respiratory: + dyspnea on exertion Cardiovascular: + edema Physical Exam Vital Signs (Past 24 Hours): Last Vital Signs Temp 36.2 C L 01/27/19 15:11 Pulse 62 01/27/19 15:11 Resp 16 01/27/19 15:11 BP 121/63 01/27/19 15:11 Pulse Ox 93 01/27/19 15:11 Constitutional: WD/WN, vitals as above + thin Eyes: PERRL, conjunctivae normal, anicteric sclerae ENMT: external ear and nose normal, oropharynx normal Neck: trachea midline, no thyromegaly Respiratory: normal respiratory effort; no respiratory distress Ausc ultation: + rhonchi Cardiovascular: RRR, no murmur, no edema Rate/Rhythm: regular rate and regular rhythm Heart Sounds: normal S1 and normal S2; no murmur Extremities: + edema (pitting in legs, bilaterally) Chest (Breasts): Chest: + vascular access device or port (right tunneled HD catheter, still with bleeding) Gastrointestinal (Abdomen): normal bowel sounds, soft, nontender, no hepatosplenomegaly Musculoskeletal: no cyanosis or clubbing, extremities motor strength 5/5 Skin: no rashes, warm and dry Neurologic: patellar DTR's 2+ bilat, sensation intact and PERRL, EOMI, accommodation nl, no face palsy, no dysarthria Psychiatric: A+Ox3, euthymic affect Lymphatic: no cervical or axillary lymphadenopathy Results & Data Laboratory Results Laboratory Results - last 24 hr 01/27/19 01/27/19 05:36 05:36 WBC 12.93 H RBC 2.74 L Hgb 9.0 L Hct 28.0 L MCV 102.2 H MCH 32.8 MCHC 32.1 RDW Std Deviation 79.5 H RDW Coeff of [place] 22.2 H Plt Count 176 MPV 14.2 H Immature Gran % (Auto) 0.5 Neut % (Auto) 85.3 Lymph % (Auto) 8.0 [place] % (Auto) 5.3 Eos % (Auto) 0.8 Baso % (Auto) 0.1 Immature Gran # (Auto) 0.07 H Neut # (Auto) 11.03 H Lymph # (Auto) 1.04 L [place] # (Auto) 0.68 H Eos # (Auto) 0.10 Baso # (Auto) 0.01 Absolute Nucleated RBC 0.34 H Nucleated RBC % (auto) 2.6 Anisocytosis Present [place] Bodies 1+ Echinocytes 1+ Acanthocytes (Spur) 1+ Sodium 144 Potassium 3.9 Chloride 106 Carbon Dioxide 30 Anion Gap 7.0 BUN 94 H Creatinine 4.01 H D Est Cr Clr Drug Dosing 18.0 Est GFR ( Amer) 16.9 Est GFR (Non-Af Amer) 14.6 BUN/Creatinine Ratio 23.3 H Glucose 210 H Calcium 8.7 Phosphorus 3.1 Magnesium 2.0 Triglycerides 102 Medications Administered Current Inpatient Medications Albuterol (Duoneb) 3 ml NEB Q4 PRN PRN Reason: Shortness Of Breath Or Wheezing Stop: 02/12/19 09:58 Amlodipine Besylate (Norvasc) 10 mg PO QAM [facility] Stop: 02/15/19 08:59 Last Admin: 01/27/19 08:39 Dose: 10 mg Documented by: Dextrose (Dextrose 50%) 25 - 50 ml IV UD PRN; Protocol PRN Reason: Hypoglycemia Protocol Stop: 02/11/19 00:59 Last Admin: 01/17/19 16:46 Dose: 25 ml Documented by: Enteral Nutritional Formula (Peptamen 1.5) 1,000 ml GT DAILY@1600 [facility]; Protocol Stop: 02/22/19 15:59 Last Admin: 01/26/19 15:58 Dose: 1,000 ml Documented by: Ertapenem (Consult) 1 ea N/A UD PRN PRN Reason: Consult Stop: 02/22/19 10:31 Fluticasone Propionate (Flonase) 1 sprays NA DAILY [facility] Stop: 02/10/19 08:59 Last Admin: 01/27/19 08:38 Dose: 1 sprays Documented by: Glucagon (Glucagen) 1 mg SQ UD PRN; Protocol PRN Reason: Hypoglycemia Protocol Stop: 02/11/19 00:59 Glucose (Glucose 40%) 15 - 30 gm PO UD PRN; Protocol PRN Reason: Hypoglycemia Protocol Stop: 02/11/19 00:59 Glucose (Dex4 Glucose) 4 - 8 tabs PO UD PRN; Protocol PRN Reason: Hypoglycemia Protocol Stop: 02/11/19 00:59 Heparin Sodium (Beef Lung) (Heparin Sod 10 Unit/Ml Flush) 5 ml FLUSH PRN PRN PRN Reason: Flush Stop: 02/10/19 23:50 Last Admin: 01/27/19 06:23 Dose: 5 ml Documented by: Heparin Sodium (Porcine) (Heparin Sodium (Porcine)) 5,000 units SQ Q12H [facility] Stop: 02/10/19 20:59 Last Admin: 01/25/19 07:27 Dose: Not Given Documented by: Hydralazine HCl (Hydralazine Hcl) 20 mg IV Q6H PRN PRN Reason: systolic >180 Stop: 02/13/19 13:48 Last Admin: 01/16/19 03:25 Dose: 20 mg Documented by: Sodium Chloride (Nss) 250 mls @ 15 mls/hr IV .[id number] PRN PRN Reason: For Transfusion Stop: 02/17/19 13:05 Furosemide 60 mg/ Syringe 6 mls @ 4 mls/min IV TID@0600,1200,1800 [facility] Stop: 02/21/19 11:59 Last Admin: 01/27/19 13:45 Dose: 4 mls/min Documented by: Ertapenem 500 mg/ Sodium (Chloride) 55 mls @ 110 mls/hr IV Q24H [facility]; Protocol Stop: 01/30/19 10:59 Last Infusion: 01/27/19 12:21 Dose: Infused Documented by: Acetaminophen (Ofirmev) 1,000 mg in 100 mls @ 400 mls/hr IV Q8H PRN; Protocol PRN Reason: mild pain Stop: 02/22/19 17:29 Last Infusion: 01/26/19 14:26 Dose: Infused Documented by: Insulin Aspart (Novolog Flexpen) 0 units SC Q6 [facility] Stop: 02/23/19 17:59 Last Admin: 01/27/19 13:11 Dose: Not Given Documented by: Labetalol HCl (Normodyne) 200 mg PO BID [facility] Stop: 02/22/19 20:59 Last Admin: 01/27/19 08:39 Dose: 200 mg Documented by: Loperamide HCl (Imodium A-D Liquid) 2.65 mg PO Q6H PRN PRN Reason: Diarrhea Stop: 02/10/19 02:46 Miscellaneous (Stop Order) 1 ea N/A DAILY@0800 [facility] Stop: 02/11/19 07:59 Last Admin: 01/27/19 08:33 Dose: 1 ea Documented by: Miscellaneous (Pending Order) 1 ea N/A DAILY@0700,1900 [facility] Stop: 02/10/19 18:59 Last Admin: 01/27/19 07:18 Dose: 1 ea Documented by: Miscellaneous (Carbohydrates For Hypoglycemia) 15 - 30 gm PO UD PRN PRN Reason: Hypoglycemia Treatment Stop: 02/11/19 00:59 Miscellaneous Information (Pharmacy Tpn/Ppn Consult Active) 1 ea N/A UD [facility] Stop: 02/10/19 08:07 Nutrition (Parenteral) (Custom Central Pn) 1 bag IV TODAY@1800 [facility]; Protocol Stop: 01/27/19 17:59 Last Admin: 01/26/19 18:14 Dose: 1 bag Documented by: Nutrition (Parenteral) (Custom Central Pn) 1 bag IV TODAY@1800 [facility]; Protocol Stop: 01/28/19 17:59 Nystatin (Mycostatin) 1 appln EXT PRN PRN PRN Reason: Rash Stop: 02/10/19 02:22 Ondansetron HCl (Zofran) 4 mg IV Q4H PRN PRN Reason: Nausea Stop: 02/10/19 02:22 Fluticasone/Salmeterol (Advair Diskus 100/50) 1 puffs INH BID [facility] Stop: 02/10/19 08:59 Last Admin: 01/27/19 08:38 Dose: 1 puffs Documented by: Sodium Biphosphate/Sodium Phosphate (Fleet Enema) 132 ml [place] DAILY PRN PRN Reason: Constipation Stop: 02/15/19 12:46 Triamcinolone Acetonide (Kenalog 0.1%) 1 appln TOP BID PRN PRN Reason: itchy Stop: 02/10/19 02:22 (1) Anemia Anemia type: other cause (2) Volume overload Hypervolemia type: unspecified Qualified Code(s): E87.70 - Fluid overload, unspecified
[2019-01-27] MEDS: PEPTAMEN 1.5 CAL 1,000 ML BAG GT SCH (16:56)
[2019-01-27] MEDS ORDERED: CUSTOM CENTRAL PN IV SCH (18:00)
[2019-01-28] MEDS: INSULIN ASPART 100 UNITS/ML 3 ML PEN SC SCH ×4 (00:21→17:26)
[2019-01-28] MEDS: FUROSEMIDE 60 MG in SYRINGE 0 ML IV SCH ×4 (06:10→17:13)
[2019-01-28 06:24] LABS: BUN Creatinine Ratio 24.2 (10-20); Calcium 8.8 mg/dl (8.5-10.1); Est GFR (African American) 15.3; Est GFR (Non-African American) 13.2
[2019-01-28] MEDS ORDERED: SODIUM CHLORIDE 0.9% 1000ML 1,000 ML IV PRN (07:00)
[2019-01-28] MEDS ORDERED: IRON SUCROSE 50 MG in SYRINGE 0 ML IV ONE (07:00)
[2019-01-28] MEDS ORDERED: EPOETIN ALFA 10,000 UNITS/ML VIAL IV ONE (07:00)
[2019-01-28] MEDS: TPN STOP ORDER SCH (08:33)
[2019-01-28] MEDS: FLUTICASONE PROPIONATE NA SPR 16 GM BTL SCH (08:33)
[2019-01-28] MEDS: AMLODIPINE BESYLATE 5 MG TAB PO SCH ×2 (08:34→13:03)
[2019-01-28] MEDS: FLUTICASONE/SALMETEROL 100/50 (ADVAIR) 14 PUFF/1 INHALER INH SCH ×2 (08:34→20:36)
[2019-01-28] MEDS: LABETALOL HCL 200 MG TAB PO SCH ×2 (08:34→20:36)
[2019-01-28] MEDS: ERTAPENEM SODIUM 500 MG in SODIUM CHLORIDE 0.9% 50 ML IV SCH (13:03)
--- NOTE | 2019-01-28 15:14 | Infectious Disease Progress Nt ---
Date of Service January 28, 2019 Assessment & Plan (1) Multifocal pneumonia: 68-year-old male with multifocal pneumonia with ESBL producing Klebsiella pneumoniae in the setting of prior splenectomy making infection with encapsulated organisms more likely. Patient should continue on IV ertapenem, likely in the range of 10 days total. Will follow. (2) Klebsiella infection: Subjective Patient seen in follow-up for Klebsiella pneumonia. Feeling better, less short of breath. Tolerating ertapenem without apparent difficulty. No hemoptysis. Review of Systems All systems reviewed & are unremarkable except as noted in HPI & below Physical Exam Vital Signs (Past 24 Hours): Last Vital Signs Temp 36.6 C 01/28/19 12:29 Pulse 67 01/28/19 12:29 Resp 18 01/28/19 07:09 BP 166/79 H 01/28/19 12:29 Pulse Ox 92 01/28/19 07:09 Constitutional: WD/WN, vitals as above comfortable; no acute distress Eyes: PERRL, conjunctivae normal, anicteric sclerae ENMT: external ear and nose normal, oropharynx normal Neck: trachea midline, no thyromegaly neck nontender Respiratory: normal respiratory effort, lungs clear to auscultation normal percussion; no respiratory distress Cardiovascular: Rate/Rhythm: regular rate and regular rhythm Heart Sounds: normal S1 and normal S2; no gallop, no murmur and no cardiac rub Gastrointestinal (Abdomen): normal bowel sounds, soft, nontender, no hepatosplenomegaly Musculoskeletal: no cyanosis or clubbing, extremities motor strength 5/5 No spinal tenderness, no joint swelling or erythema Skin: no rashes, warm and dry no lesions Neurologic: moves all extremities and awake; no focal motor deficits Motor/Sensory: no sensory deficit Psychiatric: A+Ox3, euthymic affect Lymphatic: no cervical or axillary lymphadenopathy no inguinal lymphadenopathy Results & Data Laboratory Results BMP 01/28/19 05:29 Sodium 145 Potassium 4.0 Chloride 109 H Carbon Dioxide 30 BUN 105 H Creatinine 4.35 H D Glucose 146 H Calcium 8.8 Diagnostic Findings Microbiology 01/25/19 Unknown Sputum, Expectorated Fungal Smear - Final 01/25/19 Unknown Sputum, Expectorated Fungal Culture - Preliminary [place] albicans 01/25/19 Unknown Sputum, Expectorated Gram Stain - Final 01/25/19 Unknown Sputum, Expectorated Sputum Culture - Final 01/21/19 03:24 Sputum, Expectorated Gram Stain - Final 01/21/19 03:24 Sputum, Expectorated Sputum Culture - Final Klebsiella pneumoniae ESBL 01/10/19 20:50 Blood Blood Culture - Final No growth
--- NOTE | 2019-01-28 16:14 | Hospitalist Progress Note ---
Date of Service January 28, 2019 Assessment & Plan (1) Multifocal pneumonia: CT chest on 01/10 showed bilateral airspace consolidations with left>right. Could be interstitial edema vs. multifocal pneumonia. On admission, WBC was 14.5; now normal. Otherwise no SIRS/sepsis symptoms. - Started on Zosyn on admission - Procalcitonin on 01/13 was 1.2. CXR on 01/20 with increased consolidation on the left antibiotics changed from Augmentin back to Zosyn, Vanco added procalcitonin only 0.27 MRSA swab negative, stop the Vanco in light of renal function and no clear role of therapy CT chest on 01/22 showed worsening infiltrates, but no fever, WBC stable sputum culture grew ESBL Klebsiella on 01/23 changed antibiotics to Ertapenem, ID consulted patient improved a lot, titrated off of oxygen will continue Ertapenem on discharge, will need to ask ID about duration, anticipate 7-10 more days has PICC line for TPN. Will keep picc line for antibiotics. Will taper off TPN as patient is tolerating tube feeds. (2) CKD (chronic kidney disease) stage 5, GFR less than 15 ml/min: Baseline Cr is ~3.5 with eGFR ~15. Cr climbed to 5.58 with BUN of 143 prior to starting HD on 01/23 nephrology following Permacath no longer bleeding continue Lasix 60mg IV TID for urine output, he is still making urine HD today, [facility] nephrology following (3) Anemia: Baseline hgb appears to be 8-10 (the 10 looks to be after transfusion). - Iron studies showed anemia of chronic disease/CKD Transfuse 1 unit packed red blood cells - Epo given by nephro on 01/12 Hb is 9.0 today, BP stable, mild drop in Hb in setting of bleeding from cath site (4) Abdominal pain: Likely some amount of pancreatitis given the typical pain and elevated lipase; however, CT a/p on 01/10 did not show pancreatitis. CT a/p on 01/10 did show cholelithaisis with moderate gallbladder distention; however, surgery felt this was chronic in nature and did not represent cholecystitis. 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 -Patient's abdominal symptoms have resolved. tolerating G tube feedings no complaints today, no pain, will try to advance tube feeds (5) Volume overload: Patient reports 1-2 months of increasing edema in legs, abdomen, face, and arms. Echo on 01/11 showed EF 55-60%, borderline LVH, no valvular pathology. - Likely due to poor kidney function and poor nutritional status -Continuing diuresis per nephrology trying to remove fluid with HD 500cc UF on 01/23 and 750cc UF on 01/24 HD was done today. On furosemide TID. (6) Protein calorie malnutrition: treating with TPN in addition to tube feeds follows with a nutrition technician in [place] as outpatient would continue TPN on discharge as well as tube feeds Home TPN formulation: 290 gm dextrose, 75 gm amino acids, and 25 gm lipids 3x/week to provide a total of 1536 kcal on days w/lipids and 1286 kcal on days w/out lipids 2400 mL over 14 hours with a 1 hour taper up and 1 hour taper down Planning to gradually increase tube feeding and decrease TPN, will have good transition, patient will follow up with Semaj in the utilization engineer at Dr. Adam Beaver tube feeding Rx: currently giving 1000mL daily at 1600 (7) DVT prophylaxis: DVT prophylaxis: on hold due to bleeding (8) Vitamin B 12 deficiency: give 1000mcg injection on 01/26 Spent 35 minutes in management of patient. Subjective Patient is feeling better today. Patient reports he is no longer bleeding. He states though that he is tired from dialysis. Constitutional: + fatigue and + weakness Respiratory: + dyspnea on exertion Cardiovascular: + edema Physical Exam Vital Signs (Past 24 Hours): Last Vital Signs Temp 36.8 C 01/28/19 15:44 Pulse 83 01/28/19 15:44 Resp 18 01/28/19 15:44 BP 153/63 H 01/28/19 15:44 Pulse Ox 92 01/28/19 15:44 Physical Exam: Constitutional: WD/WN, vitals as above + thin Eyes: PERRL, conjunctivae normal, anicteric sclerae ENMT: external ear and nose normal, oropharynx normal Neck: trachea midline, no thyromegaly Respiratory: normal respiratory effort; no respiratory distress Auscultation: no rhonchi Cardiovascular: RRR, no murmur, no edema Rate/Rhythm: regular rate and regular rhythm Heart Sounds: normal S1 and normal S2; no murmur Chest (Breasts): Chest: + vascular access device or port (right tunneled HD catheter, still with bleeding) Gastrointestinal (Abdomen): normal bowel sounds, soft, nontender, no hepatosplenomegaly Musculoskeletal: no cyanosis or clubbing, extremities motor strength 5/5 Skin: no rashes, warm and dry Neurologic: patellar DTR's 2+ bilat, sensation intact and PERRL, EOMI, accommodation nl, no face palsy, no dysarthria Psychiatric: A+Ox3, euthymic affect Lymphatic: no cervical or axillary lymphadenopathy (1) Anemia Anemia type: other cause (2) Volume overload Hypervolemia type: unspecified Qualified Code(s): E87.70 - Fluid overload, unspecified
[2019-01-28] MEDS: PEPTAMEN 1.5 CAL 1,000 ML BAG GT SCH (16:46)
[2019-01-28] MEDS ORDERED: CUSTOM CENTRAL PN IV SCH (18:00)
--- NOTE | 2019-01-28 18:22 | Nephrology Progress Note ---
Date of Service January 28, 2019 Assessment & Plan (1) CKD (chronic kidney disease) stage 5, GFR less than 15 ml/min: Baseline creatinine low-mid 3's; has maturing avf but it's basobasilic and will need transposition. Creatinine is up trending to low 5's and BUN of 136. Worsening renal function likely due to ATN in setting of pneumonia, presumptive pancreatitis; pt also however w/ underlying ESRD prior to this admission. Urine sediment w/ 2+ protein, trace blood, else bland. Chemistries, acid-base status for now acceptable. High BUN partly due to the high protein load from the tube feeds/TPN -- pt may well come off of TPN later this week at least for now -markedly overloaded - pharmacy appreciated in lowering fluid burden both in TPN and in FW flushes; would CONTINUE po water as tolerated which he craves >>s/p tunnelled dialysis cath placement 01/23 >> had first HD 01/23; and 01/24 -He tolerated HD well today. No bleeding. Net UF 2 litres. Next HD monday >>>pls ask case mgt to arrange for outpatient dialysis at [facility] dialysis clinic -Continue obtaining daily BMP (2) Volume overload: -dialysis when appropriate -monitor input output -continue lasix 60 mg IV q6h but hold MN doses (so 3 doses daily) -pulm following (3) Anemia: on epo as outpt; dosed here 01/12, 01/21; t stn on 01/12 was 21%; acceptable for now -No epo today due to high BP (4) Hypertension: Blood pressure elevated this morning but being taken on the leg so might not be accurate. on labetalol 200mg bid and amlodipine 10 mg daily and and prn hydralazine; labetalol is a new med for him this admission; cont lasix 60 mg IV tid; Subjective ESRD complicated by PNA seen in follow up. No SOB. He has moderate swelling of legs and arms. BP is high this morning but ok last night. He was seen and examined on dialysis Review of Systems All systems reviewed & are unremarkable except as noted in HPI & below Physical Exam Vital Signs (Past 24 Hours): Last Vital Signs Temp 36.8 C 01/28/19 15:44 Pulse 83 01/28/19 15:44 Resp 18 01/28/19 15:44 BP 153/63 H 01/28/19 15:44 Pulse Ox 92 01/28/19 15:44 Physical Exam: General exam: Appears comfortable, no acute distress HEENT: Pupils are equal and reactive to light Neck: No JVD, neck is supple trachea is midline Respiratory system: Clear breath sounds bilaterally. Bag on chest for secretions Gastrointestinal: Abdomen is soft, non distended, non tender, bowel sounds are present. PEG tube CVS: Regular rate and rhythm. No murmurs, rubs or gallops Musculoskeletal: No joint or muscle tenderness Extremities: Non tender, no edema, peripheral pulses are present Neuro: Oriented, no tremors, no focal neurological deficits Skin: No rashes Access: right IJ. No active bleeding Results & Data Laboratory Results hb 9, k4 (1) Volume overload Hypervolemia type: unspecified Qualified Code(s): E87.70 - Fluid overload, unspecified (2) Anemia Anemia type: other cause
[2019-01-29] MEDS: INSULIN ASPART 100 UNITS/ML 3 ML PEN SC SCH ×4 (00:41→19:05)
[2019-01-29] MEDS: FUROSEMIDE 60 MG in SYRINGE 0 ML IV SCH ×3 (06:20→17:00)
[2019-01-29 07:41] LABS: Calcium 8.4 mg/dl (8.5-10.1); Creatinine Clr Calc Pharmacy 22.6 ml/min; Est GFR (African American) 24.3; Est GFR (Non-African American) 20.9; Magnesium 2.1 mg/dl (1.8-2.4); Phosphorus 2.5 mg/dl (2.5-4.9); Potassium 4.1 mmol/L (3.5-5.1)
[2019-01-29] MEDS: TPN STOP ORDER SCH (09:27)
[2019-01-29] MEDS: FLUTICASONE/SALMETEROL 100/50 (ADVAIR) 14 PUFF/1 INHALER INH SCH ×2 (09:32→20:25)
[2019-01-29] MEDS: AMLODIPINE BESYLATE 5 MG TAB PO SCH (09:33)
[2019-01-29] MEDS: LABETALOL HCL 200 MG TAB PO SCH ×2 (09:33→20:25)
[2019-01-29] MEDS: FLUTICASONE PROPIONATE NA SPR 16 GM BTL SCH (09:33)
[2019-01-29] MEDS: ERTAPENEM SODIUM 500 MG in SODIUM CHLORIDE 0.9% 50 ML IV SCH (13:01)
[2019-01-29] MEDS: PEPTAMEN 1.5 CAL 1,000 ML BAG GT SCH (16:50)
--- NOTE | 2019-01-29 20:48 | Nephrology Progress Note ---
Date of Service January 29, 2019 Assessment & Plan (1) CKD (chronic kidney disease) stage 5, GFR less than 15 ml/min: Baseline creatinine low-mid 3's; has maturing avf but it will need transposition. Worsening renal function likely due to ATN in setting of pneumonia. pt also however w/ underlying ESRD prior to this admission. Patient started HD last week. >>s/p tunnelled dialysis cath placement 01/23 >> had first HD 01/23; and 01/24 -He tolerated HD well yesterday. No bleeding. Net UF 2 litres. Next HD monday >>>pls ask case mgt to arrange for outpatient dialysis at [facility] dialysis clinic -Continue obtaining daily BMP (2) Volume overload: -dialysis when appropriate -monitor input output -continue lasix 60 mg IV q6h but hold MN doses (so 3 doses daily) -pulm following (3) Anemia: on epo as outpt; dosed here 01/12, 01/21; t stn on 01/12 was 21%; acceptable for now -Will give epo tomorrow (4) Hypertension: Blood pressure better on labetalol 200mg bid and amlodipine 10 mg daily and and prn hydralazine; labetalol is a new med for him this admission; cont lasix 60 mg IV tid; Subjective ESRD complicated by PNA seen in follow up. He complains of being wiped out. No SOB. He has moderate swelling of legs and arms. BP is controlled. He tolerated dialysis well yesterday Constitutional: + fatigue, + weakness and + anorexia Respiratory: + dyspnea on exertion Cardiovascular: + dyspnea on exertion Gastrointestinal: + abdominal pain (around FT exit site) Musculoskeletal: + swelling and + muscle weakness Neurologic: + dizziness Endocrine: + fatigue Hematologic / Lymphatic: + easy bleeding Physical Exam Vital Signs (Past 24 Hours): Last Vital Signs Temp 36.3 C L 01/29/19 15:35 Pulse 63 01/29/19 15:35 Resp 18 01/29/19 15:35 BP 120/55 L 01/29/19 15:35 Pulse Ox 94 01/29/19 15:35 Physical Exam: General exam: Appears comfortable, no acute distress HEENT: Pupils are equal and reactive to light Neck: No JVD, neck is supple trachea is midline Respiratory system: Clear breath sounds bilaterally. Bag for secretions on chest Gastrointestinal: Abdomen is soft, non distended, non tender, bowel sounds are present. PEG tube CVS: Regular rate and rhythm. No murmurs, rubs or gallops Musculoskeletal: No joint or muscle tenderness Extremities: Non tender, no edema, peripheral pulses are present Neuro: Oriented, no tremors, no focal neurological deficits Skin: No rashes Results & Data Laboratory Results k 4.1, cr 2.9 (1) Volume overload Hypervolemia type: unspecified Qualified Code(s): E87.70 - Fluid overload, unspecified (2) Anemia Anemia type: other cause
--- NOTE | 2019-01-29 21:10 | Infectious Disease Progress Nt ---
Date of Service January 29, 2019 Assessment & Plan (1) Multifocal pneumonia: 68-year-old male with multifocal pneumonia with ESBL producing Klebsiella pneumoniae in the setting of prior splenectomy making infection with encapsulated organisms more likely. Patient should continue on IV ertapenem, likely in the range of 10 days total. Will follow. (2) Klebsiella infection: Subjective Patient seen in follow-up for Klebsiella pneumonia. Feeling better, less short of breath. Tolerating ertapenem without apparent difficulty. No hemoptysis. Constitutional: + fatigue and + weakness; no fever Respiratory: as per Subjective / HPI Gastrointestinal: as per Subjective / HPI Physical Exam Vital Signs (Past 24 Hours): Last Vital Signs Temp 36.3 C L 01/29/19 15:35 Pulse 63 01/29/19 15:35 Resp 18 01/29/19 15:35 BP 120/55 L 01/29/19 15:35 Pulse Ox 94 01/29/19 15:35 Constitutional: WD/WN, vitals as above comfortable; no acute distress Eyes: PERRL, conjunctivae normal, anicteric sclerae ENMT: external ear and nose normal, oropharynx normal Neck: trachea midline, no thyromegaly neck nontender Respiratory: normal respiratory effort, lungs clear to auscultation normal percussion; no respiratory distress and does not use accessory muscles Auscultation: + rhonchi Cardiovascular: Rate/Rhythm: regular rate and regular rhythm Heart Sounds: normal S1 and normal S2; no gallop, no murmur and no cardiac rub Vessels: normal peripheral pulses; no JVD Gastrointestinal (Abdomen): normal bowel sounds, soft, nontender, no hepatosplenomegaly Percussion/Palpation: no abdominal mass Musculoskeletal: no cyanosis or clubbing, extremities motor strength 5/5 Spine: thoracic spine normal to inspection and lumbar spine normal to inspection; no cervical spinal tenderness Skin: no rashes, warm and dry normal turgor; no lesions Neurologic: patellar DTR's 2+ bilat, sensation intact moves all extremities and awake; no focal motor deficits Motor/Sensory: no sensory deficit Psychiatric: A+Ox3, euthymic affect Orientation: cooperative Lymphatic: no cervical or axillary lymphadenopathy no inguinal lymphadenopathy Results & Data Laboratory Results [facility] 01/29/19 06:31 Sodium 144 Potassium 4.1 Chloride 108 H Carbon Dioxide 30 BUN 48 H D Creatinine 2.97 H D Glucose 77 Calcium 8.4 L Diagnostic Findings Microbiology 01/25/19 Unknown Sputum, Expectorated Fungal Smear - Final 01/25/19 Unknown Sputum, Expectorated Fungal Culture - Preliminary Laine albicans 01/25/19 Unknown Sputum, Expectorated Gram Stain - Final 01/25/19 Unknown Sputum, Expectorated Sputum Culture - Final 01/21/19 03:24 Sputum, Expectorated Gram Stain - Final 01/21/19 03:24 Sputum, Expectorated Sputum Culture - Final Klebsiella pneumoniae ESBL 01/10/19 20:50 Blood Blood Culture - Final No growth
--- NOTE | 2019-01-29 23:35 | Hospitalist Progress Note ---
Date of Service January 29, 2019 Assessment & Plan (1) Multifocal pneumonia: CT chest on 01/10 showed bilateral airspace consolidations with left>right. Could be interstitial edema vs. multifocal pneumonia. On admission, WBC was 14.5; now normal. Otherwise no SIRS/sepsis symptoms. - Started on Zosyn on admission - Procalcitonin on 01/13 was 1.2. CXR on 01/20 with increased consolidation on the left antibiotics changed from Augmentin back to Zosyn, Vanco added procalcitonin only 0.27 MRSA swab negative, stop the Vanco in light of renal function and no clear role of therapy CT chest on 01/22 showed worsening infiltrates, but no fever, WBC stable sputum culture grew ESBL Klebsiella on 01/23 changed antibiotics to Ertapenem, ID consulted patient improved a lot, titrated off of oxygen will continue Ertapenem on discharge, will need to ask ID about duration, anticipate 7-10 more days had PICC line for TPN. TPN is stopped. Will keep picc line for antibiotics. Will taper off TPN as patient is tolerating tube feeds. Working on getting discharge plans finalized. As noted patient needs 10 days total of ertapenem. (2) CKD (chronic kidney disease) stage 5, GFR less than 15 ml/min: Baseline Cr is ~3.5 with eGFR ~15. Cr climbed to 5.58 with BUN of 143 prior to starting HD on 01/23 nephrology following Permacath no longer bleeding continue Lasix 60mg IV TID for urine output, he is still making urine HD today, [facility] nephrology following (3) Anemia: Baseline hgb appears to be 8-10 (the 10 looks to be after transfusion). - Iron studies showed anemia of chronic disease/CKD Transfuse 1 unit packed red blood cells - Epo given by nephro on 01/12 Hb is 9.0 today, BP stable, mild drop in Hb in setting of bleeding from cath site (4) Abdominal pain: Likely some amount of pancreatitis given the typical pain and elevated lipase; however, CT a/p on 01/10 did not show pancreatitis. CT a/p on 01/10 did show cholelithaisis with moderate gallbladder distention; however, surgery felt this was chronic in nature and did not represent cholecystitis. 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 -Patient's abdominal symptoms have resolved. tolerating G tube feedings no complaints today, no pain, will try to advance tube feeds (5) Volume overload: Patient reports 1-2 months of increasing edema in legs, abdomen, face, and arms. Echo on 01/11 showed EF 55-60%, borderline LVH, no valvular pathology. - Likely due to poor kidney function and poor nutritional status -Continuing diuresis per nephrology trying to remove fluid with HD 500cc UF on 01/23 and 750cc UF on 01/24 HD was done today. On furosemide TID. (6) Protein calorie malnutrition: treating with TPN in addition to tube feeds follows with a holistic nutritionist in [place] as outpatient would continue TPN on discharge as well as tube feeds Home TPN formulation: 290 gm dextrose, 75 gm amino acids, and 25 gm lipids 3x/week to provide a total of 1536 kcal on days w/lipids and 1286 kcal on days w/out lipids 2400 mL over 14 hours with a 1 hour taper up and 1 hour taper down Planning to gradually increase tube feeding and decrease TPN, will have good transition, patient will follow up with Semaj in the process plant operator at Dr. Adam Beaver tube feeding Rx: currently giving 1000mL daily at 1600 (7) DVT prophylaxis: DVT prophylaxis: on hold due to bleeding (8) Vitamin B 12 deficiency: give 1000mcg injection on 01/26 Spent 35 minutes in management of patient. Subjective Patient is feeling well. He has no complaints. Constitutional: + fatigue and + weakness Respiratory: + dyspnea on exertion Cardiovascular: + edema Physical Exam Vital Signs (Past 24 Hours): Last Vital Signs Temp 36.3 C L 01/29/19 15:35 Pulse 63 01/29/19 15:35 Resp 18 01/29/19 15:35 BP 120/55 L 01/29/19 15:35 Pulse Ox 94 01/29/19 15:35 Physical Exam: Constitutional: WD/WN, vitals as above + thin Eyes: PERRL, conjunctivae normal, anicteric sclerae ENMT: external ear and nose normal, oropharynx normal Neck: trachea midline, no thyromegaly Respiratory: normal respiratory effort; no respiratory distress Auscultation: no rhonchi Cardiovascular: RRR, no murmur, no edema Rate/Rhythm: regular rate and regular rhythm Heart Sounds: normal S1 and normal S2; no murmur Chest (Breasts): Chest: + vascular access device or port (right tunneled HD catheter, no longer bleeding) Gastrointestinal (Abdomen): normal bowel sounds, soft, nontender, no hepatos plenomegaly Musculoskeletal: no cyanosis or clubbing, extremities motor strength 5/5 Skin: no rashes, warm and dry Neurologic: patellar DTR's 2+ bilat, sensation intact and PERRL, EOMI, accommodation nl, no face palsy, no dysarthria Psychiatric: A+Ox3, euthymic affect Lymphatic: no cervical or axillary lymphadenopathy (1) Anemia Anemia type: other cause (2) Volume overload Hypervolemia type: unspecified Qualified Code(s): E87.70 - Fluid overload, unspecified
[2019-01-30] MEDS: INSULIN ASPART 100 UNITS/ML 3 ML PEN SC SCH ×3 (00:40→11:17)
[2019-01-30] MEDS: FUROSEMIDE 60 MG in SYRINGE 0 ML IV SCH ×2 (06:03→11:17)
[2019-01-30] MEDS ORDERED: SODIUM CHLORIDE 0.9% 1000ML 1,000 ML IV PRN (07:29)
[2019-01-30] MEDS ORDERED: EPOETIN ALFA 10,000 UNITS/ML VIAL IV ONE (07:29)
[2019-01-30] MEDS: AMLODIPINE BESYLATE 5 MG TAB PO SCH (07:33)
[2019-01-30] MEDS: LABETALOL HCL 200 MG TAB PO SCH (07:33)
[2019-01-30] MEDS: FLUTICASONE PROPIONATE NA SPR 16 GM BTL SCH (07:33)
[2019-01-30] MEDS: FLUTICASONE/SALMETEROL 100/50 (ADVAIR) 14 PUFF/1 INHALER INH SCH (08:03)
[2019-01-30 10:54] LABS: Calcium 8.4 mg/dl (8.5-10.1); Creatinine Clr Calc Pharmacy 16.3 ml/min; Est GFR (African American) 18.2; Est GFR (Non-African American) 15.7; Potassium 4.7 mmol/L (3.5-5.1)
[2019-01-30] MEDS: ERTAPENEM SODIUM 500 MG in SODIUM CHLORIDE 0.9% 50 ML IV SCH (11:11)
--- NOTE | 2019-02-05 21:08 | Discharge Summary ---
Date of Service January 30, 2019 Admission HPI Per Admitting Provider Mr. Shelton is a 68-year-old male with complicated past medical history as below, who presents with intractable abdominal pain that started earlier today, located in the middle of his abdomen. Denies change in bowel habits. Was recently seen in [facility] [place] J[place] with Gtube. Has been flushing the tube some, but to my knowledge has not yet begun full feeds. Has PICC in place for this. Also c/o increased dyspnea on exertion, increasing weight, and increased lower and upper extremity edema for several weeks. Was started on torsemide after a recent stay in [facility] for dark stools. Colonoscopy eval did not reveal source of bleeding. EGD not performed due to anatomy (esophagectomy as below). Patient states that there was an Echo done "recently" within [facility] which showed no abnormalities. Denies chest pain. Endorses cough. - PMH 1. Anemia 2. Asthma 3. CKD stage V, was on hemodialysis. Has AV fistula. 4. Copper deficiency, B12 deficiency, vitamin D deficiency, zinc deficiency 5. Acquired esophageal pouch 6. History of gastrectomy 7. Hypertension 8. Gastrostomy tube present 9. On total parenteral nutrition PSH 1. 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 History of gastrectomy 3. Acquired esophageal pouch. Social history: Lives with . Has home nursing once a week qMonday. Denies T / E / D . ED course: Review of vitals shows hypertensive, hypoxic. Review of labs shows leukocytosis, normocytic anemia, HAYLEY, elev BNP, elev lipase 1973. Review of imaging shows -CT abdomen pelvis done in the ED, without contrast. Shows possible acute pancreatitis, stable gallbladder distention similar to prior exam. Gallstone in the gallbladder. Nonspecific extensive mesenteric infiltration. Peripancreatic infiltration. No bowel obstruction. Diverticulosis. -CT chest multifocal pneumonia, loculations, parapneumonic effusions Review of management shows patient was given morphine. Hospitalist service consulted for further evaluation and management. Principal Diagnosis Multifocal Pneumonia Discharge Exam Constitutional: WD/WN, vitals as above + thin Eyes: PERRL, conjunctivae normal, anicteric sclerae ENMT: external ear and nose normal, oropharynx normal Neck: trachea midline, no thyromegaly Respiratory: normal respiratory effort; no respiratory distress Auscultation: no rhonchi Cardiovascular: RRR, no murmur, no edema Rate/Rhythm: regular rate and regular rhythm Heart Sounds: normal S1 and normal S2; no murmur Chest (Breasts): Chest: + vascular access device or port (right tunneled HD catheter, no longer bleeding) Gastrointestinal (Abdomen): normal bowel sounds, soft, nontender, no hepatosplenomegaly Musculoskeletal: no cyanosis or clubbing, extremities motor strength 5/5 Skin: no rashes, warm and dry Neurologic: patellar DTR's 2+ bilat, sensation intact and PERRL, EOMI, accommodation nl, no face palsy, no dysarthria Psychiatric: A+Ox3, euthymic affect Lymphatic: no cervical or axillary lymphadenopathy Discharge Data Allergies Allergy/AdvReac Type Severity Reaction Status Date / Time sulfamethoxazole AdvReac Intermediate SEVERE Verified 01/11/19 06:42 DIARRHEA oxycodone AdvReac Mild NAUSEA Verified 01/11/19 06:42 simvastatin AdvReac Mild " my legs Verified 01/11/19 06:42 cramp up" tramadol AdvReac Mild NAUSEA Verified 01/11/19 06:42 moxifloxacin AdvReac Unknown Pt said he Verified 01/10/19 22:57 could barely walk Consultations 01/10/19 23:16 ED Decision to Admit Stat 01/11/19 02:23 Consult Case Management - Discharge Planning Routine Consult Gastroenterology Routine Consult Molder Vacuum Routine Consult Nephrology Routine 01/11/19 12:45 Consult General Surgery Routine 01/15/19 08:17 Consult Nephrology Routine 01/21/19 16:17 Consult Pulmonology Routine 01/22/19 09:59 Consult Vascular Surgery Routine 01/23/19 09:52 Consult Infectious Diseases Routine Procedures Performed Operation Date: 01/23/19 10:30 Actual Procedures p Insertion Of Perm Catheter, Right Internal Jugular Approach, Ultrasound Localization Of Right Internal Jugular Vein, Fluoroscopy For Positioning, Moderate Concious Sedation 1351 to 1417(Right) - Joshua Watts MD Ordered Studies 01/10/19 20:38 CT abd pelvis wo con Stat 01/10/19 23:32 CT chest wo con Urgent 01/22/19 10:16 CT chest wo con Urgent 01/23/19 11:00 EV cvc insrt tunnel wo prt/cap blocker Routine 01/23/19 12:51 US guide vascular access Routine Hospital Course (1) Multifocal pneumonia: CT chest on 01/10 showed bilateral airspace consolidations with left>right. Could be interstitial edema vs. multifocal pneumonia. On admission, WBC was 14.5; now normal. Otherwise no SIRS/sepsis symptoms. - Started on Zosyn on admission - Procalcitonin on 01/13 was 1.2. CXR on 01/20 with increased consolidation on the left antibiotics changed from Augmentin back to Zosyn, Vanco added procalcitonin only 0.27 MRSA swab negative, stop the Vanco in light of renal function and no clear role of therapy CT chest on 01/22 showed worsening infiltrates, but no fever, WBC stable sputum culture grew ESBL Klebsiella on 01/23 changed antibiotics to Ertapenem, ID consulted patient improved a lot, titrated off of oxygen will continue Ertapenem on discharge, will need to ask ID about duration, anticipate 7-10 more days had PICC line for TPN. TPN is stopped. Will keep picc line for antibiotics. Will taper off TPN as patient is tolerating tube feeds. Patient will be discharged on tube feeds. As noted patient needs 10 days total of ertapenem, this will be completed in the outpatient setting (2 more doses) (2) CKD (chronic kidney disease) stage 5, GFR less than 15 ml/min: Baseline Cr is ~3.5 with eGFR ~15. Cr climbed to 5.58 with BUN of 143 prior to starting HD on 01/23 nephrology following Permacath no longer bleeding continue Lasix 60mg IV TID for urine output, he is still making urine , [facility] nephrology following (3) Anemia: Baseline hgb appears to be 8-10 (the 10 looks to be after transfusion). - Iron studies showed anemia of chronic disease/CKD Transfuse 1 unit packed red blood cells - Epo given by nephro on 01/12 BP stable, mild drop in Hb in setting of bleeding from cath site/ hemoglobin stable (4) Abdominal pain: Likely some amount of pancreatitis given the typical pain and elevated lipase; however, CT a/p on 01/10 did not show pancreatitis. CT a/p on 01/10 did show cholelithaisis with moderate gallbladder distention; however, surgery felt this was chronic in nature and did not represent cholecystitis. 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 -Patient's abdominal symptoms have resolved. tolerating G tube feedings (5) Volume overload: Patient reports 1-2 months of increasing edema in legs, abdomen, face, and arms. Echo on 01/11 showed EF 55-60%, borderline LVH, no valvular pathology. - Likely due to poor kidney function and poor nutritional status -Continuing diuresis per nephrology Will continue HD as outpatient.. On furosemide TID. (6) Protein calorie malnutrition: treating with TPN in addition to tube feeds follows with a nutrition tech in [place] as outpatient would continue TPN on discharge as well as tube feeds Home TPN formulation: 290 gm dextrose, 75 gm amino acids, and 25 gm lipids 3x/week to provide a total of 1536 kcal on days w/lipids and 1286 kcal on days w/out lipids 2400 mL over 14 hours with a 1 hour taper up and 1 hour taper down Planning to gradually increase tube feeding and decrease TPN, will have good transition, patient will follow up with [facility] in the director of optimization at Dr. Adam Beaver tube feeding Rx: currently giving 1000mL daily at 1600 (7) DVT prophylaxis: DVT prophylaxis: on hold due to bleeding (8) Vitamin B 12 deficiency: give 1000mcg injection on 01/26 Spent 35 minutes in management of patient. Total Time Total Time Spent Total Time Spent (In Minutes): 31 Total Time Includes: Examination of the Patient, Discharge Planning and Me dication Reconciliation Discharge Plan Discharge Items Patient Disposition: Home - Home Health Services Reason For Visit: HYPOXIA, ABDOMINAL PAIN Discharge Diagnosis: Abdominal pain/ multifocal pneumonia Discharge Goals: Decrease discomfort Activity: Resume your previous activity Non-emergency contact: Primary Care Provider Call non-emergency contact if: you have any medication questions and your symptoms worsen Follow-up/Referrals: Freddie Zuleta MD [Primary Care Provider] - Diet: Clear liquid Addtl Provider Instructions: You will continue on antibiotics for 2 more days. One of the 2 doses will be done after dialysis. Will schedule followup with PCP in 1-2 weeks and followup with Nephro in 1-2 weeks. Prescriptions: New labetalol 200 mg Tablet 200 mg PO BID Qty: 60 RF: 0 amlodipine [Norvasc] 5 mg Tablet 10 mg PO QAM Qty: 30 RF: 0 Peptamen 1.5 0.068 gram- 1.5 kcal/mL Liquid 1,000 ml G-tube DAILY@1600 Qty: 0 RF: 0 ertapenem 1 gram recon soln 500 mg IV DAILY Qty: 2 RF: 0 Continued fluticasone propion-salmeterol [Advair Diskus] 100-50 mcg/dose Blister With Device 1 puff INHALATION BID RF: 0 copper gluconate 2 mg Capsule 2 mg PO DAILY RF: 0 fluticasone propionate 50 mcg/actuation [place],Suspension 1 - 2 spray INTRANASAL DAILY RF: 0 loperamide [Imodium A-D] 1 mg/7.5 mL Liquid 20 ml PO Q6H PRN (Reason: Diarrhea) RF: 0 nystatin 100,000 unit/gram Powder 1 applic TOPICAL DIRECTED RF: 0 ondansetron HCl [Zofran] 4 mg Tablet 4 mg PO TID PRN (Reason: nausea/vomiting) RF: 0 Procrit 2,000 unit/mL Solution subcut DIRECTED RF: 0 torsemide 20 mg Tablet 20 mg PO TID RF: 0 triamcinolone acetonide 0.1 % Cream 1 applic TOPICAL BID PRN (Reason: itchy) RF: 0 albuterol sulfate [Ventolin HFA] 90 mcg/actuation Hfa Aerosol Inhaler 2 puff INHALATION Q4H PRN (Reason: sob) RF: 0 cyanocobalamin (vitamin B-12) [Vitamin B-12] 1,000 mcg Tablet PO MONTHLY RF: 0 Discontinued amlodipine 5 mg Tablet 5 mg PO DAILY RF: 0 Stand-Alone Forms: Call Back Authorization, [facility] Discharge Orders: Discharge Order (Routine); Ordered 01/30/19 Ordered By: Neeraj Morgan Admission Data Admit Date/Time: 01/11/19 01:31 Attending Provider: Neeraj Morgan Admit Provider: Ingris Wang Primary Care Provider: Freddie Zuleta Other Providers: Tavo Clayton ; Colleen Edward ; Peg Turcios ; Anil Howard ; Joshua Watts ; Freddie Velazquez ; Carlos Calvillo Service: Medical Other Interventions: Discharge Summary Assessment (RN) Last Done: 01/30/19 10:52 DC Date/Time DO NOT enter until pt leaves facility: 01/30/19 14:04
== END 2019-01-30 14:04 | disposition home health service (06) | DRG 177 ==
LOC: ED 18:43 → SUATTDRO 01-11 01:31 → 1E 01-11 01:31 → 2N 01-11 14:58 → 2S 01-12 22:57 → 4E 01-18 17:40
DX: E53.8 Deficiency of other specified B group vitamins; J96.01 Acute respiratory failure with hypoxia; D63.1 Anemia in chronic kidney disease; Z79.899 Other long term (current) drug therapy; J45.909 Unspecified asthma, uncomplicated; Z93.4 Other artificial openings of gastrointestinal tract status; E87.70 Fluid overload, unspecified; J15.0 Pneumonia due to Klebsiella pneumoniae; Z68.1 Body mass index [BMI] 19.9 or less, adult; I12.0 Hypertensive chronic kidney disease with stage 5 chronic kidney disease or end stage renal disease; E46 Unspecified protein-calorie malnutrition; K80.20 Calculus of gallbladder without cholecystitis without obstruction; N18.5 Chronic kidney disease, stage 5; I16.0 Hypertensive urgency; N17.9 Acute kidney failure, unspecified